=== PATIENT | female | born 1955 | race Caucasian/White ===

== ENCOUNTER 2021-08-06 16:45 | Inpatient (IN) ==
[2021-08-06] MEDS ORDERED: SODIUM CHLORIDE 0.9% 1000ML 1,000 ML IV SCH (17:15)
[2021-08-06] MEDS ORDERED: MULTI-VITAMIN INFUSION 10 ML, THIAMINE HCL 100 MG, FOLIC ACID 1 MG in SODIUM CHLORIDE 0... IV ONE (17:20)
[2021-08-06 17:52] LABS: Hematocrit (blood only) 32.5 % (37-47); Hemoglobin 11.2 g/dL (12.0-16.0); Mean Corpuscular Hemoglobin 33.4 pg (25-34); Mean Corpuscular Hgb Conc 34.5 g/dL (32-36); RDW Coefficient of Variation 12.6 % (11.5-14.5); RDW Standard Deviation 45.1 fL (36.4-46.3); Red Blood Count 3.35 M/uL (4.2-5.4); White Blood Count 5.73 K/uL (4.8-10.8)
[2021-08-06 17:53] LABS: Calcium 6.4 mg/dl (8.5-10.1); Creatinine Clr Calc Pharmacy 110.5 ml/min; Est GFR (African American) 141.8 ml/min; Est GFR (Non-African American) 122.4 ml/min; Potassium 3.2 mmol/L (3.5-5.1)
[2021-08-06 17:55] LABS: Albumin Globulin Ratio 0.7 (0.9-2); Albumin Level 2.9 gm/dl (3.4-5.0); Bilirubin,Total 1.2 mg/dl (0.2-1.0); Globulin 4.1 gm/dl (2.5-4.0); Magnesium 0.8 mg/dl (1.7-2.4)
[2021-08-06 17:56] LABS: INR 1.3 (0.9-1.1); Prothrombin Time 13.9 Seconds (9.0-12.0)
[2021-08-06 17:58] LABS: Troponin I High Sensitivity 6.5 pg/ml (0-14)
[2021-08-06 17:59] LABS: Mean Platelet Volume 9.8 fL (7.4-10.4); Platelet Count 83 K/uL (130-400)
[2021-08-06] MEDS: MAGNESIUM SULFATE / D5W 1 GM/100 ML BAG IV SCH ×2 (18:11→19:23)
[2021-08-06 18:13] LABS: Basophils # (auto) 0.01 K/uL (0-0.2); Basophils % (auto) 0.2 %; Eosinophils # (auto) 0.01 K/uL (0-0.5); Eosinophils % (auto) 0.2 %; Immature Granulocytes # (auto) 0.01 K/uL (0.00-0.02); Immature Granulocytes % (auto) 0.2 %; Lymphocytes # (auto) 3.47 K/uL (1.2-3.4); Lymphocytes % (auto) 60.6 %; Monocytes # (auto) 0.14 K/uL (0.11-0.59); Monocytes % (auto) 2.4 %; Neutrophils # (auto) 2.09 K/uL (1.4-6.5); Neutrophils % (auto) 36.4 %
--- NOTE | 2021-08-06 18:20 | CT Scan Report ---
CT head/brain wo con CLINICAL HISTORY: weakness Technique: Contiguous axial CT images of the head were acquired from the base of the skull to the rula remberto without intravenous contrast administration. Images were viewed in brain, subdural and bone [facility]. Automated dose lowering techniques and/or adjustment according to patient size were utilized for this exam. Comparison: None available at the time of this dictation. Findings: Areas of decreased attenuation are present in the periventricular and subcortical white matter bilate rally consistent with small vessel ischemic disease. Generalized cerebral atrophy with commensurate e nlargement of the ventricles, sulci, and cisterns is also present. There is no acute intracranial hem orrhage or evidence of acute territorial infarction. No shift of the midline structures, mass effect, or extra-axial abnormalities are shown. Atherosclerotic calcifications are present in the intracran ial segments of the internal carotid arteries. There is opacification of the right mastoid air cell. Right ethmoid sinuses are opacified. The orbits appear normal. There are no acute fractures of the calvaria or scalp swelling. Impression: No acute intracranial hemorrhage, no evidence of acute territorial infarction or other acute intracra nial disease process. Sinus disease is noted. ACT 112: Negative or not required by law. Electronically signed by: Tay Irwin M.D. 08/06/2021 6:19 PM
--- NOTE | 2021-08-06 18:44 | XRay Report ---
XR chest 1V portable CLINICAL HISTORY: weakness TECHNIQUE: Single frontal radiograph of the chest was obtained. Comparison: Comparison is made to chest and abdomen radiographs 10/04/2006 FINDINGS: No lines and tubes are seen. The cardiomediastinal silhouette is normal. The lungs are clear. No evid ence of pleural effusion or pneumothorax. IMPRESSION: No acute chest disease. ACT 112: Negative or not required by law. Electronically signed by: Tay Irwin M.D. 08/06/2021 6:43 PM
--- NOTE | 2021-08-06 18:46 | Emergency Department Note ---
History of Present Illness General Chief complaint: Weakness Stated complaint: WEAKNESS Time Seen by Provider: 08/06/21 17:04 Source: family and EMS Mode of arrival: EMS Limitations: altered mental status and intoxication History of Present Illness Provider complaint: Weakness, confusion, frequent falls, alcohol abuse This is a 66-year-old female brought in by EMS after family and boyfriend contacted 911 due to concern for her deteriorating condition. They state patient does use alcohol daily. The last several months she has become increasingly more weak, intermittently confused, and falls frequently. He st ates she does not eat or drink much else through the day. Boyfriend at bedside states she drinks half of 1/5 of whiskey as well as several beers each day. Patient does admit to daily alcohol use. She denies any prior history of alcohol withdrawal symptoms or hospitalization due to alcohol related issue. Patient has previously had pancreatitis due to her daughter. She states following that episode several years ago she did cut back on her alcohol use, however it has increased in recent months. They states she otherwise does not routinely follow with a doctor. She is not currently taking any medications. Patient denies any pain, vomiting, diarrhea, or trouble breathing. Patient does admit to weakness, fatigue, feeling off balance when she tries to walk, and frequent falls. Pt seen during a time of high acuity and national emergency pandemic while wearing PPE. Home Medications Medication Instructions Recorded Confirmed Type No Known Home Medications 08/06/21 08/06/21 History Allergies Allergy/AdvReac Type Severity Reaction Status Date / Time codeine Allergy Unknown Verified 07/16/12 07:20 ragweed pollen Allergy Unknown Verified 07/16/12 07:20 acetaminophen Allergy GI SYMPTOMS Verified 07/16/12 07:20 hydrocodone Allergy GI SYMPTOMS Verified 07/16/12 07:20 morphine Allergy GI SYMPTOMS Verified 07/16/12 07:20 Dust Allergy Unknown Uncoded 07/16/12 07:20 Past Med/Surg History Social History Smoking Status: Current every day smoker Tobacco Type: Cigarettes Cigarettes Per Day: 1/2 pk since feeling sick. Usually over 1 pack/day; Second Hand Exposure: Yes; Do You Dip or Chew Tobacco: No; Tobacco Cessation Education Requested by Patient: No Hx Alcohol Use: Yes Alcohol type: beer and hard liquor Hx Substance Use: No Preferred Language: Telugu Communication Ability: Effective Clubhouse Attendant Required: No Beliefs That Will Affect Care: None marital status: Single Current Living Situation: Significant Other Current Living Situation Comment: Lives in a house Other Information That Helps Us Care for You: No Feels Safe at Home: Yes Safety Concerns: Feels Safe At This Time Assistive Devices: None Review of Systems See HPI for pertinent positives & negatives. All systems reviewed & are unremarkable except as noted in HPI & below Physical Exam Vital Signs Vital Signs - 24 hr 08/06/21 16:50 08/06/21 17:11 Temperature 36.5 C Temperature Source Oral Pulse Rate 88 Pulse Rhythm Regular Respiratory Rate 20 Respiratory Effort / Characteristics Non-Labored Respiratory Depth Normal Respiratory Pattern Regular Blood Pressure 134/84 Blood Pressure Mean 100 Blood Pressure Position Semi-fowlers Pulse Oximetry 100 98 Oxygen Delivery Method Room Air Room Air Sepsis Recent Fever Within 48 Hours No Sepsis New/Unexplained Change in Mental Status Yes Sepsis Action Taken by Nursing No Action Required GENERAL: alert, cachectic, ill-appearing, no distress EYE EXAM: normal conjunctiva, PERRL and EOM's grossly intact OROPHARYNX: no exudate, no erythema, lips, buccal mucosa, and tongue normal and mucous membranes are dry NECK: supple, no nuchal rigidity, no adenopathy, non-tender LUNGS: Clear to auscultation. Normal chest wall mechanics, no w/r/r HEART: no murmurs, S1 normal and S2 normal CHEST WALL: No crepitus, no rib tenderness with palpation ABDOMEN: abdomen soft, non-tender, normo-active bowel sounds, no masses, no rebound or guarding. BACK: Back is symmetrical on inspection and there is no deformity, no midline tenderness, no CVA tenderness. SKIN: no rashes and no bruising UPPER EXTREMITIES: upper extremities are grossly normal. FROM, nml pulses b/l. Areas of ecchymosis in various stages of healing consistent with likely chronic recurring mild trauma. LOWER EXTREMITIES: No pitting edema. FROM, nml pulses b/l. There are areas of ecchymosis in various stages of healing consistent with likely chronic recurring mild trauma. NEURO EXAM: Normal sensorium, cranial nerves II-XII grossly intact, normal speech, no gross weakness of arms, no gross weakness of legs. Gross sensation intact. Course Administered Medications Docusate Sodium (Docusate Sodium 100 Mg Cap) 100 mg PO BID [facility] Stop: 09/06/21 15:09 Last Admin: 08/07/21 16:29 Dose: 100 mg Documented by: [id number] Ergocalciferol (Ergocalciferol 50,000 Units 1250 Mcg Cap) 50,000 units PO Q7D@0900 [facility] Stop: 09/06/21 09:44 Last Admin: 08/07/21 10:13 Dose: 50,000 units Documented by: [id number] Heparin Sodium (Porcine) (Heparin Sod 5,000 Unit/0.5 Ml Vial) 5,000 units SQ Q12 [facility] Stop: 09/06/21 00:06 Last Admin: 08/07/21 08:28 Dose: 5,000 units Documented by: [id number] Admin: 08/07/21 01:52 Dose: 5,000 units Documented by: [id number] Thiamine HCl 100 mg/ Syringe 10 mls @ 2 mls/min IV QAM [facility] Stop: 09/06/21 00:06 Last Admin: 08/07/21 08:29 Dose: 2 mls/min Documented by: [id number] Admin: 08/07/21 01:17 Dose: 2 mls/min Documented by: [id number] Folic Acid 1 mg/ Syringe 10 mls @ 5 mls/min IV QAM [facility] Stop: 09/06/21 00:06 Last Admin: 08/07/21 08:29 Dose: 5 mls/min Documented by: [id number] Admin: 08/07/21 01:14 Dose: 5 mls/min Documented by: [id number] Miscellaneous (Remove Nicoderm Patch) 1 ea N/A DAILY@0859 [facility] Stop: 09/06/21 08:58 Last Admin: 08/07/21 08:23 Dose: 1 ea Documented by: [id number] Multivitamins/Minerals (Calcium 600mg + Vit D 400 Iu Tab) 1 tab PO BID [facility] Stop: 09/06/21 08:59 Last Admin: 08/07/21 08:24 Dose: 1 tab Documented by: [id number] Nicotine (Nicotine 14 Mg/24 Hr Patch) 14 mg TD DAILY [facility] Stop: 09/06/21 00:06 Last Admin: 08/07/21 08:26 Dose: 14 mg Documented by: [id number] Admin: 08/07/21 01:53 Dose: 14 mg Documented by: [id number] Discontinued Medications Bisacodyl (Bisacodyl 10 Mg Supp) 10 mg ID NOW STA Stop: 08/07/21 06:54 Last Admin: 08/07/21 08:29 Dose: 10 mg Documented by: [id number] Gabapentin (Gabapentin 400 Mg Cap) 800 mg PO NOW ONE Stop: 08/07/21 00:08 Last Admin: 08/07/21 01:51 Dose: 800 mg Documented by: [id number] Gabapentin (Gabapentin 400 Mg Cap) 400 mg PO Q6H AGUS Stop: 08/07/21 12:01 Last Admin: 08/07/21 12:16 Dose: 400 mg Documented by: [id number] Admin: 08/07/21 05:51 Dose: 400 mg Documented by: [id number] Sodium Chloride (Nss 1000ml) 1,000 mls @ 125 mls/hr IV .Q8H AGUS Stop: 09/05/21 17:14 Last Infusion: 08/07/21 01:04 Dose: 0 mls/hr Documented by: [id number] Admin: 08/06/21 18:06 Dose: 125 mls/hr Documented by: [id number] Multivitamins 10 ml/ Thiamine HCl 100 mg/ Folic Acid 1 mg/Sodium Chloride 1,011.2 mls @ 200 mls/hr IV .Q5H4M ONE Stop: 08/06/21 22:23 Last Infusion: 08/07/21 01:03 Dose: 0 mls/hr Documented by: [id number] Admin: 08/06/21 18:02 Dose: 200 mls/hr Documented by: [id number] Magnesium Sulfate/Dextrose (Magnesium Sulfate / D5w) 1 gm in 100 mls @ 100 mls/hr IV Q1H AGUS Stop: 08/06/21 20:03 Last Infusion: 08/06/21 21:58 Dose: 0 mls/hr Documented by: [id number] Admin: 08/06/21 19:23 Dose: 100 mls/hr Documented by: [id number] Infusion: 08/06/21 19:22 Dose: 0 mls/hr Documented by: [id number] Admin: 08/06/21 18:11 Dose: 100 mls/hr Documented by: [id number] Potassium Chloride/Dextrose/Sod Cl (D5nss + 20meq Kcl) 20 meq in 1,000 mls @ 80 mls/hr IV .[id number] AGUS Stop: 08/07/21 12:36 Last Infusion: 08/07/21 12:37 Dose: 0 mls/hr Documented by: [id number] Admin: 08/07/21 00:56 Dose: 80 mls/hr Documented by: [id number] Magnesium Sulfate/Dextrose (Magnesium Sulfate / D5w) 1 gm in 100 mls @ 50 mls/hr IV ONE ONE Stop: 08/07/21 02:06 Last Infusion: 08/07/21 05:50 Dose: 0 mls/hr Documented by: [id number] Admin: 08/07/21 01:16 Dose: 50 mls/hr Documented by: [id number] Calcium Gluconate 1,000 mg/ (Dextrose) 60 mls @ 240 mls/hr IV NOW ONE Stop: 08/07/21 00:21 Last Infusion: 08/07/21 01:50 Dose: 0 mls/hr Documented by: [id number] Admin: 08/07/21 00:49 Dose: 240 mls/hr Documented by: [id number] Calcium Gluconate 1,000 mg/ (Dextrose) 60 mls @ 240 mls/hr IV ONE ONE Stop: 08/07/21 10:14 Last Infusion: 08/07/21 10:29 Dose: 0 mls/hr Documented by: [id number] Admin: 08/07/21 10:10 Dose: 240 mls/hr Documented by: [id number] Magnesium Sulfate/Dextrose (Magnesium Sulfate / D5w) 1 gm in 100 mls @ 50 mls/hr IV Q2H AGUS Stop: 08/07/21 13:44 Last Infusion: 08/07/21 14:19 Dose: 0 mls/hr Documented by: [id number] Admin: 08/07/21 12:16 Dose: 50 mls/hr Documented by: [id number] Infusion: 08/07/21 12:12 Dose: 50 mls/hr Documented by: [id number] Admin: 08/07/21 10:12 Dose: 50 mls/hr Documented by: [id number] Ioversol (Optiray 320 100ml) 94 ml IV ONCE ONE Stop: 08/06/21 21:19 Last Admin: 08/06/21 21:18 Dose: 94 ml Documented by: [id number] Loperamide HCl (Loperamide Hcl 2 Mg Cap) 2 mg PO NOW STA Stop: 08/07/21 00:08 Last Admin: 08/07/21 01:55 Dose: 2 mg Documented by: [id number] Potassium Chloride (Potassium Chloride 20 Meq/15 Ml Udc) 40 meq PO NOW STA Stop: 08/07/21 00:08 Last Admin: 08/07/21 01:52 Dose: 40 meq Documented by: [id number] Critical Care Time Critical Care Time: Yes Total Critical Care Time: 35 Critical care of 35 min performed to assess and manage high likelihood of life-threatening electrolyte abnormalities, involving labs and imaging performed with assessment to evaluate electrolyte abnormality and malnutrition from alcohol abuse diagnosis with frequent reassessment. This time includes bedside time, treatment discussions with patient/family/consultants, documentation time and excludes procedure time. Medical Decision Making Differential Diagnosis Differential Diagnosis includes but is not limited to dehydration, stroke, anemia, hypoglycemia, hyponatremia, hypernatremia, urinary tract infection, pneumonia, bronchitis, sepsis, gastroenteritis, additional abdominal pathology, metabolic abnormalities and infections. Medical Records Attestation: I reviewed the patient's medical records. Home Medications Current Medication List: was personally reviewed by me Laboratory Data Attestation: I reviewed the patient's lab results. Result diagrams: 08/07/21 08:06 08/07/21 08:06 Lab Results 08/06/21 08/06/21 08/06/21 Range/Units 17:20 17:20 17:20 WBC 5.73 (4.8-10.8) K/uL RBC 3.35 L (4.2-5.4) M/uL Hgb 11.2 L (12.0-16.0) g/dL Hct 32.5 L (37-47) % MCV 97.0 (80-100) fL MCH 33.4 (25-34) pg MCHC 34.5 (32-36) g/dL RDW Std Deviation 45.1 (36.4-46.3) fL RDW Coeff of Justine 12.6 (11.5-14.5) % Plt Count 83 L (130-400) K/uL MPV 9.8 (7.4-10.4) fL Immature Gran % (Auto) 0.2 % Neut % (Auto) 36.4 % Lymph % (Auto) 60.6 % [place] % (Auto) 2.4 % Eos % (Auto) 0.2 % Baso % (Auto) 0.2 % Neut # (Auto) 2.09 (1.4-6.5) K/uL Lymph # (Auto) 3.47 H (1.2-3.4) K/uL [place] # (Auto) 0.14 (0.11-0.59) K/uL Eos # (Auto) 0.01 (0-0.5) K/uL Baso # (Auto) 0.01 (0-0.2) K/uL Immature Gran # (Auto) 0.01 (0.00-0.02) K/uL PT (9.0-12.0) Seconds INR (0.9-1.1) Sodium 136 (136-145) mmol/L Potassium 3.2 L (3.5-5.1) mmol/L Chloride 91 L (98-107) mmol/L Carbon Dioxide 24 (21-32) mmol/L Anion Gap 21 H (3-11) BUN 9 (6-23) mg/dl Creatinine 0.29 L (0.6-1.2) mg/dl Est Cr Clr Drug Dosing 110.5 ml/min Est GFR ( Amer) 141.8 ml/min Est GFR (Non-Af Amer) 122.4 ml/min BUN/Creatinine Ratio 31.0 H (10-20) Glucose 96 (70-99(Fasting)) mg/dl Calcium 6.4 L (8.5-10.1) mg/dl Magnesium 0.8 L* (1.7-2.4) mg/dl Total Bilirubin 1.2 H (0.2-1.0) mg/dl AST 97 H (13-39) U/L ALT 26 (7-52) U/L Alkaline Phosphatase 247 H (34-104) U/L Ammonia (18-72) umol/L Troponin I High Sens 6.5 (0-14) pg/ml Total Protein 7.0 (6.0-8.3) gm/dl Albumin 2.9 L (3.4-5.0) gm/dl Globulin 4.1 H (2.5-4.0) gm/dl Albumin/Globulin Ratio 0.7 L (0.9-2) Lipase 11 (11-82) U/L TSH (0.300-4.500) uIu/ml Ethyl Alcohol mg/dL 319.8 H (<10.0) mg/dl 08/06/21 08/06/21 08/06/21 Range/Units 17:20 17:33 17:33 WBC (4.8-10.8) K/uL RBC (4.2-5.4) M/uL Hgb (12.0-16.0) g/dL Hct (37-47) % MCV (80-100) fL MCH (25-34) pg MCHC (32-36) g/dL RDW Std Deviation (36.4-46.3) fL RDW Coeff of Justine (11.5-14.5) % Plt Count (130-400) K/uL MPV (7.4-10.4) fL Immature Gran % (Auto) % Neut % (Auto) % Lymph % (Auto) % [place] % (Auto) % Eos % (Auto) % Baso % (Auto) % Neut # (Auto) (1.4-6.5) K/uL Lymph # (Auto) (1.2-3.4) K/uL [place] # (Auto) (0.11-0.59) K/uL Eos # (Auto) (0-0.5) K/uL Baso # (Auto) (0-0.2) K/uL Immature Gran # (Auto) (0.00-0.02) K/uL PT 13.9 H (9.0-12.0) Seconds INR 1.3 H (0.9-1.1) Sodium (136-145) mmol/L Potassium (3.5-5.1) mmol/L Chloride (98-107) mmol/L Carbon Dioxide (21-32) mmol/L Anion Gap (3-11) BUN (6-23) mg/dl Creatinine (0.6-1.2) mg/dl Est Cr Clr Drug Dosing ml/min Est GFR ( Amer) ml/min Est GFR (Non-Af Amer) ml/min BUN/Creatinine Ratio (10-20) Glucose (70-99(Fasting)) mg/dl Calcium (8.5-10.1) mg/dl Magnesium (1.7-2.4) mg/dl Total Bilirubin (0.2-1.0) mg/dl AST (13-39) U/L ALT (7-52) U/L Alkaline Phosphatase (34-104) U/L Ammonia 28.0 (18-72) umol/L Troponin I High Sens (0-14) pg/ml Total Protein (6.0-8.3) gm/dl Albumin (3.4-5.0) gm/dl Globulin (2.5-4.0) gm/dl Albumin/Globulin Ratio (0.9-2) Lipase (11-82) U/L TSH 3.535 (0.300-4.500) uIu/ml Ethyl Alcohol mg/dL (<10.0) mg/dl Imaging Data Radiologist's Impression: Head CT 08/06/21 17:13 CT head/brain wo con CLINICAL HISTORY: weakness Technique: Contiguous axial CT images of the head were acquired from the base of the skull to the vertex without intravenous contrast administration. Images were viewed in brain, subdural and bone windows. Automated dose lowering techniques and/or adjustment according to patient size were utilized for this exam. Comparison: None available at the time of this dictation. Findings: Areas of decreased attenuation are present in the periventricular and subcortical white matter bilaterally consistent with small vessel ischemic disease. Generalized cerebral atrophy with commensurate enlargement of the ventricles, sulci, and cisterns is also present. There is no acute intracranial hemorrhage or evidence of acute territorial infarction. No shift of the midline structures, mass effect, or extra-axial abnormalities are shown. Atherosclerotic calcifications are present in the intracranial segments of the internal carotid arteries. There is opacification of the right mastoid air cell. Right ethmoid sinuses are opacified. The orbits appear normal. There are no acute fractures of the ca lvaria or scalp swelling. Impression: No acute intracranial hemorrhage, no evidence of acute territorial infarction or other acute intracranial disease process. Sinus disease is noted. ACT 112: Negative or not required by law. Electronically signed by: Tay Irwin M.D. 08/06/2021 6:19 PM MDM Narrative An order was placed for continuous cardiac monitoring. The monitor shows a rate of _102_ with sinus tachycardia__ rhythm. This is an ill-appearing 66-year-old female who presents at family's insistence due to concern for worsening weakness, malnutrition, and recurrent falls. Patient does admit to a history of daily alcohol use. Labs drawn and sent, patient placed on telemetry, IV fluids started. IV banana bag also added at maintenance rate. Patient found to have significant electrolyte abnormalities. We did begin IV magnesium repletion while in the emergency room. Patient was found to be intoxicated. Imaging reassuring. I have a low suspicion for other occult traumatic injury. I did discuss all results with patient and family at bedside as well as plan for additional inpatient management and evaluation. Patient is at risk for severe alcohol withdrawal symptoms. No prior inpatient treatment. Impression & Plan Generalized weakness, Alcohol intoxication, Hypokalemia, Hypomagnesemia, Pro tein-calorie malnutrition, severe, Anemia, Dehydration, Alcohol abuse, Recurrent falls Discharge Plan Visit Data Chief Complaint: Weakness Stated Complaint: WEAKNESS ED Provider: Theresa Roman Discharge Problem: Generalized weakness, Alcohol intoxication, Hypokalemia, Hypomagnesemia, Protein-calorie malnutrition, severe, Anemia, Dehydration, Alcohol abuse, Recurrent falls Patient Disposition: Admitted As Inpatient Discharge Instructions Interventions: ED Discharge Assessment Last Done: 08/06/21 22:43 Discharge Problem: Alcohol intoxication Qualifiers: Complication of substance-induced condition: uncomplicated Qualified Code(s): F10.920 - Alcohol use, unspecified with intoxication, uncomplicated Anemia Qualifiers: Anemia type: other cause Other causes of anemia: other cause, not classified Qualified Code(s): D64.89 - Other specified anemias
[2021-08-06] MEDS ORDERED: OPTIRAY 320 100ml IV ONE (21:18)
--- NOTE | 2021-08-06 21:35 | CT Scan Report ---
CT chest diagnostic w con CLINICAL HISTORY: poor appetite, loss of weight, failure to thrive TECHNIQUE: Multidetector row helical CT of the chest was performed with intravenous contrast. Coronal and sagittal reformations were obtained. Automated dose lowering techniques and/or adjustment accord ing to patient size were utilized for this exam. Comparison: None available at the time of this dictation. FINDINGS: Lungs and pleura: There is a 6 mm nodule in the right lower lobe. Heart and pericardium: Heart size is normal. No pericardial effusion. Vessels: Moderate atherosclerotic changes in the aorta and coronary arteries. Mediastinum and zbigniew: Unremarkable. Chest wall and lower neck: The patient is cachectic. Abdomen: For findings below the diaphragm, please refer to CT of the abdomen dated the same. Bones: Degenerative changes in the thoracic spine. IMPRESSION: 1. Cachexia. No acute abnormality is seen. 2. Atherosclerosis. 3. 6 mm nodule in the right lower lobe, correlation with prior imaging, available, is recommended. ACT 112: Negative or not required by law. Electronically signed by: Tay Irwin M.D. 08/06/2021 9:33 PM
--- NOTE | 2021-08-06 22:00 | CT Scan Report ---
CT abd pelvis IV con only CLINICAL HISTORY: poor appetite, loss of weight, hep c TECHNIQUE: Helical axial images of the abdomen and pelvis were obtained and displayed. Automated dose lowering techniques and/or adjustment according to patient size were utilized for this exam. This e xam was performed with intravenous contrast. CT DOSE: 421.85 mGy.cm COMPARISON: Comparison is made to CT abdomen pelvis 10/10/2006 FINDINGS: Lower chest: Mitral annular calcifications are seen. Liver: Hepatic steatosis is noted. Gallbladder and biliary tree: No calcified gallstones. Normal caliber wall. No intra- or extrahepatic biliary ductal dilation. Pancreas: Calcified appears of the pancreas compatible with chronic pancreatitis. There is a 2 cm vincent creatic cyst. Spleen: Unremarkable. Adrenals: Unremarkable. Kidneys and ureters: Unremarkable. Bladder: The bladder is markedly distended. Reproductive organs: Unremarkable. Bowel: A large stool ball is seen in the rectum. Lymph nodes Retroperitoneal: Unremarkable. Mesenteric: Unremarkable. Pelvic: Unremarkable. Peritoneum: Normal. Vessels: Unremarkable. Abdominal wall: Cachexia is seen. Bones: Degenerative changes in the visualized spine. IMPRESSION: 1. The patient is cachectic. The bladder is massively distended and there is a large stool ball in t he rectum. No acute abnormality is seen. 2. Pancreatic calcifications are compatible with chronic pancreatitis. ACT 112: Negative or not required by law. Electronically signed by: Tay Irwin M.D. 08/06/2021 9:58 PM
--- NOTE | 2021-08-06 23:21 | History and Physical Report ---
DATE OF ADMISSION: 08/06/2021. CHIEF COMPLAINT: Weakness, poor appetite, alcoholism. HISTORY OF PRESENT ILLNESS: A 66-year-old female with past medical history significant for impaired glucose tolerance, chronic hepatitis C, history of acute alcoholic hepatitis, carpal tunnel syndrome, cervical spondylosis, lumbosacral spondylosis, cervical radiculopathy, family history of colon cancer, history of tobacco use disorder, who lives at home with her boyfriend, was brought in by boyfriend and daughter because of frequent falls, very weak, ongoing diarrhea for the last 2-3 months, taking Imodium daily, loss of weight, feeling weak. The patient is alert and oriented to name and place. She could tell the year, but she thinks it is still May. Denies any headache. She sometimes feels lightheaded. Hs some runny nose, no sore throat, no cough, no fevers. Appetite is poor. No difficulty swallowing. No chest pain, no shortness of breath. No nausea, no vomiting, no abdominal pain, chronic diarrhea. Denies any blood in stool or black stools. Has bruises in the legs from falling frequently at home.As per the family doctor notes , she was found to have hepatitis B surface antibody positive, but the surface antigen was negative - no chronic infection.. Since she was drinking alcohol, hepatitis C treatment was not given as per the PCP notes. ALLERGIES: TO CODEINE, RAGWEED, ACETAMINOPHEN, HYDROCODONE, AND MORPHINE. PAST MEDICAL HISTORY: As mentioned above. PAST SURGICAL HISTORY: Carpal tunnel surgery, colonoscopy, colposcopy of cervix with biopsy, ligation of oviducts, tonsillectomy, cataract surgery, left tendon sheath incision of the finger. MEDICATIONS: The patient is currently not taking any medications, except Imodium as needed. FAMILY HISTORY: Significant for sister, colon cancer at age of 49; brother has heart surgery, sister has bipolar. SOCIAL HISTORY: Currently lives with a boyfriend. Smokes half pack a day for the last 43 years. Alcohol, drinks 3 beers every day and also drinks half pint of vodka. No drug use. REVIEW OF SYSTEMS: As per HPI. Rest of the review of systems is negative. PHYSICAL EXAMINATION: GENERAL: The patient is thin and frail, not in acute distress. VITAL SIGNS: Temperature 36.5, pulse 90, respiratory rate 14, blood pressure 135/86, oxygen 98% on room air. HEENT: Pupils equal, round and reactive to light. Oral mucosa moist. NECK: No JVD, no neck masses. CARDIOVASCULAR: S1 and S2 heard. Regular rate and rhythm. No murmur, no gallop. RESPIRATORY: Normal AP diameter. No accessory muscle use. No wheezing, no crackles. ABDOMEN: Soft. Bowel sounds present, nontender, no distention. CENTRAL NERVOUS SYSTEM: Alert and oriented. No facial droop. Speech is clear. Obeys simple commands. Moves extremities. EXTREMITIES: Bruises seen lower extremities, nails have grown long. No edema seen. LABORATORY: WBC 5.7, hemoglobin 11.2, hematocrit 32.5, platelets 83. PT 13.9, INR 1.3. Sodium 136, potassium 3.2, chloride 91, CO2 24, BUN 9, creatinine 0.2, serum glucose 96, calcium 6.4, magnesium 0.8, total bilirubin 1.2, AST 97, ALT 26, alkaline phosphatase 247. Ammonia 28. Troponin I high-sensitivity 6.5, albumin 2.9. Lipase 11. Ethyl alcohol 319. SARS-CoV-2 rapid test pending. IMAGING: CT of the head, no acute findings. Chest x-ray, no active disease in the chest. EKG: Normal sinus rhythm, 90, nonspecific ST abnormalities. ASSESSMENT AND PLAN: This is a 66-year-old female who presents with chronic alcoholism and hepatitis C, who presents with weakness, poor appetite, weight loss and chronic diarrhea. 1. Alcoholism. drinking 3 beers a day and also a half pint of vodka every day. Received banana bag in the ER. Will place her on gabapentin as per alcohol withdrawal protocol with IV Ativan p.r.n., IV thiamine, IV folic acid, and multivitamins. Closely monitor in the tele floor for withdrawal. 2. Electrolyte abnormalities. Potassium of 3.2 and magnesium of 0.8, replace. We will follow the repeat labs. 3. Weight loss, poor appetite, failure to thrive, protein calorie malnutrition. To consult Dietitian when stable. We will also get CT abdomen and pelvis and CT of the chest to rule out any occult disease. 4. Chronic diarrhea. We will follow stool cultures and GI consult in a.m. 5. History of hepatitis C, not treated. Follow the CT abdomen and pelvis report. Not treated because of alcoholism. 6. Thrombocytopenia. Platelets of 83, most likely secondary to alcoholism. Follow the CT abdomen and pelvis for any liver cirrhosis. Monitor the labs. 7. Long nails. May need podiatry consult when stable. 8. Deep venous thrombosis prophylaxis. Heparin subcutaneously b.i.d. Monitor, if the platelet count drops or any bleeding, we will stop the heparin subcutaneously. DISPOSITION: Closely monitor in the med tele. PT/OT prior to discharge. Social Service to help with discharge planning. Level 1 full code. Job ID: [id number] MTDD
[2021-08-07] MEDS ORDERED: CALCIUM GLUCONATE 10% 1,000 MG in DEXTROSE 5% 50 ML IV ONE ×2 (00:07→10:00)
[2021-08-07] MEDS ORDERED: STAT IV STA ×2 (00:07→09:40)
[2021-08-07] MEDS ORDERED: ONDANSETRON INJ 2 MG/ML 2 ML VIAL IV PRN (00:07)
[2021-08-07] MEDS ORDERED: GABAPENTIN 800MG ALCOHOL WITHDRAWAL LOAD PO STA (00:07)
[2021-08-07] MEDS ORDERED: LOPERAMIDE HCL 2 MG CAP PO PRN (00:07)
[2021-08-07] MEDS ORDERED: MAGNESIUM SULFATE / D5W 1 GM/100 ML BAG IV ONE (00:07)
[2021-08-07] MEDS ORDERED: D5NSS + 20MEQ KCL 20 MEQ/1,000 ML BAG IV SCH (00:07)
[2021-08-07] MEDS ORDERED: LORazepam 2 MG/1 ML VIAL IV PRN ×3 (00:07)
[2021-08-07] MEDS ORDERED: LOPERAMIDE HCL 2 MG CAP PO STA (00:07)
[2021-08-07] MEDS ORDERED: POTASSIUM CHLORIDE 20 MEQ/15 ML UDC PO STA (00:07)
[2021-08-07] MEDS ORDERED: Ativan IV Alcohol Withdrawal--Active Protocol IV PRN (00:07)
[2021-08-07] MEDS ORDERED: GABAPENTIN 400 MG CAP PO ONE (00:07)
[2021-08-07] MEDS: FOLIC ACID 1 MG in SYRINGE 9.8 ML IV SCH ×2 (01:14→08:29)
[2021-08-07] MEDS: THIAMINE HCL 100 MG in SYRINGE 9 ML IV SCH ×2 (01:17→08:29)
[2021-08-07] MEDS: HEPARIN SOD 5,000 UNIT/0.5 ML VIAL SQ SCH ×3 (01:52→20:22)
[2021-08-07] MEDS: NICOTINE 14 MG/24 HR PATCH TD SCH ×2 (01:53→08:26)
[2021-08-07] MEDS: GABAPENTIN 400 MG CAP PO SCH ×3 (05:51→21:42)
[2021-08-07] MEDS ORDERED: bisacodyL 10 MG SUPP PR STA (06:53)
[2021-08-07] MEDS: CALCIUM 600MG + VIT D 400 IU TAB PO SCH ×2 (08:24→20:23)
--- NOTE | 2021-08-07 08:28 | Gastrointestinal Consultation ---
Date of Consultation August 07, 2021 Assessment & Plan (1) Alcohol intoxication: 66 yop female with severe protein calorie malnutrition, chronic ETOH abuse and weakness and frequent falls admitted with acute ETOH intox and overall decline. Noted to have complaints of several months of diarrhea. Would proceed with stool testing (C diff, culture,giardia, etc). If negative, chronic ETOH can certainly cause chronic diarrhea. If she has indeed not had a colonoscopy, can arrange an outpatient colonoscopy. Management of withdrawal per primary service. (2) Chronic diarrhea: (3) Hypokalemia: (4) Hypomagnesemia: (5) Hepatitis C: (6) Protein-calorie malnutrition, severe: History of Present Illness Reason for Consultation: diarrhea Attending Physician: Tk Ybarra MD History of Present Illness 66 yo female with chronic ETOH abuse (daily vodka and beer), HCV (not treated), and severe protein calorie malnutrition, chronic back/joint pain who was brought in by family for weakness, several falls and several months of reported diarrhea. Her ETOH level on admission was 320. AST 97, normal ALT, AP250 and TB 1.2. k 3.2 and mg of 0.8. Platelets 83,000, INR 1.3. CT shows evidence of chronic pancreatitis. She was given banana bag and is on ETOH withdrawal protocol. Reports several months of loose stools. no blood. Has not had work up. Has not had a colonoscopy. Stool studies were ordered on admission but have not been collected. Resting comfortably at present. Allergies Allergy/AdvReac Type Severity Reaction Status Date / Time codeine Allergy Unknown Verified 07/16/12 07:20 ragweed pollen Allergy Unknown Verified 07/16/12 07:20 acetaminophen Allergy GI SYMPTOMS Verified 07/16/12 07:20 hydrocodone Allergy GI SYMPTOMS Verified 07/16/12 07:20 morphine Allergy GI SYMPTOMS Verified 07/16/12 07:20 Dust Allergy Unknown Uncoded 07/16/12 07:20 Home Medications Medication Instructions Recorded Confirmed Type No Known Home Medications 08/06/21 08/06/21 History Patient History Social History Smoking Status: Current every day smoker Tobacco Type: Cigarettes Cigarettes Per Day: 1/2 pk since feeling sick. Usually over 1 pack/day; Second Hand Exposure: Yes; Do You Dip or Chew Tobacco: No; Tobacco Cessation Education Requested by Patient: No Hx Alcohol Use: Yes Alcohol type: beer and hard liquor Hx Substance Use: No Preferred Language: Croatian Communication Ability: Effective Supervisor Cold Rolling Required: No Beliefs That Will Affect Care: None Current Living Situation: Significant Other Current Living Situation Comment: Lives in a house Other Information That Helps Us Care for You: No Feels Safe at Home: Yes Safety Concerns: Feels Safe At This Time Assistive Devices: None Review of Systems Review of Systems: All systems reviewed & are unremarkable except as noted in HPI & below Physical Exam Constitutional: + ill appearing, + cachectic and + malnourished Respiratory: normal respiratory effort, lungs clear to auscultation Cardiovascular: Rate/Rhythm: + tachycardic Gastrointestinal (Abdomen): normal bowel sounds, soft, nontender, no hepatosplenomegaly Results & Data ([facility]) Vital Signs (Past 12 Hours) Vital Signs Temp Pulse Pulse Pulse Resp BP Pulse Ox 08/07/21 07:33 103 H 08/07/21 02:39 36.8 C 95 H 18 157/89 H 97 08/07/21 00:07 36.6 C 76 18 149/79 H 99 08/06/21 23:21 90 Pulse Ox 08/07/21 07:33 08/07/21 02:39 08/07/21 00:07 99 08/06/21 23:21
[2021-08-07 08:44] LABS: Hematocrit (blood only) 30.6 % (37-47); Hemoglobin 10.4 g/dL (12.0-16.0); Mean Corpuscular Hemoglobin 32.6 pg (25-34); Mean Corpuscular Volume 95.9 fL (80-100); RDW Coefficient of Variation 12.6 % (11.5-14.5); Red Blood Count 3.19 M/uL (4.2-5.4); White Blood Count 4.64 K/uL (4.8-10.8)
[2021-08-07 09:03] LABS: Alanine Aminotransferase 21 U/L (7-52); Albumin Level 2.7 gm/dl (3.4-5.0); Alkaline Phosphatase 226 U/L (34-104); Anion Gap 19 (3-11); Aspartate Aminotransferase 73 U/L (13-39); BUN Creatinine Ratio 20.8 (10-20); Bilirubin Direct 0.7 mg/dl (0-0.2); Bilirubin,Total 1.5 mg/dl (0.2-1.0); Blood Urea Nitrogen 5 mg/dl (6-23); Calcium 6.5 mg/dl (8.5-10.1); Carbon Dioxide 24 mmol/L (21-32); Chloride 94 mmol/L (98-107); Creatinine Clr Calc Pharmacy 133.5 ml/min; Est GFR (African American) > 150.0 ml/min; Est GFR (Non-African American) 130.2 ml/min; Glucose 155 mg/dl (70-99(Fasting)); Magnesium 1.1 mg/dl (1.7-2.4); Phosphorus 3.5 mg/dl (2.5-4.9); Potassium 3.6 mmol/L (3.5-5.1); Sodium 137 mmol/L (136-145); Total Protein 6.5 gm/dl (6.0-8.3)
[2021-08-07 09:13] LABS: Mean Platelet Volume 9.8 fL (7.4-10.4); Platelet Count 75 K/uL (130-400)
[2021-08-07 09:17] LABS: Iron 111 mcg/dl (35-150); Unsaturated Iron Binding Cap < 55 mcg/dl (155-355)
[2021-08-07 09:21] LABS: Folate (Folic Acid) > 22.30 ng/ml (>5.38)
[2021-08-07 09:22] LABS: Vitamin B12 747 pg/ml (180-914)
[2021-08-07 09:29] LABS: Vitamin D, 25 Hydrox < 7.0 ng/ml (30-100)
[2021-08-07] MEDS: MAGNESIUM SULFATE / D5W 1 GM/100 ML BAG IV SCH ×2 (10:12→12:16)
[2021-08-07 10:13] LABS: Eosinophils # (auto) 0.01 K/uL (0-0.5); Eosinophils % (auto) 0.2 %; Immature Granulocytes # (auto) 0.01 K/uL (0.00-0.02); Immature Granulocytes % (auto) 0.2 %; Lymphocytes # (auto) 2.32 K/uL (1.2-3.4); Monocytes # (auto) 0.13 K/uL (0.11-0.59); Monocytes % (auto) 2.8 %; Neutrophils # (auto) 2.17 K/uL (1.4-6.5); Neutrophils % (auto) 46.8 %
[2021-08-07] MEDS: ERGOCALCIFEROL 50,000 UNITS 1250 MCG CAP PO SCH (10:13)
--- NOTE | 2021-08-07 12:25 | Electrocardiogram Report ---
Test Reason : Blood Pressure : / mmHG Vent. Rate : 090 BPM Atrial Rate : 090 BPM P-R Int : 122 ms QRS Dur : 088 ms QT Int : 400 ms P-R-T Axes : 075 074 074 degrees QTc Int : 489 ms Normal sinus rhythm Possible Left atrial enlargement Nonspecific ST and T wave abnormality Prolonged QT Abnormal ECG When compared with ECG of 05-OCT-2006 08:15, Nonspecific T wave abnormality now evident in Lateral leads QT has lengthened Confirmed by Narciso Lopez ([id number]) on 08/07/2021 12:25:35 PM Referred By: REFERRED SELF Confirmed By:Robert Lopez
--- NOTE | 2021-08-07 14:32 | Ultrasound Report ---
US abdomen ltd ascites CLINICAL HISTORY: Pancreatitis. Evaluate for ascites. TECHNIQUE: Real-time grayscale sonographic images of the 4 quadrants were obtained. Comparison: None available at the time of this dictation. FINDINGS: There is no evidence for ascites in the 4 quadrants. There is evidence for bilateral hydron ephrosis. The kidneys and distended urinary bladder. IMPRESSION: 1. No evidence for ascites. 2. Bilateral hydronephrosis and dilatation of the urinary bladder. ACT 112: Negative or not required by law. Electronically signed by: Gama Hudson M.D. 08/07/2021 2:30 PM
--- NOTE | 2021-08-07 15:11 | Hospitalist Progress Note ---
Date of Service August 07, 2021 Assessment & Plan (1) Protein-calorie malnutrition, severe: Plan: Patient is a 66 yr female with H/O Chronic alcoholism and hepatitis C, who presents with weakness, poor appetite, weight loss and chronic diarrhea. Alcohol use Disorder Patient drinks 3 beers and half pint of vodka every day Started on gabapentin protocol Continue thiamine, folic acid, Ativan as needed Monitor for withdrawal Counseled to quit drinking Severe protein calorie malnutrition BMI 12 Weight loss, poor appetite and failure to thrive Dietitian consulted Electrolyte abnormalities Hypokalemia Hypomagnesemia Hypocalcemia Replace electrolytes as needed Monitor Chronic diarrhea: Likely overflow secondary to constipation and alcohol use --CT ABD:The patient is cachectic. The bladder is massively distended and there is a large stool ball in the rectum. No acute abnormality is seen. Pancreatic calcifications are compatible with chronic pancreatitis. Stool studies to rule out infection Hydration as needed Appreciate GI input May need colonoscopy as outpatient Start bowel regimen Anemia of chronic disease Normal vitamin B12, folate levels, Iron Panel Check FOBT No obvious source of bleeding Monitor CBC Obstructive uropathy ABD USD:Bilateral hydronephrosis and dilatation of the urinary bladder Likely secondary to large stool bolus Continue bowel regimen Bladder scan as needed May need to place Tavera catheter as needed Consider urology evaluation if needed H/O Hepatitis C Untreated Follow-up as outpatient Thrombocytopenia likely secondary to alcoholism Monitor platelets DVT Px: Heparin SQ Monitor Platelets Code Status Full Code DISPOSITION: PT/OT prior to discharge. Admission and Anticipated Discharge Date Admission Date: August 06, 2021 Subjective Patient is seen and examined at bedside Poor historian States dizziness improved Reports generalized pain with ambulation and has generalized weakness Also had chronic back pain Denies any chest pain, dyspnea, nausea, abdominal pain Review of Systems Review of Systems: All systems reviewed & are unremarkable except as noted in Subjective Physical Exam Physical Exam: Physical Exam: Vitals signs as noted above General Appearance: Thin, frail, chronically appearing, no apparent distress Head: normocephalic, Atraumatic Eyes: normal inspection, EOMI Neck: supple, Trachea midline Respiratory/Chest: Normal breath sounds, CTA, No accessory muscle use Cardiovascular: S1, S2, No murmur Abdomen/GI:Soft, Non tender, distended, bowel sounds present Extremities/Musculoskeletal:normal inspection, no edema Neurologic/Psych:AAOX3, grossly no focal neurological deficits Skin: normal color, warm, + B/L LE excoriations Results & Data Results & Data ([facility]) Vital Signs (Past 12 Hours) Vital Signs Temp Pulse Pulse Resp BP Pulse Ox 08/07/21 14:41 38.0 C H 102 H 20 111/72 98 08/07/21 11:11 37.3 C 100 H 20 136/79 99 08/07/21 07:33 103 H Laboratory Results Short CBC 08/06/21 08/07/21 Range/Units 17:20 08:06 WBC 5.73 4.64 L (4.8-10.8) K/uL Hgb 11.2 L 10.4 L (12.0-16.0) g/dL Hct 32.5 L 30.6 L (37-47) % Plt Count 83 L 75 L (130-400) K/uL BMP 08/06/21 08/07/21 17:20 08:06 Sodium 136 137 Potassium 3.2 L 3.6 Chloride 91 L 94 L Carbon Dioxide 24 24 BUN 9 5 L Creatinine 0.29 L 0.24 L Glucose 96 155 H Calcium 6.4 L 6.5 L Liver Function 08/06/21 08/07/21 Range/Units 17:20 08:06 Total Bilirubin 1.2 H 1.5 H (0.2-1.0) mg/dl Direct Bilirubin 0.7 H (0-0.2) mg/dl AST 97 H 73 H (13-39) U/L ALT 26 21 (7-52) U/L Alkaline Phosphatase 247 H 226 H (34-104) U/L Albumin 2.9 L 2.7 L (3.4-5.0) gm/dl Urine 08/06/21 Range/Units 22:40 Urine Color Cancelled Urine Appearance Cancelled Urine pH Cancelled Ur Specific [place] Cancelled Urine Protein Cancelled Urine Glucose (UA) Cancelled
[2021-08-07] MEDS: DOCUSATE SODIUM 100 MG CAP PO SCH ×2 (16:29→20:23)
[2021-08-08 01:46] LABS: Appearance Urine Clear (Clear); Bacteria Urine Automated Negative (Negative); Bilirubin Urine Negative (Negative); Blood Urine Trace (Negative); Cast Urine Automated 0 /lpf (0-5); Color Urine Dark Yellow; Epithelial Cell Urine Auto 0-5 /lpf (0-5); Glucose Urine UA 1+ (Negative); Ketones Urine 1+ (Negative); Leukocyte Esterase Urine Negative (Negative); Nitrite Urine Negative (Negative); Protein Urine 1+ (Negative); RBC Urine Automated 0-4 /hpf (0-4); Specific Gravity Urine 1.013 (1.000-1.030); Urobilinogen Urine Negative (Negative); WBC Urine Automated 0 /hpf (0-5); pH Urine 6.5 (4.5-7.5)
[2021-08-08] MEDS: GABAPENTIN 400 MG CAP PO SCH ×2 (06:03→13:23)
[2021-08-08 07:44] LABS: Hematocrit (blood only) 25.8 % (37-47); Hemoglobin 8.9 g/dL (12.0-16.0); Mean Corpuscular Hemoglobin 33.5 pg (25-34); Mean Corpuscular Hgb Conc 34.5 g/dL (32-36); RDW Coefficient of Variation 12.3 % (11.5-14.5); RDW Standard Deviation 44.1 fL (36.4-46.3); Red Blood Count 2.66 M/uL (4.2-5.4); White Blood Count 3.92 K/uL (4.8-10.8)
[2021-08-08 07:54] LABS: Platelet Count 43 K/uL (130-400)
[2021-08-08 08:15] LABS: BUN Creatinine Ratio 17.9 (10-20); Calcium 7.1 mg/dl (8.5-10.1); Creatinine Clr Calc Pharmacy 230.2 ml/min; Est GFR (African American) 143.5 ml/min; Est GFR (Non-African American) 123.8 ml/min; Potassium 2.7 mmol/L (3.5-5.1)
[2021-08-08 08:37] LABS: Magnesium 0.8 mg/dl (1.7-2.4)
[2021-08-08] MEDS ORDERED: STAT IV STA (08:43)
[2021-08-08] MEDS ORDERED: POTASSIUM CHLORIDE CRTAB 20 MEQ TABCR PO ONE ×2 (08:43→16:00)
[2021-08-08] MEDS: FOLIC ACID 1 MG in SYRINGE 9.8 ML IV SCH (09:08)
[2021-08-08] MEDS: THIAMINE HCL 100 MG in SYRINGE 9 ML IV SCH (09:08)
[2021-08-08] MEDS ORDERED: CALCIUM GLUCONATE 10% 1,000 MG in DEXTROSE 5% 50 ML IV ONE (09:15)
[2021-08-08] MEDS: DOCUSATE SODIUM 100 MG CAP PO SCH ×2 (09:20→20:46)
[2021-08-08] MEDS: NICOTINE 14 MG/24 HR PATCH TD SCH (09:21)
[2021-08-08] MEDS: CALCIUM 600MG + VIT D 400 IU TAB PO SCH ×2 (09:21→20:47)
[2021-08-08] MEDS: MAGNESIUM SULFATE / D5W 1 GM/100 ML BAG IV SCH ×3 (09:29→13:23)
[2021-08-08] MEDS: POTASSIUM CHLORIDE / WTR 10 MEQ/100 ML PLCT IV SCH ×2 (09:32→10:30)
--- NOTE | 2021-08-08 09:49 | Gastroenterology Progress Note ---
Date of Service August 08, 2021 Assessment & Plan (1) Chronic diarrhea: Plan: Chronic ETOH abuse admitted with weakness and falls and ETOH intoxication. Complaining of chronic diarrhea. Please send the stool studies. PLease obtain prior H/H results from outpatient as not in the [facility] system. Can arrange an outpatient colonoscopy once patient discharged. Please call with questions. (2) Hepatitis C: (3) Protein-calorie malnutrition, severe: (4) Alcohol intoxication: (5) Hypomagnesemia: (6) Hypokalemia: (7) Alcohol abuse: (8) Anemia: Admission and Anticipated Discharge Date Admission Date: August 06, 2021 Subjective report of blood in stool. Labs reviewed. Drop in hgb though baseline not known. She has never been seen in the [facility] system. Reports of diarrhea though stool testing still not sent. Review of Systems Review of Systems: All systems reviewed & are unremarkable except as noted in HPI & below Physical Exam Physical Exam: Physical Exam: Vitals signs as noted above General Appearance: Thin, frail, chronically appearing, no apparent distress Head: normocephalic, Atraumatic Eyes: normal inspection, EOMI Neck: supple, Trachea midline Respiratory/Chest: Normal breath sounds, CTA, No accessory muscle use Cardiovascular: S1, S2, No murmur Abdomen/GI:Soft, Non tender, distended, bowel sounds present Extremities/Musculoskeletal:normal inspection, no edema Neurologic/Psych:AAOX3, grossly no focal neurological deficits Skin: normal color, warm, + B/L LE excoriations Results & Data ([facility]) Vital Signs (Past 12 Hours) Vital Signs Temp Pulse Pulse Resp BP Pulse Ox 08/08/21 07:23 36.7 C 96 H 18 118/74 97 08/08/21 03:10 37.0 C 90 18 134/81 98 08/07/21 23:32 94 H 08/07/21 22:42 37.1 C 86 18 136/78 98 (1) Alcohol intoxication Complication of substance-induced condition: uncomplicated Qualified Code(s): F10.920 - Alcohol use, unspecified with intoxication, uncomplicated (2) Anemia Anemia type: other cause Other causes of anemia: other cause, not classified Qualified Code(s): D64.89 - Other specified anemias
[2021-08-08] MEDS ORDERED: SODIUM CHLORIDE 0.9% 250 ML IV PRN (12:37)
[2021-08-08 12:59] LABS: Adenovirus F 40/41 PCR Not Detected (NotDetected); Astrovirus PCR Not Detected (NotDetected); Campylobacter PCR Not Detected (NotDetected); Clostridium diff Toxin A/B PCR Not Detected (NotDetected); Cryptosporidium PCR Not Detected (NotDetected); Cyclospora cayetanensis PCR Not Detected (NotDetected); Entamoeba histolytica PCR Not Detected (NotDetected); Enteroaggregative E.coli(EAEC) Not Detected (NotDetected); Enterotoxigenic E.coli (ETEC) Not Detected (NotDetected); Giardia lamblia PCR Not Detected (NotDetected); Norovirus GI/GII PCR Not Detected (NotDetected); Plesiomonas shigelloides PCR Not Detected (NotDetected); Rotavirus A PCR Not Detected (NotDetected); Salmonella PCR Not Detected (NotDetected); Sapovirus PCR Not Detected (NotDetected); Shiga-like Toxin E.coli (STEC) Not Detected (NotDetected); Shigella/Enteroinvasive E.coli Not Detected (NotDetected); Vibrio cholerae PCR Not Detected (NotDetected); Vibrio species PCR Not Detected (NotDetected); Yersinia enterocolitica PCR Not Detected (NotDetected)
[2021-08-08 13:08] LABS: Enteropathogenic E.coli (EPEC) DETECTED (NotDetected)
--- NOTE | 2021-08-08 17:27 | Hospitalist Progress Note ---
Date of Service August 08, 2021 Assessment & Plan (1) Protein-calorie malnutrition, severe: Plan: Patient is a 66 yr female with H/O Chronic alcoholism and hepatitis C, who presents with weakness, poor appetite, weight loss and chronic diarrhea. Alcohol use Disorder Patient drinks 3 beers and half pint of vodka every day Started on gabapentin protocol Continue thiamine, folic acid, Ativan as needed Monitor for withdrawal Counseled to quit drinking Thrombocytopenia Likely secondary to alcohol use S/P 1 unit platelets Monitor Severe protein calorie malnutrition BMI 12 Weight loss, poor appetite and failure to thrive Dietitian consulted Rectal Bleeding ? Hemorrhoids Monitor CBC and transfuse as needed Epogen per Colonoscopy as outpatient as per GI Electrolyte abnormalities Hypokalemia Hypomagnesemia Hypocalcemia Replace electrolytes as needed Monitor Chronic diarrhea: Likely overflow secondary to constipation, alcohol use and Infectious origin --CT ABD:The patient is cachectic. The bladder is massively distended and there is a large stool ball in the rectum. No acute abnormality is seen. Pancreatic calcifications are compatible with chronic pancreatitis. Stool studies showed enteropathogenic E. coli IV fluids as needed Appreciate GI input May need colonoscopy as outpatient Continue bowel regimen Started on Cefdinir Anemia of chronic disease Normal vitamin B12, folate levels, Iron Panel + Rectal bleeding as above Monitor CBC Obstructive uropathy Urinary Retention ABD USD:Bilateral hydronephrosis and dilatation of the urinary bladder Likely secondary to large stool bolus Continue bowel regimen Bladder scan as needed Placed on Tavera catheter Consider urology evaluation if needed H/O Hepatitis C Untreated Follow-up as outpatient Thrombocytopenia likely secondary to alcoholism Monitor platelets DVT Px: Heparin SQ--DCed SCDs for now Code Status Full Code DISPOSITION: PT/OT prior to discharge. Admission and Anticipated Discharge Date Admission Date: August 06, 2021 Subjective Patient is seen and examined at bedside Poor historian States dizziness improved Reports generalized pain with ambulation and has generalized weakness Also had chronic back pain Denies any chest pain, dyspnea, nausea, abdominal pain Review of Systems Review of Systems: All systems reviewed & are unremarkable except as noted in Subjective Physical Exam Physical Exam: Physical Exam: Vitals signs as noted above General Appearance: Thin, frail, chronically appearing, no apparent distress Head: normocephalic, Atraumatic Eyes: normal inspection, EOMI Neck: supple, Trachea midline Respiratory/Chest: Normal breath sounds, CTA, No accessory muscle use Cardiovascular: S1, S2, No murmur Abdomen/GI:Soft, Non tender, bowel sounds present Extremities/Musculoskeletal:normal inspection, no edema Neurologic/Psych:AAOX3, grossly no focal neurological deficits Skin: normal color, warm, + B/L LE excoriations Results & Data Results & Data ([facility]) Vital Signs (Past 12 Hours) Vital Signs Temp Pulse Pulse Resp BP BP Pulse Ox 08/08/21 16:37 37.1 C 97 H 20 131/76 98 08/08/21 15:40 36.9 C 97 H 18 121/74 93 08/08/21 15:11 37.1 C 91 H 18 119/67 98 08/08/21 15:01 107 H 08/08/21 14:40 36.9 C 95 H 18 117/74 97 08/08/21 14:25 36.8 C 94 H 18 117/71 97 08/08/21 13:59 36.8 C 97 H 16 115/64 98 08/08/21 12:00 37.1 C 95 H 18 125/78 97 08/08/21 08:00 113 H 08/08/21 07:23 36.7 C 96 H 18 118/74 97 Laboratory Results Short CBC 08/08/21 Range/Units 06:41 WBC 3.92 L (4.8-10.8) K/uL Hgb 8.9 L (12.0-16.0) g/dL Hct 25.8 L (37-47) % Plt Count 43 L (130-400) K/uL BMP 08/08/21 06:41 Sodium 131 L Potassium 2.7 L D Chloride 88 L Carbon Dioxide 34 H BUN 5 L Creatinine 0.28 L Glucose 171 H Calcium 7.1 L Urine 08/08/21 Range/Units 00:30 Urine Color Dark Yellow Urine Appearance Clear (Clear) Urine pH 6.5 (4.5-7.5) Ur Specific [place] 1.013 (1.000-1.030) Urine Protein 1+ H (Negative) Urine Glucose (UA) 1+ H (Negative)
[2021-08-08] MEDS: CEFDINIR 300 MG CAP PO SCH (18:18)
[2021-08-09] MEDS: GABAPENTIN 400 MG CAP PO SCH ×2 (00:20→12:10)
[2021-08-09 06:13] LABS: Hematocrit (blood only) 24.9 % (37-47); Hemoglobin 8.9 g/dL (12.0-16.0); Mean Corpuscular Hemoglobin 34.2 pg (25-34); Mean Corpuscular Hgb Conc 35.7 g/dL (32-36); Mean Corpuscular Volume 95.8 fL (80-100); RDW Standard Deviation 41.9 fL (36.4-46.3); White Blood Count 3.51 K/uL (4.8-10.8)
[2021-08-09 06:14] LABS: Mean Platelet Volume 9.6 fL (7.4-10.4); Platelet Count 57 K/uL (130-400)
[2021-08-09 06:19] LABS: INR 1.2 (0.9-1.1); Prothrombin Time 12.8 Seconds (9.0-12.0)
[2021-08-09 06:43] LABS: BUN Creatinine Ratio 25.9 (10-20); Calcium 7.4 mg/dl (8.5-10.1); Est GFR (African American) 145.2 ml/min; Est GFR (Non-African American) 125.3 ml/min; Phosphorus 2.3 mg/dl (2.5-4.9)
[2021-08-09] MEDS ORDERED: SODIUM PHOSPHATE 3 MMOL/1 ML INFUSION IV ONE (07:41)
[2021-08-09] MEDS ORDERED: STAT IV STA (07:42)
[2021-08-09] MEDS ORDERED: SODIUM CHLORIDE 0.9% 1000ML 1,000 ML IV ONE (07:49)
[2021-08-09] MEDS ORDERED: SODIUM PHOSPHATE 15 MMOL in SODIUM CHLORIDE 0.9% 250 ML IV ONE (08:00)
[2021-08-09] MEDS ORDERED: POTASSIUM CHLORIDE CRTAB 20 MEQ TABCR PO ONE ×3 (08:00→16:50)
[2021-08-09] MEDS ORDERED: CALCIUM GLUCONATE 10% 1,000 MG in DEXTROSE 5% 50 ML IV ONE (08:00)
--- NOTE | 2021-08-09 08:41 | Nephrology Consultation ---
Date of Consultation August 09, 2021 Assessment & Plan (1) Electrolyte and fluid disorder: acute hyponatremia (eg less than 48 hrs); critical hypomagenesemia; also with hypokalemia, hypophosphatemia. not overloaded though lung exam barnard snot correlate w/ recentl lung imaging hyponatremia cause unclear - await pending urine/serum studies -continue NS for now but may need to change basedon recheck -recheck BMP early this afternoon and evaluate effectiveness of NS for this pt; also recheck phos -recommend bmp/mag q 4h for now -high risk for complications from hyponatremia and from refeeding >>goal sNa tomorrow am is no more than 131 History of Present Illness Reason for Consultation: hyponatremia Requesting Physician: Dr Ybarra Attending Physician: Tk Ybarra MD History of Present Illness 66 y/o F whom I'm asked to see for hyponatremia was admitted 08/06 w/ failure to thrive/ severe protein calorie malnutrition, recurrent falls and EtOH intoxication in the setting of EtOH abuse and chronic HCV. PMH also includes hx of acute alcoholic hepatitis, carpal tunnel syndrome, cervical and lumbosacral spondylosis with cervical radiculopathy, active tobacco abuse. HCV not treated d/t active EtOH abuse. she is 1.6L negative in the past 24 hrs with sodium 125 this AM, mag 1.0, phos 2.3, K 3.0; her sodium was WNL until yesterday am when it was 131. She is receiving NS at 80 mL hourly as well as 3 gm IV mag, and some phos repletion along w/ 40 mEq po K. Also on cefdinir. Imaging also notable for large stool ball in rectum contributing to BL hydronephrosis and urinary bladder distension. Overall on the admission she is 1L negative. on evaluation today she tells me she " hurts all over" and is just now getting her appetite back. mutliple loose bm today; no abd pain; no n/v. denies sob. denies new/worrisome voiding sx. no edema. Allergies Allergy/AdvReac Type Severity Reaction Status Date / Time codeine Allergy Unknown Verified 07/16/12 07:20 ragweed pollen Allergy Unknown Verified 07/16/12 07:20 acetaminophen Allergy GI SYMPTOMS Verified 07/16/12 07:20 hydrocodone Allergy GI SYMPTOMS Verified 07/16/12 07:20 morphine Allergy GI SYMPTOMS Verified 07/16/12 07:20 Dust Allergy Unknown Uncoded 07/16/12 07:20 Home Medications Medication Instructions Recorded Confirmed Type No Known Home Medications 08/06/21 08/06/21 History Patient History Medical History Alcohol abuse Chronic diarrhea EtOH dependence Hepatitis C Protein calorie malnutrition Social History Smoking Status: Current every day smoker Tobacco Type: Cigarettes Cigarettes Per Day: 1/2 pk since feeling sick. Usually over 1 pack/day; Second Hand Exposure: Yes; Do You Dip or Chew Tobacco: No; Tobacco Cessation Education Requested by Patient: No Hx Alcohol Use: Yes Alcohol type: beer and hard liquor Hx Substance Use: No Preferred Language: Luxembourgish Communication Ability: Effective Chauffeur Required: No Beliefs That Will Affect Care: None marital status: Single Current Living Situation: Significant Other Current Living Situation Comment: Lives in a house Other Information That Helps Us Care for You: No Feels Safe at Home: Yes Safety Concerns: Feels Safe At This Time Assistive Devices: None Review of Systems Review of Systems: All systems reviewed & are unremarkable except as noted in HPI & below Physical Exam Constitutional: well developed, + acute distress and + cachectic sitting in bed slowly eating lunch Eyes: EOM intact bilaterally ENMT: Ears: no external ear abnormality Nose: no external nose abnormality Mouth: + dry oral mucous membranes Neck: no nuchal rigidity Respiratory: normal respiratory effort Auscultation: + diminished lung sounds (R base only) and + crackles (diffusely all but R base) Gastrointestinal (Abdomen): Inspection/Auscultation: normal bowel sounds Percussion/Palpation: abdomen soft; abdomen nontender Musculoskeletal: Extremities: + abnormal strength (too weak to sit up for exam) Skin: no rashes, warm and dry ecchymoses; L agustin remote abrasion Neurologic: hazel, fluent speech, mild BLUE tremor Psychiatric: Orientation: oriented x 3 Speech: normal rate/rhythm/volume of speech Affect: + tearful affect and + labile affect Results & Data ([facility]) Vital Signs (Past 12 Hours) Vital Signs Temp Pulse Pulse Resp BP Pulse Ox 08/09/21 07:43 36.9 C 108 H 20 102/23 L 99 08/09/21 07:42 107 H 08/09/21 03:20 37.6 C H 101 H 20 107/68 97 08/08/21 23:37 106 H 08/08/21 22:40 37.2 C 99 H 20 123/75 97 Laboratory Results 08/09/21 05:25 08/09/21 05:25 Diagnostic Findings abd u/s 1. No evidence for ascites. 2. Bilateral hydronephrosis and dilatation of the urinary bladder. CT chest 1. Cachexia. No acute abnormality is seen. 2. Atherosclerosis. 3. 6 mm nodule in the right lower lobe, correlation with prior imaging, laura ilable, is recommended. CT abd/pelvis 1. The patient is cachectic. The bladder is massively distended and there is a large stool ball in the rectum. No acute abnormality is seen. 2. Pancreatic calcifications are compatible with chronic pancreatitis.
[2021-08-09] MEDS: FOLIC ACID 1 MG in SYRINGE 9.8 ML IV SCH (09:32)
[2021-08-09] MEDS: THIAMINE HCL 100 MG in SYRINGE 9 ML IV SCH (09:33)
[2021-08-09] MEDS: CEFDINIR 300 MG CAP PO SCH ×2 (09:49→21:34)
[2021-08-09] MEDS: DOCUSATE SODIUM 100 MG CAP PO SCH ×2 (09:49→21:33)
[2021-08-09] MEDS: MAGNESIUM OXIDE 400 MG TAB PO SCH ×2 (09:49→21:33)
[2021-08-09] MEDS: CALCIUM 600MG + VIT D 400 IU TAB PO SCH ×2 (09:49→21:33)
[2021-08-09] MEDS: NICOTINE 14 MG/24 HR PATCH TD SCH (09:50)
[2021-08-09] MEDS: MAGNESIUM SULFATE / D5W 1 GM/100 ML BAG IV SCH ×3 (09:57→14:02)
[2021-08-09 16:36] LABS: BUN Creatinine Ratio 25.7 (10-20); Calcium 7.2 mg/dl (8.5-10.1); Creatinine Clr Calc Pharmacy 83.3 ml/min; Est GFR (African American) 133.3 ml/min; Magnesium 1.8 mg/dl (1.7-2.4); Potassium 3.4 mmol/L (3.5-5.1)
[2021-08-09] MEDS ORDERED: GLUCOSE 40% GEL 15 GM TUBE PO PRN (16:46)
[2021-08-09] MEDS ORDERED: GLUCAGON FOR INJ 1 MG VIAL SQ PRN (16:46)
[2021-08-09] MEDS ORDERED: DEXTROSE 50% 50 ML SYRINGE IV PRN (16:46)
[2021-08-09] MEDS ORDERED: GLUCOSE 10 TAB/TUBE PO PRN (16:46)
[2021-08-09] MEDS ORDERED: PHARMACY GLYCEMIC MGMT CONSULT PRN (16:49)
--- NOTE | 2021-08-09 17:15 | Hospitalist Progress Note ---
Date of Service August 09, 2021 Assessment & Plan (1) Protein-calorie malnutrition, severe: Plan: Patient is a 66 yr female with H/O Chronic alcoholism and hepatitis C, who presents with weakness, poor appetite, weight loss and chronic diarrhea. Alcohol use Disorder Patient drinks 3 beers and half pint of vodka every day Started on gabapentin protocol Continue thiamine, folic acid, Ativan as needed Monitor for withdrawal Counseled to quit drinking No withdrawal symptoms currently Thrombocytopenia Likely secondary to alcohol use S/P 1 unit platelets Monitor Severe protein calorie malnutrition BMI 12 Weight loss, poor appetite and failure to thrive Dietitian consulted Rectal Bleeding ? Hemorrhoids Monitor CBC and transfuse as needed Epogen per Colonoscopy as outpatient as per GI Electrolyte abnormalities Hypokalemia Hypomagnesemia Hypocalcemia Replace electrolytes as needed Monitor Acute Hyponatremia ? Possible chronic hyponatremia at baseline in setting of Hyperglycemia, alcohol use disorder Sodium 136>>125 Check urine sodium, urine was negative, serum osmolality Monitor sodium levels closely Consider nephrology Gentle IV fluids Hyperglycemia No known H/O DM II Start on ISS Monitor BGs Check Hb A1C Chronic diarrhea: Likely overflow secondary to constipation, alcohol use and Infectious origin --CT ABD:The patient is cachectic. The bladder is massively distended and there is a large stool ball in the rectum. No acute abnormality is seen. Pancreatic calcifications are compatible with chronic pancreatitis. Stool studies showed enteropathogenic E. coli IV fluids as needed Appreciate GI input May need colonoscopy as outpatient Continue bowel regimen Continue on Cefdinir Diarrhea improving Anemia of chronic disease Normal vitamin B12, folate levels, Iron Panel + Rectal bleeding as above Monitor CBC Hb 8.9 today Obstructive uropathy Urinary Retention ABD USD:Bilateral hydronephrosis and dilatation of the urinary bladder Likely secondary to large stool bolus Continue bowel regimen Bladder scan as needed Placed on Tavera catheter Consider urology evaluation if needed H/O Hepatitis C Untreated Follow-up as outpatient Thrombocytopenia likely secondary to alcoholism Monitor platelets DVT Px: Heparin SQ--DCed SCDs for now Code Status Full Code DISPOSITION: PT/OT prior to discharge. Admission and Anticipated Discharge Date Admission Date: August 06, 2021 Subjective Patient is seen and examined at bedside Poor historian States having generalized pain No bowel symptoms currently No other complaints Poor appetite Denies any chest pain, dyspnea, nausea, abdominal pain Diarrhea improved Review of Systems Review of Systems: All systems reviewed & are unremarkable except as noted in Subjective Physical Exam Physical Exam: Physical Exam: Vitals signs as noted above General Appearance: Thin, frail, chronically appearing, no apparent distress Head: normocephalic, Atraumatic Eyes: normal inspection, EOMI Neck: supple, Trachea midline Respiratory/Chest: Normal breath sounds, CTA, No accessory muscle use Cardiovascular: S1, S2, No murmur Abdomen/GI:Soft, Non tender, bowel sounds present Extremities/Musculoskeletal:normal inspection, no edema Neurologic/Psych:AAOX3, grossly no focal neurological deficits Skin: normal color, warm, + B/L LE excoriations Results & Data Results & Data ([facility]) Vital Signs (Past 12 Hours) Vital Signs Temp Pulse Pulse Resp BP Pulse Ox 08/09/21 15:33 99 H 08/09/21 15:22 37.1 C 85 18 115/73 98 08/09/21 11:03 36.9 C 97 H 18 123/76 98 08/09/21 07:43 36.9 C 108 H 20 102/23 L 99 08/09/21 07:42 107 H Laboratory Results Short CBC 08/09/21 Range/Units 05:25 WBC 3.51 L (4.8-10.8) K/uL Hgb 8.9 L (12.0-16.0) g/dL Hct 24.9 L (37-47) % Plt Count 57 L (130-400) K/uL BMP 08/09/21 08/09/21 05:25 15:05 Sodium 125 L 124 L Potassium 3.0 L 3.4 L Chloride 85 L 84 L Carbon Dioxide 34 H 34 H BUN 7 9 Creatinine 0.27 L 0.35 L Glucose 251 H 461 H* Calcium 7.4 L 7.2 L
--- NOTE | 2021-08-09 17:29 | Pharmacy Report ---
Pharmacy Glycemic Short Note 2 - Date of Service August 09, 2021 - Glycemic Short BSG Results (Last 24 hours): 08/09/21 08/09/21 08/09/21 05:25 15:05 16:51 Glucose 251 H 461 H* POC Glucose 459 H* OUTPATIENT ANTIDIABETIC REGIMEN: * None * HbA1c ordered for 08/10/21 ASSESSMENT: * 66 yo F with hx glucose intolerance admitted with severe protein-calorie malnutrition * Random BSG's trending up, now elevated >400 mg/dL and confirmed on re-check - unclear etiology * Hesitant to start IV given K of 3.4 and risk for refeeding. Potassium being repleted orally at this time. * Hesitant to start basal due to being insulin naive with unknown etiology of hyperglycemia and significantly low body weight * Will start Novolog monotherapy at weight-based moderate stress estimate and add overnight checks. High goal range for now as response to insulin is not able to be easily predicted at this time PLAN FOR INPATIENT GLYCEMIC CONTROL: * Basal insulin * None for now * Bolus insulin * NovoLog per scale ACHS or Q6hrs while NPO * Goal Range: Low 140 mg/dL - High 180 mg/dL * Correction Factor: 75 mg/dL/unit * Nutritional / Prandial insulin per carb ratio of 1 unit per 24 grams CHO consumed
[2021-08-09] MEDS ORDERED: INSULIN HUMAN REGULAR PER UNIT 2 UNITS in SYRINGE 1.98 ML IV ONE (17:30)
[2021-08-09] MEDS ORDERED: LORazepam 2 MG in SYRINGE 1 ML IV PRN (17:39)
[2021-08-09] MEDS ORDERED: Ativan IV Alcohol Withdrawal--Active Protocol IV PRN (17:39)
[2021-08-09] MEDS ORDERED: LORazepam 3 MG in SYRINGE 1.5 ML IV PRN (17:39)
[2021-08-09] MEDS ORDERED: LORazepam 1 MG in SYRINGE 0.5 ML IV PRN (17:39)
[2021-08-09] MEDS: INSULIN ASPART PER UNIT SC SCH ×2 (17:49→21:33)
[2021-08-09 21:36] LABS: Calcium 7.6 mg/dl (8.5-10.1); Creatinine Clr Calc Pharmacy 100.6 ml/min; Est GFR (African American) 141.8 ml/min; Est GFR (Non-African American) 122.4 ml/min; Potassium 3.4 mmol/L (3.5-5.1)
[2021-08-09] MEDS ORDERED: POTASSIUM CHLORIDE CRTAB 20 MEQ TABCR PO STA (21:50)
[2021-08-09] MEDS ORDERED: POTASSIUM PHOS 3 MMOL/1 ML INFUSION IV STA (21:50)
[2021-08-09] MEDS ORDERED: POTASSIUM PHOSPHATE 15 MMOL in SODIUM CHLORIDE 0.9% 250 ML IV ONE (22:00)
[2021-08-10] MEDS: INSULIN ASPART PER UNIT SC SCH ×6 (00:44→20:45)
[2021-08-10 01:19] LABS: Anion Gap 6 (3-11); BUN Creatinine Ratio 40.9 (10-20); Blood Urea Nitrogen 9 mg/dl (6-23); Calcium 7.7 mg/dl (8.5-10.1); Carbon Dioxide 32 mmol/L (21-32); Chloride 91 mmol/L (98-107); Creatinine Clr Calc Pharmacy 132.5 ml/min; Est GFR (African American) > 150.0 ml/min; Glucose 264 mg/dl (70-99(Fasting)); Potassium 4.7 mmol/L (3.5-5.1); Sodium 129 mmol/L (136-145)
[2021-08-10 07:22] LABS: Hematocrit (blood only) 27.3 % (37-47); Hemoglobin 9.3 g/dL (12.0-16.0); Mean Corpuscular Hemoglobin 32.4 pg (25-34); Mean Corpuscular Hgb Conc 34.1 g/dL (32-36); Mean Corpuscular Volume 95.1 fL (80-100); RDW Coefficient of Variation 12.1 % (11.5-14.5); RDW Standard Deviation 41.3 fL (36.4-46.3); Red Blood Count 2.87 M/uL (4.2-5.4); White Blood Count 3.49 K/uL (4.8-10.8)
[2021-08-10 07:28] LABS: Estimated Average Glucose 217 mg/dl; Hemoglobin A1C 9.2 % (4.5-5.6)
[2021-08-10 07:30] LABS: Mean Platelet Volume 10.7 fL (7.4-10.4); Platelet Count 77 K/uL (130-400)
[2021-08-10 07:46] LABS: Anion Gap 6 (3-11); Blood Urea Nitrogen 10 mg/dl (6-23); Calcium 7.7 mg/dl (8.5-10.1); Carbon Dioxide 29 mmol/L (21-32); Chloride 93 mmol/L (98-107); Creatinine Clr Calc Pharmacy 150.3 ml/min; Est GFR (African American) > 150.0 ml/min; Est GFR (Non-African American) 138.3 ml/min; Glucose 137 mg/dl (70-99(Fasting)); Magnesium 1.4 mg/dl (1.7-2.4); Phosphorus 3.3 mg/dl (2.5-4.9); Potassium 4.2 mmol/L (3.5-5.1); Sodium 128 mmol/L (136-145)
[2021-08-10] MEDS: FOLIC ACID 1 MG in SYRINGE 9.8 ML IV SCH (09:14)
[2021-08-10] MEDS: THIAMINE HCL 100 MG in SYRINGE 9 ML IV SCH (09:14)
[2021-08-10] MEDS: DOCUSATE SODIUM 100 MG CAP PO SCH ×2 (09:15→20:48)
[2021-08-10] MEDS: CALCIUM 600MG + VIT D 400 IU TAB PO SCH ×2 (09:15→20:48)
[2021-08-10] MEDS: NICOTINE 14 MG/24 HR PATCH TD SCH (09:15)
[2021-08-10] MEDS: CEFDINIR 300 MG CAP PO SCH ×2 (09:15→20:48)
[2021-08-10] MEDS: MAGNESIUM OXIDE 400 MG TAB PO SCH ×2 (09:15→20:48)
[2021-08-10] MEDS: MAGNESIUM SULFATE / D5W 1 GM/100 ML BAG IV SCH ×3 (09:40→14:35)
[2021-08-10] MEDS ORDERED: GABAPENTIN 400 MG CAP PO SCH (12:00)
--- NOTE | 2021-08-10 14:24 | Pharmacy Report ---
Pharmacy Glycemic Short Note 2 - Date of Service August 10, 2021 - Glycemic Short BSG Results (Last 24 hours): 08/09/21 08/09/21 08/09/21 15:05 16:51 20:16 Glucose 461 H* 421 H* POC Glucose 459 H* 08/09/21 08/09/21 08/10/21 21:03 21:06 00:37 Glucose 264 H POC Glucose 411 H* 433 H* 08/10/21 08/10/21 08/10/21 00:37 04:09 06:31 Glucose 137 H POC Glucose 283 H 194 H 08/10/21 08/10/21 07:38 11:50 Glucose POC Glucose 177 H 298 H OUTPATIENT ANTIDIABETIC REGIMEN: * None * HbA1c ordered for 08/10/21 ASSESSMENT: 08/10/21 * BSGs yesterday were 251 mg/dL on PRP in AM then 459 mg/dL (at dinner) - 411 mg/dL (at night). Patient received 8 units of Novolog for these two blood sugars. * Overnight BSGs were 283-194 mg/dL and patient received 3 units of Novolog overnight. * Today's BSGs have been 177-298 mg/dL. Patient has received 6 units of insulin so far. * Tightened Novolog to weight-based stress of 3 for lunch. * Lantus 3 units tonight if BSGs still over 150 mg/dL tonight. Background * 66 yo F with hx glucose intolerance admitted with severe protein-calorie malnutrition * Random BSG's trending up, now elevated >400 mg/dL and confirmed on re-check - unclear etiology * Hesitant to start IV given K of 3.4 and risk for refeeding. Potassium being repleted orally at this time. * Hesitant to start basal due to being insulin naive with unknown etiology of hyperglycemia and significantly low body weight * Will start Novolog monotherapy at weight-based moderate stress estimate and add overnight checks. High goal range for now as response to insulin is not able to be easily predicted at this time PLAN FOR INPATIENT GLYCEMIC CONTROL: * Basal insulin * Lantus 3 units SQ HS if BSG > 150 mg/dL * Bolus insulin * NovoLog per scale ACHS or Q6hrs while NPO * Goal Range: Low 140 mg/dL - High 180 mg/dL * Correction Factor: 50 mg/dL/unit * Nutritional / Prandial insulin per carb ratio of 1 unit per 17 grams CHO consumed
--- NOTE | 2021-08-10 16:24 | Nephrology Progress Note ---
Date of Service August 10, 2021 Assessment & Plan (1) Electrolyte and fluid disorder: Plan: acute hyponatremia (eg less than 48 hrs); critical hypomagenesemia; also with hypokalemia, hypophosphatemia. not overloaded though lung exam nikolay yesterday did not correlate w/ recent lung imaging hyponatremia cause unclear - ? mild volume depletion versus low solute diet/maln utrition -recheck bmp, mag now and daily these + phos; today's labs ordered -consider further NS based on above -high risk for complications from hyponatremia and from refeeding >>goal sNa tomorrow am is no more than 133 Admission and Anticipated Discharge Date Admission Date: August 06, 2021 Subjective more lethargic today; decreased UOP noted and bl scan w/ > 1L retained >> benson placed but issues w/ function; RN working on it; pt does not participate in ros Review of Systems Review of Systems: Unobtainable due to reduced consciousness Physical Exam Constitutional: well developed and + cachectic; no acute distress Eyes: EOM intact bilaterally ENMT: Ears: no external ear abnormality Nose: no external nose abnormality Mouth: + dry oral mucous membranes Neck: no nuchal rigidity Respiratory: normal respiratory effort Auscultation: + diminished lung sounds Gastrointestinal (Abdomen): Inspection/Auscultation: normal bowel sounds and + scaphoid Percussion/Palpation: abdomen soft; abdomen nontender Musculoskeletal: Extremities: + abnormal strength (too weak to maneuver for exam) Skin: no rashes, warm and dry Neurologic: lethargic, hazel, limited speech/interaction Genitourinary: benson draining ample urine light/clear Results & Data ([facility]) Vital Signs (Past 12 Hours) Vital Signs Temp Pulse Pulse Resp BP Pulse Ox 08/10/21 15:14 36.7 C 115 H 18 95/68 L 93 08/10/21 14:37 120 H 08/10/21 10:39 36.9 C 104 H 18 112/71 97 08/10/21 07:18 36.8 C 102 H 20 146/89 H 99 08/10/21 06:07 119 H Laboratory Results 08/10/21 06:31 08/10/21 06:31 mag 1.4
[2021-08-10 17:21] LABS: BUN Creatinine Ratio 46.2 (10-20); Calcium 8.4 mg/dl (8.5-10.1); Creatinine Clr Calc Pharmacy 115.6 ml/min; Est GFR (Non-African American) 126.8 ml/min; Magnesium 2.3 mg/dl (1.7-2.4)
--- NOTE | 2021-08-10 17:49 | Communication Note ---
Date of Service: August 10, 2021 1700 labs notable for slight drop in sodium and BG ok; phos, mag, K ok >will observe since lasix not best approach w/ tachycardia/relative hypotension >repeat bmp in am
--- NOTE | 2021-08-10 18:42 | Hospitalist Progress Note ---
Date of Service August 10, 2021 Assessment & Plan (1) Protein-calorie malnutrition, severe: Plan: Patient is a 66 yr female with H/O Chronic alcoholism and hepatitis C, who presents with weakness, poor appetite, weight loss and chronic diarrhea. Alcohol use Disorder Patient drinks 3 beers and half pint of vodka every day Started on gabapentin protocol Continue thiamine, folic acid, Ativan as needed Monitor for withdrawal Counseled to quit drinking No withdrawal symptoms currently Thrombocytopenia Likely secondary to alcohol use S/P 1 unit platelets Platelet count slowly improving. Severe protein calorie malnutrition BMI 12 Weight loss, poor appetite and failure to thrive Dietitian consulted Rectal Bleeding ? Hemorrhoids Monitor CBC and transfuse as needed GI consulted Colonoscopy as outpatient as per GI Denies rectal bleed today Electrolyte abnormalities Hypokalemia Hypomagnesemia Hypocalcemia Replace electrolytes as needed Monitor Acute Hyponatremia ? Possible chronic hyponatremia at baseline in setting of Hyperglycemia, alcohol use disorder Sodium 136>>125>126 Check urine sodium, urine was negative, serum osmolality Monitor sodium levels closely Appreciate Nephrology help DM II New diagnosis HbA1c:9.2 Continue ISS Monitor BGs Junior Web Designer consulted Chronic diarrhea: Likely overflow secondary to constipation, alcohol use and Infectious origin --CT ABD:The patient is cachectic. The bladder is massively distended and there is a large stool ball in the rectum. No acute abnormality is seen. Pancreatic calcifications are compatible with chronic pancreatitis. Stool studies showed enteropathogenic E. coli IV fluids as needed Appreciate GI input May need colonoscopy as outpatient Continue bowel regimen Continue on Cefdinir Diarrhea resolved Anemia of chronic disease Normal vitamin B12, folate levels, Iron Panel + Rectal bleeding as above Monitor CBC Hb 9.3 today Obstructive uropathy Urinary Retention ABD USD:Bilateral hydronephrosis and dilatation of the urinary bladder Likely secondary to large stool bolus Continue bowel regimen Bladder scan as needed Placed on Tavera catheter Consider urology evaluation if needed H/O Hepatitis C Untreated Follow-up as outpatient DVT Px: Heparin SQ--DCed SCDs for now Code Status Full Code DISPOSITION: PT/OT prior to discharge. Admission and Anticipated Discharge Date Admission Date: August 06, 2021 Subjective Patient is seen and examined at bedside No significant change from yesterday Poor historian Poor appetite Denies any chest pain, dyspnea, nausea, abdominal pain Discussed with Nephrology today Review of Systems Review of Systems: All systems reviewed & are unremarkable except as noted in Subjective Physical Exam Physical Exam: Physical Exam: Vitals signs as noted above General Appearance: Thin, frail, chronically appearing, no apparent distress Head: normocephalic, Atraumatic Eyes: normal inspection, EOMI Neck: supple, Trachea midline Respiratory/Chest: Normal breath sounds, CTA, No accessory muscle use Cardiovascular: S1, S2, No murmur Abdomen/GI:Soft, Non tender, bowel sounds present Extremities/Musculoskeletal:normal inspection, no edema Neurologic/Psych:AAOX3, grossly no focal neurological deficits Skin: normal color, warm, + B/L LE excoriations Results & Data Results & Data ([facility]) Vital Signs (Past 12 Hours) Vital Signs Temp Pulse Pulse Resp BP Pulse Ox 08/10/21 15:14 36.7 C 115 H 18 95/68 L 93 08/10/21 14:37 120 H 08/10/21 10:39 36.9 C 104 H 18 112/71 97 08/10/21 07:18 36.8 C 102 H 20 146/89 H 99 Laboratory Results Short CBC 08/10/21 Range/Units 06:31 WBC 3.49 L (4.8-10.8) K/uL Hgb 9.3 L (12.0-16.0) g/dL Hct 27.3 L (37-47) % Plt Count 77 L (130-400) K/uL BMP 08/09/21 08/10/21 08/10/21 20:16 00:37 06:31 Sodium 127 L 129 L 128 L Potassium 3.4 L 4.7 D 4.2 Chloride 87 L 91 L 93 L Carbon Dioxide 32 32 29 BUN 9 9 10 Creatinine 0.29 L 0.22 L < 0.20 L Glucose 421 H* 264 H 137 H Calcium 7.6 L 7.7 L 7.7 L 08/10/21 16:36 Sodium 126 L Potassium 4.0 Chloride 91 L Carbon Dioxide 31 BUN 12 Creatinine 0.26 L Glucose 168 H Calcium 8.4 L
[2021-08-10] MEDS ORDERED: INSULIN GLARGINE SOLOSTAR 100 UNITS/ML 3 ML PEN SC SCH (21:00)
[2021-08-11 07:13] LABS: Hematocrit (blood only) 25.6 % (37-47); Hemoglobin 8.9 g/dL (12.0-16.0); Mean Corpuscular Hemoglobin 33.1 pg (25-34); Mean Corpuscular Hgb Conc 34.8 g/dL (32-36); Mean Corpuscular Volume 95.2 fL (80-100); RDW Coefficient of Variation 12.3 % (11.5-14.5); RDW Standard Deviation 42.2 fL (36.4-46.3); Red Blood Count 2.69 M/uL (4.2-5.4); White Blood Count 4.04 K/uL (4.8-10.8)
[2021-08-11 07:33] LABS: Anion Gap 8 (3-11); BUN Creatinine Ratio 54.2 (10-20); Blood Urea Nitrogen 13 mg/dl (6-23); Calcium 8.4 mg/dl (8.5-10.1); Carbon Dioxide 26 mmol/L (21-32); Chloride 91 mmol/L (98-107); Est GFR (African American) > 150.0 ml/min; Est GFR (Non-African American) 130.2 ml/min; Glucose 195 mg/dl (70-99(Fasting)); Magnesium 1.4 mg/dl (1.7-2.4); Phosphorus 2.8 mg/dl (2.5-4.9); Sodium 125 mmol/L (136-145)
[2021-08-11 07:39] LABS: Mean Platelet Volume 10.2 fL (7.4-10.4); Platelet Count 89 K/uL (130-400)
[2021-08-11] MEDS: MAGNESIUM SULFATE / D5W 1 GM/100 ML BAG IV SCH ×3 (07:59→12:48)
[2021-08-11] MEDS: CEFDINIR 300 MG CAP PO SCH ×2 (08:00→21:11)
[2021-08-11] MEDS: DOCUSATE SODIUM 100 MG CAP PO SCH ×2 (08:00→21:10)
[2021-08-11] MEDS: MAGNESIUM OXIDE 400 MG TAB PO SCH ×2 (08:00→21:11)
[2021-08-11] MEDS: NICOTINE 14 MG/24 HR PATCH TD SCH (08:00)
[2021-08-11] MEDS: CALCIUM 600MG + VIT D 400 IU TAB PO SCH ×2 (08:00→21:11)
[2021-08-11] MEDS: FOLIC ACID 1 MG in SYRINGE 9.8 ML IV SCH (08:00)
[2021-08-11] MEDS: THIAMINE HCL 100 MG in SYRINGE 9 ML IV SCH (08:01)
[2021-08-11] MEDS: INSULIN ASPART PER UNIT SC SCH ×4 (09:10→21:07)
[2021-08-11] MEDS ORDERED: INSULIN GLARGINE SOLOSTAR 100 UNITS/ML 3 ML PEN SC SCH (12:00)
--- NOTE | 2021-08-11 13:03 | Nephrology Progress Note ---
Date of Service August 11, 2021 Assessment & Plan (1) Electrolyte and fluid disorder: Plan: hyponatremia which came on after hospital admission; critical hypomagenesemia improving now but still an issue; also with hypokalemia, hypophosphatemia. not overloaded though lung exam nikolay yesterday did not correlate w/ recent lung imaging hyponatremia cause unclear - ? mild volume depletion versus low solute diet/malnutrition >> suspect the former since she is 3.5 L negative since 08/08 -trial 1/2 L NS and recheck labs in AM -high risk for complications from hyponatremia and from refeeding >>goal sNa tomorrow am is no more than 131 Admission and Anticipated Discharge Date Admission Date: August 06, 2021 Subjective still w/ benson; brown urine; cont to state she "hurts everywhere" no sob, no n/v; denie sabd pain Review of Systems Review of Systems: All systems reviewed & are unremarkable except as noted in Subjective Physical Exam Constitutional: well developed and + cachectic; no acute distress Eyes: EOM intact bilaterally ENMT: Ears: no external ear abnormality Nose: no external nose abnormality Mouth: + dry oral mucous membranes Neck: no nuchal rigidity Respiratory: normal respiratory effort Auscultation: + diminished lung sounds Gastrointestinal (Abdomen): Inspection/Auscultation: normal bowel sounds and + scaphoid Percussion/Palpation: + abdomen tender (moderate palpation w/ slight rebound) and abdomen soft Musculoskeletal: Extremities: + abnormal strength (too weak to maneuver for exam) Skin: no rashes, warm and dry Psychiatric: Orientation: oriented x 3 Speech: normal rate/rhythm/volume of speech Affect: + tearful affect and + labile affect Genitourinary: benson w/ ample brown urine Results & Data ([facility]) Vital Signs (Past 12 Hours) Vital Signs Temp Pulse Pulse Resp BP Pulse Ox 08/11/21 10:54 36.3 C L 114 H 18 93/62 L 97 08/11/21 06:39 109 H 08/11/21 06:12 83 08/11/21 02:45 37.0 C 113 H 20 135/84 97 Laboratory Results 08/11/21 06:43 08/11/21 06:43
[2021-08-11] MEDS: SODIUM CHLORIDE 0.9% 500 ML IV SCH ×3 (14:01→21:16)
--- NOTE | 2021-08-11 17:12 | Hospitalist Progress Note ---
Date of Service August 11, 2021 Assessment & Plan (1) Protein-calorie malnutrition, severe: Plan: Patient is a 66 yr female with H/O Chronic alcoholism and hepatitis C, who presents with weakness, poor appetite, weight loss and chronic diarrhea. Alcohol use Disorder Patient drinks 3 beers and half pint of vodka every day Continue thiamine, folic acid, Ativan as needed Monitor for withdrawal Counseled to quit drinking No withdrawal symptoms currently Thrombocytopenia Likely secondary to alcohol use S/P 1 unit platelets Platelet count improving. No bleeding issues Severe protein calorie malnutrition BMI 12 Weight loss, poor appetite and failure to thrive Dietitian consulted Rectal Bleeding ? Hemorrhoids Monitor CBC and transfuse as needed GI consulted Colonoscopy as outpatient as per GI No recurrence of bleeding currently Hb 8.9 Electrolyte abnormalities Hypokalemia Hypomagnesemia Hypocalcemia Replace electrolytes as needed Monitor Acute Hyponatremia ? Possible chronic hyponatremia at baseline in setting of Hyperglycemia, alcohol use disorder Sodium 136>>125 Monitor sodium levels closely Appreciate Nephrology help Gentle IV fluids DM II New diagnosis HbA1c:9.2 Continue ISS Monitor BGs Diet Assistant consulted Chronic diarrhea: Likely overflow secondary to constipation, alcohol use and Infectious origin --CT ABD:The patient is cachectic. The bladder is massively distended and there is a large stool ball in the rectum. No acute abnormality is seen. Pancreatic calcifications are compatible with chronic pancreatitis. Stool studies showed enteropathogenic E. coli IV fluids as needed Appreciate GI input May need colonoscopy as outpatient Continue bowel regimen Continue on Cefdinir Diarrhea resolved Anemia of chronic disease Normal vitamin B12, folate levels, Iron Panel + Rectal bleeding as above Monitor CBC Hb 8.9 today Obstructive uropathy Urinary Retention ABD USD:Bilateral hydronephrosis and dilatation of the urinary bladder Likely secondary to large stool bolus Continue bowel regimen Bladder scan as needed Placed on Tavera catheter Consider urology evaluation if needed H/O Hepatitis C Untreated Follow-up as outpatient DVT Px: Heparin SQ--DCed SCDs for now Code Status Full Code DISPOSITION: PT/OT prior to discharge. Admission and Anticipated Discharge Date Admission Date: August 06, 2021 Subjective Patient is seen and examined at bedside Poor historian Reports generalized pain Appetite remains poor Denies any chest pain, dyspnea, nausea, abdominal pain Review of Systems Review of Systems: All systems reviewed & are unremarkable except as noted in Subjective Physical Exam Physical Exam: Physical Exam: Vitals signs as noted above General Appearance: Thin, frail, chronically appearing, no apparent distress Head: normocephalic, Atraumatic Eyes: normal inspection, EOMI Neck: supple, Trachea midline Respiratory/Chest: Normal breath sounds, CTA, No accessory muscle use Cardiovascular: S1, S2, No murmur Abdomen/GI:Soft, Non tender, bowel sounds present Extremities/Musculoskeletal:normal inspection, no edema Neurologic/Psych:AAOX3, grossly no focal neurological deficits Skin: normal color, warm, + B/L LE excoriations Results & Data Results & Data ([facility]) Vital Signs (Past 12 Hours) Vital Signs Temp Pulse Pulse Resp BP Pulse Ox 08/11/21 14:49 105 H 18 103/65 97 08/11/21 14:19 116 H 08/11/21 10:54 36.3 C L 114 H 18 93/62 L 97 08/11/21 06:39 109 H 08/11/21 06:12 83 Laboratory Results Short CBC 08/11/21 Range/Units 06:43 WBC 4.04 L (4.8-10.8) K/uL Hgb 8.9 L (12.0-16.0) g/dL Hct 25.6 L (37-47) % Plt Count 89 L (130-400) K/uL BMP 08/10/21 08/11/21 16:36 06:43 Sodium 126 L 125 L Potassium 4.0 4.0 Chloride 91 L 91 L Carbon Dioxide 31 26 BUN 12 13 Creatinine 0.26 L 0.24 L Glucose 168 H 195 H Calcium 8.4 L 8.4 L
[2021-08-11] MEDS: CARBOHYDRATES FOR HYPOGLYCEMIA PO PRN (17:22)
[2021-08-11] MEDS: ACETAMINOPHEN 500 MG TAB PO PRN (19:01)
[2021-08-12] MEDS: SODIUM CHLORIDE 0.9% 500 ML IV SCH (05:05)
[2021-08-12] MEDS ORDERED: SODIUM CHLORIDE 0.9% 1,000 ML IV SCH (05:10)
[2021-08-12 06:34] LABS: Hematocrit (blood only) 23.8 % (37-47); Hemoglobin 8.4 g/dL (12.0-16.0); Mean Corpuscular Hemoglobin 33.9 pg (25-34); Mean Corpuscular Hgb Conc 35.3 g/dL (32-36); RDW Coefficient of Variation 12.1 % (11.5-14.5); RDW Standard Deviation 42.3 fL (36.4-46.3); Red Blood Count 2.48 M/uL (4.2-5.4); White Blood Count 3.26 K/uL (4.8-10.8)
[2021-08-12 07:01] LABS: Mean Platelet Volume 9.9 fL (7.4-10.4); Platelet Count 94 K/uL (130-400)
[2021-08-12 07:09] LABS: Anion Gap 6 (3-11); BUN Creatinine Ratio 47.8 (10-20); Blood Urea Nitrogen 11 mg/dl (6-23); Calcium 7.5 mg/dl (8.5-10.1); Carbon Dioxide 24 mmol/L (21-32); Chloride 94 mmol/L (98-107); Creatinine Clr Calc Pharmacy 111.6 ml/min; Est GFR (African American) > 150.0 ml/min; Est GFR (Non-African American) 132.1 ml/min; Glucose 130 mg/dl (70-99(Fasting)); Magnesium 1.3 mg/dl (1.7-2.4); Potassium 3.4 mmol/L (3.5-5.1); Sodium 124 mmol/L (136-145)
[2021-08-12] MEDS ORDERED: POTASSIUM CHLORIDE CRTAB 20 MEQ TABCR PO STA (07:28)
--- NOTE | 2021-08-12 07:39 | Pharmacy Report ---
Pharmacy Glycemic Short Note 2 - Date of Service August 12, 2021 - Glycemic Short BSG Results (Last 24 hours): 08/11/21 08/11/21 08/11/21 11:32 16:55 16:57 Glucose POC Glucose 210 H 65 L* 57 L* 08/11/21 08/11/21 08/11/21 17:19 17:21 21:04 Glucose POC Glucose 70 78 158 H 08/12/21 06:14 Glucose 130 H POC Glucose OUTPATIENT ANTIDIABETIC REGIMEN: * None * HbA1c ordered for 08/10/21 ASSESSMENT: 08/12/21 * Patient received total of 17 units of insulin yesterday, of which 6 units were basal * Fasting BSG much improved at 130 mg/dL (from 203 mg/dL) - will scale back to 5 units daily of basal since BSGs seem to be very labile * BSGs trending down with dinner, likely lunch coverage too much, plan to loosen CR this morning since basal is continued 08/10/21 * BSGs yesterday were 251 mg/dL on PRP in AM then 459 mg/dL (at dinner) - 411 mg/dL (at night). Patient received 8 units of Novolog for these two blood sugars. * Overnight BSGs were 283-194 mg/dL and patient received 3 units of Novolog overnight. * Today's BSGs have been 177-298 mg/dL. Patient has received 6 units of insulin so far. * Tightened Novolog to weight-based stress of 3 for lunch. * Lantus 3 units tonight if BSGs still over 150 mg/dL tonight. Background * 66 yo F with hx glucose intolerance admitted with severe protein-calorie malnutrition * Random BSG's trending up, now elevated >400 mg/dL and confirmed on re-check - unclear etiology * Hesitant to start IV given K of 3.4 and risk for refeeding. Potassium being repleted orally at this time. * Hesitant to start basal due to being insulin naive with unknown etiology of hyperglycemia and significantly low body weight * Will start Novolog monotherapy at weight-based moderate stress estimate and add overnight checks. High goal range for now as response to insulin is not able to be easily predicted at this time PLAN FOR INPATIENT GLYCEMIC CONTROL: * Basal insulin * Lantus 5 units daily * Bolus insulin * NovoLog per scale ACHS or Q6hrs while NPO * Goal Range: Low 140 mg/dL - High 180 mg/dL * Correction Factor: 50 mg/dL/unit * Nutritional / Prandial insulin per carb ratio of 1 unit per 30 grams CHO consumed
[2021-08-12] MEDS: MAGNESIUM SULFATE / D5W 1 GM/100 ML BAG IV SCH ×3 (08:05→12:22)
[2021-08-12] MEDS: INSULIN ASPART PER UNIT SC SCH ×4 (09:13→20:43)
[2021-08-12] MEDS: FUROSEMIDE INJ 20 MG/2 ML VIAL IV SCH ×4 (09:28→20:44)
[2021-08-12] MEDS: INSULIN GLARGINE SOLOSTAR 100 UNITS/ML 3 ML PEN SC SCH (09:30)
[2021-08-12] MEDS: THIAMINE HCL 100 MG in SYRINGE 9 ML IV SCH (09:31)
[2021-08-12] MEDS: CEFDINIR 300 MG CAP PO SCH ×2 (09:31→20:45)
[2021-08-12] MEDS: DOCUSATE SODIUM 100 MG CAP PO SCH ×2 (09:31→23:00)
[2021-08-12] MEDS: FOLIC ACID 1 MG in SYRINGE 9.8 ML IV SCH (09:31)
[2021-08-12] MEDS: MAGNESIUM OXIDE 400 MG TAB PO SCH ×2 (09:32→20:45)
[2021-08-12] MEDS: CALCIUM 600MG + VIT D 400 IU TAB PO SCH ×2 (09:32→20:45)
[2021-08-12] MEDS: NICOTINE 14 MG/24 HR PATCH TD SCH (09:32)
[2021-08-12] MEDS: POTASSIUM CHLORIDE CRTAB 20 MEQ TABCR PO SCH ×2 (09:33→20:45)
--- NOTE | 2021-08-12 12:57 | Nephrology Progress Note ---
Date of Service August 12, 2021 Assessment & Plan (1) Electrolyte and fluid disorder: Plan: hyponatremia which came on after hospital admission; critical hypomagenesemia improving now but still an issue; also with hypokalemia, hypophosphatemia. not overloaded obviously hyponatremia cause unclear - ? mild volume depletion versus low solute diet/malnutrition >> suspect the former since she is 3.5 L negative since 08/08. had NS 1/2 L and started on mroe this am -stopped NS -strarted lasix 20 iv bid and K 40 po bid -gave 3 gm IV mag; cont po mag -narayan bmp at 1500 ordered -high risk for complications from hyponatremia and from refeeding >>goal sNa tomorrow am is no more than 131 Admission and Anticipated Discharge Date Admission Date: August 06, 2021 Subjective no interval events. cont to c/o "hurt all over;" poor appetite; no sob, no n/v Review of Systems Review of Systems: All systems reviewed & are unremarkable except as noted in Subjective Physical Exam Constitutional: well developed and + cachectic; no acute distress Eyes: EOM intact bilaterally ENMT: Ears: no external ear abnormality Nose: no external nose abnormality Mouth: + dry oral mucous membranes Neck: no nuchal rigidity Respiratory: normal respiratory effort Auscultation: + diminished lung sounds Gastrointestinal (Abdomen): Inspection/Auscultation: normal bowel sounds and + scaphoid Percussion/Palpation: + abdomen tender (moderate palpation w/ slight rebound) and abdomen soft Musculoskeletal: Extremities: + abnormal strength (too weak to maneuver for exam) Skin: no rashes, warm and dry Neurologic: psychomotor slowing Psychiatric: Orientation: oriented to person, oriented to place and cooperative Results & Data ([facility]) Vital Signs (Past 12 Hours) Vital Signs Temp Pulse Pulse Resp BP Pulse Ox 08/12/21 07:42 36.9 C 83 16 151/88 H 97 08/12/21 07:21 103 H 08/12/21 03:10 37 C 91 H 16 158/88 H 99 Laboratory Results 08/12/21 06:14 08/12/21 06:14
[2021-08-12] MEDS: ACETAMINOPHEN 500 MG TAB PO PRN (13:55)
--- NOTE | 2021-08-12 16:03 | Palliative Care Consultation ---
Date of Consultation August 12, 2021 Assessment & Plan (1) Generalized weakness: "Anali" tells me that she is essentially couch bound at home. She lives with her SO, Ned, who helps her to the bathroom. Despite this, she feels that things are going well at home. (2) Palliative care encounter: When I asked Anali about her understanding of her illness, she said to me "I don't think I have very much time". I asked her what made her think so and she said "I just know". I told her that I was concerned about that also and asked her what was most important to her. She told me that being at home and saying goodbye to her family were most important. I asked her what she would want for her care and she understands that much of her illness cannot be fixed. We talked about her thoughts about shifting focus of care from disease management to symptom management. She told me that she thought that was what she would want but that her family wanted her to eat more and get better. She told me that she has not really discussed her thoughts with her family. I encouraged her to do that and with her permission, offered to speak with her SO Ned Antunez about our conversation. I spoke with Ned who seemed somewhat surprised that Anali was so ill. He told me several times that he had been encouraging her to go to a SNF for rehab but that he would bring her home if she wasn't going to get better. Anali had said that she didn't want to go to SNF. We talked about limited potential for rehab given her frailty and severe cachexia and that if time is short, how would it be best to spend that time. Ned asked me what help he could get if he brought her home and I mentioned hospice care which he did not feel that they were ready for. We also discussed home care but he felt more comfortable with her going to SNF. I encouraged them to talk with each other about this which they are planning to do. (3) Protein-calorie malnutrition, severe: History of Present Illness Reason for Consultation: goals of care Requesting Physician: Dr. Ybarra Attending Physician: Tk Ybarra MD History of Present Illness 66 yo lady with history of hepatitis C and alcoholic hepatitis. She has had poor appetite and progressive weakness at home. She has severe protein calorie malnutrition and hyponatremia. She was also found to have a large fecal impaction and obstructive uropathy. She has had several bowel movements since admission. She has been very weak and confused at times but is awake and able to converse during our visit. We have been consulted to assist with goals of care. Allergies Allergy/AdvReac Type Severity Reaction Status Date / Time codeine Allergy Unknown Verified 07/16/12 07:20 ragweed pollen Allergy Unknown Verified 07/16/12 07:20 acetaminophen Allergy GI SYMPTOMS Verified 07/16/12 07:20 hydrocodone Allergy GI SYMPTOMS Verified 07/16/12 07:20 morphine Allergy GI SYMPTOMS Verified 07/16/12 07:20 Dust Allergy Unknown Uncoded 07/16/12 07:20 Home Medications Medication Instructions Recorded Confirmed Type No Known Home Medications 08/06/21 08/06/21 History Patient History Medical History Alcohol abuse Chronic diarrhea EtOH dependence Hepatitis C Protein calorie malnutrition Social History Smoking Status: Current every day smoker Tobacco Type: Cigarettes Cigarettes Per Day: 1/2 pk since feeling sick. Usually over 1 pack/day; Second Hand Exposure: Yes; Do You Dip or Chew Tobacco: No; Tobacco Cessation Education Requested by Patient: No Hx Alcohol Use: Yes Alcohol type: beer and hard liquor Hx Substance Use: No Preferred Language: Ghanaian Communication Ability: Effective Advice Clerk Required: No Beliefs That Will Affect Care: None marital status: Single Current Living Situation: Significant Other Current Living Situation Comment: Lives in a house Other Information That Helps Us Care for You: No Feels Safe at Home: Yes Safety Concerns: Feels Safe At This Time Assistive Devices: None Review of Systems Review of Systems: ESAS Anorexia 3/3 Dyspnea 0/3 Fatigue 2/3 Nausea 0/3 Anxiety 0/3 PPS 30% Physical Exam Constitutional: + cachectic; no acute distress ENMT: Mouth: + dry oral mucous membranes Respiratory: normal respiratory effort; no labored breathing Musculoskeletal: Extremities: + muscle atrophy Neurologic: awake; not confused Results & Data ([facility]) Vital Signs (Past 12 Hours) Vital Signs Temp Pulse Pulse Resp BP Pulse Ox 08/12/21 15:34 114 H 08/12/21 13:05 97.5 F L 90 16 121/74 96 08/12/21 07:42 98.4 F 83 16 151/88 H 97 08/12/21 07:21 103 H PG Care Time/CCT Total # of Minutes Spent Total Time Spent: 60 Total Time Spent with Patient: Total time spent is greater than 50% in coordination of care (as documented) at patient's floor/unit and/or counseling patient: goals of care, patient and family education and support Coding Level of Care Code 51767 Initial Inpt Care Lvl 2 Diagnoses Generalized weakness R53.1 Palliative care encounter Z51.5 Protein-calorie malnutrition, severe E43
[2021-08-12 16:08] LABS: BUN Creatinine Ratio 37.8 (10-20); Creatinine Clr Calc Pharmacy 69.4 ml/min; Est GFR (African American) 130.9 ml/min; Est GFR (Non-African American) 112.9 ml/min; Potassium 3.9 mmol/L (3.5-5.1)
--- NOTE | 2021-08-12 17:47 | Hospitalist Progress Note ---
Date of Service August 12, 2021 Assessment & Plan (1) Protein-calorie malnutrition, severe: Plan: Patient is a 66 yr female with H/O Chronic alcoholism and hepatitis C, who presents with weakness, poor appetite, weight loss and chronic diarrhea. Alcohol use Disorder Patient drinks 3 beers and half pint of vodka every day Continue thiamine, folic acid, Ativan as needed Monitor for withdrawal Counseled to quit drinking No withdrawal symptoms currently Thrombocytopenia Likely secondary to alcohol use S/P 1 unit platelets No bleeding issues Platelets 94 K today Severe protein calorie malnutrition BMI 12 Weight loss, poor appetite and failure to thrive Dietitian consulted Appreciate Palliative Care Input Rectal Bleeding ? Hemorrhoids Monitor CBC and transfuse as needed GI consulted Colonoscopy as outpatient as per GI No recurrence of bleeding currently Hb 8.4 today Electrolyte abnormalities Hypokalemia Hypomagnesemia Hypocalcemia Replace electrolytes as needed Monitor Acute Hyponatremia ? Possible chronic hyponatremia at baseline in setting of Hyperglycemia, alcohol use disorder Sodium 136>>123 Monitor sodium levels closely Appreciate Nephrology help on IV lasix as per Nephrology DM II New diagnosis HbA1c:9.2 Continue ISS Monitor BGs Auto Body Straightener consulted Chronic diarrhea: Likely overflow secondary to constipation, alcohol use and Infectious origin --CT ABD:The patient is cachectic. The bladder is massively distended and there is a large stool ball in the rectum. No acute abnormality is seen. Pancreatic calcifications are compatible with chronic pancreatitis. Stool studies showed enteropathogenic E. coli IV fluids as needed Appreciate GI input May need colonoscopy as outpatient Continue bowel regimen Continue on Cefdinir Diarrhea resolved Anemia of chronic disease Normal vitamin B12, folate levels, Iron Panel + Rectal bleeding as above Monitor CBC Obstructive uropathy Urinary Retention ABD USD:Bilateral hydronephrosis and dilatation of the urinary bladder Likely secondary to large stool bolus Continue bowel regimen Bladder scan as needed Placed on Tavera catheter Consider urology evaluation if needed H/O Hepatitis C Untreated Follow-up as outpatient DVT Px: Heparin SQ--DCed SCDs for now Code Status Full Code DISPOSITION: PT/OT prior to discharge. Admission and Anticipated Discharge Date Admission Date: August 06, 2021 Subjective Patient is seen and examined at bedside Poor historian No new complaints Sodium remains low Appreciate Palliative care input poor appetite Denies any chest pain, dyspnea, nausea, abdominal pain Review of Systems Review of Systems: All systems reviewed & are unremarkable except as noted in Subjective Physical Exam Physical Exam: Physical Exam: Vitals signs as noted above General Appearance: Thin, frail, chronically appearing, no apparent distress Head: normocephalic, Atraumatic Eyes: normal inspection, EOMI Neck: supple, Trachea midline Respiratory/Chest: Normal breath sounds, CTA, No accessory muscle use Cardiovascular: S1, S2, No murmur Abdomen/GI:Soft, Non tender, bowel sounds present Extremities/Musculoskeletal:normal inspection, no edema Neurologic/Psych:AAOX3, grossly no focal neurological deficits Skin: normal color, warm, + B/L LE excoriations Results & Data Results & Data ([facility]) Vital Signs (Past 12 Hours) Vital Signs Temp Pulse Pulse Resp BP Pulse Ox 08/12/21 15:34 114 H 08/12/21 13:05 36.4 C L 90 16 121/74 96 08/12/21 07:42 36.9 C 83 16 151/88 H 97 08/12/21 07:21 103 H Laboratory Results Short CBC 08/12/21 Range/Units 06:14 WBC 3.26 L (4.8-10.8) K/uL Hgb 8.4 L (12.0-16.0) g/dL Hct 23.8 L (37-47) % Plt Count 94 L (130-400) K/uL BMP 08/12/21 08/12/21 06:14 14:41 Sodium 124 L 123 L Potassium 3.4 L 3.9 Chloride 94 L 89 L Carbon Dioxide 24 29 BUN 11 14 Creatinine 0.23 L 0.37 L Glucose 130 H 330 H* Calcium 7.5 L 8.0 L
[2021-08-12] MEDS ORDERED: INSULIN ASPART PER UNIT SC STA (20:10)
[2021-08-13] MEDS: FUROSEMIDE INJ 20 MG/2 ML VIAL IV SCH ×7 (00:08→23:37)
[2021-08-13 06:24] LABS: Hematocrit (blood only) 25.5 % (37-47); Hemoglobin 8.9 g/dL (12.0-16.0); Mean Corpuscular Hemoglobin 33.5 pg (25-34); Mean Corpuscular Hgb Conc 34.9 g/dL (32-36); Mean Corpuscular Volume 95.9 fL (80-100); Mean Platelet Volume 10.6 fL (7.4-10.4); Platelet Count 160 K/uL (130-400); RDW Coefficient of Variation 12.6 % (11.5-14.5); RDW Standard Deviation 42.1 fL (36.4-46.3); Red Blood Count 2.66 M/uL (4.2-5.4)
[2021-08-13 06:42] LABS: BUN Creatinine Ratio 52.8 (10-20); Calcium 8.8 mg/dl (8.5-10.1); Creatinine Clr Calc Pharmacy 79.5 ml/min; Est GFR (African American) 132.1 ml/min; Magnesium 1.4 mg/dl (1.7-2.4)
[2021-08-13] MEDS: MAGNESIUM SULFATE / D5W 1 GM/100 ML BAG IV SCH ×2 (10:07→12:20)
[2021-08-13] MEDS: POTASSIUM CHLORIDE CRTAB 20 MEQ TABCR PO SCH ×2 (10:11→20:46)
[2021-08-13] MEDS: ACETAMINOPHEN 500 MG TAB PO PRN ×2 (10:12→20:45)
[2021-08-13] MEDS: MAGNESIUM OXIDE 400 MG TAB PO SCH ×2 (10:13→20:46)
[2021-08-13] MEDS: CALCIUM 600MG + VIT D 400 IU TAB PO SCH ×2 (10:13→20:47)
[2021-08-13] MEDS: FOLIC ACID 1 MG in SYRINGE 9.8 ML IV SCH (10:13)
[2021-08-13] MEDS: THIAMINE HCL 100 MG in SYRINGE 9 ML IV SCH (10:13)
[2021-08-13] MEDS: CEFDINIR 300 MG CAP PO SCH ×2 (10:14→20:47)
[2021-08-13] MEDS: DOCUSATE SODIUM 100 MG CAP PO SCH ×2 (10:15→20:46)
[2021-08-13] MEDS: NICOTINE 14 MG/24 HR PATCH TD SCH (10:15)
[2021-08-13] MEDS: INSULIN GLARGINE SOLOSTAR 100 UNITS/ML 3 ML PEN SC SCH (10:22)
[2021-08-13] MEDS: INSULIN ASPART PER UNIT SC SCH ×4 (10:25→20:39)
--- NOTE | 2021-08-13 13:46 | Nephrology Progress Note ---
Date of Service August 13, 2021 Assessment & Plan (1) Electrolyte and fluid disorder: Plan: hyponatremia which came on after hospital admission; critical hypomagenesemia improving now but still an issue; also with hypokalemia, hypophosphatemia. not overloaded obviously hyponatremia cause unclear - ? mild volume depletion versus low solute diet/malnutrition >> suspect the former based on I/O trends but she did not respond to gentle saline. -stopped NS -cont lasix 20 iv bid and K 40 po bid -gave today 2 gm IV mag; cont po mag -narayan bmp at 1500 ordered -high risk for complications from hyponatremia and from refeeding >>goal sNa tomorrow am is no more than 130 Care for fluid /electrolytes reviewed w/ pt and SO Admission and Anticipated Discharge Date Admission Date: August 06, 2021 Subjective 3.1L negative yesterday; SO at bedside today; pt w/o c/o but also reluctant to participate in ROS; does endorse ongoing diffuse mscskel pain and malaise, nikolay low back where she sits on bedpan Review of Systems Review of Systems: All systems reviewed & are unremarkable except as noted in Subjective Physical Exam Constitutional: well developed and + cachectic; no acute distress Eyes: EOM intact bilaterally ENMT: Ears: no external ear abnormality Nose: no external nose abnormality Mouth: + dry oral mucous membranes Neck: no nuchal rigidity Respiratory: normal respiratory effort Auscultation: + diminished lung sounds Cardiovascular: Rate/Rhythm: regular rhythm and + tachycardic Extremities: no edema Gastrointestinal (Abdomen): Inspection/Auscultation: normal bowel sounds and + scaphoid Percussion/Palpation: + abdomen tender (moderate palpation w/ slight rebound) and abdomen soft Musculoskeletal: Extremities: + abnormal strength (too weak to maneuver for exam) Skin: no rashes, warm and dry Psychiatric: Orientation: oriented to person, oriented to place and cooperative Speech: normal rate/rhythm/volume of speech Affect: + tearful affect and + labile affect Genitourinary: benson w/ scant UOP Results & Data ([facility]) Vital Signs (Past 12 Hours) Vital Signs Temp Pulse Resp BP Pulse Ox 08/13/21 11:26 37.1 C 103 H 16 137/88 100 08/13/21 07:19 37.1 C 109 H 16 135/83 98 08/13/21 02:26 37.0 C 108 H 18 135/88 98 Laboratory Results 08/13/21 05:55 08/13/21 05:55
[2021-08-13 16:06] LABS: BUN Creatinine Ratio 59.5 (10-20); Calcium 9.1 mg/dl (8.5-10.1); Creatinine Clr Calc Pharmacy 77.4 ml/min; Est GFR (African American) 130.9 ml/min; Est GFR (Non-African American) 112.9 ml/min; Magnesium 2.1 mg/dl (1.7-2.4); Phosphorus 4.3 mg/dl (2.5-4.9); Potassium 3.8 mmol/L (3.5-5.1)
--- NOTE | 2021-08-13 17:12 | Hospitalist Progress Note ---
Date of Service August 13, 2021 Assessment & Plan (1) Protein-calorie malnutrition, severe: Plan: Patient is a 66 yr female with H/O Chronic alcoholism and hepatitis C, who presents with weakness, poor appetite, weight loss and chronic diarrhea. Alcohol use Disorder Patient drinks 3 beers and half pint of vodka every day Continue thiamine, folic acid, Ativan as needed Monitor for withdrawal Counseled to quit drinking No withdrawal symptoms currently Thrombocytopenia Likely secondary to alcohol use S/P 1 unit platelets No bleeding issues Resolved Platelets improved to 160K Severe protein calorie malnutrition BMI 12 Weight loss, poor appetite and failure to thrive Dietitian consulted Appreciate Palliative Care Input Rectal Bleeding ? Hemorrhoids Monitor CBC and transfuse as needed GI consulted Colonoscopy as outpatient as per GI No recurrence of bleeding currently Hb 8.9 today Electrolyte abnormalities Hypokalemia Hypomagnesemia Hypocalcemia Replace electrolytes as needed Monitor Acute Hyponatremia ? Possible chronic hyponatremia at baseline in setting of Hyperglycemia, alcohol use disorder Sodium 136>>123 Monitor sodium levels closely Appreciate Nephrology help on IV lasix as per Nephrology DM II New diagnosis HbA1c:9.2 Continue ISS Monitor BGs Clinical Transplant Coordinator consulted Chronic diarrhea: Likely overflow secondary to constipation, alcohol use and Infectious origin --CT ABD:The patient is cachectic. The bladder is massively distended and there is a large stool ball in the rectum. No acute abnormality is seen. Pancreatic calcifications are compatible with chronic pancreatitis. Stool studies showed enteropathogenic E. coli IV fluids as needed Appreciate GI input May need colonoscopy as outpatient Continue bowel regimen Continue on Cefdinir Diarrhea resolved Anemia of chronic disease Normal vitamin B12, folate levels, Iron Panel + Rectal bleeding as above Monitor CBC Obstructive uropathy Urinary Retention ABD USD:Bilateral hydronephrosis and dilatation of the urinary bladder Likely secondary to large stool bolus Continue bowel regimen Bladder scan as needed Placed on Tavera catheter Consider urology evaluation if needed H/O Hepatitis C Untreated Follow-up as outpatient DVT Px: Heparin SQ--DCed SCDs for now Code Status Full Code DISPOSITION: PT/OT prior to discharge. Admission and Anticipated Discharge Date Admission Date: August 06, 2021 Subjective Patient is seen and examined at bedside Discussed with patient family at bedside Patient states feeling tired and has mild generalized discomfort Denies any recurrence of bleeding issues Poor oral intake Sodium levels remain low as well Denies any chest pain, dyspnea, nausea, abdominal pain Review of Systems Review of Systems: All systems reviewed & are unremarkable except as noted in Subjective Physical Exam Physical Exam: Physical Exam: Vitals signs as noted above General Appearance: Thin, frail, chronically appearing, no apparent distress Head: normocephalic, Atraumatic Eyes: normal inspection, EOMI Neck: supple, Trachea midline Respiratory/Chest: Normal breath sounds, CTA, No accessory muscle use Cardiovascular: S1, S2, No murmur Abdomen/GI:Soft, Non tender, bowel sounds present Extremities/Musculoskeletal:normal inspection, no edema Neurologic/Psych:AAOX3, grossly no focal neurological deficits Skin: normal color, warm, + B/L LE excoriations Results & Data Results & Data ([facility]) Vital Signs (Past 12 Hours) Vital Signs Temp Pulse Pulse Resp BP Pulse Ox 08/13/21 16:07 36.5 C 113 H 13 99/67 L 96 08/13/21 11:26 37.1 C 103 H 16 137/88 100 08/13/21 08:00 108 H 08/13/21 07:19 37.1 C 109 H 16 135/83 98 Laboratory Results Short CBC 08/13/21 Range/Units 05:55 WBC 4.00 L (4.8-10.8) K/uL Hgb 8.9 L (12.0-16.0) g/dL Hct 25.5 L (37-47) % Plt Count 160 D (130-400) K/uL BMP 08/13/21 08/13/21 05:55 15:22 Sodium 124 L 123 L Potassium 4.0 3.8 Chloride 89 L 87 L Carbon Dioxide 26 30 BUN 19 22 Creatinine 0.36 L 0.37 L Glucose 219 H 274 H Calcium 8.8 9.1
[2021-08-14] MEDS: FUROSEMIDE INJ 20 MG/2 ML VIAL IV SCH ×5 (04:08→21:19)
[2021-08-14 07:44] LABS: BUN Creatinine Ratio 78.1 (10-20); Calcium 9.7 mg/dl (8.5-10.1); Est GFR (African American) 137.3 ml/min; Est GFR (Non-African American) 118.5 ml/min; Magnesium 1.5 mg/dl (1.7-2.4); Potassium 4.2 mmol/L (3.5-5.1)
[2021-08-14] MEDS ORDERED: INSULIN HUMAN REGULAR PER UNIT 2 UNITS in SYRINGE 1.98 ML IV ONE (08:00)
[2021-08-14] MEDS: CEFDINIR 300 MG CAP PO SCH ×2 (08:47→21:18)
[2021-08-14] MEDS: POTASSIUM CHLORIDE CRTAB 20 MEQ TABCR PO SCH ×2 (08:47→21:23)
[2021-08-14] MEDS: MAGNESIUM OXIDE 400 MG TAB PO SCH ×2 (08:47→21:22)
[2021-08-14] MEDS: NICOTINE 14 MG/24 HR PATCH TD SCH (08:47)
[2021-08-14] MEDS: CALCIUM 600MG + VIT D 400 IU TAB PO SCH (08:47)
[2021-08-14] MEDS: ERGOCALCIFEROL 50,000 UNITS 1250 MCG CAP PO SCH (08:47)
[2021-08-14] MEDS: THIAMINE HCL 100 MG in SYRINGE 9 ML IV SCH (08:47)
[2021-08-14] MEDS: FOLIC ACID 1 MG in SYRINGE 9.8 ML IV SCH (08:47)
[2021-08-14] MEDS: DOCUSATE SODIUM 100 MG CAP PO SCH ×2 (08:50→21:27)
[2021-08-14] MEDS: INSULIN ASPART PER UNIT SC SCH ×5 (08:52→23:47)
[2021-08-14] MEDS: ACETAMINOPHEN 500 MG TAB PO PRN ×2 (08:54→18:19)
[2021-08-14] MEDS ORDERED: INSULIN GLARGINE SOLOSTAR 100 UNITS/ML 3 ML PEN SC SCH ×3 (09:00→21:00)
[2021-08-14] MEDS: MAGNESIUM SULFATE / D5W 1 GM/100 ML BAG IV SCH ×2 (09:12→11:31)
[2021-08-14] MEDS ORDERED: STAT IV Infusion **Titration per Protocol STA ×2 (11:52→11:57)
[2021-08-14] MEDS ORDERED: INSULIN PROTOCOL GOAL RANGE ONE (11:52)
[2021-08-14] MEDS ORDERED: SEVERE STRESS LEVEL ONE (11:52)
[2021-08-14] MEDS ORDERED: INSULIN HUMAN REGULAR IV BOLUS 1 UNITS in SYRINGE 0 ML IV ONE (12:00)
[2021-08-14] MEDS ORDERED: INSULIN REGULAR 250 UNITS in SODIUM CHLORIDE 0.9% 247.5 ML IV SCH (12:00)
--- NOTE | 2021-08-14 15:22 | Pharmacy Report ---
Pharmacy Glycemic Short Note 2 - Date of Service August 14, 2021 - Glycemic Short BSG Results (Last 24 hours): 08/13/21 08/13/21 08/13/21 15:22 16:46 20:05 Glucose 274 H POC Glucose 244 H 282 H 08/14/21 08/14/21 08/14/21 06:27 07:37 07:37 Glucose 233 H POC Glucose 321 H* 311 H* 08/14/21 08/14/21 08/14/21 11:42 11:43 12:33 Glucose POC Glucose 310 H* 315 H* 325 H* 08/14/21 08/14/21 13:37 15:05 Glucose POC Glucose 202 H 93 OUTPATIENT ANTIDIABETIC REGIMEN: * None HbA1c: 9.2% (08/10/21) ASSESSMENT: 08/14/21 * BSGs have been persistently elevated over past 48 hours * Received 22 units of insulin yesterday (5 units of basal and 17 units of prandial/correctional bolus) * Insulin gtt initiated this afternoon for persistent hyperglycemia despite IV insulin bolus in AM * Insulin gtt transitioned off very quickly (BSG of 93 mg/dL) * Will increase Lantus today and add overnight checks to provide additional coverage if needed 08/12/21 * Patient received total of 17 units of insulin yesterday, of which 6 units were basal * Fasting BSG much improved at 130 mg/dL (from 203 mg/dL) - will scale back to 5 units daily of basal since BSGs seem to be very labile * BSGs trending down with dinner, likely lunch coverage too much, plan to loosen CR this morning since basal is continued 08/10/21 * BSGs yesterday were 251 mg/dL on PRP in AM then 459 mg/dL (at dinner) - 411 mg/dL (at night). Patient received 8 units of Novolog for these two blood sugars. * Overnight BSGs were 283-194 mg/dL and patient received 3 units of Novolog overnight. * Today's BSGs have been 177-298 mg/dL. Patient has received 6 units of insulin so far. * Tightened Novolog to weight-based stress of 3 for lunch. * Lantus 3 units tonight if BSGs still over 150 mg/dL tonight. Background * 66 yo F with hx glucose intolerance admitted with severe protein-calorie malnutrition * Random BSG's trending up, now elevated >400 mg/dL and confirmed on re-check - unclear etiology * Hesitant to start IV given K of 3.4 and risk for refeeding. Potassium being repleted orally at this time. * Hesitant to start basal due to being insulin naive with unknown etiology of hyperglycemia and significantly low body weight * Will start Novolog monotherapy at weight-based moderate stress estimate and add overnight checks. High goal range for now as response to insulin is not able to be easily predicted at this time PLAN FOR INPATIENT GLYCEMIC CONTROL: * Basal insulin * Lantus 6 units SC daily * Lantus 0-3 units SC HS (see EHR for details) * Bolus insulin * NovoLog per scale ACHS or Q6hrs while NPO * Goal Range: Low 120 mg/dL - High 150 mg/dL * Correction Factor: 45 mg/dL/unit * Nutritional / Prandial insulin per carb ratio of 1 unit per 12 grams CHO consumed
--- NOTE | 2021-08-14 15:30 | Nephrology Progress Note ---
Date of Service August 14, 2021 Assessment & Plan (1) Electrolyte and fluid disorder: Plan: hyponatremia which came on after hospital admission; critical hypomagenesemia improving now but still an issue; also with hypokalemia, hypophosphatemia. not overloaded obviously hyponatremia cause unclear - ? mild volume depletion versus low solute diet/malnutrition >> suspect the former based on I/O trends but she did not respond to gentle saline. -stopped NS -has been getting lasix 20 mg IV q4h > nursing noting 250 mL intake and 75 mL UOP only this shift > will recheck chemistries now; lasix and K on hold -cont po mag -high risk for complications from hyponatremia and from refeeding Admission and Anticipated Discharge Date Admission Date: August 06, 2021 Subjective no interval events; more lethargic today though SO at bedside tells me she ate well midday; c/oongoing bone pain; no sob; no diarrhea Review of Systems Review of Systems: All systems reviewed & are unremarkable except as noted in Subjective Physical Exam Constitutional: well developed and + cachectic; no acute distress Eyes: EOM intact bilaterally ENMT: Ears: no external ear abnormality Nose: no external nose abnormality Mouth: + dry oral mucous membranes Neck: no nuchal rigidity Respiratory: normal respiratory effort Auscultation: + diminished lung sounds Cardiovascular: Rate/Rhythm: regular rhythm and + tachycardic Extremities: no edema Gastrointestinal (Abdomen): Inspection/Auscultation: normal bowel sounds and + scaphoid Percussion/Palpation: abdomen soft; abdomen nontender Musculoskeletal: Extremities: + abnormal strength (too weak to maneuver for exam) Skin: no rashes, warm and dry Neurologic: lethargic and generalized weakness; answers appropraitely Psychiatric: Orientation: oriented to person, oriented to place and socorro ative Speech: normal rate/rhythm/volume of speech Affect: + tearful affect and + labile affect Genitourinary: benson w/ yellow urine Results & Data ([facility]) Vital Signs (Past 12 Hours) Vital Signs Temp Pulse Pulse Resp BP Pulse Ox 08/14/21 11:22 36.7 C 131 H 16 93/63 L 95 08/14/21 10:26 114 H 08/14/21 06:33 36.8 C 108 H 18 101/70 99 08/14/21 04:06 36.9 C 105 H 18 122/76 98 Laboratory Results 08/13/21 05:55 08/14/21 06:27
--- NOTE | 2021-08-14 15:46 | Hospitalist Progress Note ---
Date of Service August 14, 2021 Assessment & Plan (1) Protein-calorie malnutrition, severe: Plan: Patient is a 66 yr female with H/O Chronic alcoholism and hepatitis C, who presents with weakness, poor appetite, weight loss and chronic diarrhea. Alcohol use Disorder Patient drinks 3 beers and half pint of vodka every day Continue thiamine, folic acid, Ativan as needed Monitor for withdrawal Counseled to quit drinking No withdrawal symptoms currently Thrombocytopenia Likely secondary to alcohol use S/P 1 unit platelets No bleeding issues Resolved Platelets improved to 160K Severe protein calorie malnutrition BMI 12 Weight loss, poor appetite and failure to thrive Dietitian consulted Appreciate Palliative Care Input Rectal Bleeding ? Hemorrhoids Monitor CBC and transfuse as needed GI consulted Colonoscopy as outpatient as per GI No recurrence of bleeding currently Hb 8.9 Electrolyte abnormalities Hypokalemia Hypomagnesemia Hypocalcemia Replace electrolytes as needed Monitor Acute Hyponatremia ? Possible chronic hyponatremia at baseline in setting of Hyperglycemia, alcohol use disorder Sodium 136>>123>125 Appreciate Nephrology help on IV lasix as per Nephrology Sodium level slowly improving Continue to monitor DM II New diagnosis HbA1c:9.2 Continue ISS Monitor BGs Galley Boy consulted BGs uncontrolled today Chronic diarrhea: Likely overflow secondary to constipation, alcohol use and Infectious origin --CT ABD:The patient is cachectic. The bladder is massively distended and there is a large stool ball in the rectum. No acute abnormality is seen. Pancreatic calcifications are compatible with chronic pancreatitis. Stool studies showed enteropathogenic E. coli IV fluids as needed Appreciate GI input May need colonoscopy as outpatient Continue bowel regimen Continue on Cefdinir Diarrhea resolved Anemia of chronic disease Normal vitamin B12, folate levels, Iron Panel + Rectal bleeding as above Monitor CBC Obstructive uropathy Urinary Retention ABD USD:Bilateral hydronephrosis and dilatation of the urinary bladder Likely secondary to large stool bolus Continue bowel regimen Bladder scan as needed Placed on Tavera catheter Consider urology evaluation if needed H/O Hepatitis C Untreated Follow-up as outpatient DVT Px: Heparin SQ--DCed SCDs for now Code Status Full Code DISPOSITION: PT/OT prior to discharge. Admission and Anticipated Discharge Date Admission Date: August 06, 2021 Subjective Patient is seen and examined at bedside Poor historian Offers no specific complaints today Denies any chest pain, dyspnea, nausea, abdominal pain Review of Systems Review of Systems: All systems reviewed & are unremarkable except as noted in Subjective Physical Exam Physical Exam: Physical Exam: Vitals signs as noted above General Appearance: Thin, frail, chronically appearing, no apparent distress Head: normocephalic, Atraumatic Eyes: normal inspection, EOMI Neck: supple, Trachea midline Respiratory/Chest: Normal breath sounds, CTA, No accessory muscle use Cardiovascular: S1, S2, No murmur Abdomen/GI:Soft, Non tender, bowel sounds present Extremities/Musculoskeletal:normal inspection, no edema Neurologic/Psych:AAOX3, grossly no focal neurological deficits Skin: normal color, warm, + B/L LE excoriations Results & Data Results & Data ([facility]) Vital Signs (Past 12 Hours) Vital Signs Temp Pulse Pulse Resp BP Pulse Ox 08/14/21 11:22 36.7 C 131 H 16 93/63 L 95 08/14/21 10:26 114 H 08/14/21 06:33 36.8 C 108 H 18 101/70 99 08/14/21 04:06 36.9 C 105 H 18 122/76 98 Laboratory Results BMP 08/13/21 08/14/21 15:22 06:27 Sodium 123 L 125 L Potassium 3.8 4.2 Chloride 87 L 90 L Carbon Dioxide 30 29 BUN 22 25 H Creatinine 0.37 L 0.32 L Glucose 274 H 233 H Calcium 9.1 9.7
[2021-08-14 16:22] LABS: BUN Creatinine Ratio 59.3 (10-20); Calcium 10.3 mg/dl (8.5-10.1); Est GFR (African American) 115.6 ml/min; Est GFR (Non-African American) 99.7 ml/min; Potassium 3.6 mmol/L (3.5-5.1)
[2021-08-14] MEDS ORDERED: INSULIN ASPART PER UNIT SC SCH (16:30)
[2021-08-14] MEDS: POTASSIUM CHLORIDE 40 MEQ in SODIUM CHLORIDE 0.9% 1000ML 1,000 ML IV SCH (17:48)
[2021-08-15] MEDS: FUROSEMIDE INJ 20 MG/2 ML VIAL IV SCH ×6 (01:35→20:19)
[2021-08-15] MEDS: POTASSIUM CHLORIDE 40 MEQ in SODIUM CHLORIDE 0.9% 1000ML 1,000 ML IV SCH ×3 (02:12→20:36)
[2021-08-15] MEDS: INSULIN ASPART PER UNIT SC SCH ×5 (04:56→20:36)
[2021-08-15 07:31] LABS: BUN Creatinine Ratio 75.8 (10-20); Calcium 8.9 mg/dl (8.5-10.1); Creatinine Clr Calc Pharmacy 87.8 ml/min; Est GFR (African American) 135.9 ml/min; Est GFR (Non-African American) 117.3 ml/min; Magnesium 1.5 mg/dl (1.7-2.4); Phosphorus 4.5 mg/dl (2.5-4.9)
[2021-08-15] MEDS: NICOTINE 14 MG/24 HR PATCH TD SCH (08:04)
[2021-08-15] MEDS: CEFDINIR 300 MG CAP PO SCH (08:06)
[2021-08-15] MEDS: MAGNESIUM OXIDE 400 MG TAB PO SCH ×2 (08:06→20:24)
[2021-08-15] MEDS: INSULIN GLARGINE SOLOSTAR 100 UNITS/ML 3 ML PEN SC SCH (08:06)
[2021-08-15] MEDS: FOLIC ACID 1 MG in SYRINGE 9.8 ML IV SCH (08:07)
[2021-08-15] MEDS: POTASSIUM CHLORIDE CRTAB 20 MEQ TABCR PO SCH (08:07)
[2021-08-15] MEDS: THIAMINE HCL 100 MG in SYRINGE 9 ML IV SCH (08:07)
[2021-08-15] MEDS: DOCUSATE SODIUM 100 MG CAP PO SCH ×2 (09:49→20:25)
[2021-08-15] MEDS: MAGNESIUM SULFATE / D5W 1 GM/100 ML BAG IV SCH ×2 (09:50→12:13)
--- NOTE | 2021-08-15 18:12 | Nephrology Progress Note ---
Date of Service August 15, 2021 Assessment & Plan (1) Electrolyte and fluid disorder: Plan: hyponatremia which came on after hospital admission; critical hypomagenesemia improving now but still an issue; also with hypokalemia, hypophosphatemia. not overloaded obviously hyponatremia cause unclear - ? mild volume depletion versus low solute diet/malnutrition >> suspect the former based on I/O trends but she did not respond to gentle saline. -continue NS w/ 40 mEq/L K at 125 AND lasix 30 mg IV q 4 HR - orders in not to stop one w/o stopping other she is 1.6 L negative today >> will see what repeat labs show -encourage po intake nikolay protein shakes -cont po FR -cont po mag -high risk for complications from hyponatremia and from refeeding Admission and Anticipated Discharge Date Admission Date: August 06, 2021 Subjective no interval events; daugther bedside; pt hardly eating this evening. no sob; still hurts everywhere Review of Systems Review of Systems: All systems reviewed & are unremarkable except as noted in Subjective Physical Exam Constitutional: well developed and + cachectic; no acute distress Eyes: EOM intact bilaterally ENMT: Ears: no external ear abnormality Nose: no external nose abnormality Mouth: + dry oral mucous membranes Neck: no nuchal rigidity Respiratory: normal respiratory effort Auscultation: + diminished lung sounds Cardiovascular: Rate/Rhythm: regular rhythm and + tachycardic Extremities: no edema Gastrointestinal (Abdomen): Inspection/Auscultation: normal bowel sounds and + scaphoid Percussion/Palpation: abdomen soft; abdomen nontender Musculoskeletal: Extremities: + abnormal strength (too weak to maneuver for exam) Skin: no rashes, warm and dry Neurologic: lsight psychomotor slowing Psychiatric: Orientation: oriented to person, oriented to place and cooperative Affect: + flat affect and + labile affect Results & Data ([facility]) Vital Signs (Past 12 Hours) Vital Signs Temp Pulse Pulse Resp BP Pulse Ox 08/15/21 16:20 36.9 C 95 H 18 118/75 99 08/15/21 14:20 95 H 08/15/21 10:51 37.3 C 105 H 18 112/73 98 08/15/21 07:13 37.2 C 82 18 99/64 L 94 08/15/21 06:19 111 H Laboratory Results 08/13/21 05:55 08/15/21 06:52
--- NOTE | 2021-08-15 18:28 | Hospitalist Progress Note ---
Date of Service August 15, 2021 Assessment & Plan (1) Protein-calorie malnutrition, severe: Plan: Patient is a 66 yr female with H/O Chronic alcoholism and hepatitis C, who presents with weakness, poor appetite, weight loss and chronic diarrhea. Alcohol use Disorder Patient drinks 3 beers and half pint of vodka every day Continue thiamine, folic acid, Ativan as needed Monitor for withdrawal Counseled to quit drinking No withdrawal symptoms currently Thrombocytopenia Likely secondary to alcohol use S/P 1 unit platelets No bleeding issues Resolved Platelets improved to 160K Severe protein calorie malnutrition BMI 12 Weight loss, poor appetite and failure to thrive Dietitian consulted Appreciate Palliative Care Input Appetite remains poor Rectal Bleeding ? Hemorrhoids Monitor CBC and transfuse as needed GI consulted Colonoscopy as outpatient as per GI Hb 8.9 No recurrence of bleeding Electrolyte abnormalities Hypokalemia Hypomagnesemia Hypocalcemia Replace electrolytes as needed Monitor Acute Hyponatremia ? Possible chronic hyponatremia at baseline in setting of Hyperglycemia, alcohol use disorder Sodium 136>>123>125>126 on IV lasix as per Nephrology Sodium level slowly improving Continue to monitor sdoium levels Appreciate Nephrology help DM II New diagnosis HbA1c:9.2 Continue ISS Monitor BGs Desulfurizer Operator consulted Chronic diarrhea: Likely overflow secondary to constipation, alcohol use and Infectious origin --CT ABD:The patient is cachectic. The bladder is massively distended and there is a large stool ball in the rectum. No acute abnormality is seen. Pancreatic calcifications are compatible with chronic pancreatitis. Stool studies showed enteropathogenic E. coli IV fluids as needed Appreciate GI input May need colonoscopy as outpatient Continue bowel regimen Continue on Cefdinir Diarrhea resolved Anemia of chronic disease Normal vitamin B12, folate levels, Iron Panel + Rectal bleeding as above Monitor CBC Obstructive uropathy Urinary Retention ABD USD:Bilateral hydronephrosis and dilatation of the urinary bladder Likely secondary to large stool bolus Continue bowel regimen Bladder scan as needed Placed on Tavera catheter Consider urology evaluation if needed H/O Hepatitis C Untreated Follow-up as outpatient DVT Px: Heparin SQ--DCed SCDs for now Code Status Full Code DISPOSITION: PT/OT prior to discharge. Admission and Anticipated Discharge Date Admission Date: August 06, 2021 Subjective Patient is seen and examined at bedside Was lethargic, drowsy during my encounter Appetite remains poor Unable to obtain much history Awakes when called for Denies any chest pain, dyspnea, nausea, abdominal pain Review of Systems Review of Systems: All systems reviewed & are unremarkable except as noted in Subjective Physical Exam Physical Exam: Physical Exam: Vitals signs as noted above General Appearance: Thin, frail, chronically appearing, no apparent distress Head: normocephalic, Atraumatic Eyes: normal inspection, EOMI Neck: supple, Trachea midline Respiratory/Chest: Normal breath sounds, CTA, No accessory muscle use Cardiovascular: S1, S2, No murmur Abdomen/GI:Soft, Non tender, bowel sounds present Extremities/Musculoskeletal:normal inspection, no edema Neurologic/Psych:AAOX3, grossly no focal neurological deficits Skin: normal color, warm, + B/L LE excoriations Results & Data Results & Data ([facility]) Vital Signs (Past 12 Hours) Vital Signs Temp Pulse Pulse Resp BP Pulse Ox 08/15/21 18:11 36.5 C 89 16 120/73 96 08/15/21 16:20 36.9 C 95 H 18 118/75 99 08/15/21 14:20 95 H 08/15/21 10:51 37.3 C 105 H 18 112/73 98 08/15/21 07:13 37.2 C 82 18 99/64 L 94 Laboratory Results [facility] 08/15/21 06:52 Sodium 126 L Potassium 4.0 Chloride 95 L Carbon Dioxide 23 BUN 25 H Creatinine 0.33 L Glucose 142 H Calcium 8.9
[2021-08-15] MEDS: ACETAMINOPHEN 500 MG TAB PO PRN (18:37)
[2021-08-15 18:57] LABS: BUN Creatinine Ratio 60.5 (10-20); Calcium 8.5 mg/dl (8.5-10.1); Creatinine Clr Calc Pharmacy 76.3 ml/min; Est GFR (African American) 129.7 ml/min; Est GFR (Non-African American) 111.9 ml/min; Magnesium 1.8 mg/dl (1.7-2.4); Potassium 4.6 mmol/L (3.5-5.1)
[2021-08-16] MEDS: FUROSEMIDE INJ 20 MG/2 ML VIAL IV SCH ×7 (00:49→21:29)
[2021-08-16] MEDS: POTASSIUM CHLORIDE 40 MEQ in SODIUM CHLORIDE 0.9% 1000ML 1,000 ML IV SCH ×3 (05:40→21:20)
[2021-08-16 06:45] LABS: Hematocrit (blood only) 26.7 % (37-47); Hemoglobin 9.1 g/dL (12.0-16.0)
[2021-08-16 07:09] LABS: Calcium 8.2 mg/dl (8.5-10.1); Creatinine Clr Calc Pharmacy 95.5 ml/min; Est GFR (African American) 138.7 ml/min; Est GFR (Non-African American) 119.7 ml/min; Magnesium 1.5 mg/dl (1.7-2.4); Potassium 4.2 mmol/L (3.5-5.1)
[2021-08-16] MEDS: POTASSIUM CHLORIDE CRTAB 20 MEQ TABCR PO SCH (08:24)
[2021-08-16] MEDS: MAGNESIUM OXIDE 400 MG TAB PO SCH ×2 (08:25→21:28)
[2021-08-16] MEDS: NICOTINE 14 MG/24 HR PATCH TD SCH (08:25)
[2021-08-16] MEDS: INSULIN ASPART PER UNIT SC SCH ×4 (08:29→21:25)
[2021-08-16] MEDS: INSULIN GLARGINE SOLOSTAR 100 UNITS/ML 3 ML PEN SC SCH (08:30)
[2021-08-16] MEDS: FOLIC ACID 1 MG in SYRINGE 9.8 ML IV SCH (08:31)
[2021-08-16] MEDS: THIAMINE HCL 100 MG in SYRINGE 9 ML IV SCH (08:31)
[2021-08-16] MEDS: DOCUSATE SODIUM 100 MG CAP PO SCH ×2 (08:45→21:27)
[2021-08-16] MEDS: MAGNESIUM SULFATE / D5W 1 GM/100 ML BAG IV SCH ×2 (09:42→11:42)
--- NOTE | 2021-08-16 12:33 | Pharmacy Report ---
Pharmacy Glycemic Short Note 2 - Date of Service August 16, 2021 - Glycemic Short BSG Results (Last 24 hours): 08/15/21 08/15/21 08/15/21 16:47 18:09 20:04 Glucose 137 H POC Glucose 171 H 140 H 08/16/21 08/16/21 08/16/21:22 07:48 11:26 Glucose 162 H POC Glucose 181 H 284 H OUTPATIENT ANTIDIABETIC REGIMEN: * None HbA1c: 9.2% (08/10/21) ASSESSMENT: 08/16/21 * Patient's BSGs yesterday were [phone]/dL. Today's BSGs are 181-284 mg/dL. * Will continue with current Lantus dosing. This was aggressively increased on 08/14/21 so is achieving steady state. * Tighten CR as patient appears to be very carbohydrate sensitive. Loose CF to prevent overcorrection. 08/14/21 * BSGs have been persistently elevated over past 48 hours * Received 22 units of insulin yesterday (5 units of basal and 17 units of prandial/correctional bolus) * Insulin gtt initiated this afternoon for persistent hyperglycemia despite IV insulin bolus in AM * Insulin gtt transitioned off very quickly (BSG of 93 mg/dL) * Will increase Lantus today and add overnight checks to provide additional coverage if needed 08/12/21 * Patient received total of 17 units of insulin yesterday, of which 6 units were basal * Fasting BSG much improved at 130 mg/dL (from 203 mg/dL) - will scale back to 5 units daily of basal since BSGs seem to be very labile * BSGs trending down with dinner, likely lunch coverage too much, plan to loosen CR this morning since basal is continued 08/10/21 * BSGs yesterday were 251 mg/dL on PRP in AM then 459 mg/dL (at dinner) - 411 mg/dL (at night). Patient received 8 units of Novolog for these two blood sugars. * Overnight BSGs were 283-194 mg/dL and patient received 3 units of Novolog overnight. * Today's BSGs have been 177-298 mg/dL. Patient has received 6 units of insulin so far. * Tightened Novolog to weight-based stress of 3 for lunch. * Lantus 3 units tonight if BSGs still over 150 mg/dL tonight. Background * 66 yo F with hx glucose intolerance admitted with severe protein-calorie malnutrition * Random BSG's trending up, now elevated >400 mg/dL and confirmed on re-check - unclear etiology * Hesitant to start IV given K of 3.4 and risk for refeeding. Potassium being repleted orally at this time. * Hesitant to start basal due to being insulin naive with unknown etiology of hyperglycemia and significantly low body weight * Will start Novolog monotherapy at weight-based moderate stress estimate and add overnight checks. High goal range for now as response to insulin is not able to be easily predicted at this time PLAN FOR INPATIENT GLYCEMIC CONTROL: * Basal insulin * Lantus 8 units SQ daily * Bolus insulin * NovoLog per scale ACHS or Q6hrs while NPO * Goal Range: Low 120 mg/dL - High 150 mg/dL * Correction Factor: 45 mg/dL/unit * Nutritional / Prandial insulin per carb ratio of 1 unit per 10 grams CHO consumed
--- NOTE | 2021-08-16 17:10 | Hospitalist Progress Note ---
Date of Service August 16, 2021 Assessment & Plan (1) Protein-calorie malnutrition, severe: Plan: Patient is a 66 yr female with H/O Chronic alcoholism and hepatitis C, who presents with weakness, poor appetite, weight loss and chronic diarrhea. Alcohol use Disorder Patient drinks 3 beers and half pint of vodka every day Continue thiamine, folic acid, Ativan as needed Monitor for withdrawal Counseled to quit drinking No withdrawal symptoms currently Thrombocytopenia Likely secondary to alcohol use S/P 1 unit platelets No bleeding issues Resolved Platelets improved to 160K Severe protein calorie malnutrition BMI 12 Weight loss, poor appetite and failure to thrive Dietitian consulted Appreciate Palliative Care Input Very poor oral intake Rectal Bleeding ? Hemorrhoids Monitor CBC and transfuse as needed GI consulted Colonoscopy as outpatient as per GI Hb 9.1 today No recurrence of bleeding Electrolyte abnormalities Hypokalemia Hypomagnesemia Hypocalcemia Replace electrolytes as needed Monitor Acute Hyponatremia ? Possible chronic hyponatremia at baseline in setting of Hyperglycemia, alcohol use disorder Sodium 136>>123>125>126> 129 on IV lasix as per Nephrology Also on IV fluids Sodium level slowly improving Continue to monitor sdoium levels Appreciate Nephrology help DM II New diagnosis HbA1c:9.2 Continue ISS Monitor BGs Spacer Type Bar And Segment consulted Chronic diarrhea: Likely overflow secondary to constipation, alcohol use and Infectious origin --CT ABD:The patient is cachectic. The bladder is massively distended and there is a large stool ball in the rectum. No acute abnormality is seen. Pancreatic calcifications are compatible with chronic pancreatitis. Stool studies showed enteropathogenic E. coli IV fluids as needed Appreciate GI input May need colonoscopy as outpatient Continue bowel regimen Continue on Cefdinir Diarrhea resolved Anemia of chronic disease Normal vitamin B12, folate levels, Iron Panel + Rectal bleeding as above Monitor CBC Obstructive uropathy Urinary Retention ABD USD:Bilateral hydronephrosis and dilatation of the urinary bladder Likely secondary to large stool bolus Continue bowel regimen Bladder scan as needed Placed on Tavera catheter Consider urology evaluation if needed H/O Hepatitis C Untreated Follow-up as outpatient DVT Px: Heparin SQ--DCed SCDs for now Code Status Full Code DISPOSITION: PT/OT prior to discharge. Admission and Anticipated Discharge Date Admission Date: August 06, 2021 Subjective Patient is seen and examined at bedside More alert, awake today Reports generalized pain Poor historian Denies any chest pain, dyspnea, nausea, abdominal pain Appetite remains poor Review of Systems Review of Systems: All systems reviewed & are unremarkable except as noted in Subjective Physical Exam Physical Exam: Physical Exam: Vitals signs as noted above General Appearance: Thin, frail, chronically appearing, no apparent distress Head: normocephalic, Atraumatic Eyes: normal inspection, EOMI Neck: supple, Trachea midline Respiratory/Chest: Normal breath sounds, CTA, No accessory muscle use Cardiovascular: S1, S2, No murmur Abdomen/GI:Soft, Non tender, bowel sounds present Extremities/Musculoskeletal:normal inspection, no edema Neurologic/Psych:AAOX3, grossly no focal neurological deficits Skin: normal color, warm, + B/L LE excoriations Results & Data Results & Data ([facility]) Vital Signs (Past 12 Hours) Vital Signs Temp Pulse Pulse Resp BP Pulse Ox 08/16/21 16:05 108 H 08/16/21 15:11 37.3 C 105 H 18 147/78 H 98 08/16/21 11:59 37.3 C 117 H 18 155/88 H 98 08/16/21 08:00 37.4 C 106 H 20 115/68 96 08/16/21 07:50 99 H Laboratory Results Short CBC 08/16/21 Range/Units 06:22 Hgb 9.1 L (12.0-16.0) g/dL Hct 26.7 L (37-47) % BMP 08/15/21 08/16/21 18:09 06:22 Sodium 128 L 129 L Potassium 4.6 4.2 Chloride 97 L 98 Carbon Dioxide 25 24 BUN 23 22 Creatinine 0.38 L 0.31 L Glucose 137 H 162 H Calcium 8.5 8.2 L
--- NOTE | 2021-08-16 17:54 | Nephrology Progress Note ---
Date of Service August 16, 2021 Assessment & Plan (1) Electrolyte and fluid disorder: Plan: hyponatremia which came on after hospital admission; critical hypomagenesemia improving now but still an issue; also with hypokalemia, hypophosphatemia. not overloaded obviously hyponatremia cause unclear - ? mild volume depletion versus low solute diet/malnutrition >> suspect the former based on I/O trends but she did not respond to gentle saline. this afternoon some hypertension -continue NS w/ 40 mEq/L K but lowered rate from 125 ml/hr >> 80 ml/hr; AND increased lasix from 30 mg > 40 mg IV q 4 HR - orders in not to stop one w/o stopping other - change in NS and lasix dosing today d/t I = O nearly and needs to be about 1L negative on the day -encourage po intake nikolay protein shakes -cont po FR -cont po mag -high risk for complications from hyponatremia and from refeeding Admission and Anticipated Discharge Date Admission Date: August 06, 2021 Subjective no interval events; no sob, no n/v; c/o ongoing diffuse bone pain Review of Systems Review of Systems: All systems reviewed & are unremarkable except as noted in Subjective Physical Exam Constitutional: well developed and + cachectic; no acute distress Eyes: EOM intact bilaterally ENMT: Ears: no external ear abnormality Nose: no external nose abnormality Mouth: + dry oral mucous membranes Neck: no nuchal rigidity Respiratory: normal respiratory effort Auscultation: + diminished lung sounds Cardiovascular: Rate/Rhythm: regular rhythm and + tachycardic Extremities: no edema Gastrointestinal (Abdomen): Inspection/Auscultation: normal bowel sounds and + scaphoid Percussion/Palpation: abdomen soft; abdomen nontender Musculoskeletal: Extremities: + abnormal strength (too weak to maneuver for exam) Skin: no rashes, warm and dry Neurologic: notable psychomotor slowing, generalized weakness but hazel Psychiatric: Orientation: oriented to person, oriented to place and cooperative Speech: normal rate/rhythm/volume of speech Affect: + flat affect and + labile affect Results & Data ([facility]) Vital Signs (Past 12 Hours) Vital Signs Temp Pulse Pulse Resp BP Pulse Ox 08/16/21 16:05 108 H 08/16/21 15:11 37.3 C 105 H 18 147/78 H 98 08/16/21 11:59 37.3 C 117 H 18 155/88 H 98 08/16/21 08:00 37.4 C 106 H 20 115/68 96 08/16/21 07:50 99 H Laboratory Results 08/16/21 06:22 08/16/21 06:22
[2021-08-16] MEDS: traMADol HCL 50 MG TABLET PO PRN (18:20)
[2021-08-16] MEDS: ACETAMINOPHEN 500 MG TAB PO PRN (21:27)
[2021-08-17] MEDS: FUROSEMIDE INJ 20 MG/2 ML VIAL IV SCH ×2 (02:04→05:48)
[2021-08-17] MEDS: traMADol HCL 50 MG TABLET PO PRN ×2 (04:14→17:28)
[2021-08-17 06:53] LABS: Hematocrit (blood only) 25.6 % (37-47); Mean Corpuscular Hemoglobin 34.7 pg (25-34); Mean Corpuscular Hgb Conc 35.2 g/dL (32-36); Mean Corpuscular Volume 98.8 fL (80-100); Mean Platelet Volume 10.3 fL (7.4-10.4); Platelet Count 305 K/uL (130-400); RDW Coefficient of Variation 13.9 % (11.5-14.5); RDW Standard Deviation 49.2 fL (36.4-46.3); Red Blood Count 2.59 M/uL (4.2-5.4); White Blood Count 6.17 K/uL (4.8-10.8)
[2021-08-17 07:15] LABS: Est GFR (African American) 140.2 ml/min; Potassium 3.9 mmol/L (3.5-5.1)
[2021-08-17 07:16] LABS: BUN Creatinine Ratio 86.7 (10-20); Calcium 8.8 mg/dl (8.5-10.1); Creatinine Clr Calc Pharmacy 99.3 ml/min; Magnesium 1.4 mg/dl (1.7-2.4)
[2021-08-17] MEDS: THIAMINE HCL 100 MG in SYRINGE 9 ML IV SCH (08:19)
[2021-08-17] MEDS: FOLIC ACID 1 MG in SYRINGE 9.8 ML IV SCH (08:19)
[2021-08-17] MEDS: NICOTINE 14 MG/24 HR PATCH TD SCH (08:21)
[2021-08-17] MEDS: MAGNESIUM OXIDE 400 MG TAB PO SCH (08:23)
[2021-08-17] MEDS: POTASSIUM CHLORIDE CRTAB 20 MEQ TABCR PO SCH (08:24)
[2021-08-17] MEDS: DOCUSATE SODIUM 100 MG CAP PO SCH ×2 (08:30→20:37)
[2021-08-17] MEDS: INSULIN ASPART PER UNIT SC SCH ×4 (08:30→20:38)
[2021-08-17] MEDS: INSULIN GLARGINE SOLOSTAR 100 UNITS/ML 3 ML PEN SC SCH (08:31)
[2021-08-17] MEDS: POTASSIUM CHLORIDE 40 MEQ in SODIUM CHLORIDE 0.9% 1000ML 1,000 ML IV SCH (08:36)
[2021-08-17] MEDS: UREA (UREA-NA) 15 GM PACK PO SCH ×2 (09:20→20:37)
[2021-08-17] MEDS: POLYETHYLENE (MIRALAX) 17 GM PACK PO SCH (09:20)
[2021-08-17] MEDS: SODIUM CHLORIDE 1 GM TABLET PO SCH ×3 (09:21→20:37)
[2021-08-17] MEDS: MAGNESIUM SULFATE / D5W 1 GM/100 ML BAG IV SCH ×2 (09:25→11:25)
[2021-08-17] MEDS: MAGNESIUM CHLORIDE W/CALCIUM 64MG DELAYED REL TAB PO SCH ×2 (10:48→20:37)
--- NOTE | 2021-08-17 12:07 | Nephrology Progress Note ---
Date of Service August 17, 2021 Assessment & Plan (1) Electrolyte and fluid disorder: Plan: hyponatremia which came on after hospital admission; critical hypomagnesemia improving now but still an issue; also with hypokalemia, hypophosphatemia. not overloaded obviously hyponatremia cause unclear - ? mild volume depletion versus low solute diet/malnutrition >> suspect the former based on I/O trends but she did not respond to gentle saline. Patient with multiple electrolyte problems due to poor p.o. intake. Patient was seen by palliative care but was not ready for hospice. It will be difficult to correct her electrolyte problems without p.o. nutrition. If patient is still not ready for hospice, we may need alternative feeding mechanisms such as feeding tubes if patient would like to pursue that route. -encourage po intake nikolay protein shakes -high risk for complications from hyponatremia and from refeeding Admission and Anticipated Discharge Date Admission Date: August 06, 2021 Subjective Seen for hyponatremia and malnutrition. Patient does not provide much history but reports feeling fine. She has minimal p.o. intake. Review of Systems Review of Systems: All other systems were reviewed and negative except as noted in HPI Physical Exam Physical Exam: General exam: Cachectic,Appears comfortable, no acute distress HEENT: Pupils are equal and reactive to light Neck: No JVD, neck is supple trachea is midline Respiratory system: Clear breath sounds bilaterally. Gastrointestinal: Abdomen is soft, non distended, non tender, bowel sounds are present CVS: Regular rate and rhythm. No murmurs, rubs or gallops Musculoskeletal: No joint or muscle tenderness Extremities: Non tender, no edema, peripheral pulses are present Neuro: Oriented, no tremors, no focal neurological deficits Skin: No rashes Results & Data ([facility]) Vital Signs (Past 12 Hours) Vital Signs Temp Pulse Pulse Resp BP Pulse Ox 08/17/21 11:21 37.1 C 108 H 16 107/70 94 08/17/21 07:33 112 H 08/17/21 07:21 37.1 C 108 H 16 129/80 97 08/17/21 05:40 134/72 08/17/21 04:41 105/60 08/17/21 04:18 36.7 C 115 H 20 92/61 L 97 Laboratory Results 08/17/21 06:23 08/17/21 06:23 WBC 6.17 RBC 2.59 L MCV 98.8 MCH 34.7 H MCHC 35.2 RDW Std Deviation 49.2 H RDW Coeff of Justine 13.9 Plt Count 305 MPV 10.3
--- NOTE | 2021-08-17 12:42 | Hospitalist Progress Note ---
Date of Service August 17, 2021 Assessment & Plan (1) Protein-calorie malnutrition, severe: Plan: per Dr. Ybarra's notes with addendum: Patient is a 66 yr female with H/O Chronic alcoholism and hepatitis C, who presents with weakness, poor appetite, weight loss and chronic diarrhea. Alcohol use Disorder Patient drinks 3 beers and half pint of vodka every day Continue thiamine, folic acid, Ativan as needed -- no signs of withdrawal Thrombocytopenia Likely secondary to alcohol use S/P 1 unit platelets No bleeding issues -- resolved Severe protein calorie malnutrition BMI 12 Weight loss, poor appetite and failure to thrive Dietitian consulted Appreciate Palliative Care Input -- poor appetite still persisting -- will discuss patient's wishes and goals of care with family Rectal Bleeding ? Hemorrhoids Monitor CBC and transfuse as needed GI consulted Colonoscopy as outpatient as per GI -- no recurrence todau Electrolyte abnormalities Hypokalemia Hypomagnesemia Hypocalcemia -- repalce PRN Acute Hyponatremia ? Possible chronic hyponatremia at baseline in setting of Hyperglycemia, alcohol use disorder Sodium 136>>123>125>126> 129 on IV lasix as per Nephrology Also on IV fluids -- Na 129 -- on salt tab Nephro on board DM II New diagnosis HbA1c:9.2 Continue ISS Monitor BGs Society Reporter consulted -- Glucose 227 Enteropathogenic E coli Colitis Chronic diarrhea: Likely overflow secondary to constipation, alcohol use and Infectious origin --CT ABD:The patient is cachectic. The bladder is massively distended and there is a large stool ball in the rectum. No acute abnormality is seen. Pancreatic calcifications are compatible with chronic pancreatitis. Stool studies showed enteropathogenic E. coli IV fluids as needed Appreciate GI input May need colonoscopy as outpatient - given Cefdinir Diarrhea resolved Anemia of chronic disease Normal vitamin B12, folate levels, Iron Panel + Rectal bleeding as above -- Hg stable around 9 Obstructive uropathy Urinary Retention ABD USD:Bilateral hydronephrosis and dilatation of the urinary bladder Likely secondary to large stool bolus Continue bowel regimen Bladder scan as needed Placed on Tavera catheter Consider urology evaluation if needed H/O Hepatitis C Untreated Follow-up as outpatient DVT Px: Heparin SQ--DCed SCDs for now Code Status Full Code DISPOSITION: PT/OT prior to discharge. pending Admission and Anticipated Discharge Date Admission Date: August 06, 2021 Subjective ff up for severe malnutrition, poor appetite, etc seen resting in bed, not in distress appears very weak, frail sleeping but easily awakened, oriented states she is very tired states she is just not hungry denies dysphagia, odynophagia, abdominal pain denies depression discussed her severe malnutrition, poor appetite and risks involved discussed options including appetite stimulants, NG tube feeds, patient adamantly declines understanding of risks involved states she just wants to go home and be comfortable will discuss with family Review of Systems Review of Systems: all noted and negative except for above Physical Exam Physical Exam: General- oriented x 2, not in distress, speaks in sentences with no effort or accessory muscle use cachectic,weak Eyes- anicteric Neck- no JVD Lungs- clear breath sounds bilaterally, no rales/wheezes Heart- normal rate, regular rhythm; no murmurs Abdomen- normal bowel sounds, nondistended, soft, nontender Tavera cath in place: draining yellow urine Extremities- no pretibial edema, no calf tenderness Neuro- alert, oriented x 2; no gross focal neurologic deficits Skin- warm & dry Results & Data Results & Data ([facility]) Vital Signs (Past 12 Hours) Vital Signs Temp Pulse Pulse Resp BP Pulse Ox 08/17/21 11:21 37.1 C 108 H 16 107/70 94 08/17/21 07:33 112 H 08/17/21 07:21 37.1 C 108 H 16 129/80 97 08/17/21 05:40 134/72 08/17/21 04:41 105/60 08/17/21 04:18 36.7 C 115 H 20 92/61 L 97 all noted and reviewed including below
[2021-08-18] MEDS: traMADol HCL 50 MG TABLET PO PRN ×3 (04:34→20:42)
[2021-08-18] MEDS: POLYETHYLENE (MIRALAX) 17 GM PACK PO SCH (08:14)
[2021-08-18] MEDS: UREA (UREA-NA) 15 GM PACK PO SCH ×2 (08:14→20:42)
[2021-08-18] MEDS: SODIUM CHLORIDE 1 GM TABLET PO SCH ×3 (08:15→20:39)
[2021-08-18] MEDS: MAGNESIUM CHLORIDE W/CALCIUM 64MG DELAYED REL TAB PO SCH ×2 (08:15→20:40)
[2021-08-18] MEDS: POTASSIUM CHLORIDE CRTAB 20 MEQ TABCR PO SCH (08:16)
[2021-08-18] MEDS: NICOTINE 14 MG/24 HR PATCH TD SCH (08:18)
[2021-08-18] MEDS: INSULIN GLARGINE SOLOSTAR 100 UNITS/ML 3 ML PEN SC SCH (08:21)
[2021-08-18] MEDS: INSULIN ASPART PER UNIT SC SCH ×4 (08:21→20:46)
[2021-08-18] MEDS: DOCUSATE SODIUM 100 MG CAP PO SCH ×2 (08:21→20:42)
[2021-08-18] MEDS: FOLIC ACID 1 MG in SYRINGE 9.8 ML IV SCH (08:22)
[2021-08-18] MEDS: THIAMINE HCL 100 MG in SYRINGE 9 ML IV SCH (08:22)
[2021-08-18 10:52] LABS: Calcium 9.1 mg/dl (8.5-10.1); Creatinine Clr Calc Pharmacy 112.5 ml/min; Est GFR (African American) 143.5 ml/min; Est GFR (Non-African American) 123.8 ml/min
--- NOTE | 2021-08-18 20:00 | Hospitalist Progress Note ---
Date of Service August 18, 2021 delayed entry date of service noted above Assessment & Plan (1) Protein-calorie malnutrition, severe: Plan: per Dr. Ybarra's notes with addendum: Patient is a 66 yr female with H/O Chronic alcoholism and hepatitis C, who presents with weakness, poor appetite, weight loss and chronic diarrhea. Alcohol use Disorder Patient drinks 3 beers and half pint of vodka every day Continue thiamine, folic acid, Ativan as needed -- no signs of withdrawal Thrombocytopenia Likely secondary to alcohol use S/P 1 unit platelets No bleeding issues -- resolved Severe protein calorie malnutrition BMI 12 Weight loss, poor appetite and failure to thrive Dietitian consulted Appreciate Palliative Care Input -- poor appetite still persisting encouraged to eat more -- will discuss patient's wishes and goals of care with family Rectal Bleeding ? Hemorrhoids Monitor CBC and transfuse as needed GI consulted Colonoscopy as outpatient as per GI -- no recurrence so far Electrolyte abnormalities Hypokalemia Hypomagnesemia Hypocalcemia -- replace PRN Acute Hyponatremia ? Possible chronic hyponatremia at baseline in setting of Hyperglycemia, alcohol use disorder Sodium 136>>123>125>126> 129 on IV lasix as per Nephrology Also on IV fluids -- Na 133 -- on salt tab Nephro on board DM II New diagnosis HbA1c:9.2 Continue ISS Monitor BGs Upholstery Restorer consulted Enteropathogenic E coli Colitis Chronic diarrhea: Likely overflow secondary to constipation, alcohol use and Infectious origin --CT ABD:The patient is cachectic. The bladder is massively distended and there is a large stool ball in the rectum. No acute abnormality is seen. Pancreatic calcifications are compatible with chronic pancreatitis. Stool studies showed enteropathogenic E. coli IV fluids as needed Appreciate GI input May need colonoscopy as outpatient - given Cefdinir Diarrhea resolved Anemia of chronic disease Normal vitamin B12, folate levels, Iron Panel + Rectal bleeding as above -- Hg stable around 9 Obstructive uropathy Urinary Retention ABD USD:Bilateral hydronephrosis and dilatation of the urinary bladder Likely secondary to large stool bolus Continue bowel regimen Bladder scan as needed Placed on Tavera catheter Consider urology evaluation if needed H/O Hepatitis C Untreated Follow-up as outpatient DVT Px: Heparin SQ--DCed SCDs for now Code Status Full Code DISPOSITION: PT/OT prior to discharge. pending Admission and Anticipated Discharge Date Admission Date: August 06, 2021 Subjective ff up for severe malnutrition, etc seen resting in bed, comfortable not in distress states she feel the same appetite still poor has pain all over no chest pain, dyspnea, palpitations, dizziness no other symptoms Review of Systems Review of Systems: all noted and negative except for above Physical Exam Physical Exam: General- oriented x 3, not in distress, speaks in sentences with no effort or accessory muscle use cachectic, somewhat weak Eyes- anicteric Neck- no JVD Lungs- clear breath sounds bilaterally, no rales/wheezes Heart- normal rate, regular rhythm; no murmurs Abdomen- normal bowel sounds, nondistended, soft, nontender Extremities- no pretibial edema, no calf tenderness Neuro- alert, oriented x 3; no gross focal neurologic deficits Skin- warm & dry Results & Data Results & Data ([facility]) Vital Signs (Past 12 Hours) Vital Signs Temp Pulse Pulse Resp BP Pulse Ox 08/18/21 18:33 37.3 C 93 H 16 148/85 H 97 08/18/21 15:38 95 H 08/18/21 14:32 36.8 C 102 H 16 147/81 H 98 08/18/21 11:43 37.3 C 107 H 16 136/83 96 08/18/21 08:54 103 H all noted and reviewed including below
[2021-08-18] MEDS ORDERED: INSULIN GLARGINE SOLOSTAR 100 UNITS/ML 3 ML PEN SC SCH (21:00)
[2021-08-19 06:24] LABS: Hematocrit (blood only) 26.1 % (37-47); Hemoglobin 9.1 g/dL (12.0-16.0); Mean Corpuscular Hemoglobin 33.7 pg (25-34); Mean Corpuscular Hgb Conc 34.9 g/dL (32-36); Mean Corpuscular Volume 96.7 fL (80-100); Mean Platelet Volume 9.8 fL (7.4-10.4); Platelet Count 350 K/uL (130-400); RDW Coefficient of Variation 13.6 % (11.5-14.5); RDW Standard Deviation 47.6 fL (36.4-46.3); White Blood Count 7.24 K/uL (4.8-10.8)
[2021-08-19 06:54] LABS: Anion Gap 8 (3-11); BUN Creatinine Ratio 140.9 (10-20); Blood Urea Nitrogen 31 mg/dl (6-23); Calcium 8.5 mg/dl (8.5-10.1); Carbon Dioxide 22 mmol/L (21-32); Chloride 97 mmol/L (98-107); Creatinine Clr Calc Pharmacy 132.1 ml/min; Est GFR (African American) > 150.0 ml/min; Glucose 123 mg/dl (70-99(Fasting)); Sodium 127 mmol/L (136-145)
--- NOTE | 2021-08-19 08:29 | Pharmacy Report ---
Pharmacy Glycemic Short Note 2 - Date of Service August 19, 2021 - Glycemic Short BSG Results (Last 24 hours): 08/18/21 08/18/21 08/18/21 09:58 11:26 16:44 Glucose 230 H POC Glucose 181 H 114 H 08/18/21 08/19/21 08/19/21 20:44 06:09 07:59 Glucose 123 H POC Glucose 111 H 126 H OUTPATIENT ANTIDIABETIC REGIMEN: * None HbA1c: 9.2% (08/10/21) ASSESSMENT: 08/19/21 * BSGs much improved yesterday, 227, 181, 114, and 111 mg/dL w/ fasting BSG of 126 mg/dL this morning * Received 10 units of basal and 11 units of prandial/correctional bolus * Given significant fasting BSG improvement, will switch to BID dosing with allowance for dose reduction this evening if needed * Discharge plans remain uncertain 08/16/21 * Patient's BSGs yesterday were [phone]/dL. Today's BSGs are 181-284 mg/dL. * Will continue with current Lantus dosing. This was aggressively increased on 08/14/21 so is achieving steady state. * Tighten CR as patient appears to be very carbohydrate sensitive. Loose CF to p revent overcorrection. 08/14/21 * BSGs have been persistently elevated over past 48 hours * Received 22 units of insulin yesterday (5 units of basal and 17 units of prandial/correctional bolus) * Insulin gtt initiated this afternoon for persistent hyperglycemia despite IV insulin bolus in AM * Insulin gtt transitioned off very quickly (BSG of 93 mg/dL) * Will increase Lantus today and add overnight checks to provide additional coverage if needed Background * 66 yo F with hx glucose intolerance admitted with severe protein-calorie malnutrition * Random BSG's trending up, now elevated >400 mg/dL and confirmed on re-check - unclear etiology * Hesitant to start IV given K of 3.4 and risk for refeeding. Potassium being repleted orally at this time. * Hesitant to start basal due to being insulin naive with unknown etiology of hyperglycemia and significantly low body weight * Will start Novolog monotherapy at weight-based moderate stress estimate and add overnight checks. High goal range for now as response to insulin is not able to be easily predicted at this time PLAN FOR INPATIENT GLYCEMIC CONTROL: * Basal insulin * Lantus 5 units SQ daily * Lantus 3-5 units SC HS (allow for 20% dose reduction - see EHR for details) * Bolus insulin * NovoLog per scale ACHS or Q6hrs while NPO * Goal Range: Low 120 mg/dL - High 150 mg/dL * Correction Factor: 35 mg/dL/unit with breakfast; 45 mg/dL/unit with lunch, dinner, HS * Nutritional / Prandial insulin per carb ratio of 1 unit per 8 grams CHO consumed with breakfast * Nutritional / Prandial insulin per carb ratio of 1 unit per 10 grams CHO consumed with lunch, dinner, HS
[2021-08-19] MEDS: traMADol HCL 50 MG TABLET PO PRN ×2 (08:38→18:43)
[2021-08-19] MEDS: UREA (UREA-NA) 15 GM PACK PO SCH ×2 (08:39→21:32)
[2021-08-19] MEDS: POLYETHYLENE (MIRALAX) 17 GM PACK PO SCH (08:39)
[2021-08-19] MEDS: SODIUM CHLORIDE 1 GM TABLET PO SCH ×3 (08:40→21:33)
[2021-08-19] MEDS: FOLIC ACID 1 MG in SYRINGE 9.8 ML IV SCH (08:40)
[2021-08-19] MEDS: THIAMINE HCL 100 MG in SYRINGE 9 ML IV SCH (08:40)
[2021-08-19] MEDS: MAGNESIUM CHLORIDE W/CALCIUM 64MG DELAYED REL TAB PO SCH ×2 (08:40→21:32)
[2021-08-19] MEDS: POTASSIUM CHLORIDE CRTAB 20 MEQ TABCR PO SCH (08:41)
[2021-08-19] MEDS: NICOTINE 14 MG/24 HR PATCH TD SCH (08:42)
[2021-08-19] MEDS: INSULIN ASPART PER UNIT SC SCH ×4 (08:54→21:30)
[2021-08-19] MEDS: DOCUSATE SODIUM 100 MG CAP PO SCH ×2 (08:54→21:34)
[2021-08-19] MEDS ORDERED: INSULIN GLARGINE SOLOSTAR 100 UNITS/ML 3 ML PEN SC SCH (09:00)
--- NOTE | 2021-08-19 12:59 | Nephrology Progress Note ---
Date of Service August 19, 2021 Assessment & Plan (1) Electrolyte and fluid disorder: Plan: hyponatremia which came on after hospital admission; critical hypomagnesemia improving now but still an issue; also with hypokalemia, hypophosphatemia. not overloaded obviously hyponatremia cause unclear - ? mild volume depletion versus low solute diet/malnutrition >> suspect the former based on I/O trends but she did not respond to gentle saline. Patient with multiple electrolyte problems due to poor p.o. intake. Patient was seen by palliative care but was not ready for hospice. It will be difficult to correct her electrolyte problems without p.o. nutrition. If patient is still not ready for hospice, we may need alternative feeding mechanisms such as feeding tubes if patient would like to pursue that route. -Continue urea 15 g twice daily and salt tablets 1 g 3 times daily. From renal standpoint patient can be discharged to detention on the same regimen. If discharge she will need a repeat BMP within a week and renal follow-up in 2 weeks. -The most important treatment though is encouraging feeding. -encourage po intake nikolay protein shakes -Renal will sign off case. Please call if additional questions or concerns Admission and Anticipated Discharge Date Admission Date: August 06, 2021 Subjective Seen for hyponatremia. Patient continues to have poor p.o. intake refusing certain meals. Review of Systems Review of Systems: All other systems were reviewed and negative except as noted in HPI Physical Exam Physical Exam: General exam: Cachectic,Appears comfortable, no acute distress HEENT: Pupils are equal and reactive to light Neck: No JVD, neck is supple trachea is midline Respiratory system: Clear breath sounds bilaterally. Gastrointestinal: Abdomen is soft, non distended, non tender, bowel sounds are present CVS: Regular rate and rhythm. No murmurs, rubs or gallops Musculoskeletal: No joint or muscle tenderness Extremities: Non tender, no edema, peripheral pulses are present Neuro: Oriented, no tremors, no focal neurological deficits Skin: No rashes Results & Data ([facility]) Vital Signs (Past 12 Hours) Vital Signs Temp Pulse Pulse Resp BP Pulse Ox 08/19/21 07:39 36.8 C 99 H 16 142/85 H 99 08/19/21 04:25 97 H 08/19/21 04:01 37.0 C 98 H 18 133/88 98 Laboratory Results 08/19/21 06:09 08/19/21 06:09 WBC 7.24 RBC 2.70 L MCV 96.7 MCH 33.7 MCHC 34.9 RDW Std Deviation 47.6 H RDW Coeff of Justine 13.6 Plt Count 350 MPV 9.8
--- NOTE | 2021-08-19 19:44 | Hospitalist Progress Note ---
Date of Service August 19, 2021 delayed entry date of service noted above Assessment & Plan (1) Protein-calorie malnutrition, severe: Plan: per Dr. Ybarra's notes with addendum: Patient is a 66 yr female with H/O Chronic alcoholism and hepatitis C, who presents with weakness, poor appetite, weight loss and chronic diarrhea. Alcohol use Disorder Patient drinks 3 beers and half pint of vodka every day Continue thiamine, folic acid, Ativan as needed -- no signs of withdrawal Thrombocytopenia Likely secondary to alcohol use S/P 1 unit platelets No bleeding issues -- resolved Severe protein calorie malnutrition BMI 12 Weight loss, poor appetite and failure to thrive Dietitian consulted Appreciate Palliative Care Input -- poor appetite still persisting but trying to drink more boost -- Discussed with patient, her daughter, her significant other Patient adamantly denies intervention for poor appetite including appetite stimulants, tube feeding Goals of care discussed Patient prefers to continue present medication regimen, will continue drinking boost, try her best to eat a bit more Rectal Bleeding ? Hemorrhoids Monitor CBC and transfuse as needed GI consulted Colonoscopy as outpatient as per GI -- no recurrence today Electrolyte abnormalities Hypokalemia Hypomagnesemia Hypocalcemia -- Replace PRN Acute Hyponatremia ? Possible chronic hyponatremia at baseline in setting of Hyperglycemia, alcohol use disorder Sodium 136>>123>125>126> 129 on IV lasix as per Nephrology Also on IV fluids -- Na 127 -- on urea and salt tab Nephro on board DM II New diagnosis HbA1c:9.2 Continue ISS Monitor BGs Boxing Promoter consulted -- Glucose 140s Enteropathogenic E coli Colitis Chronic diarrhea: Likely overflow secondary to constipation, alcohol use and Infectious origin --CT ABD:The patient is cachectic. The bladder is massively distended and there is a large stool ball in the rectum. No acute abnormality is seen. Pancreatic calcifications are compatible with chronic pancreatitis. Stool studies showed enteropathogenic E. coli IV fluids as needed Appreciate GI input May need colonoscopy as outpatient - given Cefdinir Diarrhea resolved Anemia of chronic disease Normal vitamin B12, folate levels, Iron Panel + Rectal bleeding as above -- Hg stable around 9 Obstructive uropathy Urinary Retention ABD USD:Bilateral hydronephrosis and dilatation of the urinary bladder Likely secondary to large stool bolus Continue bowel regimen Bladder scan as needed Placed on Tavera catheter Consider urology evaluation if needed H/O Hepatitis C Untreated Follow-up as outpatient DVT Px: Heparin SQ--DCed SCDs for now Code Status Full Code DISPOSITION: Transition to group home facility when accepted Admission and Anticipated Discharge Date Admission Date: August 06, 2021 Subjective Follow-up for poor appetite, chronic alcoholism, etc. Seen resting in bed, comfortable, not in distress States she is trying to drink more boost Still has poor appetite No other new symptoms Review of Systems Review of Systems: all noted and negative except for above Physical Exam Physical Exam: General- oriented x 3, not in distress, speaks in sentences with no effort or accessory muscle use Eyes- anicteric Neck- no JVD Lungs- clear breath sounds bilaterally, no rales/wheezes Heart- normal rate, regular rhythm; no murmurs Abdomen- normal bowel sounds, nondistended, soft, nontender Extremities- no pretibial edema, no calf tenderness Neuro- alert, oriented x 3; no gross focal neurologic deficits Skin- warm & dry Results & Data Results & Data ([facility]) Vital Signs (Past 12 Hours) Vital Signs Temp Pulse Pulse Resp BP Pulse Ox 08/19/21 19:09 36.9 C 92 H 18 142/87 H 99 08/19/21 16:30 97 H 08/19/21 15:02 37.1 C 94 H 16 129/74 99 all noted and reviewed including below
[2021-08-19] MEDS: INSULIN GLARGINE SOLOSTAR 100 UNITS/ML 3 ML PEN SC SCH (21:31)
[2021-08-20] MEDS: traMADol HCL 50 MG TABLET PO PRN ×2 (01:17→19:14)
[2021-08-20 06:51] LABS: Anion Gap 6 (3-11); Blood Urea Nitrogen 30 mg/dl (6-23); Calcium 8.6 mg/dl (8.5-10.1); Carbon Dioxide 24 mmol/L (21-32); Chloride 99 mmol/L (98-107); Creatinine Clr Calc Pharmacy 152.1 ml/min; Est GFR (African American) > 150.0 ml/min; Est GFR (Non-African American) 138.3 ml/min; Glucose 165 mg/dl (70-99(Fasting)); Potassium 4.2 mmol/L (3.5-5.1); Sodium 129 mmol/L (136-145)
[2021-08-20] MEDS: NICOTINE 14 MG/24 HR PATCH TD SCH (08:41)
[2021-08-20] MEDS: POLYETHYLENE (MIRALAX) 17 GM PACK PO SCH (08:42)
[2021-08-20] MEDS: THIAMINE HCL 100 MG in SYRINGE 9 ML IV SCH (08:42)
[2021-08-20] MEDS: SODIUM CHLORIDE 1 GM TABLET PO SCH ×3 (08:42→21:31)
[2021-08-20] MEDS: UREA (UREA-NA) 15 GM PACK PO SCH ×2 (08:42→21:30)
[2021-08-20] MEDS: POTASSIUM CHLORIDE CRTAB 20 MEQ TABCR PO SCH (08:42)
[2021-08-20] MEDS: FOLIC ACID 1 MG in SYRINGE 9.8 ML IV SCH (08:42)
[2021-08-20] MEDS: INSULIN ASPART PER UNIT SC SCH ×4 (08:43→21:29)
[2021-08-20] MEDS: DOCUSATE SODIUM 100 MG CAP PO SCH ×2 (08:48→21:32)
[2021-08-20] MEDS ORDERED: INSULIN GLARGINE SOLOSTAR 100 UNITS/ML 3 ML PEN SC SCH (09:00)
[2021-08-20] MEDS: MAGNESIUM CHLORIDE W/CALCIUM 64MG DELAYED REL TAB PO SCH ×2 (09:32→21:30)
[2021-08-20] MEDS: ACETAMINOPHEN 500 MG TAB PO PRN (12:55)
--- NOTE | 2021-08-20 19:45 | Hospitalist Progress Note ---
Date of Service August 20, 2021 Assessment & Plan (1) Protein-calorie malnutrition, severe: Plan: per Dr. Ybarra's notes with addendum: Patient is a 66 yr female with H/O Chronic alcoholism and hepatitis C, who presents with weakness, poor appetite, weight loss and chronic diarrhea. Alcohol use Disorder Patient drinks 3 beers and half pint of vodka every day Continue thiamine, folic acid, Ativan as needed -- no signs of withdrawal Thrombocytopenia Likely secondary to alcohol use S/P 1 unit platelets No bleeding issues -- resolved Severe protein calorie malnutrition BMI 12 Weight loss, poor appetite and failure to thrive Dietitian consulted Appreciate Palliative Care Input -- poor appetite still persisting but trying to drink more boost -- Discussed with patient, her daughter, her significant other Patient adamantly denies intervention for poor appetite including appetite stimulants, tube feeding Goals of care discussed Patient prefers to continue present medication regimen, will continue drinking boost, try her best to eat a bit more -- Patient trying to drink her boost No other new complaints or symptoms Rectal Bleeding ? Hemorrhoids Monitor CBC and transfuse as needed GI consulted Colonoscopy as outpatient as per GI -- no recurrence today Electrolyte abnormalities Hypokalemia Hypomagnesemia Hypocalcemia -- Replace PRN Acute Hyponatremia ? Possible chronic hyponatremia at baseline in setting of Hyperglycemia, alcohol use disorder Sodium 136>>123>125>126> 129 on IV lasix as per Nephrology Also on IV fluids -- Na 127 -- on urea and salt tab Nephro on board DM II New diagnosis HbA1c:9.2 Continue ISS Monitor BGs Experimental Worker consulted -- Glucose 140s Enteropathogenic E coli Colitis Chronic diarrhea: Likely overflow secondary to constipation, alcohol use and Infectious origin --CT ABD:The patient is cachectic. The bladder is massively distended and there is a large stool ball in the rectum. No acute abnormality is seen. Pancreatic calcifications are compatible with chronic pancreatitis. Stool studies showed enteropathogenic E. coli IV fluids as needed Appreciate GI input May need colonoscopy as outpatient - given Cefdinir Diarrhea resolved Anemia of chronic disease Normal vitamin B12, folate levels, Iron Panel + Rectal bleeding as above -- Hg stable around 9 Obstructive uropathy Urinary Retention ABD USD:Bilateral hydronephrosis and dilatation of the urinary bladder Likely secondary to large stool bolus Continue bowel regimen Bladder scan as needed Placed on Tavera catheter Consider urology evaluation if needed H/O Hepatitis C Untreated Follow-up as outpatient DVT Px: Heparin SQ--DCed SCDs for now Code Status Full Code DISPOSITION: Transition to shelter facility when accepted Admission and Anticipated Discharge Date Admission Date: August 06, 2021 Subjective Follow-up for poor appetite, severe protein calorie malnutrition, chronic alcoholism, etc. Seen resting in bed, comfortable, not in distress States she is able to finish her bottle of boost x3 today Still declines to eat solid food today No abdominal pain, nausea vomiting No other symptoms Review of Systems Review of Systems: all noted and negative except for above Physical Exam Physical Exam: General- oriented x 3, not in distress, speaks in sentences with no effort or accessory muscle use Eyes- anicteric Neck- no JVD Lungs- clear breath sounds bilaterally, no rales/wheezes Heart- normal rate, regular rhythm; no murmurs Abdomen- normal bowel sounds, nondistended, soft, nontender Extremities- no pretibial edema, no calf tenderness Neuro- alert, oriented x 3; no gross focal neurologic deficits Skin- warm & dry Results & Data Results & Data ([facility]) Vital Signs (Past 12 Hours) Vital Signs Temp Pulse Pulse Resp BP Pulse Ox 08/20/21 15:30 88 08/20/21 15:25 36.8 C 89 16 136/88 08/20/21 11:53 37.0 C 54 L 16 107/69 99 08/20/21 08:23 36.8 C 89 18 138/86 99 08/20/21 08:06 90 all noted and reviewed including below
[2021-08-20] MEDS: INSULIN GLARGINE SOLOSTAR 100 UNITS/ML 3 ML PEN SC SCH (21:33)
[2021-08-21 06:51] LABS: Anion Gap 7 (3-11); Blood Urea Nitrogen 27 mg/dl (6-23); Calcium 8.5 mg/dl (8.5-10.1); Carbon Dioxide 24 mmol/L (21-32); Chloride 98 mmol/L (98-107); Est GFR (African American) > 150.0 ml/min; Est GFR (Non-African American) 138.3 ml/min; Glucose 178 mg/dl (70-99(Fasting)); Potassium 4.4 mmol/L (3.5-5.1); Sodium 129 mmol/L (136-145)
[2021-08-21] MEDS: FOLIC ACID 1 MG in SYRINGE 9.8 ML IV SCH (09:08)
[2021-08-21] MEDS: INSULIN GLARGINE SOLOSTAR 100 UNITS/ML 3 ML PEN SC SCH ×2 (09:08→21:28)
[2021-08-21] MEDS: THIAMINE HCL 100 MG in SYRINGE 9 ML IV SCH (09:08)
[2021-08-21] MEDS: MAGNESIUM CHLORIDE W/CALCIUM 64MG DELAYED REL TAB PO SCH ×2 (09:08→21:30)
[2021-08-21] MEDS: SODIUM CHLORIDE 1 GM TABLET PO SCH ×3 (09:09→21:29)
[2021-08-21] MEDS: NICOTINE 14 MG/24 HR PATCH TD SCH (09:09)
[2021-08-21] MEDS: POLYETHYLENE (MIRALAX) 17 GM PACK PO SCH ×2 (09:09→09:27)
[2021-08-21] MEDS: UREA (UREA-NA) 15 GM PACK PO SCH ×2 (09:09→21:30)
[2021-08-21] MEDS: POTASSIUM CHLORIDE CRTAB 20 MEQ TABCR PO SCH (09:09)
[2021-08-21] MEDS: INSULIN ASPART PER UNIT SC SCH ×4 (09:10→21:28)
[2021-08-21] MEDS: DOCUSATE SODIUM 100 MG CAP PO SCH ×3 (09:15→21:29)
[2021-08-21] MEDS: traMADol HCL 50 MG TABLET PO PRN (13:04)
[2021-08-21] MEDS: ACETAMINOPHEN 500 MG TAB PO PRN (16:40)
--- NOTE | 2021-08-21 19:01 | Hospitalist Progress Note ---
Date of Service August 21, 2021 Assessment & Plan (1) Protein-calorie malnutrition, severe: Plan: per Dr. Ybarra's notes with addendum: Patient is a 66 yr female with H/O Chronic alcoholism and hepatitis C, who presents with weakness, poor appetite, weight loss and chronic diarrhea. Alcohol use Disorder Patient drinks 3 beers and half pint of vodka every day Continue thiamine, folic acid, Ativan as needed -- no signs of withdrawal Thrombocytopenia Likely secondary to alcohol use S/P 1 unit platelets No bleeding issues -- resolved Severe protein calorie malnutrition BMI 12 Weight loss, poor appetite and failure to thrive Dietitian consulted Appreciate Palliative Care Input -- poor appetite still persisting but trying to drink more boost -- Discussed with patient, her daughter, her significant other Patient adamantly denies intervention for poor appetite including appetite stimulants, tube feeding Goals of care discussed Patient prefers to continue present medication regimen, will continue drinking boost, try her best to eat a bit more -- Patient trying to drink her boost No other new complaints or symptoms Rectal Bleeding ? Hemorrhoids Monitor CBC and transfuse as needed GI consulted Colonoscopy as outpatient as per GI -- no recurrence today Electrolyte abnormalities Hypokalemia Hypomagnesemia Hypocalcemia -- Replace PRN Acute Hyponatremia ? Possible chronic hyponatremia at baseline in setting of Hyperglycemia, alcohol use disorder Sodium 136>>123>125>126> 129 on IV lasix as per Nephrology Also on IV fluids -- Na 129 -- on urea and salt tab Nephro on board DM II New diagnosis HbA1c:9.2 Continue ISS Monitor BGs Car Bracer consulted -- Glucose 190s-244 Enteropathogenic E coli Colitis Chronic diarrhea: Likely overflow secondary to constipation, alcohol use and Infectious origin --CT ABD:The patient is cachectic. The bladder is massively distended and there is a large stool ball in the rectum. No acute abnormality is seen. Pancreatic calcifications are compatible with chronic pancreatitis. Stool studies showed enteropathogenic E. coli IV fluids as needed Appreciate GI input May need colonoscopy as outpatient - given Cefdinir Diarrhea resolved Anemia of chronic disease Normal vitamin B12, folate levels, Iron Panel + Rectal bleeding as above -- Hg stable around 9 Obstructive uropathy Urinary Retention ABD USD:Bilateral hydronephrosis and dilatation of the urinary bladder Likely secondary to large stool bolus Continue bowel regimen Bladder scan as needed Placed on Tavera catheter Consider urology evaluation if needed H/O Hepatitis C Untreated Follow-up as outpatient DVT Px: Heparin SQ--DCed SCDs for now Code Status Full Code DISPOSITION: Transition to [facility] facility when accepted Admission and Anticipated Discharge Date Admission Date: August 06, 2021 Subjective Follow-up for poor appetite, severe malnutrition, etc. Resting in bed, not in distress, smiling States she feels about the same Trying to drink boost No other new symptoms Review of Systems Review of Systems: all noted and negative except for above Physical Exam Physical Exam: General- oriented x 3, not in distress, speaks in sentences with no effort or accessory muscle use Cachectic Eyes- anicteric Neck- no JVD Lungs- clear BS BL Heart- normal rate, regular rhythm; no murmurs Abdomen- normal bowel sounds, nondistended, soft, nontender Extremities- no pretibial edema, no calf tenderness Neuro- alert, oriented x 3; no gross focal neurologic deficits Skin- warm & dry Results & Data Results & Data ([facility]) Vital Signs (Past 12 Hours) Vital Signs Temp Pulse Pulse Resp BP Pulse Ox 08/21/21 16:42 37.1 C 78 17 151/87 H 98 08/21/21 12:12 37.5 C 109 H 18 119/71 98 08/21/21 10:51 94 H 08/21/21 08:25 36.9 C 98 H 17 126/82 98 all noted and reviewed including below
[2021-08-22 06:59] LABS: Hemoglobin 8.9 g/dL (12.0-16.0); Mean Corpuscular Hemoglobin 33.3 pg (25-34); Mean Corpuscular Hgb Conc 34.2 g/dL (32-36); Mean Corpuscular Volume 97.4 fL (80-100); Mean Platelet Volume 10.2 fL (7.4-10.4); Platelet Count 339 K/uL (130-400); RDW Coefficient of Variation 13.7 % (11.5-14.5); RDW Standard Deviation 47.2 fL (36.4-46.3); Red Blood Count 2.67 M/uL (4.2-5.4); White Blood Count 5.04 K/uL (4.8-10.8)
[2021-08-22 07:13] LABS: Anion Gap 7 (3-11); BUN Creatinine Ratio 139.1 (10-20); Blood Urea Nitrogen 32 mg/dl (6-23); Calcium 8.4 mg/dl (8.5-10.1); Carbon Dioxide 24 mmol/L (21-32); Chloride 96 mmol/L (98-107); Creatinine Clr Calc Pharmacy 125.6 ml/min; Est GFR (African American) > 150.0 ml/min; Est GFR (Non-African American) 132.1 ml/min; Glucose 268 mg/dl (70-99(Fasting)); Potassium 4.1 mmol/L (3.5-5.1); Sodium 127 mmol/L (136-145)
[2021-08-22] MEDS: THIAMINE HCL 100 MG in SYRINGE 9 ML IV SCH (08:53)
[2021-08-22] MEDS: POTASSIUM CHLORIDE CRTAB 20 MEQ TABCR PO SCH (08:53)
[2021-08-22] MEDS: INSULIN GLARGINE SOLOSTAR 100 UNITS/ML 3 ML PEN SC SCH ×2 (08:53→21:23)
[2021-08-22] MEDS: FOLIC ACID 1 MG in SYRINGE 9.8 ML IV SCH (08:53)
[2021-08-22] MEDS: UREA (UREA-NA) 15 GM PACK PO SCH ×2 (08:53→21:28)
[2021-08-22] MEDS: MAGNESIUM CHLORIDE W/CALCIUM 64MG DELAYED REL TAB PO SCH ×2 (08:53→21:22)
[2021-08-22] MEDS: POLYETHYLENE (MIRALAX) 17 GM PACK PO SCH (08:54)
[2021-08-22] MEDS: NICOTINE 14 MG/24 HR PATCH TD SCH (08:54)
[2021-08-22] MEDS: INSULIN ASPART PER UNIT SC SCH ×4 (08:55→21:23)
[2021-08-22] MEDS: SODIUM CHLORIDE 1 GM TABLET PO SCH ×3 (08:57→21:22)
[2021-08-22] MEDS: DOCUSATE SODIUM 100 MG CAP PO SCH ×2 (08:58→21:21)
[2021-08-22] MEDS ORDERED: ERGOCALCIFEROL 50,000 UNITS 1250 MCG CAP PO ONE (09:00)
[2021-08-22] MEDS: traMADol HCL 50 MG TABLET PO PRN ×2 (09:35→18:48)
[2021-08-22] MEDS: ACETAMINOPHEN 500 MG TAB PO PRN (13:23)
--- NOTE | 2021-08-22 13:29 | Pharmacy Report ---
Pharmacy Glycemic Short Note 2 - Date of Service August 22, 2021 - Glycemic Short BSG Results (Last 24 hours): 08/21/21 08/21/21 08/22/21 17:15 20:18 05:40 Glucose 268 H POC Glucose 244 H 232 H 08/22/21 08/22/21 07:27 11:43 Glucose POC Glucose 272 H 233 H OUTPATIENT ANTIDIABETIC REGIMEN: * None HbA1c: 9.2% (08/10/21) ASSESSMENT: 08/22/21 * Blood sugars remaining in the 200s over 24 hours, increase Lantus and tighten CF/CR at this time * Continues minimal PO intake, awaiting SNF placement 08/19/21 * BSGs much improved yesterday, 227, 181, 114, and 111 mg/dL w/ fasting BSG of 126 mg/dL this morning * Received 10 units of basal and 11 units of prandial/correctional bolus * Given significant fasting BSG improvement, will switch to BID dosing with allowance for dose reduction this evening if needed * Discharge plans remain uncertain 08/16/21 * Patient's BSGs yesterday were [phone]/dL. Today's BSGs are 181-284 mg/dL. * Will continue with current Lantus dosing. This was aggressively increased on 08/14/21 so is achieving steady state. * Tighten CR as patient appears to be very carbohydrate sensitive. Loose CF to prevent overcorrection. 08/14/21 * BSGs have been persistently elevated over past 48 hours * Received 22 units of insulin yesterday (5 units of basal and 17 units of prandial/correctional bolus) * Insulin gtt initiated this afternoon for persistent hyperglycemia despite IV insulin bolus in AM * Insulin gtt transitioned off very quickly (BSG of 93 mg/dL) * Will increase Lantus today and add overnight checks to provide additional coverage if needed Background * 66 yo F with hx glucose intolerance admitted with severe protein-calorie malnutrition * Random BSG's trending up, now elevated >400 mg/dL and confirmed on re-check - unclear etiology * Hesitant to start IV given K of 3.4 and risk for refeeding. Potassium being repleted orally at this time. * Hesitant to start basal due to being insulin naive with unknown etiology of hyperglycemia and significantly low body weight * Will start Novolog monotherapy at weight-based moderate stress estimate and add overnight checks. High goal range for now as response to insulin is not able to be easily predicted at this time PLAN FOR INPATIENT GLYCEMIC CONTROL: * Basal insulin * Lantus 10 units BID (5 units for BSG < 120mg/dl) * Bolus insulin * NovoLog per scale ACHS or Q6hrs while NPO * Goal Range: Low 120 mg/dL - High 150 mg/dL * Correction Factor: 25 mg/dL/unit with breakfast; 30 mg/dL/unit with lunch, dinner, HS * Nutritional / Prandial insulin per carb ratio of 1 unit per 8 grams CHO consumed with breakfast * Nutritional / Prandial insulin per carb ratio of 1 unit per 7 grams CHO consumed with lunch, dinner, HS
--- NOTE | 2021-08-22 14:12 | Hospitalist Progress Note ---
Date of Service August 22, 2021 Assessment & Plan (1) Protein-calorie malnutrition, severe: Plan: per Dr. Ybarra's notes with addendum: Patient is a 66 yr female with H/O Chronic alcoholism and hepatitis C, who presents with weakness, poor appetite, weight loss and chronic diarrhea. Alcohol use Disorder Patient drinks 3 beers and half pint of vodka every day Continue thiamine, folic acid, Ativan as needed -- no signs of withdrawal Thrombocytopenia Likely secondary to alcohol use S/P 1 unit platelets No bleeding issues -- resolved Severe protein calorie malnutrition BMI 12 Weight loss, poor appetite and failure to thrive Dietitian consulted Appreciate Palliative Care Input -- poor appetite still persisting but trying to drink more boost -- Discussed with patient, her daughter, her significant other Patient adamantly denies intervention for poor appetite including appetite stimulants, tube feeding Goals of care discussed Patient prefers to continue present medication regimen, will continue drinking boost, try her best to eat a bit more -- Patient trying to drink her boost was able to eat 20% of lunch tray today No other new complaints or symptoms Rectal Bleeding ? Hemorrhoids Monitor CBC and transfuse as needed GI consulted Colonoscopy as outpatient as per GI -- no recurrence today Electrolyte abnormalities Hypokalemia Hypomagnesemia Hypocalcemia -- Replace PRN Acute Hyponatremia ? Possible chronic hyponatremia at baseline in setting of Hyperglycemia, alcohol use disorder Sodium 136>>123>125>126> 129 on IV lasix as per Nephrology Also on IV fluids -- Na 127 -- on urea and salt tab Nephro on board DM II New diagnosis HbA1c:9.2 Continue ISS Monitor BGs Section Gang consulted -- Pharmacy Glycemic control consulted Enteropathogenic E coli Colitis Chronic diarrhea: Likely overflow secondary to constipation, alcohol use and Infectious origin --CT ABD:The patient is cachectic. The bladder is massively distended and there is a large stool ball in the rectum. No acute abnormality is seen. Pancreatic calcifications are compatible with chronic pancreatitis. Stool studies showed enteropathogenic E. coli IV fluids as needed Appreciate GI input May need colonoscopy as outpatient - given Cefdinir Diarrhea resolved Anemia of chronic disease Normal vitamin B12, folate levels, Iron Panel + Rectal bleeding as above -- Hg stable around 9 Obstructive uropathy Urinary Retention ABD USD:Bilateral hydronephrosis and dilatation of the urinary bladder Likely secondary to large stool bolus Continue bowel regimen Bladder scan as needed Placed on Tavera catheter Consider urology evaluation if needed H/O Hepatitis C Untreated Follow-up as outpatient DVT Px: Heparin SQ--DCed SCDs for now Code Status Full Code DISPOSITION: Transition to senior care facility when accepted Admission and Anticipated Discharge Date Admission Date: August 06, 2021 Subjective ff up for poor appetite, etc seen resting in bed, significant other at bedside visiting resting in bed, comfortable smiling states she had 2 boost bottles today and some beef tips and noodles (20% of tray) no abdominal pain, nausea/vomiting no other symptoms Review of Systems Review of Systems: all noted and negative except for above Physical Exam Physical Exam: General- oriented x 3, not in distress, speaks in sentences with no effort or accessory muscle use Eyes- anicteric Neck- no JVD Lungs- clear breath sounds bilaterally, no rales/wheezes Heart- normal rate, regular rhythm; no murmurs Abdomen- normal bowel sounds, nondistended, soft, nontender Extremities- no pretibial edema, no calf tenderness Neuro- alert, oriented x 3; no gross focal neurologic deficits Skin- warm & dry Results & Data Results & Data ([facility]) Vital Signs (Past 12 Hours) Vital Signs Temp Pulse Resp BP Pulse Ox 08/22/21 12:05 36.9 C 111 H 17 133/87 99 08/22/21 08:23 36.9 C 91 H 17 137/81 99 08/22/21 04:48 36.9 C 89 16 123/81 99 all noted and reviewed including below
[2021-08-23 06:45] LABS: Anion Gap 7 (3-11); BUN Creatinine Ratio 154.5 (10-20); Blood Urea Nitrogen 34 mg/dl (6-23); Calcium 8.7 mg/dl (8.5-10.1); Carbon Dioxide 23 mmol/L (21-32); Chloride 96 mmol/L (98-107); Est GFR (African American) > 150.0 ml/min; Glucose 197 mg/dl (70-99(Fasting)); Potassium 4.3 mmol/L (3.5-5.1); Sodium 126 mmol/L (136-145)
[2021-08-23] MEDS ORDERED: INSULIN GLARGINE SOLOSTAR 100 UNITS/ML 3 ML PEN SC ONE (08:15)
[2021-08-23] MEDS: INSULIN ASPART PER UNIT SC SCH ×4 (08:48→20:54)
[2021-08-23] MEDS: UREA (UREA-NA) 15 GM PACK PO SCH ×2 (08:54→20:56)
[2021-08-23] MEDS: POLYETHYLENE (MIRALAX) 17 GM PACK PO SCH (08:55)
[2021-08-23] MEDS: MAGNESIUM CHLORIDE W/CALCIUM 64MG DELAYED REL TAB PO SCH ×2 (08:57→20:55)
[2021-08-23] MEDS: THIAMINE HCL 100 MG in SYRINGE 9 ML IV SCH (08:57)
[2021-08-23] MEDS: NICOTINE 14 MG/24 HR PATCH TD SCH (08:57)
[2021-08-23] MEDS: FOLIC ACID 1 MG in SYRINGE 9.8 ML IV SCH (08:57)
[2021-08-23] MEDS: SODIUM CHLORIDE 1 GM TABLET PO SCH ×4 (08:58→20:56)
[2021-08-23] MEDS: DOCUSATE SODIUM 100 MG CAP PO SCH ×2 (08:58→20:54)
[2021-08-23] MEDS: POTASSIUM CHLORIDE CRTAB 20 MEQ TABCR PO SCH (08:58)
--- NOTE | 2021-08-23 10:34 | Nephrology Progress Note ---
Date of Service August 23, 2021 Assessment & Plan (1) Electrolyte and fluid disorder: Plan: hyponatremia which came on after hospital admission; critical hypomagnesemia improving now but still an issue; also with hypokalemia, hypophosphatemia. not overloaded obviously hyponatremia cause unclear - ? mild volume depletion versus low solute diet/malnutrition >> suspect the former based on I/O trends but she did not respond to gentle saline. Patient with multiple electrolyte problems due to poor p.o. intake. Patient was seen by palliative care but was not ready for hospice. It will be difficult to correct her electrolyte problems without p.o. nutrition. -Continue urea 15 g twice daily and increase salt tablets 2 g 3 times daily. From renal standpoint patient can be discharged to senior living on the same regimen. If discharge she will need a repeat BMP within a week and renal follow-up in 2 weeks. -The most important treatment though is encouraging feeding. -encourage po intake nikolay protein shakes -Renal will sign off case. Please call if additional questions or concerns Admission and Anticipated Discharge Date Admission Date: August 06, 2021 Subjective Seen for hyponatremia. Main problem is poor p.o. intake. Patient remains weak. Review of Systems Review of Systems: All other systems were reviewed and negative except as no christa in HPI Physical Exam Physical Exam: General exam: Cachectic,Appears comfortable, no acute distress HEENT: Pupils are equal and reactive to light Neck: No JVD, neck is supple trachea is midline Respiratory system: Clear breath sounds bilaterally. Gastrointestinal: Abdomen is soft, non distended, non tender, bowel sounds are present CVS: Regular rate and rhythm. No murmurs, rubs or gallops Musculoskeletal: No joint or muscle tenderness Extremities: Non tender, no edema, peripheral pulses are present Neuro: Oriented, no tremors, no focal neurological deficits Skin: No rashes Results & Data ([facility]) Vital Signs (Past 12 Hours) Vital Signs Temp Pulse Pulse Resp BP BP Pulse Ox 08/23/21 08:32 37.0 C 96 H 17 125/76 98 08/23/21 07:31 87 08/23/21 04:00 37.3 C 93 H 18 154/87 H 99 08/23/21 03:09 90 08/22/21 23:00 37.0 C 94 H 18 146/85 H 98 Laboratory Results 08/23/21 05:50
--- NOTE | 2021-08-23 12:07 | Pharmacy Report ---
Pharmacy Glycemic Short Note 2 - Date of Service August 23, 2021 - Glycemic Short BSG Results (Last 24 hours): 08/22/21 08/22/21 08/23/21 16:45 20:15 05:50 Glucose 197 H POC Glucose 165 H 203 H 08/23/21 08/23/21 07:37 11:41 Glucose POC Glucose 234 H 236 H OUTPATIENT ANTIDIABETIC REGIMEN: * None HbA1c: 9.2% (08/10/21) ASSESSMENT: 08/23/21 * Stressors stable * Patient requiring high doses for weight, at > 1 unit/kg/day, despite minimal stressors and minimal po intake * AM fasting elevated >180 mg/dL - will increase Lantus * CHO ratio tightened yesterday, but with minimal po intake, it has not been adequately tested yet to determine if further tightening is required. Will therefore tighten correction factor to address hyperglycemia. Further tightening of CHO ratio may be warranted tomorrow 08/22/21 * Blood sugars remaining in the 200s over 24 hours, increase Lantus and tighten CF/CR at this time * Continues minimal PO intake, awaiting SNF placement 08/19/21 * BSGs much improved yesterday, 227, 181, 114, and 111 mg/dL w/ fasting BSG of 126 mg/dL this morning * Received 10 units of basal and 11 units of prandial/correctional bolus * Given significant fasting BSG improvement, will switch to BID dosing with allowance for dose reduction this evening if needed * Discharge plans remain uncertain 08/16/21 * Patient's BSGs yesterday were [phone]/dL. Today's BSGs are 181-284 mg/dL. * Will continue with current Lantus dosing. This was aggressively increased on 08/14/21 so is achieving steady state. * Tighten CR as patient appears to be very carbohydrate sensitive. Loose CF to prevent overcorrection. 08/14/21 * BSGs have been persistently elevated over past 48 hours * Received 22 units of insulin yesterday (5 units of basal and 17 units of prandial/correctional bolus) * Insulin gtt initiated this afternoon for persistent hyperglycemia despite IV insulin bolus in AM * Insulin gtt transitioned off very quickly (BSG of 93 mg/dL) * Will increase Lantus today and add overnight checks to provide additional coverage if needed Background * 66 yo F with hx glucose intolerance admitted with severe protein-calorie malnutrition * Random BSG's trending up, now elevated >400 mg/dL and confirmed on re-check - unclear etiology * Hesitant to start IV given K of 3.4 and risk for refeeding. Potassium being repleted orally at this time. * Hesitant to start basal due to being insulin naive with unknown etiology of hyperglycemia and significantly low body weight * Will start Novolog monotherapy at weight-based moderate stress estimate and add overnight checks. High goal range for now as response to insulin is not able to be easily predicted at this time PLAN FOR INPATIENT GLYCEMIC CONTROL: * Basal insulin * Lantus 15 units x1 then 5-10 units BID * Bolus insulin * NovoLog per scale ACHS or Q6hrs while NPO * Goal Range: Low 120 mg/dL - High 150 mg/dL * Correction Factor: 25 mg/dL/unit * Nutritional / Prandial insulin per carb ratio of 1 unit per 7 grams CHO consumed
--- NOTE | 2021-08-23 16:00 | Hospitalist Progress Note ---
Date of Service August 23, 2021 Assessment & Plan (1) Protein-calorie malnutrition, severe: Plan: per Dr. Ybarra's notes with addendum: Patient is a 66 yr female with H/O Chronic alcoholism and hepatitis C, who presents with weakness, poor appetite, weight loss and chronic diarrhea. Alcohol use Disorder Patient drinks 3 beers and half pint of vodka every day Continue thiamine, folic acid, Ativan as needed -- no signs of withdrawal Thrombocytopenia Likely secondary to alcohol use S/P 1 unit platelets No bleeding issues -- resolved Severe protein calorie malnutrition BMI 12 Weight loss, poor appetite and failure to thrive Dietitian consulted Appreciate Palliative Care Input -- poor appetite still persisting but trying to drink more boost -- Discussed with patient, her daughter, her significant other Patient adamantly denies intervention for poor appetite including appetite stimulants, tube feeding Goals of care discussed Patient prefers to continue present medication regimen, will continue drinking boost, try her best to eat a bit more -- Patient trying to drink her boost was able to eat more today with chicken No other new complaints or symptoms Rectal Bleeding ? Hemorrhoids Monitor CBC and transfuse as needed GI consulted Colonoscopy as outpatient as per GI -- no recurrence today Electrolyte abnormalities Hypokalemia Hypomagnesemia Hypocalcemia -- Replace PRN Acute Hyponatremia ? Possible chronic hyponatremia at baseline in setting of Hyperglycemia, alcohol use disorder Sodium 136>>123>125>126> 129 on IV lasix as per Nephrology Also on IV fluids -- Na 126 -- on urea and salt tab Nephro on board DM II New diagnosis HbA1c:9.2 Continue ISS Monitor BGs Erecting Engineer consulted -- Pharmacy Glycemic control consulted Enteropathogenic E coli Colitis Chronic diarrhea: Likely overflow secondary to constipation, alcohol use and Infectious origin --CT ABD:The patient is cachectic. The bladder is massively distended and there is a large stool ball in the rectum. No acute abnormality is seen. Pancreatic calcifications are compatible with chronic pancreatitis. Stool studies showed enteropathogenic E. coli IV fluids as needed Appreciate GI input May need colonoscopy as outpatient - given Cefdinir Diarrhea resolved Anemia of chronic disease Normal vitamin B12, folate levels, Iron Panel + Rectal bleeding as above -- Hg stable around 9 Obstructive uropathy Urinary Retention ABD USD:Bilateral hydronephrosis and dilatation of the urinary bladder Likely secondary to large stool bolus Continue bowel regimen Bladder scan as needed Placed on Tavera catheter H/O Hepatitis C Untreated Follow-up as outpatient DVT Px: Heparin SQ--DCed SCDs for now Code Status Full Code DISPOSITION: Transition to senior care facility when accepted Admission and Anticipated Discharge Date Admission Date: August 06, 2021 Subjective Follow-up for severe protein calorie malnutrition, poor appetite, etc. Resting in bed, sitting up, watching TV, comfortable States she feels fine overall Still continuing to drink her boost Try to eat chicken as well today No abdominal pain, nausea vomiting No other symptom Review of Systems Review of Systems: all noted and negative except for above Physical Exam Physical Exam: General- oriented x 3, not in distress, speaks in sentences with no effort or accessory muscle use Eyes- anicteric Neck- no JVD Lungs- clear breath sounds, no crackles or wheezing bilaterally Heart- normal rate, regular rhythm; no murmurs Abdomen- normal bowel sounds, nondistended, soft, nontender Extremities- no pretibial edema, no calf tenderness Neuro- alert, oriented x 3; no gross focal neurologic deficits Skin- warm & dry Results & Data Results & Data ([facility]) Vital Signs (Past 12 Hours) Vital Signs Temp Pulse Pulse Resp BP BP Pulse Ox 08/23/21 15:35 99 H 08/23/21 12:59 36.7 C 95 H 16 118/74 99 08/23/21 08:32 37.0 C 96 H 17 125/76 98 08/23/21 07:31 87 08/23/21 04:00 37.3 C 93 H 18 154/87 H 99 all noted and reviewed including below
[2021-08-23] MEDS: traMADol HCL 50 MG TABLET PO PRN (17:50)
[2021-08-23] MEDS: INSULIN GLARGINE SOLOSTAR 100 UNITS/ML 3 ML PEN SC SCH (20:54)
[2021-08-24 06:29] LABS: Anion Gap 5 (3-11); BUN Creatinine Ratio 117.4 (10-20); Blood Urea Nitrogen 27 mg/dl (6-23); Calcium 8.7 mg/dl (8.5-10.1); Carbon Dioxide 24 mmol/L (21-32); Chloride 99 mmol/L (98-107); Creatinine Clr Calc Pharmacy 127.2 ml/min; Est GFR (African American) > 150.0 ml/min; Est GFR (Non-African American) 132.1 ml/min; Glucose 191 mg/dl (70-99(Fasting)); Potassium 4.5 mmol/L (3.5-5.1); Sodium 128 mmol/L (136-145)
[2021-08-24] MEDS: DOCUSATE SODIUM 100 MG CAP PO SCH ×2 (07:39→21:46)
[2021-08-24] MEDS: POLYETHYLENE (MIRALAX) 17 GM PACK PO SCH (07:40)
[2021-08-24] MEDS ORDERED: INSULIN GLARGINE SOLOSTAR 100 UNITS/ML 3 ML PEN SC ONE (08:00)
[2021-08-24] MEDS: INSULIN ASPART PER UNIT SC SCH ×4 (08:37→21:50)
[2021-08-24] MEDS: traMADol HCL 50 MG TABLET PO PRN ×2 (08:41→17:26)
[2021-08-24] MEDS: THIAMINE HCL 100 MG in SYRINGE 9 ML IV SCH (08:43)
[2021-08-24] MEDS: UREA (UREA-NA) 15 GM PACK PO SCH ×2 (08:43→22:30)
[2021-08-24] MEDS: FOLIC ACID 1 MG in SYRINGE 9.8 ML IV SCH (08:43)
[2021-08-24] MEDS: NICOTINE 14 MG/24 HR PATCH TD SCH (08:44)
[2021-08-24] MEDS: SODIUM CHLORIDE 1 GM TABLET PO SCH ×3 (08:44→22:30)
[2021-08-24] MEDS: POTASSIUM CHLORIDE CRTAB 20 MEQ TABCR PO SCH (08:44)
[2021-08-24] MEDS: MAGNESIUM CHLORIDE W/CALCIUM 64MG DELAYED REL TAB PO SCH ×2 (08:45→21:47)
--- NOTE | 2021-08-24 09:23 | Pharmacy Report ---
Pharmacy Glycemic Short Note 2 - Date of Service August 24, 2021 - Glycemic Short BSG Results (Last 24 hours): 08/23/21 08/23/21 08/23/21 11:41 16:57 20:15 Glucose POC Glucose 236 H 239 H 204 H 08/24/21 08/24/21 05:37 07:49 Glucose 191 H POC Glucose 211 H OUTPATIENT ANTIDIABETIC REGIMEN: * None HbA1c: 9.2% (08/10/21) ASSESSMENT: 08/24/21 * Stressors stable * AM fasting BSG still elevated - will increase Lantus * Post-prandial BSG's yesterday all >180 mg/dL - will tighten Novolog CF and CR * Of note - insulin administered yesterday was double that of two days ago, and is a high dose in terms of weight-based estimates. May need to back off basal and/or bolus at some point 08/23/21 * Stressors stable * Patient requiring high doses for weight, at > 1 unit/kg/day, despite minimal stressors and minimal po intake * AM fasting elevated >180 mg/dL - will increase Lantus * CHO ratio tightened yesterday, but with minimal po intake, it has not been adequately tested yet to determine if further tightening is required. Will therefore tighten correction factor to address hyperglycemia. Further tightening of CHO ratio may be warranted tomorrow 08/22/21 * Blood sugars remaining in the 200s over 24 hours, increase Lantus and tighten CF/CR at this time * Continues minimal PO intake, awaiting SNF placement Background * 66 yo F with hx glucose intolerance admitted with severe protein-calorie malnutrition * Random BSG's trending up, now elevated >400 mg/dL and confirmed on re-check - unclear etiology * Hesitant to start IV given K of 3.4 and risk for refeeding. Potassium being repleted orally at this time. * Hesitant to start basal due to being insulin naive with unknown etiology of hyperglycemia and significantly low body weight * Will start Novolog monotherapy at weight-based moderate stress estimate and add overnight checks. High goal range for now as response to insulin is not able to be easily predicted at this time PLAN FOR INPATIENT GLYCEMIC CONTROL: * Basal insulin * Lantus 20 units x1 then 10-15 units BID * Bolus insulin * NovoLog per scale ACHS or Q6hrs while NPO * Goal Range: Low 120 mg/dL - High 150 mg/dL * Correction Factor: 20 mg/dL/unit * Nutritional / Prandial insulin per carb ratio of 1 unit per 6 grams CHO consumed
[2021-08-24] MEDS: ACETAMINOPHEN 500 MG TAB PO PRN ×2 (12:55→21:50)
[2021-08-24] MEDS: LIDOCAINE 5% 1 PATCH TD SCH (15:22)
[2021-08-24] MEDS: INSULIN GLARGINE SOLOSTAR 100 UNITS/ML 3 ML PEN SC SCH (21:47)
--- NOTE | 2021-08-24 22:47 | Hospitalist Progress Note ---
Date of Service August 24, 2021 Assessment & Plan (1) Protein-calorie malnutrition, severe: Plan: per Dr. Ybarra's notes with addendum: Patient is a 66 yr female with H/O Chronic alcoholism and hepatitis C, who presents with weakness, poor appetite, weight loss and chronic diarrhea. Alcohol use Disorder Patient drinks 3 beers and half pint of vodka every day Continue thiamine, folic acid, Ativan as needed -- no signs of withdrawal Thrombocytopenia Likely secondary to alcohol use S/P 1 unit platelets No bleeding issues -- resolved Severe protein calorie malnutrition BMI 12 Weight loss, poor appetite and failure to thrive Dietitian consulted Appreciate Palliative Care Input -- poor appetite still persisting but trying to drink more boost -- Discussed with patient, her daughter, her significant other Patient adamantly denies intervention for poor appetite including appetite stimulants, tube feeding Goals of care discussed Patient prefers to continue present medication regimen, will continue drinking boost, try her best to eat a bit more -- Patient trying to drink her boost was able to eat more today with chicken No other new complaints or symptoms Rectal Bleeding ? Hemorrhoids Monitor CBC and transfuse as needed GI consulted Colonoscopy as outpatient as per GI -- no recurrence today Electrolyte abnormalities Hypokalemia Hypomagnesemia Hypocalcemia -- Replace PRN Acute Hyponatremia ? 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 The bladder is massively distended and there is a large stool ball in the rectum. No acute abnormality is seen. Pancreatic c alcifications are compatible with chronic pancreatitis. Stool studies showed enteropathogenic E. coli IV fluids as needed Appreciate GI input May need colonoscopy as outpatient - given Cefdinir Diarrhea resolved Anemia of chronic disease Normal vitamin B12, folate levels, Iron Panel + Rectal bleeding as above -- Hg stable around 9 Obstructive uropathy Urinary Retention ABD USD:Bilateral hydronephrosis and dilatation of the urinary bladder Likely secondary to large stool bolus Continue bowel regimen Bladder scan as needed Placed on Tavera catheter H/O Hepatitis C Untreated Follow-up as outpatient DVT Px: Heparin SQ--DCed SCDs for now Code Status Full Code DISPOSITION: Transition to alf facility when accepted Admission and Anticipated Discharge Date Admission Date: August 06, 2021 Subjective Pt was seen and examined for follow-up for severe protein calorie malnutrition, poor appetite Lying in bed with no acute distress Pt said that she does have pain all over her body Denies any chest pain, palpitation, dizziness and SOB Review of Systems Review of Systems: All systems reviewed & are unremarkable except as noted in Subjective Physical Exam Physical Exam: General- No acute distress, cachectic Head- atraumatic Eyes- PERRL, EOMI, ENT- oropharynx clear Neck- supple, no JVD Lungs- clear to auscultation Heart- regular rhythm; no murmur Abdomen- normal bowel sounds, soft, nontender Extremities- no calf tenderness Neuro- alert, oriented x 3; PERRL, EOMI; no facial palsy; no dysarthria Skin- warm & dry Results & Data Results & Data ([facility]) Vital Signs (Past 12 Hours) Vital Signs Temp Pulse Pulse Resp BP BP Pulse Ox 08/24/21 19:05 36.8 C 98 H 17 143/83 H 98 08/24/21 16:03 36.7 C 96 H 18 139/81 100 08/24/21 15:00 104 H 08/24/21 12:08 37.3 C 104 H 17 127/79 100
[2021-08-25 06:17] LABS: Hematocrit (blood only) 27.7 % (37-47); Hemoglobin 9.5 g/dL (12.0-16.0); Mean Corpuscular Hemoglobin 34.2 pg (25-34); Mean Corpuscular Hgb Conc 34.3 g/dL (32-36); Mean Corpuscular Volume 99.6 fL (80-100); Platelet Count 315 K/uL (130-400); RDW Standard Deviation 50.4 fL (36.4-46.3); Red Blood Count 2.78 M/uL (4.2-5.4)
[2021-08-25 08:09] LABS: Anion Gap 6 (3-11); BUN Creatinine Ratio 152.2 (10-20); Blood Urea Nitrogen 35 mg/dl (6-23); Carbon Dioxide 25 mmol/L (21-32); Chloride 99 mmol/L (98-107); Creatinine Clr Calc Pharmacy 120.9 ml/min; Est GFR (African American) > 150.0 ml/min; Est GFR (Non-African American) 132.1 ml/min; Glucose 197 mg/dl (70-99(Fasting)); Potassium 4.3 mmol/L (3.5-5.1); Sodium 130 mmol/L (136-145)
[2021-08-25] MEDS: INSULIN ASPART PER UNIT SC SCH ×4 (08:39→21:10)
[2021-08-25] MEDS: INSULIN GLARGINE SOLOSTAR 100 UNITS/ML 3 ML PEN SC SCH ×2 (08:40→21:11)
[2021-08-25] MEDS: UREA (UREA-NA) 15 GM PACK PO SCH ×2 (08:51→21:12)
[2021-08-25] MEDS: NICOTINE 14 MG/24 HR PATCH TD SCH (08:54)
[2021-08-25] MEDS: LIDOCAINE 5% 1 PATCH TD SCH (08:55)
[2021-08-25] MEDS: POLYETHYLENE (MIRALAX) 17 GM PACK PO SCH (08:57)
[2021-08-25] MEDS: FOLIC ACID 1 MG in SYRINGE 9.8 ML IV SCH (08:57)
[2021-08-25] MEDS: THIAMINE HCL 100 MG in SYRINGE 9 ML IV SCH (08:57)
[2021-08-25] MEDS: POTASSIUM CHLORIDE CRTAB 20 MEQ TABCR PO SCH (08:58)
[2021-08-25] MEDS: MAGNESIUM CHLORIDE W/CALCIUM 64MG DELAYED REL TAB PO SCH ×2 (08:58→21:11)
[2021-08-25] MEDS: SODIUM CHLORIDE 1 GM TABLET PO SCH ×3 (08:58→21:12)
[2021-08-25] MEDS: DOCUSATE SODIUM 100 MG CAP PO SCH ×2 (08:59→21:15)
[2021-08-25] MEDS: traMADol HCL 50 MG TABLET PO PRN (09:07)
--- NOTE | 2021-08-25 12:14 | Pharmacy Report ---
Pharmacy Glycemic Short Note 2 - Date of Service August 25, 2021 - Glycemic Short BSG Results (Last 24 hours): 08/24/21 08/24/21 08/25/21 16:41 20:20 05:50 Glucose 197 H POC Glucose 126 H 202 H 08/25/21 08/25/21 07:34 11:21 Glucose POC Glucose 194 H 225 H OUTPATIENT ANTIDIABETIC REGIMEN: * None HbA1c: 9.2% (08/10/21) ASSESSMENT: 08/25/21 * Fasting BSG 194mg/dl, despite increase in basal yesterday, increase further. * No further changes at this time, monitor closely, body wt = 31Kg 08/24/21 * Stressors stable * AM fasting BSG still elevated - will increase Lantus * Post-prandial BSG's yesterday all >180 mg/dL - will tighten Novolog CF and CR * Of note - insulin administered yesterday was double that of two days ago, and is a high dose in terms of weight-based estimates. May need to back off basal and/or bolus at some point 08/23/21 * Stressors stable * Patient requiring high doses for weight, at > 1 unit/kg/day, despite minimal stressors and minimal po intake * AM fasting elevated >180 mg/dL - will increase Lantus * CHO ratio tightened yesterday, but with minimal po intake, it has not been adequately tested yet to determine if further tightening is required. Will therefore tighten correction factor to address hyperglycemia. Further tightening of CHO ratio may be warranted tomorrow 08/22/21 * Blood sugars remaining in the 200s over 24 hours, increase Lantus and tighten CF/CR at this time * Continues minimal PO intake, awaiting SNF placement Background * 66 yo F with hx glucose intolerance admitted with severe protein-calorie malnutrition * Random BSG's trending up, now elevated >400 mg/dL and confirmed on re-check - unclear etiology * Hesitant to start IV given K of 3.4 and risk for refeeding. Potassium being repleted orally at this time. * Hesitant to start basal due to being insulin naive with unknown etiology of hyperglycemia and significantly low body weight * Will start Novolog monotherapy at weight-based moderate stress estimate and add overnight checks. High goal range for now as response to insulin is not able to be easily predicted at this time PLAN FOR INPATIENT GLYCEMIC CONTROL: * Basal insulin * Lantus 15-20 units BID * Bolus insulin * NovoLog per scale ACHS or Q6hrs while NPO * Goal Range: Low 120 mg/dL - High 150 mg/dL * Correction Factor: 20 mg/dL/unit * Nutritional / Prandial insulin per carb ratio of 1 unit per 6 grams CHO consumed
[2021-08-25] MEDS: ACETAMINOPHEN 500 MG TAB PO PRN (12:49)
--- NOTE | 2021-08-25 18:49 | Hospitalist Progress Note ---
Date of Service August 25, 2021 Assessment & Plan (1) Protein-calorie malnutrition, severe: Plan: per Dr. Ybarra's notes with addendum: Patient is a 66 yr female with H/O Chronic alcoholism and hepatitis C, who presents with weakness, poor appetite, weight loss and chronic diarrhea. Alcohol use Disorder Patient drinks 3 beers and half pint of vodka every day Continue thiamine, folic acid, Ativan as needed no signs of withdrawal Thrombocytopenia Likely secondary to alcohol use S/P 1 unit platelets Platelet 315 today No bleeding issues -- resolved Severe protein calorie malnutrition BMI 12 Weight loss, poor appetite and failure to thrive Dietitian consulted Appreciate Palliative Care Input -- poor appetite still persisting but trying to drink more boost -- Discussed with patient, her daughter, her significant other Patient adamantly denies intervention for poor appetite including appetite stimulants, tube feeding Goals of care discussed Patient prefers to continue present medication regimen, will continue drinking boost, try her best to eat a bit more -- Patient trying to drink her boost was able to eat more today with chicken No other new complaints or symptoms Rectal Bleeding ? Hemorrhoids Monitor CBC and transfuse as needed GI consulted Colonoscopy as outpatient as per GI -- no recurrence today Electrolyte abnormalities Hypokalemia Hypomagnesemia Hypocalcemia -- Replace PRN Acute Hyponatremia ? Possible chronic hyponatremia at baseline in setting of Hyperglycemia, alcohol use disorder Sodium 136>>123>125>126> 129 on IV lasix as per Nephrology Also on IV fluids -- Na 130 today -- on urea and salt tab Nephro on board DM II New diagnosis HbA1c:9.2 Continue ISS Monitor BGs Damage Inside Adjuster consulted -- Pharmacy Glycemic control consulted Enteropathogenic E coli Colitis Chronic diarrhea: Likely overflow secondary to constipation, alcohol use and Infectious origin --CT ABD:The patient is cachectic. The bladder is massively distended and there is a large stool ball in the rectum. No acute abnormality is seen. Pancreatic calcifications are compatible with chronic pancreatitis. Stool studies showed enteropathogenic E. coli IV fluids as needed Appreciate GI input May need colonoscopy as outpatient - given Cefdinir Diarrhea resolved Anemia of chronic disease Normal vitamin B12, folate levels, Iron Panel + Rectal bleeding as above -- Hg stable around 9 Obstructive uropathy Urinary Retention ABD USD:Bilateral hydronephrosis and dilatation of the urinary bladder Likely secondary to large stool bolus Continue bowel regimen Bladder scan as needed Placed on Tavera catheter H/O Hepatitis C Untreated Follow-up as outpatient DVT Px: on SCD due to thrombocytopenia/GI bleed Code Status Full Code DISPOSITION: waiting for placement Admission and Anticipated Discharge Date Admission Date: August 06, 2021 Subjective Pt was seen and examined for follow-up for severe protein calorie malnutrition, poor appetite Lying in bed with no acute distress Continue to have pain all over her body bottle caser is having a hard time to get placement because pt has not been p articipate in therapy Denies any chest pain, palpitation, dizziness and SOB Review of Systems Review of Systems: All systems reviewed & are unremarkable except as noted in Subjective Physical Exam Physical Exam: General- No acute distress, cachectic Head- atraumatic Eyes- PERRL, EOMI, ENT- oropharynx clear Neck- supple, no JVD Lungs- clear to auscultation Heart- regular rhythm; no murmur Abdomen- normal bowel sounds, soft, nontender Extremities- no calf tenderness Neuro- alert, oriented x 3; PERRL, EOMI; no facial palsy; no dysarthria Skin- warm & dry Results & Data Results & Data ([facility]) Vital Signs (Past 12 Hours) Vital Signs Temp Pulse Pulse Resp BP Pulse Ox 08/25/21 15:01 36.7 C 81 20 113/74 98 08/25/21 14:55 104 H 08/25/21 11:46 36.7 C 95 H 20 107/72 100 08/25/21 08:04 36.6 C 89 20 131/83 99 08/25/21 07:20 88
[2021-08-26] MEDS: traMADol HCL 50 MG TABLET PO PRN ×3 (02:02→21:18)
[2021-08-26] MEDS: THIAMINE HCL 100 MG in SYRINGE 9 ML IV SCH (08:03)
[2021-08-26] MEDS: POLYETHYLENE (MIRALAX) 17 GM PACK PO SCH (08:03)
[2021-08-26] MEDS: FOLIC ACID 1 MG in SYRINGE 9.8 ML IV SCH (08:03)
[2021-08-26] MEDS: MAGNESIUM CHLORIDE W/CALCIUM 64MG DELAYED REL TAB PO SCH ×2 (08:03→20:30)
[2021-08-26] MEDS: UREA (UREA-NA) 15 GM PACK PO SCH ×2 (08:03→20:32)
[2021-08-26] MEDS: POTASSIUM CHLORIDE CRTAB 20 MEQ TABCR PO SCH (08:03)
[2021-08-26] MEDS: SODIUM CHLORIDE 1 GM TABLET PO SCH ×3 (08:03→20:31)
[2021-08-26] MEDS: NICOTINE 14 MG/24 HR PATCH TD SCH (08:04)
[2021-08-26] MEDS: INSULIN GLARGINE SOLOSTAR 100 UNITS/ML 3 ML PEN SC SCH (08:05)
[2021-08-26] MEDS: LIDOCAINE 5% 1 PATCH TD SCH (08:06)
[2021-08-26] MEDS: DOCUSATE SODIUM 100 MG CAP PO SCH ×2 (08:25→20:36)
[2021-08-26] MEDS: ACETAMINOPHEN 500 MG TAB PO PRN ×2 (08:25→17:29)
[2021-08-26] MEDS: INSULIN ASPART PER UNIT SC SCH ×4 (08:25→20:41)
[2021-08-26 08:36] LABS: Anion Gap 8 (3-11); Blood Urea Nitrogen 41 mg/dl (6-23); Carbon Dioxide 26 mmol/L (21-32); Chloride 98 mmol/L (98-107); Creatinine Clr Calc Pharmacy 143.6 ml/min; Est GFR (African American) > 150.0 ml/min; Est GFR (Non-African American) 138.3 ml/min; Glucose 94 mg/dl (70-99(Fasting)); Potassium 4.1 mmol/L (3.5-5.1); Sodium 132 mmol/L (136-145)
[2021-08-26] MEDS: LANTUS PER UNIT CHARGE SQ SCH (21:15)
--- NOTE | 2021-08-26 22:28 | Hospitalist Progress Note ---
Date of Service August 26, 2021 Assessment & Plan (1) Protein-calorie malnutrition, severe: Plan: Patient is a 66 yr female with H/O Chronic alcoholism and hepatitis C, who presents with weakness, poor appetite, weight loss and chronic diarrhea. Alcohol use Disorder Patient drinks 3 beers and half pint of vodka every day Continue thiamine, folic acid, Ativan as needed no signs of withdrawal Thrombocytopenia Likely secondary to alcohol use S/P 1 unit platelets Platelet 315 today No bleeding issues -- resolved Severe protein calorie malnutrition BMI 12 Weight loss, poor appetite and failure to thrive Dietitian consulted Appreciate Palliative Care Input -- poor appetite still persisting but trying to drink more boost -- Discussed with patient, her daughter, her significant other Patient adamantly denies intervention for poor appetite including appetite stimulants, tube feeding Goals of care discussed Patient prefers to continue present medication regimen, will continue drinking boost, try her best to eat a bit more -- Patient trying to drink her boost was able to eat more today with chicken No other new complaints or symptoms Rectal Bleeding ? Hemorrhoids Monitor CBC and transfuse as needed GI consulted Colonoscopy as outpatient as per GI -- no recurrence today Electrolyte abnormalities Hypokalemia Hypomagnesemia Hypocalcemia -- Replace PRN Acute Hyponatremia ? Possible chronic hyponatremia at baseline in setting of Hyperglycemia, alcohol use disorder Sodium 136>>123>125>126> 129 ---->132 on IV lasix as per Nephrology Also on IV fluids -- Na 132 today -- on urea and salt tab Nephro on board DM II New diagnosis HbA1c:9.2 Continue ISS Monitor BGs Side Framer consulted -- Pharmacy Glycemic control consulted Enteropathogenic E coli Colitis Chronic diarrhea: Likely overflow secondary to constipation, alcohol use and Infectious origin --CT ABD:The patient is cachectic. The bladder is massively distended and there is a large stool ball in the rectum. No acute abnormality is seen. Pancreatic calcifications are compatible with chronic pancreatitis. Stool studies showed enteropathogenic E. coli IV fluids as needed Appreciate GI input May need colonoscopy as outpatient - given Cefdinir Diarrhea resolved Anemia of chronic disease Normal vitamin B12, folate levels, Iron Panel + Rectal bleeding as above -- Hg stable around 9 Obstructive uropathy Urinary Retention ABD USD:Bilateral hydronephrosis and dilatation of the urinary bladder Likely secondary to large stool bolus Continue bowel regimen Bladder scan as needed Placed on Tavera catheter H/O Hepatitis C Untreated Follow-up as outpatient DVT Px: on SCD due to thrombocytopenia/GI bleed Code Status Full Code DISPOSITION: waiting for placement Admission and Anticipated Discharge Date Admission Date: August 06, 2021 Subjective Pt was seen and examined for follow-up for severe protein calorie malnutrition, poor appetite Lying in bed with no acute distress She said that she feels a little better today Denies any chest pain, palpitation, dizziness and SOB Review of Systems Review of Systems: All systems reviewed & are unremarkable except as noted in Subjective Physical Exam Physical Exam: General- No acute distress, cachectic Head- atraumatic Eyes- PERRL, EOMI, ENT- oropharynx clear Neck- supple, no JVD Lungs- clear to auscultation Heart- regular rhythm; no murmur Abdomen- normal bowel sounds, soft, nontender Extremities- no calf tenderness Neuro- alert, oriented x 3; PERRL, EOMI; no facial palsy; no dysarthria Skin- warm & dry Results & Data Results & Data ([facility]) Vital Signs (Past 12 Hours) Vital Signs Temp Pulse Pulse Resp BP BP Pulse Ox 08/26/21 19:34 36.9 C 98 H 18 123/73 98 08/26/21 15:07 37.1 C 108 H 20 118/75 98 08/26/21 14:57 107 H 08/26/21 11:05 36.7 C 102 H 20 124/78 99
[2021-08-27] MEDS: traMADol HCL 50 MG TABLET PO PRN ×3 (05:14→22:02)
[2021-08-27] MEDS: FOLIC ACID 1 MG in SYRINGE 9.8 ML IV SCH (08:23)
[2021-08-27] MEDS: UREA (UREA-NA) 15 GM PACK PO SCH ×2 (08:23→21:50)
[2021-08-27] MEDS: SODIUM CHLORIDE 1 GM TABLET PO SCH ×3 (08:23→21:51)
[2021-08-27] MEDS: THIAMINE HCL 100 MG in SYRINGE 9 ML IV SCH (08:23)
[2021-08-27] MEDS: MAGNESIUM CHLORIDE W/CALCIUM 64MG DELAYED REL TAB PO SCH ×2 (08:23→21:51)
[2021-08-27] MEDS: POTASSIUM CHLORIDE CRTAB 20 MEQ TABCR PO SCH (08:23)
[2021-08-27] MEDS: LIDOCAINE 5% 1 PATCH TD SCH (08:24)
[2021-08-27] MEDS: NICOTINE 14 MG/24 HR PATCH TD SCH (08:24)
[2021-08-27] MEDS: POLYETHYLENE (MIRALAX) 17 GM PACK PO SCH (08:26)
[2021-08-27] MEDS: ACETAMINOPHEN 500 MG TAB PO PRN ×2 (08:32→17:15)
[2021-08-27] MEDS: DOCUSATE SODIUM 100 MG CAP PO SCH ×2 (08:32→22:02)
[2021-08-27] MEDS: INSULIN ASPART PER UNIT SC SCH ×4 (08:32→21:51)
[2021-08-27] MEDS: LANTUS PER UNIT CHARGE SQ SCH ×2 (08:33→22:00)
[2021-08-27 08:40] LABS: Anion Gap 6 (3-11); Blood Urea Nitrogen 36 mg/dl (6-23); Calcium 9.3 mg/dl (8.5-10.1); Carbon Dioxide 26 mmol/L (21-32); Chloride 99 mmol/L (98-107); Creatinine Clr Calc Pharmacy 133.7 ml/min; Est GFR (African American) > 150.0 ml/min; Est GFR (Non-African American) 138.3 ml/min; Glucose 147 mg/dl (70-99(Fasting)); Potassium 4.4 mmol/L (3.5-5.1); Sodium 131 mmol/L (136-145)
--- NOTE | 2021-08-27 23:52 | Hospitalist Progress Note ---
Date of Service August 27, 2021 Assessment & Plan (1) Protein-calorie malnutrition, severe: Plan: Patient is a 66 yr female with H/O Chronic alcoholism and hepatitis C, who presents with weakness, poor appetite, weight loss and chronic diarrhea. Alcohol use Disorder Patient drinks 3 beers and half pint of vodka every day Continue thiamine, folic acid, Ativan as needed no signs of withdrawal Thrombocytopenia Likely secondary to alcohol use S/P 1 unit platelets Platelet 315 today No bleeding issues -- resolved Severe protein calorie malnutrition BMI 12 Weight loss, poor appetite and failure to thrive Dietitian consulted Appreciate Palliative Care Input -- poor appetite still persisting but trying to drink more boost -- Discussed with patient, her daughter, her significant other Patient adamantly denies intervention for poor appetite including appetite stimulants, tube feeding Goals of care discussed Patient prefers to continue present medication regimen, will continue drinking boost, try her best to eat a bit more -- Patient trying to drink her boost was able to eat more today with chicken No other new complaints or symptoms Rectal Bleeding ? Hemorrhoids Monitor CBC and transfuse as needed GI consulted Colonoscopy as outpatient as per GI -- no recurrence today Electrolyte abnormalities Hypokalemia Hypomagnesemia Hypocalcemia -- Replace PRN Acute Hyponatremia ? Possible chronic hyponatremia at baseline in setting of Hyperglycemia, alcohol use disorder Sodium 136>>123>125>126> 129 ---->132 on IV lasix as per Nephrology Also on IV fluids -- Na 131 today -- on urea and salt tab Nephro on board DM II New diagnosis HbA1c:9.2 Continue ISS Monitor BGs Gasoline Pump Installer consulted -- Pharmacy Glycemic control consulted Enteropathogenic E coli Colitis Chronic diarrhea: Likely overflow secondary to constipation, alcohol use and Infectious origin --CT ABD:The patient is cachectic. The bladder is massively distended and there is a large stool ball in the rectum. No acute abnormality is seen. Pancreatic calcifications are compatible with chronic pancreatitis. Stool studies showed enteropathogenic E. coli IV fluids as needed Appreciate GI input May need colonoscopy as outpatient - given Cefdinir Diarrhea resolved Anemia of chronic disease Normal vitamin B12, folate levels, Iron Panel + Rectal bleeding as above -- Hg stable around 9 Obstructive uropathy Urinary Retention ABD USD:Bilateral hydronephrosis and dilatation of the urinary bladder Likely secondary to large stool bolus Continue bowel regimen Bladder scan as needed Placed on Tavera catheter H/O Hepatitis C Untreated Follow-up as outpatient DVT Px: on SCD due to thrombocytopenia/GI bleed Code Status Full Code DISPOSITION: waiting for placement Admission and Anticipated Discharge Date Admission Date: August 06, 2021 Subjective Pt was seen and examined for follow-up for severe protein calorie malnutrition, poor appetite Lying in bed with no acute distress she said that she feels ok Pt has not been participates in therapy She said that she cannot walk or stand. why i ask why, she did not give me any explanation Will try to call her daughter to discuss plan Denies any chest pain, palpitation, dizziness and SOB Review of Systems Review of Systems: All systems reviewed & are unremarkable except as noted in Subjective Physical Exam Physical Exam: General- No acute distress, cachectic Head- atraumatic Eyes- PERRL, EOMI, ENT- oropharynx clear Neck- supple, no JVD Lungs- clear to auscultation Heart- regular rhythm; no murmur Abdomen- normal bowel sounds, soft, nontender Extremities- no calf tenderness Neuro- alert, oriented x 3; PERRL, EOMI; no facial palsy; no dysarthria Skin- warm & dry Results & Data Results & Data ([facility]) Vital Signs (Past 12 Hours) Vital Signs Temp Pulse Pulse Resp BP Pulse Ox 08/27/21 22:05 36.8 C 94 H 18 148/85 H 97 08/27/21 18:45 37 C 101 H 18 135/78 98 08/27/21 15:45 107 H 08/27/21 15:37 37.1 C 101 H 18 142/82 H 98
[2021-08-28 06:39] LABS: Hematocrit (blood only) 28.8 % (37-47); Hemoglobin 9.8 g/dL (12.0-16.0); Mean Corpuscular Hemoglobin 34.1 pg (25-34); Mean Corpuscular Volume 100.3 fL (80-100); Mean Platelet Volume 10.3 fL (7.4-10.4); Platelet Count 294 K/uL (130-400); RDW Coefficient of Variation 14.2 % (11.5-14.5); RDW Standard Deviation 51.7 fL (36.4-46.3); Red Blood Count 2.87 M/uL (4.2-5.4); White Blood Count 5.95 K/uL (4.8-10.8)
[2021-08-28] MEDS: NICOTINE 14 MG/24 HR PATCH TD SCH (09:15)
[2021-08-28] MEDS: MAGNESIUM CHLORIDE W/CALCIUM 64MG DELAYED REL TAB PO SCH ×2 (09:16→20:29)
[2021-08-28] MEDS: SODIUM CHLORIDE 1 GM TABLET PO SCH ×3 (09:16→20:29)
[2021-08-28] MEDS: LIDOCAINE 5% 1 PATCH TD SCH (09:17)
[2021-08-28] MEDS: POTASSIUM CHLORIDE CRTAB 20 MEQ TABCR PO SCH (09:18)
[2021-08-28] MEDS: FOLIC ACID 1 MG in SYRINGE 9.8 ML IV SCH (09:19)
[2021-08-28] MEDS: THIAMINE HCL 100 MG in SYRINGE 9 ML IV SCH (09:19)
[2021-08-28] MEDS: POLYETHYLENE (MIRALAX) 17 GM PACK PO SCH (09:21)
[2021-08-28] MEDS: UREA (UREA-NA) 15 GM PACK PO SCH ×2 (09:22→20:29)
[2021-08-28] MEDS: INSULIN ASPART PER UNIT SC SCH ×4 (09:40→20:30)
[2021-08-28] MEDS: LANTUS PER UNIT CHARGE SQ SCH ×2 (09:42→20:30)
[2021-08-28] MEDS: DOCUSATE SODIUM 100 MG CAP PO SCH ×2 (11:23→20:31)
[2021-08-28] MEDS: traMADol HCL 50 MG TABLET PO PRN (13:30)
--- NOTE | 2021-08-28 17:33 | Hospitalist Progress Note ---
Date of Service August 28, 2021 Assessment & Plan (1) Protein-calorie malnutrition, severe: Plan: Patient is a 66 yr female with H/O Chronic alcoholism and hepatitis C, who presents with weakness, poor appetite, weight loss and chronic diarrhea. Alcohol use Disorder Patient drinks 3 beers and half pint of vodka every day Continue thiamine, folic acid, Ativan as needed no signs of withdrawal Thrombocytopenia Likely secondary to alcohol use S/P 1 unit platelets Platelet 315 today No bleeding issues -- resolved Severe protein calorie malnutrition BMI 12 Weight loss, poor appetite and failure to thrive Dietitian consulted Appreciate Palliative Care Input -- poor appetite still persisting but trying to drink more boost -- Discussed with patient, her daughter, her significant other Patient adamantly denies intervention for poor appetite including appetite stimulants, tube feeding Goals of care discussed Patient prefers to continue present medication regimen, will continue drinking boost, try her best to eat a bit more -- Patient trying to drink her boost was able to eat more today with chicken No other new complaints or symptoms Rectal Bleeding ? Hemorrhoids Monitor CBC and transfuse as needed GI consulted Colonoscopy as outpatient as per GI -- no recurrence today Electrolyte abnormalities Hypokalemia Hypomagnesemia Hypocalcemia -- Replace PRN Acute Hyponatremia ? Possible chronic hyponatremia at baseline in setting of Hyperglycemia, alcohol use disorder Sodium 136>>123>125>126> 129 ---->132 on IV lasix as per Nephrology Also on IV fluids -- Na 131 today -- on urea and salt tab Nephro on board DM II New diagnosis HbA1c:9.2 Continue ISS Monitor BGs Outreach And Education Social Worker consulted -- Pharmacy Glycemic control consulted Enteropathogenic E coli Colitis Chronic diarrhea: Likely overflow secondary to constipation, alcohol use and Infectious origin --CT ABD:The patient is cachectic. The bladder is massively distended and there is a large stool ball in the rectum. No acute abnormality is seen. Pancreatic calcifications are compatible with chronic pancreatitis. Stool studies showed enteropathogenic E. coli IV fluids as needed Appreciate GI input May need colonoscopy as outpatient - given Cefdinir Diarrhea resolved Anemia of chronic disease Normal vitamin B12, folate levels, Iron Panel + Rectal bleeding as above -- Hg stable around 9 Obstructive uropathy Urinary Retention ABD USD:Bilateral hydronephrosis and dilatation of the urinary bladder Likely secondary to large stool bolus Continue bowel regimen Bladder scan as needed Placed on Tavera catheter H/O Hepatitis C Untreated Follow-up as outpatient DVT Px: on SCD due to thrombocytopenia/GI bleed Code Status Full Code DISPOSITION: waiting for placement Admission and Anticipated Discharge Date Admission Date: August 06, 2021 Subjective Pt was seen and examined for follow-up for severe protein calorie malnutrition, poor appetite Lying in bed with no acute distress with partner at bedside She said that she feels ok Pt has not been participates in therapy due to pain Partner said that he can help her to participate any therapy Denies any chest pain, palpitation, dizziness and SOB Review of Systems Review of Systems: All systems reviewed & are unremarkable except as noted in Subjective Physical Exam Physical Exam: General- No acute distress, cachectic Head- atraumatic Eyes- PERRL, EOMI, ENT- oropharynx clear Neck- supple, no JVD Lungs- clear to auscultation Heart- regular rhythm; no murmur Abdomen- normal bowel sounds, soft, nontender Extremities- no calf tenderness Neuro- alert, oriented x 3; PERRL, EOMI; no facial palsy; no dysarthria Skin- warm & dry Results & Data Results & Data ([facility]) Vital Signs (Past 12 Hours) Vital Signs Temp Pulse Pulse Resp BP Pulse Ox 08/28/21 16:10 37.3 C 106 H 16 138/78 98 08/28/21 15:40 117 H 08/28/21 08:29 96 H 08/28/21 08:21 37.2 C 98 H 17 138/83 98
[2021-08-28] MEDS: ACETAMINOPHEN 500 MG TAB PO PRN (18:11)
[2021-08-29] MEDS: traMADol HCL 50 MG TABLET PO PRN ×2 (05:55→18:55)
[2021-08-29] MEDS: INSULIN ASPART PER UNIT SC SCH ×4 (08:16→20:51)
[2021-08-29] MEDS: DOCUSATE SODIUM 100 MG CAP PO SCH ×2 (08:20→21:07)
[2021-08-29] MEDS: FOLIC ACID 1 MG in SYRINGE 9.8 ML IV SCH (08:21)
[2021-08-29] MEDS: LIDOCAINE 5% 1 PATCH TD SCH (08:21)
[2021-08-29] MEDS: MAGNESIUM CHLORIDE W/CALCIUM 64MG DELAYED REL TAB PO SCH ×2 (08:22→20:55)
[2021-08-29] MEDS: NICOTINE 14 MG/24 HR PATCH TD SCH (08:23)
[2021-08-29] MEDS: POTASSIUM CHLORIDE CRTAB 20 MEQ TABCR PO SCH (08:23)
[2021-08-29] MEDS: POLYETHYLENE (MIRALAX) 17 GM PACK PO SCH (08:23)
[2021-08-29] MEDS: SODIUM CHLORIDE 1 GM TABLET PO SCH ×3 (08:24→20:58)
[2021-08-29] MEDS: THIAMINE HCL 100 MG in SYRINGE 9 ML IV SCH (08:24)
[2021-08-29] MEDS: UREA (UREA-NA) 15 GM PACK PO SCH ×2 (08:25→20:59)
[2021-08-29] MEDS: LANTUS PER UNIT CHARGE SQ SCH ×2 (08:32→22:39)
--- NOTE | 2021-08-29 16:27 | Hospitalist Progress Note ---
Date of Service August 29, 2021 Assessment & Plan (1) Protein-calorie malnutrition, severe: Plan: Patient is a 66 yr female with H/O Chronic alcoholism and hepatitis C, who presents with weakness, poor appetite, weight loss and chronic diarrhea. Alcohol use Disorder Patient drinks 3 beers and half pint of vodka every day Continue thiamine, folic acid, Ativan as needed no signs of withdrawal Generalized Weakness Pt has been refused to participate in therapy Spoke to partner and he said that he can help her to participate in therapy yesterday. Will talk to therapy to come during the time the is here Continue PT/OT eval Thrombocytopenia Likely secondary to alcohol use S/P 1 unit platelets Platelet 315 today No bleeding issues -- resolved Severe protein calorie malnutrition BMI 12 Weight loss, poor appetite and failure to thrive Dietitian consulted Appreciate Palliative Care Input -- poor appetite still persisting but trying to drink more boost -- Discussed with patient, her daughter, her significant other Patient adamantly denies intervention for poor appetite including appetite stimulants, tube feeding Goals of care discussed Patient prefers to continue present medication regimen, will continue drinking boost, try her best to eat a bit more -- Patient trying to drink her boost was able to eat more today with chicken No other new complaints or symptoms Rectal Bleeding ? Hemorrhoids Monitor CBC and transfuse as needed GI consulted Colonoscopy as outpatient as per GI -- no recurrence today Electrolyte abnormalities Hypokalemia Hypomagnesemia Hypocalcemia -- Replace PRN Acute Hyponatremia ? Possible chronic hyponatremia at baseline in setting of Hyperglycemia, alcohol use disorder Sodium 136>>123>125>126> 129 ---->132 on IV lasix as per Nephrology Also on IV fluids -- Na 131 today -- on urea and salt tab Nephro on board DM II New diagnosis HbA1c:9.2 Continue ISS Monitor BGs Electronic Publications Specialist consulted -- Pharmacy Glycemic control consulted Enteropathogenic E coli Colitis Chronic diarrhea: Likely overflow secondary to constipation, alcohol use and Infectious origin --CT ABD:The patient is cachectic. The bladder is massively distended and there is a large stool ball in the rectum. No acute abnormality is seen. Pancreatic calcifications are compatible with chronic pancreatitis. Stool studies showed enteropathogenic E. coli IV fluids as needed Appreciate GI input May need colonoscopy as outpatient - given Cefdinir Diarrhea resolved Anemia of chronic disease Normal vitamin B12, folate levels, Iron Panel + Rectal bleeding as above -- Hg stable around 9 Obstructive uropathy Urinary Retention ABD USD:Bilateral hydronephrosis and dilatation of the urinary bladder Likely secondary to large stool bolus Continue bowel regimen Bladder scan as needed Placed on Tavera catheter H/O Hepatitis C Untreated Follow-up as outpatient DVT Px: on SCD due to thrombocytopenia/GI bleed Code Status Full Code DISPOSITION: waiting for placement Admission and Anticipated Discharge Date Admission Date: August 06, 2021 Subjective Pt was seen and examined for follow-up for severe protein calorie malnutrition, poor appetite Lying in bed with no acute distress She said that she feels ok Partner said that he can help her to participate in therapy yesterday. Will talk to physical therapy to try to work with her tomorrow Denies any chest pain, palpitation, dizziness and SOB Review of Systems Review of Systems: All systems reviewed & are unremarkable except as noted in Subjective Physical Exam Physical Exam: General- No acute distress, cachectic Head- atraumatic Eyes- PERRL, EOMI, ENT- oropharynx clear Neck- supple, no JVD Lungs- clear to auscultation Heart- regular rhythm; no murmur Abdomen- normal bowel sounds, soft, nontender Extremities- no calf tenderness Neuro- alert, oriented x 3; PERRL, EOMI; no facial palsy; no dysarthria Skin- warm & dry Results & Data Results & Data ([facility]) Vital Signs (Past 12 Hours) Vital Signs Temp Pulse Pulse Resp BP BP Pulse Ox 08/29/21 15:18 36.7 C 88 17 132/77 100 08/29/21 15:03 104 H 08/29/21 11:10 37.1 C 113 H 17 132/82 99 08/29/21 08:27 37.1 C 83 17 123/80 98 08/29/21 07:26 103 H
--- NOTE | 2021-08-30 08:25 | Pharmacy Report ---
Pharmacy Glycemic Short Note 2 - Date of Service August 30, 2021 - Glycemic Short BSG Results (Last 24 hours): 08/29/21 08/29/21 08/29/21 11:32 16:36 20:40 POC Glucose 94 185 H 68 L* 08/29/21 08/30/21 22:27 07:34 POC Glucose 169 H 83 OUTPATIENT ANTIDIABETIC REGIMEN: * None HbA1c: 9.2% (08/10/21) ASSESSMENT: 08/30/21 * BSGs have been pretty well-controlled over past 5 days, however patient did have one episode of hypoglycemia last evening (BSG of 68 mg/dL). Fasting BSG of 83 mg/dL this morning. * Patient is on very high dose of basal insulin relative to low-body weight - will decrease basal insulin today * Will also plan to loosen CF today given low BSG last evening * Still awaiting discharge plan 08/25/21 * Fasting BSG 194mg/dl, despite increase in basal yesterday, increase further. * No further changes at this time, monitor closely, body wt = 31Kg Background * 66 yo F with hx glucose intolerance admitted with severe protein-calorie malnutrition * Random BSG's trending up, now elevated >400 mg/dL and confirmed on re-check - unclear etiology * Hesitant to start IV given K of 3.4 and risk for refeeding. Potassium being repleted orally at this time. * Hesitant to start basal due to being insulin naive with unknown etiology of hyperglycemia and significantly low body weight * Will start Novolog monotherapy at weight-based moderate stress estimate and add overnight checks. High goal range for now as response to insulin is not able to be easily predicted at this time PLAN FOR INPATIENT GLYCEMIC CONTROL: * Basal insulin * Lantus 10 units SC this morning * Lantus 0-10 units SC HS * Bolus insulin * NovoLog per scale ACHS or Q6hrs while NPO * Goal Range: Low 110 mg/dL - High 140 mg/dL * Correction Factor: 30 mg/dL/unit * Nutritional / Prandial insulin per carb ratio of 1 unit per 6 grams CHO consumed
[2021-08-30 08:32] LABS: Anion Gap 7 (3-11); Blood Urea Nitrogen 44 mg/dl (6-23); Calcium 9.4 mg/dl (8.5-10.1); Carbon Dioxide 26 mmol/L (21-32); Chloride 102 mmol/L (98-107); Est GFR (African American) > 150.0 ml/min; Est GFR (Non-African American) 138.3 ml/min; Glucose 58 mg/dl (70-99(Fasting)); Potassium 4.3 mmol/L (3.5-5.1); Sodium 135 mmol/L (136-145)
[2021-08-30] MEDS: INSULIN ASPART PER UNIT SC SCH ×4 (08:38→20:38)
[2021-08-30] MEDS: THIAMINE HCL 100 MG in SYRINGE 9 ML IV SCH (08:40)
[2021-08-30] MEDS: UREA (UREA-NA) 15 GM PACK PO SCH ×2 (08:40→20:32)
[2021-08-30] MEDS: MAGNESIUM CHLORIDE W/CALCIUM 64MG DELAYED REL TAB PO SCH ×2 (08:40→20:32)
[2021-08-30] MEDS: SODIUM CHLORIDE 1 GM TABLET PO SCH ×3 (08:40→20:32)
[2021-08-30] MEDS: POLYETHYLENE (MIRALAX) 17 GM PACK PO SCH (08:40)
[2021-08-30] MEDS: LIDOCAINE 5% 1 PATCH TD SCH (08:41)
[2021-08-30] MEDS: POTASSIUM CHLORIDE CRTAB 20 MEQ TABCR PO SCH (08:41)
[2021-08-30] MEDS: NICOTINE 14 MG/24 HR PATCH TD SCH (08:41)
[2021-08-30] MEDS: FOLIC ACID 1 MG in SYRINGE 9.8 ML IV SCH (08:42)
[2021-08-30] MEDS: traMADol HCL 50 MG TABLET PO PRN ×2 (08:44→20:47)
[2021-08-30] MEDS: DOCUSATE SODIUM 100 MG CAP PO SCH ×2 (08:44→20:37)
[2021-08-30] MEDS: LANTUS PER UNIT CHARGE SQ SCH ×2 (09:19→20:38)
[2021-08-30] MEDS: ACETAMINOPHEN 500 MG TAB PO PRN (13:20)
--- NOTE | 2021-08-30 19:20 | Hospitalist Progress Note ---
Date of Service August 30, 2021 Assessment & Plan (1) Protein-calorie malnutrition, severe: Plan: Patient is a 66 yr female with H/O Chronic alcoholism and hepatitis C, who presents with weakness, poor appetite, weight loss and chronic diarrhea. Alcohol use Disorder Patient drinks 3 beers and half pint of vodka every day Continue thiamine, folic acid, Ativan as needed no signs of withdrawal Generalized Weakness Pt has been refused to participate in therapy Spoke to partner and he said that he can help her to participate in therapy yesterday. Will talk to therapy to come during the time the is here to do therapy Continue PT/OT eval Thrombocytopenia Likely secondary to alcohol use S/P 1 unit platelets Platelet 315 today No bleeding issues -- resolved Severe protein calorie malnutrition BMI 12 Weight loss, poor appetite and failure to thrive Dietitian consulted Appreciate Palliative Care Input -- poor appetite still persisting but trying to drink more boost -- Discussed with patient, her daughter, her significant other Patient adamantly denies intervention for poor appetite including appetite stimulants, tube feeding Goals of care discussed Patient prefers to continue present medication regimen, will continue drinking boost, try her best to eat a bit more -- Patient trying to drink her boost was able to eat more today with chicken No other new complaints or symptoms Rectal Bleeding ? Hemorrhoids Monitor CBC and transfuse as needed GI consulted Colonoscopy as outpatient as per GI -- no recurrence today Electrolyte abnormalities Hypokalemia Hypomagnesemia Hypocalcemia -- Replace PRN Acute Hyponatremia ? Possible chronic hyponatremia at baseline in setting of Hyperglycemia, alcohol use disorder Sodium 136>>123>125>126> 129 ---->132 on IV lasix as per Nephrology Also on IV fluids -- Na 135 today -- on urea and salt tab Nephro on board DM II New diagnosis HbA1c:9.2 Continue ISS Monitor BGs Handicraft Or Hobby Shop Manager consulted -- Pharmacy Glycemic control consulted Enteropathogenic E coli Colitis Chronic diarrhea: Likely overflow secondary to constipation, alcohol use and Infectious origin --CT ABD:The patient is cachectic. The bladder is massively distended and there is a large stool ball in the rectum. No acute abnormality is seen. Pancreatic calcifications are compatible with chronic pancreatitis. Stool studies showed enteropathogenic E. coli IV fluids as needed Appreciate GI input May need colonoscopy as outpatient - given Cefdinir Diarrhea resolved Anemia of chronic disease Normal vitamin B12, folate levels, Iron Panel + Rectal bleeding as above -- Hg stable around 9 Obstructive uropathy Urinary Retention ABD USD:Bilateral hydronephrosis and dilatation of the urinary bladder Likely secondary to large stool bolus Continue bowel regimen Bladder scan as needed Placed on Tavera catheter H/O Hepatitis C Untreated Follow-up as outpatient DVT Px: on SCD due to thrombocytopenia/GI bleed Code Status Full Code DISPOSITION: waiting for placement Admission and Anticipated Discharge Date Admission Date: August 06, 2021 Subjective Pt was seen and examined for follow-up for severe protein calorie malnutrition, poor appetite Lying in bed with no acute distress She said that she feels ok Partner said that he can help her to participate in therapy yesterday. Denies any chest pain, palpitation, dizziness and SOB Review of Systems Review of Systems: All systems reviewed & are unremarkable except as noted in Subjective Physical Exam Physical Exam: General- No acute distress, cachectic Head- atraumatic Eyes- PERRL, EOMI, ENT- oropharynx clear Neck- supple, no JVD Lungs- clear to auscultation Heart- regular rhythm; no murmur Abdomen- normal bowel sounds, soft, nontender Extremities- no calf tenderness Neuro- alert, oriented x 3; PERRL, EOMI; no facial palsy; no dysarthria Skin- warm & dry Results & Data Results & Data ([facility]) Vital Signs (Past 12 Hours) Vital Signs Temp Pulse Pulse Resp BP BP Pulse Ox 08/30/21 15:27 37.0 C 104 H 17 134/80 99 08/30/21 14:56 108 H 08/30/21 10:59 37.3 C 96 H 20 139/82 99 08/30/21 07:41 37.1 C 106 H 20 128/77 98
[2021-08-31 08:09] LABS: Hematocrit (blood only) 29.3 % (37-47); Hemoglobin 9.7 g/dL (12.0-16.0); Mean Corpuscular Hemoglobin 32.9 pg (25-34); Mean Corpuscular Hgb Conc 33.1 g/dL (32-36); Mean Corpuscular Volume 99.3 fL (80-100); Mean Platelet Volume 10.5 fL (7.4-10.4); Platelet Count 289 K/uL (130-400); RDW Coefficient of Variation 14.3 % (11.5-14.5); RDW Standard Deviation 51.5 fL (36.4-46.3); Red Blood Count 2.95 M/uL (4.2-5.4); White Blood Count 5.41 K/uL (4.8-10.8)
[2021-08-31] MEDS: LIDOCAINE 5% 1 PATCH TD SCH (08:30)
[2021-08-31] MEDS: SODIUM CHLORIDE 1 GM TABLET PO SCH ×3 (08:31→21:50)
[2021-08-31] MEDS: MAGNESIUM CHLORIDE W/CALCIUM 64MG DELAYED REL TAB PO SCH ×2 (08:31→21:50)
[2021-08-31] MEDS: UREA (UREA-NA) 15 GM PACK PO SCH ×2 (08:31→21:51)
[2021-08-31] MEDS: POLYETHYLENE (MIRALAX) 17 GM PACK PO SCH (08:31)
[2021-08-31] MEDS: NICOTINE 14 MG/24 HR PATCH TD SCH (08:31)
[2021-08-31] MEDS: THIAMINE HCL 100 MG in SYRINGE 9 ML IV SCH (08:32)
[2021-08-31] MEDS: FOLIC ACID 1 MG in SYRINGE 9.8 ML IV SCH (08:32)
[2021-08-31] MEDS: INSULIN ASPART PER UNIT SC SCH ×4 (08:33→21:56)
[2021-08-31] MEDS: POTASSIUM CHLORIDE CRTAB 20 MEQ TABCR PO SCH (08:37)
[2021-08-31] MEDS: DOCUSATE SODIUM 100 MG CAP PO SCH ×2 (08:37→21:56)
[2021-08-31] MEDS: LANTUS PER UNIT CHARGE SQ SCH ×2 (08:41→21:55)
--- NOTE | 2021-08-31 10:33 | Hospitalist Progress Note ---
Date of Service August 31, 2021 Assessment & Plan (1) Protein-calorie malnutrition, severe: Plan: 66 yr female with H/O Chronic alcoholism and hepatitis C, who presents with weakness, poor appetite, weight loss and chronic diarrhea. Severe protein calorie malnutrition BMI 11 Weight loss, poor appetite and failure to thrive Dietitian on board Appreciate Palliative Care Input Patient would not want any tube feeding Goals of care discussed She states she is drinking nutritional supplements the best she can Generalized Weakness Pt had occasionally refused therapies per chart review She participated in PT yesterday. I encouraged patient about this and we discussed the need for PT/OT. She agreed to participate Alcohol use Disorder Patient drinks 3 beers and half pint of vodka every day Continue thiamine, folic acid Thrombocytopenia Likely secondary to alcohol use S/P 1 unit platelets Resolved Rectal Bleeding ? Hemorrhoids Monitor CBC and transfuse as needed GI consulted Colonoscopy as outpatient as per GI Resolved Electrolyte abnormalities Hyponatremia ? Possible chronic hyponatremia at baseline in setting of Hyperglycemia, alcohol use disorder Sodium 136>>123>125>126> 129 ---->132>>135 Nephro recs noted Currently on urea and salt tab Monitor DM II New diagnosis HbA1c:9.2 Continue ISS Monitor BGs Inspector Set Up And Lay Out consulted -- Pharmacy Glycemic control consulted Enteropathogenic E coli Colitis Chronic diarrhea: Likely overflow secondary to constipation, alcohol use and Infectious origin --CT ABD:The patient is cachectic. The bladder is massively distended and there is a large stool ball in the rectum. No acute abnormality is seen. Pancreatic calcifications are compatible with chronic pancreatitis. Stool studies showed enteropathogenic E. coli GI input noted Colonoscopy as outpatient Got Cefdinir Diarrhea resolved Anemia of chronic disease Normal vitamin B12, folate levels, Iron Panel Hg stable around 9 Obstructive uropathy Urinary Retention ABD USD:Bilateral hydronephrosis and dilatation of the urinary bladder Likely secondary to large stool bolus Ensure regular BM Has been on benson. Tough to do proper skin care at times per RN as patient occasionally refuses. Skin is really fragile and [place] does not fit per RN. Will leave benson for now and try to remove benson later H/O Hepatitis C Untreated Follow-up as outpatient DVT Px: on SCD due to thrombocytopenia/GI bleed Code Status Full Code DISPOSITION: waiting for placement Admission and Anticipated Discharge Date Admission Date: August 06, 2021 Subjective 66-year-old woman with history of impaired glucose tolerance, hepatitis C, alcoholic hepatitis, Alterna syndrome, cervical spondylosis, lumbosacral spondylosis, cervical radiculopathy brought in for frequent falls and weakness as well as diarrhea. Managed for enteropathogenic E. coli diarrhea. Being managed for severe malnutrition, generalized weakness. Patient seen and examined. Patient reports generalized weakness and anorexia. Reports feeling sore all over. Denied any specific pain anywhere denies fevers, chills, nausea, vomiting, abdominal pain, diarrhea Denies any headache, dizziness Denies chest pain, cough, shortness of breath Review of Systems Review of Systems: All systems reviewed & are unremarkable except as noted in Subjective Physical Exam Constitutional: + well hydrated and + cachectic (Prominent bony, loss of muscle mass); no acute distress Eyes: PERRL, conjunctivae normal, anicteric sclerae ENMT: external ear and nose normal, oropharynx normal Respiratory: normal respiratory effort, lungs clear to auscultation Cardiovascular: Rate/Rhythm: regular rhythm and + tachycardic S1 S2 Gastrointestinal (Abdomen): normal bowel sounds, soft, nontender, no hepatosplenomegaly Musculoskeletal: No pedal edema Neurologic: PERRL, EOMI, accommodation nl, no face palsy, no dysarthria Psychiatric: Alert and oriented to person, place and time Flat affect Genitourinary: Benson in situ Results & Data Results & Data ([facility]) Vital Signs (Past 12 Hours) Vital Signs Temp Pulse Pulse Resp BP BP Pulse Ox 08/31/21 09:13 101 H 08/31/21 07:43 36.8 C 69 20 96/62 L 97 08/31/21 04:00 37.2 C 102 H 20 139/83 98 08/30/21 23:10 37.1 C 108 H 20 146/86 H 99 Laboratory Results Abnormal lab results 08/30/21 08/30/21 08/31/21 Range/Units 16:39 20:19 07:29 RBC 2.95 L (4.2-5.4) M/uL Hgb 9.7 L (12.0-16.0) g/dL Hct 29.3 L (37-47) % RDW Std Deviation 51.5 H (36.4-46.3) fL MPV 10.5 H (7.4-10.4) fL POC Glucose 134 H 169 H (70-99) mg/dl 08/31/21 Range/Units 07:42 RBC (4.2-5.4) M/uL Hgb (12.0-16.0) g/dL Hct (37-47) % RDW Std Deviation (36.4-46.3) fL MPV (7.4-10.4) fL POC Glucose 164 H (70-99) mg/dl
[2021-08-31] MEDS: traMADol HCL 50 MG TABLET PO PRN ×2 (12:43→21:56)
[2021-09-01 06:58] LABS: Anion Gap 6 (3-11); Blood Urea Nitrogen 50 mg/dl (6-23); Calcium 9.3 mg/dl (8.5-10.1); Carbon Dioxide 25 mmol/L (21-32); Chloride 101 mmol/L (98-107); Creatinine Clr Calc Pharmacy 149.8 ml/min; Est GFR (African American) > 150.0 ml/min; Est GFR (Non-African American) 138.3 ml/min; Glucose 123 mg/dl (70-99(Fasting)); Magnesium 1.7 mg/dl (1.7-2.4); Phosphorus 5.5 mg/dl (2.5-4.9); Potassium 4.3 mmol/L (3.5-5.1); Sodium 132 mmol/L (136-145)
[2021-09-01] MEDS: INSULIN ASPART PER UNIT SC SCH ×4 (08:07→21:52)
[2021-09-01] MEDS: LANTUS PER UNIT CHARGE SQ SCH ×2 (08:08→21:53)
[2021-09-01] MEDS: POTASSIUM CHLORIDE CRTAB 20 MEQ TABCR PO SCH (08:15)
[2021-09-01] MEDS: SODIUM CHLORIDE 1 GM TABLET PO SCH ×3 (08:16→21:54)
[2021-09-01] MEDS: MAGNESIUM CHLORIDE W/CALCIUM 64MG DELAYED REL TAB PO SCH ×2 (08:16→21:54)
[2021-09-01] MEDS: THIAMINE HCL 100 MG in SYRINGE 9 ML IV SCH (08:17)
[2021-09-01] MEDS: UREA (UREA-NA) 15 GM PACK PO SCH ×2 (08:17→21:53)
[2021-09-01] MEDS: NICOTINE 14 MG/24 HR PATCH TD SCH (08:17)
[2021-09-01] MEDS: FOLIC ACID 1 MG in SYRINGE 9.8 ML IV SCH (08:17)
[2021-09-01] MEDS: LIDOCAINE 5% 1 PATCH TD SCH (08:18)
[2021-09-01] MEDS: POLYETHYLENE (MIRALAX) 17 GM PACK PO SCH (08:18)
[2021-09-01] MEDS: DOCUSATE SODIUM 100 MG CAP PO SCH ×2 (08:18→21:58)
--- NOTE | 2021-09-01 10:15 | Pharmacy Report ---
Pharmacy Glycemic Short Note 2 - Date of Service September 01, 2021 - Glycemic Short BSG Results (Last 24 hours): 08/31/21 08/31/21 08/31/21 11:28 16:42 20:11 Glucose POC Glucose 114 H 146 H 190 H 09/01/21 09/01/21 06:15 07:46 Glucose 123 H POC Glucose 122 H OUTPATIENT ANTIDIABETIC REGIMEN: * None * HbA1c = 9.2% (08/10/21) ASSESSMENT: 09/01: * Shahida received a total of 38 units of insulin yesterday (25 units basal + 13 units bolus). BSGs were acceptable: [phone] mg/dL. * Fasting BSG controlled at 122 mg/dL this AM. Adjust HS basal scale slightly today so patient likely to continue with same basal dose. * Tightened CF this AM. If postprandials continue to trend up throughout the day, will tighten CR as well. 08/30: * BSGs have been pretty well-controlled over past 5 days, however patient did have one episode of hypoglycemia last evening (BSG of 68 mg/dL). Fasting BSG of 83 mg/dL this morning. * Patient is on very high dose of basal insulin relative to low-body weight - will decrease basal insulin today * Will also plan to loosen CF today given low BSG last evening * Still awaiting discharge plan PLAN FOR INPATIENT GLYCEMIC CONTROL: * Basal insulin * Lantus 15 SC QAM * Lantus 0-10 units SC HS (see EHR for more details) * Bolus insulin - tightened * NovoLog per scale ACHS or Q6hrs while NPO * Goal Range: Low 110 mg/dL - High 140 mg/dL * Correction Factor: 25 mg/dL/unit * Nutritional / Prandial insulin per carb ratio of 1 unit per 6 grams CHO consumed
[2021-09-01] MEDS: traMADol HCL 50 MG TABLET PO PRN ×2 (13:29→21:58)
--- NOTE | 2021-09-01 14:48 | Hospitalist Progress Note ---
Date of Service September 01, 2021 Assessment & Plan (1) Protein-calorie malnutrition, severe: Plan: 66 yr female with H/O Chronic alcoholism and hepatitis C, who presents with weakness, poor appetite, weight loss and chronic diarrhea. Severe protein calorie malnutrition Generalized Weakness BMI 11 Weight loss, poor appetite and failure to thrive Dietitian on board Appreciate Palliative Care Input Patient would not want any tube feeding I spent over 20mins with patient discussing goals of care. She stated she will be interested in going to SNF. I informed her she will need to participate with PT/OT eval so that we can start making arrangements for that. We also discussed that she will need to participate with therapy at SNF She stated she will try to participate more She will like to remain DNR and will continue to try to eat. Alcohol use Disorder Patient drinks 3 beers and half pint of vodka every day Continue thiamine, folic acid po Thrombocytopenia Likely secondary to alcohol use S/P 1 unit platelets Resolved Rectal Bleeding ? Hemorrhoids Monitor CBC and transfuse as needed GI consulted Colonoscopy as outpatient as per GI Resolved Electrolyte abnormalities Hyponatremia ? Possible chronic hyponatremia at baseline in setting of Hyperglycemia, alcohol use disorder Sodium 136>>123>125>126> 129 ---->>>132 Nephro recs noted Currently on urea and salt tab Monitor DM II New diagnosis HbA1c:9.2 Continue ISS Monitor BGs Night St[employer] consulted -- Pharmacy Glycemic control consulted Enteropathogenic E coli Colitis Chronic diarrhea: Likely overflow secondary to constipation, alcohol use and Infectious origin --CT ABD:The patient is cachectic. The bladder is massively distended and there is a large stool ball in the rectum. No acute abnormality is seen. Pancreatic calcifications are compatible with chronic pancreatitis. Stool studies showed enteropathogenic E. coli GI input noted Colonoscopy as outpatient Got Cefdinir Diarrhea resolved Anemia of chronic disease Normal vitamin B12, folate levels, Iron Panel Hg stable around 9 Obstructive uropathy Urinary Retention ABD USD:Bilateral hydronephrosis and dilatation of the urinary bladder Likely secondary to large stool bolus Ensure regular BM Has been on benson. Will trial voiding trial once activity improves H/O Hepatitis C Untreated Follow-up as outpatient DVT Px: on SCD due to thrombocytopenia/GI bleed Code Status Full Code DISPOSITION: waiting for placement Admission and Anticipated Discharge Date Admission Date: August 06, 2021 Subjective 66-year-old woman with history of impaired glucose tolerance, hepatitis C, alcoholic hepatitis, Alterna syndrome, cervical spondylosis, lumbosacral spondylosis, cervical radiculopathy brought in for frequent falls and weakness as well as diarrhea. Managed for enteropathogenic E. coli diarrhea. Being managed for severe malnutrition, generalized weakness. Patient seen and examined. Patient reports generalized aches and weakness Still has anorexia Denied fevers, chills, nausea, vomiting, abdominal pain, diarrhea Denies any headache, dizziness Denies chest pain, cough, shortness of breath Denies depression, SI/HI Per RN, patient not motivated to do much Review of Systems Review of Systems: All systems reviewed & are unremarkable except as noted in Subjective Physical Exam Constitutional: + well hydrated and + cachectic (Prominent bony, loss of muscle mass); no acute distress Eyes: PERRL, conjunctivae normal, anicteric sclerae ENMT: external ear and nose normal, oropharynx normal Respiratory: normal respiratory effort, lungs clear to auscultation Cardiovascular: Rate/Rhythm: regular rate and regular rhythm S1 S2 Gastrointestinal (Abdomen): normal bowel sounds, soft, nontender, no hepatosplenomegaly Musculoskeletal: No pedal edema Neurologic: PERRL, EOMI, accommodation nl, no face palsy, no dysarthria Psychiatric: AOX3. Flat affect Results & Data Results & Data ([facility]) Vital Signs (Past 12 Hours) Vital Signs Temp Pulse Pulse Resp BP Pulse Ox 09/01/21 11:27 36.8 C 109 H 16 135/80 100 09/01/21 09:05 102 H 09/01/21 08:00 36.7 C 100 H 16 152/81 H 99 Laboratory Results Abnormal lab results 08/31/21 08/31/21 09/01/21 Range/Units 16:42 20:11 06:15 Sodium 132 L (136-145) mmol/L BUN 50 H (6-23) mg/dl Creatinine < 0.20 L (0.6-1.2) mg/dl Glucose 123 H (70-99(Fasting)) mg/dl POC Glucose 146 H 190 H (70-99) mg/dl Phosphorus 5.5 H (2.5-4.9) mg/dl 09/01/21 Range/Units 07:46 Sodium (136-145) mmol/L BUN (6-23) mg/dl Creatinine (0.6-1.2) mg/dl Glucose (70-99(Fasting)) mg/dl POC Glucose 122 H (70-99) mg/dl Phosphorus (2.5-4.9) mg/dl
[2021-09-02 06:41] LABS: Hematocrit (blood only) 31.3 % (34.1-44.9); Hemoglobin 10.5 g/dl (12.0-16.0); Mean Corpuscular Hemoglobin 33.7 pg (25.0-34.0); Mean Corpuscular Hgb Conc 33.5 g/dL (32.0-36.0); Mean Corpuscular Volume 100.3 fL (80.0-100.0); Mean Platelet Volume 10.9 fL (9.4-12.3); Platelet Count 287 K/uL (130-400); RDW Standard Deviation 50.6 fL (36.4-46.3); Red Blood Count 3.12 M/uL (3.93-5.22); White Blood Count 5.45 K/ul (4.8-10.8)
[2021-09-02 07:03] LABS: Anion Gap 6 (3-11); Blood Urea Nitrogen 48 mg/dl (6-23); Calcium 9.1 mg/dl (8.5-10.1); Carbon Dioxide 25 mmol/L (21-32); Chloride 101 mmol/L (98-107); Creatinine Clr Calc Pharmacy 149.4 ml/min; Est GFR (African American) > 150.0 ml/min; Est GFR (Non-African American) 138.3 ml/min; Glucose 188 mg/dl (70-99(Fasting)); Potassium 4.4 mmol/L (3.5-5.1); Sodium 132 mmol/L (136-145)
[2021-09-02] MEDS: SODIUM CHLORIDE 1 GM TABLET PO SCH ×3 (08:21→20:43)
[2021-09-02] MEDS: POTASSIUM CHLORIDE CRTAB 20 MEQ TABCR PO SCH (08:21)
[2021-09-02] MEDS: UREA (UREA-NA) 15 GM PACK PO SCH ×2 (08:21→20:44)
[2021-09-02] MEDS: FOLIC ACID 1 MG TAB PO SCH (08:21)
[2021-09-02] MEDS: THIAMINE HCL 100 MG TAB PO SCH (08:21)
[2021-09-02] MEDS: NICOTINE 14 MG/24 HR PATCH TD SCH (08:21)
[2021-09-02] MEDS: MAGNESIUM CHLORIDE W/CALCIUM 64MG DELAYED REL TAB PO SCH ×2 (08:21→20:40)
[2021-09-02] MEDS: POLYETHYLENE (MIRALAX) 17 GM PACK PO SCH (08:22)
[2021-09-02] MEDS: LIDOCAINE 5% 1 PATCH TD SCH (08:22)
[2021-09-02] MEDS: INSULIN ASPART PER UNIT SC SCH ×4 (08:32→20:41)
[2021-09-02] MEDS: DOCUSATE SODIUM 100 MG CAP PO SCH ×2 (08:32→20:45)
[2021-09-02] MEDS: LANTUS PER UNIT CHARGE SQ SCH ×2 (08:33→20:41)
--- NOTE | 2021-09-02 12:48 | Hospitalist Progress Note ---
Date of Service September 02, 2021 Assessment & Plan (1) Protein-calorie malnutrition, severe: Plan: 66 yr female with H/O Chronic alcoholism and hepatitis C, who presents with weakness, poor appetite, weight loss and chronic diarrhea. Severe protein calorie malnutrition Generalized Weakness BMI 11 Weight loss, poor appetite and failure to thrive Dietitian on board Appreciate Palliative Care Input Patient was able to participate in OT yesterday CM working on placement Alcohol use Disorder Patient drinks 3 beers and half pint of vodka every day Continue thiamine, folic acid po Thrombocytopenia Likely secondary to alcohol use S/P 1 unit platelets Resolved Rectal Bleeding ? Hemorrhoids Hb stable GI consulted Colonoscopy as outpatient as per GI Resolved Electrolyte abnormalities Hyponatremia ? Possible chronic hyponatremia at baseline in setting of Hyperglycemia, alcohol use disorder Sodium 136>>123>125>126> 129 ---->>>132 Nephro recs noted Currently on urea and salt tab Monitor DM II New diagnosis HbA1c:9.2 Continue ISS Monitor BGs [employer] consulted -- Pharmacy Glycemic control consulted Enteropathogenic E coli Colitis Chronic diarrhea: Likely overflow secondary to constipation, alcohol use and Infectious origin --CT ABD:The patient is cachectic. The bladder is massively distended and there is a large stool ball in the rectum. No acute abnormality is seen. Pancreatic calcifications are compatible with chronic pancreatitis. Stool studies showed enteropathogenic E. coli GI input noted Colonoscopy as outpatient Got Cefdinir Diarrhea resolved Anemia of chronic disease Normal vitamin B12, folate levels, Iron Panel Hg stable Obstructive uropathy Urinary Retention ABD USD:Bilateral hydronephrosis and dilatation of the urinary bladder Likely secondary to large stool bolus Ensure regular BM Has been on benson. Will trial voiding trial once activity improves H/O Hepatitis C Untreated Follow-up as outpatient DVT Px: on SCD due to thrombocytopenia/GI bleed Code Status Full Code DISPOSITION: Placement in process Admission and Anticipated Discharge Date Admission Date: August 06, 2021 Subjective 66-year-old woman with history of impaired glucose tolerance, hepatitis C, alcoholic hepatitis, Alterna syndrome, cervical spondylosis, lumbosacral spondylosis, cervical radiculopathy brought in for frequent falls and weakness as well as diarrhea. Managed for enteropathogenic E. coli diarrhea. Being managed for severe malnutrition, generalized weakness. Patient seen and examined. Still reports generalized aches and weakness Sitting up eating breakfast Denied fevers, chills, nausea, vomiting, abdominal pain, diarrhea Denies any headache, dizziness Denies chest pain, cough, shortness of breath Physical Exam Constitutional: + well hydrated and + cachectic (Prominent bony, loss of muscle mass); no acute distress Eyes: PERRL, conjunctivae normal, anicteric sclerae ENMT: external ear and nose normal, oropharynx normal Respiratory: normal respiratory effort, lungs clear to auscultation Cardiovascular: Rate/Rhythm: regular rhythm and + tachycardic S1 S2 Gastrointestinal (Abdomen): normal bowel sounds, soft, nontender, no hepatosplenomegaly Musculoskeletal: No pedal edema Neurologic: PERRL, EOMI, accommodation nl, no face palsy, no dysarthria Results & Data Results & Data ([facility]) Vital Signs (Past 12 Hours) Vital Signs Temp Pulse Pulse Resp BP Pulse Ox 09/02/21 10:57 37.0 C 114 H 18 148/85 H 100 09/02/21 07:50 36.8 C 104 H 18 139/86 98 09/02/21 04:00 36.7 C 102 H 17 159/88 H 100 Laboratory Results Abnormal lab results 09/02/21 09/02/21 09/02/21 Range/Units 06:02 06:02 07:43 RBC 3.12 L (3.93-5.22) M/uL Hgb 10.5 L (12.0-16.0) g/dl Hct 31.3 L (34.1-44.9) % MCV 100.3 H (80.0-100.0) fL RDW Std Deviation 50.6 H (36.4-46.3) fL Sodium 132 L (136-145) mmol/L BUN 48 H (6-23) mg/dl Creatinine 0.20 L (0.6-1.2) mg/dl BUN/Creatinine Ratio 240.0 H (10-20) Glucose 188 H (70-99(Fasting)) mg/dl POC Glucose 247 H (70-99) mg/dl 09/02/21 Range/Units 11:40 RBC (3.93-5.22) M/uL Hgb (12.0-16.0) g/dl Hct (34.1-44.9) % MCV (80.0-100.0) fL RDW Std Deviation (36.4-46.3) fL Sodium (136-145) mmol/L BUN (6-23) mg/dl Creatinine (0.6-1.2) mg/dl BUN/Creatinine Ratio (10-20) Glucose (70-99(Fasting)) mg/dl POC Glucose 241 H (70-99) mg/dl
[2021-09-02] MEDS: traMADol HCL 50 MG TABLET PO PRN (13:05)
[2021-09-02] MEDS: ACETAMINOPHEN 500 MG TAB PO PRN (18:48)
[2021-09-03 05:59] LABS: Hematocrit (blood only) 29.5 % (34.1-44.9); Hemoglobin 9.9 g/dl (12.0-16.0); Mean Corpuscular Hemoglobin 33.1 pg (25.0-34.0); Mean Corpuscular Hgb Conc 33.6 g/dL (32.0-36.0); Mean Corpuscular Volume 98.7 fL (80.0-100.0); Mean Platelet Volume 10.2 fL (9.4-12.3); Platelet Count 263 K/uL (130-400); RDW Coefficient of Variation 13.6 % (11.5-14.5); RDW Standard Deviation 48.9 fL (36.4-46.3); Red Blood Count 2.99 M/uL (3.93-5.22); White Blood Count 5.56 K/ul (4.8-10.8)
[2021-09-03 06:35] LABS: Anion Gap 7 (3-11); Blood Urea Nitrogen 42 mg/dl (6-23); Calcium 9.2 mg/dl (8.5-10.1); Carbon Dioxide 26 mmol/L (21-32); Chloride 99 mmol/L (98-107); Creatinine Clr Calc Pharmacy 146.7 ml/min; Est GFR (African American) > 150.0 ml/min; Est GFR (Non-African American) 138.3 ml/min; Glucose 98 mg/dl (70-99(Fasting)); Magnesium 1.7 mg/dl (1.7-2.4); Phosphorus 5.9 mg/dl (2.5-4.9); Potassium 4.1 mmol/L (3.5-5.1); Sodium 132 mmol/L (136-145)
[2021-09-03] MEDS: NICOTINE 14 MG/24 HR PATCH TD SCH (08:08)
[2021-09-03] MEDS: traMADol HCL 50 MG TABLET PO PRN ×2 (08:08→17:19)
[2021-09-03] MEDS: MAGNESIUM CHLORIDE W/CALCIUM 64MG DELAYED REL TAB PO SCH ×2 (08:09→21:48)
[2021-09-03] MEDS: POTASSIUM CHLORIDE CRTAB 20 MEQ TABCR PO SCH (08:09)
[2021-09-03] MEDS: SODIUM CHLORIDE 1 GM TABLET PO SCH ×3 (08:09→21:47)
[2021-09-03] MEDS: FOLIC ACID 1 MG TAB PO SCH (08:09)
[2021-09-03] MEDS: THIAMINE HCL 100 MG TAB PO SCH (08:09)
[2021-09-03] MEDS: UREA (UREA-NA) 15 GM PACK PO SCH ×2 (08:09→21:41)
[2021-09-03] MEDS: INSULIN ASPART PER UNIT SC SCH ×4 (08:10→21:49)
[2021-09-03] MEDS: POLYETHYLENE (MIRALAX) 17 GM PACK PO SCH (08:10)
[2021-09-03] MEDS: LIDOCAINE 5% 1 PATCH TD SCH (08:10)
[2021-09-03] MEDS: LANTUS PER UNIT CHARGE SQ SCH ×2 (08:11→21:49)
[2021-09-03] MEDS: DOCUSATE SODIUM 100 MG CAP PO SCH ×2 (08:11→21:51)
--- NOTE | 2021-09-03 14:15 | Hospitalist Progress Note ---
Date of Service September 03, 2021 Assessment & Plan (1) Protein-calorie malnutrition, severe: Plan: 66 yr female with H/O Chronic alcoholism and hepatitis C, who presents with weakness, poor appetite, weight loss and chronic diarrhea. Severe protein calorie malnutrition Generalized Weakness BMI 11 Weight loss, poor appetite and failure to thrive Dietitian on board Appreciate Palliative Care Input Continue PT/OT CM working on placement Alcohol use Disorder Patient drinks 3 beers and half pint of vodka every day Continue thiamine, folic acid po Thrombocytopenia Likely secondary to alcohol use S/P 1 unit platelets Resolved Rectal Bleeding ? Hemorrhoids Hb stable GI consulted Colonoscopy as outpatient as per GI Resolved Electrolyte abnormalities Hyponatremia ? 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 The bladder is massively distended and there is a large stool ball in the rectum. No acute abnormality is seen. Pancreatic calcifications are compatible with chronic pancreatitis. Stool studies showed enteropathogenic E. coli GI input noted Colonoscopy as outpatient Got Cefdinir Diarrhea resolved Anemia of chronic disease Normal vitamin B12, folate levels, Iron Panel Hg stable Obstructive uropathy Urinary Retention ABD USD:Bilateral hydronephrosis and dilatation of the urinary bladder Likely secondary to large stool bolus Ensure regular BM Has been on benson. Discussed removal of benson. Patient stated she wants it in f or now. Plan to discontinue tomorrow H/O Hepatitis C Untreated Follow-up as outpatient DVT Px: on SCD due to GI bleed Code Status Full Code DISPOSITION: Placement in process Admission and Anticipated Discharge Date Admission Date: August 06, 2021 Subjective 66-year-old woman with history of impaired glucose tolerance, hepatitis C, alcoholic hepatitis, Alterna syndrome, cervical spondylosis, lumbosacral spondylosis, cervical radiculopathy brought in for frequent falls and weakness as well as diarrhea. Managed for enteropathogenic E. coli diarrhea. Being managed for severe malnutrition, generalized weakness. Patient seen and examined. Reports anorexia and generalized weakness today Denied pains Denied fevers, chills, nausea, vomiting, abdominal pain, diarrhea Denies any headache, dizziness Denies chest pain, cough, shortness of breath Physical Exam Constitutional: + well hydrated and + cachectic (Prominent bony, loss of muscle mass); no acute distress Eyes: PERRL, conjunctivae normal, anicteric sclerae ENMT: external ear and nose normal, oropharynx normal Respiratory: normal respiratory effort, lungs clear to auscultation Cardiovascular: Rate/Rhythm: regular rhythm and + tachycardic S1 S2 Gastrointestinal (Abdomen): normal bowel sounds, soft, nontender, no hepatosplenomegaly Musculoskeletal: No pedal edema Neurologic: PERRL, EOMI, accommodation nl, no face palsy, no dysarthria Psychiatric: AOx3 Results & Data Results & Data ([facility]) Vital Signs (Past 12 Hours) Vital Signs Temp Pulse Pulse Pulse Resp BP BP 09/03/21 12:08 36.7 C 105 H 17 137/86 09/03/21 08:01 37.2 C 109 H 18 146/77 H 09/03/21 06:14 104 H 09/03/21 04:00 37.1 C 93 H 20 123/76 Pulse Ox 09/03/21 12:08 100 09/03/21 08:01 99 09/03/21 06:14 09/03/21 04:00 98 Laboratory Results Abnormal lab results 09/02/21 09/02/21 09/03/21 Range/Units 16:50 20:05 05:37 RBC 2.99 L (3.93-5.22) M/uL Hgb 9.9 L (12.0-16.0) g/dl Hct 29.5 L (34.1-44.9) % RDW Std Deviation 48.9 H (36.4-46.3) fL Sodium (136-145) mmol/L BUN (6-23) mg/dl Creatinine (0.6-1.2) mg/dl POC Glucose 115 H 224 H (70-99) mg/dl Phosphorus (2.5-4.9) mg/dl 09/03/21 09/03/21 Range/Units 05:37 07:40 RBC (3.93-5.22) M/uL Hgb (12.0-16.0) g/dl Hct (34.1-44.9) % RDW Std Deviation (36.4-46.3) fL Sodium 132 L (136-145) mmol/L BUN 42 H (6-23) mg/dl Creatinine < 0.20 L (0.6-1.2) mg/dl POC Glucose 107 H (70-99) mg/dl Phosphorus 5.9 H (2.5-4.9) mg/dl
[2021-09-03] MEDS: ACETAMINOPHEN 500 MG TAB PO PRN (21:42)
[2021-09-04] MEDS: traMADol HCL 50 MG TABLET PO PRN ×2 (02:34→19:25)
[2021-09-04 06:14] LABS: Anion Gap 7 (3-11); Blood Urea Nitrogen 39 mg/dl (6-23); Calcium 9.2 mg/dl (8.5-10.1); Carbon Dioxide 26 mmol/L (21-32); Chloride 97 mmol/L (98-107); Creatinine Clr Calc Pharmacy 148.1 ml/min; Est GFR (African American) > 150.0 ml/min; Est GFR (Non-African American) 138.3 ml/min; Glucose 159 mg/dl (70-99(Fasting)); Potassium 4.2 mmol/L (3.5-5.1); Sodium 130 mmol/L (136-145)
[2021-09-04] MEDS ORDERED: cloNIDine HCL 0.1 MG TAB PO ONE (06:56)
[2021-09-04] MEDS: THIAMINE HCL 100 MG TAB PO SCH (09:19)
[2021-09-04] MEDS: POTASSIUM CHLORIDE CRTAB 20 MEQ TABCR PO SCH (09:20)
[2021-09-04] MEDS: MAGNESIUM CHLORIDE W/CALCIUM 64MG DELAYED REL TAB PO SCH ×2 (09:20→20:14)
[2021-09-04] MEDS: FOLIC ACID 1 MG TAB PO SCH (09:20)
[2021-09-04] MEDS: UREA (UREA-NA) 15 GM PACK PO SCH ×2 (09:20→20:15)
[2021-09-04] MEDS: SODIUM CHLORIDE 1 GM TABLET PO SCH ×3 (09:21→20:15)
[2021-09-04] MEDS: NICOTINE 14 MG/24 HR PATCH TD SCH (09:21)
[2021-09-04] MEDS: LIDOCAINE 5% 1 PATCH TD SCH (09:22)
[2021-09-04] MEDS: POLYETHYLENE (MIRALAX) 17 GM PACK PO SCH (09:22)
[2021-09-04] MEDS: INSULIN ASPART PER UNIT SC SCH ×4 (09:28→20:31)
[2021-09-04] MEDS: DOCUSATE SODIUM 100 MG CAP PO SCH ×2 (09:29→20:14)
[2021-09-04] MEDS: LANTUS PER UNIT CHARGE SQ SCH ×2 (09:29→20:32)
--- NOTE | 2021-09-04 12:47 | Hospitalist Progress Note ---
Date of Service September 04, 2021 Assessment & Plan (1) Protein-calorie malnutrition, severe: Plan: 66 yr female with H/O Chronic alcoholism and hepatitis C, who presents with weakness, poor appetite, weight loss and chronic diarrhea. Severe protein calorie malnutrition Generalized Weakness BMI 11 Weight loss, poor appetite and failure to thrive Dietitian recs noted Appreciate Palliative Care Input Continue PT/OT CM working on placement Alcohol use Disorder Patient drinks 3 beers and half pint of vodka every day prior to hospitalization Continue thiamine, folic acid po Thrombocytopenia Likely secondary to alcohol use S/P 1 unit platelets Resolved Rectal Bleeding ? Hemorrhoids Hb stable GI consulted Colonoscopy as outpatient as per GI Resolved Electrolyte abnormalities Hyponatremia ? 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 The bladder is massively distended and there is a large stool ball in the rectum. No acute abnormality is seen. Pancreatic calcifications are compatible with chronic pancreatitis. Stool studies showed enteropathogenic E. coli GI input noted Colonoscopy as outpatient Got Cefdinir Diarrhea resolved Anemia of chronic disease Normal vitamin B12, folate levels, Iron Panel Hb stable Obstructive uropathy Urinary Retention ABD USD:Bilateral hydronephrosis and dilatation of the urinary bladder Likely secondary to large stool bolus Ensure regular BM Remove benson H/O Hepatitis C Untreated Follow-up as outpatient DVT Px: on SCD due to GI bleed Code Status Full Code DISPOSITION: Placement in process Admission and Anticipated Discharge Date Admission Date: August 06, 2021 Subjective 66-year-old woman with history of impaired glucose tolerance, hepatitis C, alcoholic hepatitis, Alterna syndrome, cervical spondylosis, lumbosacral spondylosis, cervical radiculopathy brought in for frequent falls and weakness as well as diarrhea. Managed for enteropathogenic E. coli diarrhea. Being managed for severe malnutrition, generalized weakness. Patient seen and examined. Reports anorexia and generalized weakness today Denies pains Denies fevers, chills, nausea, vomiting, abdominal pain, diarrhea Denies any headache, dizziness Denies chest pain, cough, shortness of breath Physical Exam Constitutional: + well hydrated and + cachectic (Prominent bony, loss of muscle mass); no acute distress Eyes: PERRL, conjunctivae normal, anicteric sclerae ENMT: external ear and nose normal, oropharynx normal Respiratory: normal respiratory effort, lungs clear to auscultation Cardiovascular: Rate/Rhythm: regular rhythm and + tachycardic S1 S2 Gastrointestinal (Abdomen): normal bowel sounds, soft, nontender, no hepatosplenomegaly Musculoskeletal: No pedal edema Neurologic: PERRL, EOMI, accommodation nl, no face palsy, no dysarthria Psychiatric: A+Ox3, euthymic affect Genitourinary: Benson in situ Results & Data Results & Data ([facility]) Vital Signs (Past 12 Hours) Vital Signs Temp Pulse Pulse Pulse Resp BP BP 09/04/21 12:25 103 H 17 153/81 H 09/04/21 08:20 103 H 118/75 09/04/21 07:00 36.6 C 103 H 20 183/102 H 09/04/21 06:45 169/90 H 165/100 H 09/04/21 06:03 95 H 09/04/21 04:00 36.6 C 102 H 20 152/88 H Pulse Ox 09/04/21 12:25 97 09/04/21 08:20 09/04/21 07:00 100 09/04/21 06:45 09/04/21 06:03 09/04/21 04:00 99 Laboratory Results Abnormal lab results 09/03/21 09/03/21 09/04/21 Range/Units 16:26 21:45 05:29 Sodium 130 L (136-145) mmol/L Chloride 97 L (98-107) mmol/L BUN 39 H (6-23) mg/dl Creatinine < 0.20 L (0.6-1.2) mg/dl Glucose 159 H (70-99(Fasting)) mg/dl POC Glucose 177 H 120 H (70-99) mg/dl 09/04/21 09/04/21 Range/Units 07:45 11:43 Sodium (136-145) mmol/L Chloride (98-107) mmol/L BUN (6-23) mg/dl Creatinine (0.6-1.2) mg/dl Glucose (70-99(Fasting)) mg/dl POC Glucose 219 H 154 H (70-99) mg/dl
[2021-09-04] MEDS: ACETAMINOPHEN 500 MG TAB PO PRN (14:23)
[2021-09-05] MEDS: THIAMINE HCL 100 MG TAB PO SCH (08:27)
[2021-09-05] MEDS: POTASSIUM CHLORIDE CRTAB 20 MEQ TABCR PO SCH (08:27)
[2021-09-05] MEDS: FOLIC ACID 1 MG TAB PO SCH (08:27)
[2021-09-05] MEDS: SODIUM CHLORIDE 1 GM TABLET PO SCH ×3 (08:27→21:16)
[2021-09-05] MEDS: MAGNESIUM CHLORIDE W/CALCIUM 64MG DELAYED REL TAB PO SCH ×2 (08:28→21:17)
[2021-09-05] MEDS: NICOTINE 14 MG/24 HR PATCH TD SCH (08:28)
[2021-09-05] MEDS: UREA (UREA-NA) 15 GM PACK PO SCH ×2 (08:29→21:17)
[2021-09-05] MEDS: POLYETHYLENE (MIRALAX) 17 GM PACK PO SCH (08:29)
[2021-09-05] MEDS: LIDOCAINE 5% 1 PATCH TD SCH (08:29)
[2021-09-05] MEDS: INSULIN ASPART PER UNIT SC SCH ×4 (08:35→21:16)
[2021-09-05] MEDS: LANTUS PER UNIT CHARGE SQ SCH ×2 (08:36→22:04)
[2021-09-05 08:41] LABS: Anion Gap 6 (3-11); Blood Urea Nitrogen 40 mg/dl (6-23); Calcium 8.9 mg/dl (8.5-10.1); Carbon Dioxide 26 mmol/L (21-32); Chloride 100 mmol/L (98-107); Creatinine Clr Calc Pharmacy 148.1 ml/min; Est GFR (African American) > 150.0 ml/min; Est GFR (Non-African American) 138.3 ml/min; Glucose 132 mg/dl (70-99(Fasting)); Magnesium 1.7 mg/dl (1.7-2.4); Phosphorus 4.7 mg/dl (2.5-4.9); Potassium 4.4 mmol/L (3.5-5.1); Sodium 132 mmol/L (136-145)
[2021-09-05] MEDS: DOCUSATE SODIUM 100 MG CAP PO SCH ×2 (09:17→21:17)
--- NOTE | 2021-09-05 10:44 | Pharmacy Report ---
Pharmacy Glycemic Short Note 2 - Date of Service September 05, 2021 - Glycemic Short BSG Results (Last 24 hours): 09/04/21 09/04/21 09/04/21 11:43 16:43 20:21 Glucose POC Glucose 154 H 224 H 253 H 09/05/21 09/05/21 07:53 08:00 Glucose 132 H POC Glucose 142 H OUTPATIENT ANTIDIABETIC REGIMEN: * None * HbA1c = 9.2% (08/10/21) ASSESSMENT: 09/05: * Shahida received 43 units of insulin yesterday: 25 units Lantus + 18 units Novolog * Fasting BSG of 142 mg/dL is improved. Lantus 25 units appears to produce the best results for this patient. * BSGs trended upward throughout the day following loosening of carb coverage on 09/03. Will resume previous carb ratio of 8. * BSGs tend to fluctuate regardless of minor changes in insulin regimen 09/01: * Shahida received a total of 38 units of insulin yesterday (25 units basal + 13 units bolus). BSGs were acceptable: 240-173-010-190 mg/dL. * Fasting BSG controlled at 122 mg/dL this AM. Adjust HS basal scale slightly today so patient likely to continue with same basal dose. * Tightened CF this AM. If postprandials continue to trend up throughout the day, will tighten CR as well. 08/30: * BSGs have been pretty well-controlled over past 5 days, however patient did have one episode of hypoglycemia last evening (BSG of 68 mg/dL). Fasting BSG of 83 mg/dL this morning. * Patient is on very high dose of basal insulin relative to low-body weight - will decrease basal insulin today * Will also plan to loosen CF today given low BSG last evening * Still awaiting discharge plan PLAN FOR INPATIENT GLYCEMIC CONTROL: * Basal insulin * Lantus 15 SC QAM * Lantus 5-10 units SC HS (see EHR for more details) * Bolus insulin * NovoLog per scale ACHS or Q6hrs while NPO * Goal Range: Low 110 mg/dL - High 140 mg/dL * Correction Factor: 25 mg/dL/unit * Nutritional / Prandial insulin per carb ratio of 1 unit per 8 grams CHO consumed
[2021-09-05] MEDS: CARBOHYDRATES FOR HYPOGLYCEMIA PO PRN (12:09)
[2021-09-05] MEDS: ACETAMINOPHEN 500 MG TAB PO PRN (12:16)
--- NOTE | 2021-09-05 13:02 | Hospitalist Progress Note ---
Date of Service September 05, 2021 Assessment & Plan (1) Protein-calorie malnutrition, severe: Plan: 66 yr female with H/O Chronic alcoholism and hepatitis C, who presents with weakness, poor appetite, weight loss and chronic diarrhea. Severe protein calorie malnutrition Generalized Weakness BMI 11 Weight loss, poor appetite and failure to thrive Dietitian recs noted Appreciate Palliative Care Input Hypoglycemic this AM. Managed Continue to encourage intake Continue PT/OT CM working on placement Alcohol use Disorder Patient drinks 3 beers and half pint of vodka every day prior to hospitalization Continue thiamine, folic acid po Thrombocytopenia Likely secondary to alcohol use S/P 1 unit platelets Resolved Rectal Bleeding ? Hemorrhoids Hb stable GI consulted Colonoscopy as outpatient as per GI Resolved Electrolyte abnormalities Hyponatremia ? Possible chronic hyponatremia at baseline in setting of Hyperglycemia, alcohol use disorder Sodium 136>>123>125>126> 129 ---->>>132 Nephro recs noted Currently on urea and salt tab Monitor DM II New diagnosis HbA1c:9.2 Continue ISS Monitor BGs Lab Tech consulted Hypoglycemic this AM. Managed Pharmacy Glycemic on board Enteropathogenic E coli Colitis Chronic diarrhea: Likely overflow secondary to constipation, alcohol use and Infectious origin --CT ABD:The patient is cachectic. The bladder is massively distended and there is a large stool ball in the rectum. No acute abnormality is seen. Pancreatic calcifications are compatible with chronic pancreatitis. Stool studies showed enteropathogenic E. coli GI input noted Colonoscopy as outpatient Got Cefdinir Diarrhea resolved Anemia of chronic disease Normal vitamin B12, folate levels, Iron Panel Hb stable Obstructive uropathy Urinary Retention ABD USD:Bilateral hydronephrosis and dilatation of the urinary bladder Likely secondary to large stool bolus Ensure regular BM Remove benson H/O Hepatitis C Untreated Follow-up as outpatient DVT Px: on SCD due to GI bleed Code Status Full Code DISPOSITION: Placement in process Admission and Anticipated Discharge Date Admission Date: August 06, 2021 Subjective 66-year-old woman with history of impaired glucose tolerance, hepatitis C, alcoholic hepatitis, Alterna syndrome, cervical spondylosis, lumbosacral spondylosis, cervical radiculopathy brought in for frequent falls and weakness as well as diarrhea. Managed for enteropathogenic E. coli diarrhea. Being managed for severe malnutrition, generalized weakness. Patient seen and examined. Reports anorexia and generalized weakness Denies pains Denies fevers, chills, nausea, vomiting, abdominal pain, diarrhea Denies any headache, dizziness Denies chest pain, cough, shortness of breath Physical Exam Constitutional: + well hydrated and + cachectic (Prominent bony, loss of muscle mass); no acute distress Eyes: PERRL, conjunctivae normal, anicteric sclerae ENMT: external ear and nose normal, oropharynx normal Respiratory: normal respiratory effort, lungs clear to auscultation Cardiovascular: Rate/Rhythm: regular rhythm and + tachycardic S1 S2 Gastrointestinal (Abdomen): normal bowel sounds, soft, nontender, no hepatosplenomegaly Musculoskeletal: No pedal edema Neurologic: PERRL, EOMI, accommodation nl, no face palsy, no dysarthria Psychiatric: A+Ox3, euthymic affect Results & Data Results & Data ([facility]) Vital Signs (Past 12 Hours) Vital Signs Temp Pulse Pulse Pulse Resp BP Pulse Ox 09/05/21 11:44 36.7 C 112 H 20 135/87 99 09/05/21 08:22 36.6 C 97 H 16 143/83 H 100 09/05/21 06:10 102 H 09/05/21 02:55 36.5 C 103 H 20 136/86 99 Laboratory Results Abnormal lab results 09/04/21 09/04/21 09/05/21 Range/Units 16:43 20:21 07:53 Sodium 132 L (136-145) mmol/L BUN 40 H (6-23) mg/dl Creatinine < 0.20 L (0.6-1.2) mg/dl Glucose 132 H (70-99(Fasting)) mg/dl POC Glucose 224 H 253 H (70-99) mg/dl 09/05/21 09/05/21 09/05/21 Range/Units 08:00 11:55 11:57 Sodium (136-145) mmol/L BUN (6-23) mg/dl Creatinine (0.6-1.2) mg/dl Glucose (70-99(Fasting)) mg/dl POC Glucose 142 H 55 L* 61 L* (70-99) mg/dl
[2021-09-05] MEDS: traMADol HCL 50 MG TABLET PO PRN (19:42)
[2021-09-06 06:42] LABS: Hematocrit (blood only) 30.7 % (34.1-44.9); Hemoglobin 10.3 g/dl (12.0-16.0); Mean Corpuscular Hemoglobin 32.9 pg (25.0-34.0); Mean Corpuscular Hgb Conc 33.6 g/dL (32.0-36.0); Mean Corpuscular Volume 98.1 fL (80.0-100.0); Mean Platelet Volume 10.5 fL (9.4-12.3); Platelet Count 273 K/uL (130-400); RDW Coefficient of Variation 13.6 % (11.5-14.5); RDW Standard Deviation 48.3 fL (36.4-46.3); Red Blood Count 3.13 M/uL (3.93-5.22); White Blood Count 5.71 K/ul (4.8-10.8)
[2021-09-06 07:15] LABS: Anion Gap 6 (3-11); BUN Creatinine Ratio 190.5 (10-20); Blood Urea Nitrogen 40 mg/dl (6-23); Calcium 9.2 mg/dl (8.5-10.1); Carbon Dioxide 26 mmol/L (21-32); Chloride 100 mmol/L (98-107); Creatinine Clr Calc Pharmacy 141.8 ml/min; Est GFR (African American) > 150.0 ml/min; Est GFR (Non-African American) 136.1 ml/min; Glucose 153 mg/dl (70-99(Fasting)); Potassium 4.3 mmol/L (3.5-5.1); Sodium 132 mmol/L (136-145)
[2021-09-06] MEDS: LIDOCAINE 5% 1 PATCH TD SCH (08:42)
[2021-09-06] MEDS: UREA (UREA-NA) 15 GM PACK PO SCH ×2 (08:42→20:41)
[2021-09-06] MEDS: POLYETHYLENE (MIRALAX) 17 GM PACK PO SCH (08:42)
[2021-09-06] MEDS: MAGNESIUM CHLORIDE W/CALCIUM 64MG DELAYED REL TAB PO SCH ×2 (08:43→20:41)
[2021-09-06] MEDS: SODIUM CHLORIDE 1 GM TABLET PO SCH ×3 (08:43→20:41)
[2021-09-06] MEDS: POTASSIUM CHLORIDE CRTAB 20 MEQ TABCR PO SCH (08:43)
[2021-09-06] MEDS: THIAMINE HCL 100 MG TAB PO SCH (08:43)
[2021-09-06] MEDS: FOLIC ACID 1 MG TAB PO SCH (08:44)
[2021-09-06] MEDS: DOCUSATE SODIUM 100 MG CAP PO SCH (08:47)
[2021-09-06] MEDS: INSULIN ASPART PER UNIT SC SCH ×4 (08:47→20:43)
[2021-09-06] MEDS: LANTUS PER UNIT CHARGE SQ SCH ×2 (08:50→20:42)
[2021-09-06] MEDS ORDERED: POLYETHYLENE (MIRALAX) 17 GM PACK PO PRN (09:52)
--- NOTE | 2021-09-06 14:03 | Hospitalist Progress Note ---
Date of Service September 06, 2021 Assessment & Plan (1) Protein-calorie malnutrition, severe: Plan: 66 yr female with H/O Chronic alcoholism and hepatitis C, who presents with weakness, poor appetite, weight loss and chronic diarrhea. Severe protein calorie malnutrition Generalized Weakness BMI 11 Weight loss, poor appetite and failure to thrive Dietitian recs noted Appreciate Palliative Care Input Continue to encourage intake Discussed with dietitian. Patient has had 30 days of folic acid and thiamine Start daily multivitamin Continue PT/OT CM working on placement Alcohol use Disorder Patient drinks 3 beers and half pint of vodka every day prior to hospitalization Thrombocytopenia Likely secondary to alcohol use S/P 1 unit platelets Resolved Rectal Bleeding ? Hemorrhoids Hb stable GI consulted Colonoscopy as outpatient as per GI Resolved Electrolyte abnormalities Hyponatremia ? Possible chronic hyponatremia at baseline in setting of Hyperglycemia, alcohol use disorder Sodium 136>>123>125>126> 129 ---->>>132 Nephro recs noted Currently on urea and salt tab Monitor DM II New diagnosis HbA1c:9.2 Continue ISS Monitor BGs Research Animal Attendant consulted Hypoglycemic this AM. Managed Pharmacy Glycemic on board Enteropathogenic E coli Colitis Chronic diarrhea: Likely overflow secondary to constipation, alcohol use and Infectious origin --CT ABD:The patient is cachectic. The bladder is massively distended and there is a large stool ball in the rectum. No acute abnormality is seen. Pancreatic calcifications are compatible with chronic pancreatitis. Stool studies showed enteropathogenic E. coli GI input noted Colonoscopy as outpatient Got Cefdinir Diarrhea resolved Anemia of chronic disease Normal vitamin B12, folate levels, Iron Panel Hb stable Obstructive uropathy Urinary Retention ABD USD:Bilateral hydronephrosis and dilatation of the urinary bladder Likely secondary to large stool bolus Ensure regular BM H/O Hepatitis C Untreated Follow-up as outpatient DVT Px: on SCD due to GI bleed Code Status Full Code DISPOSITION: Placement in process Admission and Anticipated Discharge Date Admission Date: August 06, 2021 Subjective 66-year-old woman with history of impaired glucose tolerance, hepatitis C, alcoholic hepatitis, Alterna syndrome, cervical spondylosis, lumbosacral spondylosis, cervical radiculopathy brought in for frequent falls and weakness as well as diarrhea. Managed for enteropathogenic E. coli diarrhea. Being managed for severe malnutrition, generalized weakness. Patient seen and examined. Continues to have anorexia. Reports she drinks the boost more Reports generalized weakness Denies pains Denies fevers, chills, nausea, vomiting, abdominal pain, diarrhea Denies any headache, dizziness Denies chest pain, cough, shortness of breath Physical Exam Constitutional: + well hydrated and + cachectic (Prominent bony, loss of muscle mass); no acute distress Eyes: PERRL, conjunctivae normal, anicteric sclerae ENMT: external ear and nose normal, oropharynx normal Respiratory: normal respiratory effort, lungs clear to auscultation Cardiovascular: Rate/Rhythm: regular rhythm and + tachycardic S1 S2 Gastrointestinal (Abdomen): normal bowel sounds, soft, nontender, no hepatosplenomegaly Musculoskeletal: No pedal edema Neurologic: PERRL, EOMI, accommodation nl, no face palsy, no dysarthria Psychiatric: A+Ox3, euthymic affect Results & Data Results & Data ([facility]) Vital Signs (Past 12 Hours) Vital Signs Temp Pulse Pulse Pulse Resp BP BP 09/06/21 11:35 36.9 C 106 H 16 135/84 09/06/21 08:27 36.6 C 112 H 18 136/91 09/06/21 06:14 114 H 09/06/21 03:29 36.7 C 104 H 18 143/89 H Pulse Ox 09/06/21 11:35 94 09/06/21 08:27 92 09/06/21 06:14 09/06/21 03:29 100 Laboratory Results Abnormal lab results 09/05/21 09/06/21 09/06/21 Range/Units 20:04 06:06 06:06 RBC 3.13 L (3.93-5.22) M/uL Hgb 10.3 L (12.0-16.0) g/dl Hct 30.7 L (34.1-44.9) % RDW Std Deviation 48.3 H (36.4-46.3) fL Sodium 132 L (136-145) mmol/L BUN 40 H (6-23) mg/dl Creatinine 0.21 L (0.6-1.2) mg/dl BUN/Creatinine Ratio 190.5 H (10-20) Glucose 153 H (70-99(Fasting)) mg/dl POC Glucose 201 H (70-99) mg/dl 09/06/21 09/06/21 Range/Units 07:45 11:42 RBC (3.93-5.22) M/uL Hgb (12.0-16.0) g/dl Hct (34.1-44.9) % RDW Std Deviation (36.4-46.3) fL Sodium (136-145) mmol/L BUN (6-23) mg/dl Creatinine (0.6-1.2) mg/dl BUN/Creatinine Ratio (10-20) Glucose (70-99(Fasting)) mg/dl POC Glucose 170 H 202 H (70-99) mg/dl
[2021-09-06] MEDS: traMADol HCL 50 MG TABLET PO PRN (19:35)
[2021-09-06] MEDS: CALCIUM 600MG + VIT D 400 IU TAB PO SCH (21:25)
[2021-09-07] MEDS: CALCIUM 600MG + VIT D 400 IU TAB PO SCH ×2 (08:08→22:17)
[2021-09-07] MEDS: LIDOCAINE 5% 1 PATCH TD SCH (08:09)
[2021-09-07] MEDS: MAGNESIUM CHLORIDE W/CALCIUM 64MG DELAYED REL TAB PO SCH ×2 (08:10→22:16)
[2021-09-07] MEDS: POTASSIUM CHLORIDE CRTAB 20 MEQ TABCR PO SCH (08:11)
[2021-09-07] MEDS: CEROVITE ADV FORMULA TAB PO SCH (08:11)
[2021-09-07] MEDS: SODIUM CHLORIDE 1 GM TABLET PO SCH ×3 (08:12→22:17)
[2021-09-07] MEDS: UREA (UREA-NA) 15 GM PACK PO SCH ×2 (08:12→22:18)
[2021-09-07] MEDS: traMADol HCL 50 MG TABLET PO PRN ×2 (08:22→18:58)
[2021-09-07] MEDS ORDERED: LANTUS PER UNIT CHARGE SQ SCH (09:00)
[2021-09-07] MEDS: INSULIN ASPART PER UNIT SC SCH ×4 (10:05→22:11)
--- NOTE | 2021-09-07 13:11 | Hospitalist Progress Note ---
Date of Service September 07, 2021 Assessment & Plan (1) Protein-calorie malnutrition, severe: Plan: 66 yr female with H/O Chronic alcoholism and hepatitis C, who presents with weakness, poor appetite, weight loss and chronic diarrhea. Severe protein calorie malnutrition Generalized Weakness BMI 11 Weight loss, poor appetite and failure to thrive Dietitian recs noted Appreciate Palliative Care Input Continue to encourage intake Discussed with dietitian. Patient has had 30 days of folic acid and thiamine Continue daily multivitamin Continue PT/OT CM working on placement Alcohol use Disorder Patient drinks 3 beers and half pint of vodka every day prior to hospitalization Thrombocytopenia Likely secondary to alcohol use S/P 1 unit platelets Resolved Rectal Bleeding ? Hemorrhoids Hb stable GI consulted Colonoscopy as outpatient as per GI Resolved Electrolyte abnormalities Hyponatremia ? Possible chronic hyponatremia at baseline in setting of Hyperglycemia, alcohol use disorder Sodium 136>>123>125>126> 129 ---->>>132 Nephro recs noted Currently on urea and salt tab Monitor DM II New diagnosis HbA1c:9.2 Continue ISS Monitor BGs Physical Chemistry Professor consulted Hypoglycemic this AM. Managed Pharmacy Glycemic on board Enteropathogenic E coli Colitis Chronic diarrhea: Likely overflow secondary to constipation, alcohol use and Infectious origin --CT ABD:The patient is cachectic. The bladder is massively distended and there is a large stool ball in the rectum. No acute abnormality is seen. Pancreatic calcifications are compatible with chronic pancreatitis. Stool studies showed enteropathogenic E. coli GI input noted Colonoscopy as outpatient Completed the course of Cefdinir Diarrhea resolved Anemia of chronic disease Normal vitamin B12, folate levels, Iron Panel Hb stable Obstructive uropathy Urinary Retention ABD USD:Bilateral hydronephrosis and dilatation of the urinary bladder Likely secondary to large stool bolus Ensure regular BM H/O Hepatitis C Untreated Follow-up as outpatient DVT Px: on SCD due to GI bleed Code Status Full Code DISPOSITION: Waiting for placement Admission and Anticipated Discharge Date Admission Date: August 06, 2021 Subjective Managed for enteropathogenic E. coli diarrhea. Being managed for severe malnutrition, generalized weakness. Patient seen and examined for follow up of malnutrition, generalized weakness Lying in bed with no acute distress with partner at bedside Her partner was helping feeding her today s Denies fevers, chills, nausea, vomiting, abdominal pain, diarrhea Review of Systems Review of Systems: All systems reviewed & are unremarkable except as noted in Subjective Physical Exam Physical Exam: General- No acute distress, cachectic Head- atraumatic Eyes- PERRL, EOMI, ENT- oropharynx clear Neck- supple, no JVD Lungs- clear to auscultation Heart- regular rhythm; no murmur Abdomen- normal bowel sounds, soft, nontender Extremities- no calf tenderness Neuro- alert, oriented x 3; PERRL, EOMI; no facial palsy; no dysarthria Skin- warm & dry Results & Data Results & Data ([facility]) Vital Signs (Past 12 Hours) Vital Signs Temp Pulse Resp BP Pulse Ox O2 Del Method 09/07/21 07:19 36.7 C 115 H 18 116/72 100 Room Air
[2021-09-07] MEDS: ACETAMINOPHEN 500 MG TAB PO PRN ×2 (13:30→22:16)
[2021-09-07] MEDS: LANTUS PER UNIT CHARGE SQ SCH (22:11)
[2021-09-08] MEDS: UREA (UREA-NA) 15 GM PACK PO SCH ×2 (08:27→21:19)
[2021-09-08] MEDS: LIDOCAINE 5% 1 PATCH TD SCH (08:27)
[2021-09-08] MEDS: CALCIUM 600MG + VIT D 400 IU TAB PO SCH ×2 (08:27→21:20)
[2021-09-08] MEDS: CEROVITE ADV FORMULA TAB PO SCH (08:27)
[2021-09-08] MEDS: SODIUM CHLORIDE 1 GM TABLET PO SCH ×3 (08:27→21:20)
[2021-09-08] MEDS: MAGNESIUM CHLORIDE W/CALCIUM 64MG DELAYED REL TAB PO SCH ×2 (08:27→21:19)
[2021-09-08] MEDS: POTASSIUM CHLORIDE CRTAB 20 MEQ TABCR PO SCH (09:04)
[2021-09-08] MEDS: traMADol HCL 50 MG TABLET PO PRN (09:09)
[2021-09-08] MEDS: INSULIN ASPART PER UNIT SC SCH ×4 (09:12→21:21)
--- NOTE | 2021-09-08 09:14 | Hospitalist Progress Note ---
Date of Service September 08, 2021 Assessment & Plan (1) Protein-calorie malnutrition, severe: Plan: This is a 66 yo female with H/O Chronic alcoholism and hepatitis C, who presents with weakness, poor appetite, weight loss and chronic diarrhea. Severe protein calorie malnutrition Generalized Weakness BMI 11 Weight loss, poor appetite and failure to thrive Dietitian recs noted Appreciate Palliative Care Input Continue to encourage intake Discussed with dietitian. Patient has had 30 days of folic acid and thiamine Continue daily multivitamin Continue PT/OT CM working on placement Alcohol use Disorder Patient drinks 3 beers and half pint of vodka every day prior to hospitalization Thrombocytopenia Likely secondary to alcohol use S/P 1 unit platelets Resolved Rectal Bleeding -> resolved ? Hemorrhoids Hb stable GI consulted Colonoscopy as outpatient as per GI Resolved Electrolyte abnormalities Hyponatremia ? Possible chronic hyponatremia at baseline in setting of Hyperglycemia, alcohol use disorder Sodium 136>>123>125>126> 129 ---->>>132 Nephro recs noted Currently on urea and salt tab Monitor DM II New diagnosis HbA1c:9.2 Continue ISS Monitor BGs Track Vehicle Repairer consulted Hypoglycemic this AM. Managed Pharmacy Glycemic on board Enteropathogenic E coli Colitis Chronic diarrhea: Likely overflow secondary to constipation, alcohol use and Infectious origin --CT ABD:The patient is cachectic. The bladder is massively distended and there is a large stool ball in the rectum. No acute abnormality is seen. Pancreatic calcifications are compatible with chronic pancreatitis. Stool studies showed enteropathogenic E. coli GI input noted Colonoscopy as outpatient Completed the course of Cefdinir Diarrhea resolved Anemia of chronic disease Normal vitamin B12, folate levels, Iron Panel Hb stable Obstructive uropathy Urinary Retention ABD USD:Bilateral hydronephrosis and dilatation of the urinary bladder Likely secondary to large stool bolus Ensure regular BM H/O Hepatitis C Untreated Follow-up as outpatient DVT Px: on SCD due to GI bleed Code Status Full Code DISPOSITION: Waiting for placement Admission and Anticipated Discharge Date Admission Date: August 06, 2021 Supervising Physician Co-Signing Physician Notes Pt was seen and examined. Agreed with Jasmine BRADFORD exam, assessment and plan. Lying in bed with no acute distress. Waiting for bed to transition to rehab. Continue PT/OT. Continue encourage her with PO intake. Continue monitor. MD Elizabeth Subjective Managed for enteropathogenic E. coli diarrhea. Being managed for severe malnutrition, generalized weakness. Patient seen and examined for follow up of malnutrition, generalized weakness Lying in bed with no acute distress Feeling frustrated with changes made to hospital care but cannot think of a particular incident Drinking boost Denies fevers, chills, headache, CP, SOB, nausea, vomiting, abdominal pain, diarrhea Review of Systems Review of Systems: At least ten systems reviewed and negative except as noted in the HPI. Physical Exam Physical Exam: Gen: NAD, lying in bed, A&Ox3, cachectic with temporal wasting HEENT: Normocephalic, atraumatic, conjunctivae moist, sclerae anicteric, mucous membranes moist Lung: Clear to Auscultation bilaterally, no wheezes/rales/rhonchi Heart: Regular rate, regular rhythm, no murmurs, rubs, or gallops Abdomen: Soft, NT, ND +BS x 4 Extremities: no edema Skin: Warm, no rash Results & Data Results & Data ([facility]) Vital Signs (Past 12 Hours) Vital Signs Temp Pulse Resp BP Pulse Ox O2 Del Method 09/08/21 08:17 36.6 C 97 H 20 122/79 100 Room Air 09/07/21 22:30 36.7 C 104 H 17 131/77 97 Room Air
--- NOTE | 2021-09-08 09:17 | Pharmacy Report ---
Pharmacy Glycemic Short Note 2 - Date of Service September 08, 2021 - Glycemic Short BSG Results (Last 24 hours): 09/07/21 09/07/21 09/07/21 11:39 17:06 20:49 POC Glucose 117 H 71 184 H 09/08/21 07:47 POC Glucose 96 OUTPATIENT ANTIDIABETIC REGIMEN: * None * HbA1c = 9.2% (08/10/21) ASSESSMENT: 09/08: * BSGs relatively well-controlled yesterday (ranging 71-184 mg/dL) * Received 31 units of insulin (22 units of basal and 9 units of prandial/correctional bolus) * Fasting BSG of 96 mg/dL this morning, will reduce basal by ~10% 09/05: * Shahida received 43 units of insulin yesterday: 25 units Lantus + 18 units Novolog * Fasting BSG of 142 mg/dL is improved. Lantus 25 units appears to produce the best results for this patient. * BSGs trended upward throughout the day following loosening of carb coverage on 09/03. Will resume previous carb ratio of 8. * BSGs tend to fluctuate regardless of minor changes in insulin regimen 08/30: * BSGs have been pretty well-controlled over past 5 days, however patient did have one episode of hypoglycemia last evening (BSG of 68 mg/dL). Fasting BSG of 83 mg/dL this morning. * Patient is on very high dose of basal insulin relative to low-body weight - will decrease basal insulin today * Will also plan to loosen CF today given low BSG last evening * Still awaiting discharge plan PLAN FOR INPATIENT GLYCEMIC CONTROL: * Basal insulin - decrease 10% * Lantus 10 units SC BID * Bolus insulin * NovoLog per scale ACHS or Q6hrs while NPO * Goal Range: Low 110 mg/dL - High 140 mg/dL * Correction Factor: 30 mg/dL/unit with breakfast, 25 with lunch, dinner, HS * Nutritional / Prandial insulin per carb ratio of 1 unit per 9 grams CHO consumed with breakfast, 1 unit per 8 grams CHO with lunch, dinner, and HS
[2021-09-08] MEDS: LANTUS PER UNIT CHARGE SQ SCH ×2 (09:21→21:21)
[2021-09-09] MEDS ORDERED: GLUCOSE 10 TAB/TUBE PO PRN (07:15)
[2021-09-09] MEDS ORDERED: CARBOHYDRATES FOR HYPOGLYCEMIA PO PRN (07:15)
[2021-09-09] MEDS ORDERED: GLUCAGON FOR INJ 1 MG VIAL IM PRN (07:15)
[2021-09-09] MEDS ORDERED: GLUCOSE 40% GEL 15 GM TUBE PO PRN (07:15)
[2021-09-09] MEDS ORDERED: DEXTROSE 50% 50 ML SYRINGE IV PRN (07:15)
[2021-09-09] MEDS ORDERED: LOPERAMIDE HCL 2 MG CAP PO PRN (07:47)
[2021-09-09] MEDS: INSULIN ASPART PER UNIT SC SCH ×5 (08:54→23:55)
[2021-09-09] MEDS ORDERED: LANTUS PER UNIT CHARGE SQ SCH ×2 (09:00)
[2021-09-09] MEDS: UREA (UREA-NA) 15 GM PACK PO SCH ×2 (09:10→20:28)
[2021-09-09] MEDS: LIDOCAINE 5% 1 PATCH TD SCH (09:10)
[2021-09-09] MEDS: CALCIUM 600MG + VIT D 400 IU TAB PO SCH ×2 (09:10→20:28)
[2021-09-09] MEDS: SODIUM CHLORIDE 1 GM TABLET PO SCH ×3 (09:11→20:28)
[2021-09-09] MEDS: DOCUSATE SODIUM 100 MG CAP PO SCH ×3 (09:11→20:28)
[2021-09-09] MEDS: CEROVITE ADV FORMULA TAB PO SCH (09:11)
[2021-09-09] MEDS: MAGNESIUM CHLORIDE W/CALCIUM 64MG DELAYED REL TAB PO SCH ×2 (09:11→20:28)
[2021-09-09] MEDS: POTASSIUM CHLORIDE CRTAB 20 MEQ TABCR PO SCH (09:17)
[2021-09-09] MEDS: NICOTINE 14 MG/24 HR PATCH TD SCH ×2 (10:36→19:39)
[2021-09-09] MEDS: traMADol HCL 50 MG TABLET PO PRN (13:26)
[2021-09-10] MEDS: INSULIN ASPART PER UNIT SC SCH ×5 (04:23→21:40)
[2021-09-10] MEDS: DOCUSATE SODIUM 100 MG CAP PO SCH ×5 (06:53→21:30)
[2021-09-10] MEDS: NICOTINE 14 MG/24 HR PATCH TD SCH ×3 (06:53→09:29)
--- NOTE | 2021-09-10 07:38 | Hospitalist Progress Note ---
Date of Service September 09, 2021 Assessment & Plan (1) Protein-calorie malnutrition, severe: Plan: 66 yr female with H/O Chronic alcoholism and hepatitis C, who presents with weakness, poor appetite, weight loss and chronic diarrhea. Severe protein calorie malnutrition Generalized Weakness BMI 11 Weight loss, poor appetite and failure to thrive Dietitian recs noted Appreciate Palliative Care Input Continue to encourage intake Discussed with dietitian. Patient has had 30 days of folic acid and thiamine Continue daily multivitamin Continue PT/OT CM working on placement waiting for insurance approval Alcohol use Disorder Patient drinks 3 beers and half pint of vodka every day prior to hospitalization Thrombocytopenia Likely secondary to alcohol use S/P 1 unit platelets Resolved Rectal Bleeding ? Hemorrhoids Hb stable GI consulted Colonoscopy as outpatient as per GI Resolved Electrolyte abnormalities Hyponatremia ? Possible chronic hyponatremia at baseline in setting of Hyperglycemia, alcohol use disorder Sodium 136>>123>125>126> 129 ---->>>132 Nephro recs noted Currently on urea and salt tab Monitor DM II New diagnosis HbA1c:9.2 Continue ISS Monitor BGs Gear Machinist consulted Hypoglycemic this AM. Managed Pharmacy Glycemic on board Enteropathogenic E coli Colitis Chronic diarrhea: Likely overflow secondary to constipation, alcohol use and Infectious origin --CT ABD:The patient is cachectic. The bladder is massively distended and there is a large stool ball in the rectum. No acute abnormality is seen. Pancreatic calcifications are compatible with chronic pancreatitis. Stool studies showed enteropathogenic E. coli GI input noted Colonoscopy as outpatient Completed the course of Cefdinir Diarrhea resolved Anemia of chronic disease Normal vitamin B12, folate levels, Iron Panel Hb stable Obstructive uropathy Urinary Retention ABD USD:Bilateral hydronephrosis and dilatation of the urinary bladder Likely secondary to large stool bolus Ensure regular BM H/O Hepatitis C Untreated Follow-up as outpatient DVT Px: on SCD due to GI bleed Code Status Full Code DISPOSITION: Waiting for placement Admission and Anticipated Discharge Date Admission Date: August 06, 2021 Subjective Managed for enteropathogenic E. coli diarrhea. Being managed for severe malnutrition, generalized weakness. Patient was seen and examined for follow up of malnutrition, generalized weakness Lying in bed with no acute distress watching TV Denies fevers, chills, nausea, vomiting, abdominal pain, diarrhea Review of Systems Review of Systems: All systems reviewed & are unremarkable except as noted in Subjective Physical Exam Physical Exam: General- No acute distress, cachectic Head- atraumatic Eyes- PERRL, EOMI, ENT- oropharynx clear Neck- supple, no JVD Lungs- clear to auscultation Heart- regular rhythm; no murmur Abdomen- normal bowel sounds, soft, nontender Extremities- no calf tenderness Neuro- alert, oriented x 3; PERRL, EOMI; no facial palsy; no dysarthria Skin- warm & dry Results & Data Results & Data ([facility]) Vital Signs (Past 12 Hours) Vital Signs Temp Pulse Resp BP Pulse Ox 09/09/21 21:52 36.8 C 100 H 14 145/78 H 99
[2021-09-10] MEDS ORDERED: LANTUS PER UNIT CHARGE SQ ONE ×2 (09:00→21:00)
[2021-09-10] MEDS: CEROVITE ADV FORMULA TAB PO SCH (09:25)
[2021-09-10] MEDS: SODIUM CHLORIDE 1 GM TABLET PO SCH ×3 (09:25→21:30)
[2021-09-10] MEDS: CALCIUM 600MG + VIT D 400 IU TAB PO SCH ×2 (09:26→21:30)
[2021-09-10] MEDS: LIDOCAINE 5% 1 PATCH TD SCH (09:26)
[2021-09-10] MEDS: MAGNESIUM CHLORIDE W/CALCIUM 64MG DELAYED REL TAB PO SCH ×2 (09:26→21:30)
[2021-09-10] MEDS: UREA (UREA-NA) 15 GM PACK PO SCH ×2 (09:27→21:29)
[2021-09-10] MEDS: POTASSIUM CHLORIDE CRTAB 20 MEQ TABCR PO SCH (09:33)
[2021-09-10] MEDS: ACETAMINOPHEN 500 MG TAB PO PRN (19:58)
--- NOTE | 2021-09-10 22:10 | Hospitalist Progress Note ---
Date of Service September 10, 2021 Assessment & Plan (1) Protein-calorie malnutrition, severe: Plan: 66 yr female with H/O Chronic alcoholism and hepatitis C, who presents with weakness, poor appetite, weight loss and chronic diarrhea. Severe protein calorie malnutrition Generalized Weakness BMI 11 Weight loss, poor appetite and failure to thrive Dietitian recs noted Appreciate Palliative Care Input Continue to encourage intake Discussed with dietitian. Patient has had 30 days of folic acid and thiamine Continue daily multivitamin Continue PT/OT CM working on placement waiting for insurance approval Alcohol use Disorder Patient drinks 3 beers and half pint of vodka every day prior to hospitalization Thrombocytopenia Likely secondary to alcohol use S/P 1 unit platelets Resolved Rectal Bleeding ? Hemorrhoids Hb stable GI consulted Colonoscopy as outpatient as per GI Resolved Electrolyte abnormalities Hyponatremia ? Possible chronic hyponatremia at baseline in setting of Hyperglycemia, alcohol use disorder Sodium 136>>123>125>126> 129 ---->>>132 Nephro recs noted Currently on urea and salt tab Monitor DM II New diagnosis HbA1c:9.2 Continue ISS Monitor BGs Faro Dealer consulted Hypoglycemic this AM. Managed Pharmacy Glycemic on board Enteropathogenic E coli Colitis Chronic diarrhea: Likely overflow secondary to constipation, alcohol use and Infectious origin --CT ABD:The patient is cachectic. The bladder is massively distended and there is a large stool ball in the rectum. No acute abnormality is seen. Pancreatic calcifications are compatible with chronic pancreatitis. Stool studies showed enteropathogenic E. coli GI input noted Colonoscopy as outpatient Completed the course of Cefdinir Diarrhea resolved Anemia of chronic disease Normal vitamin B12, folate levels, Iron Panel Hb stable Obstructive uropathy Urinary Retention ABD USD:Bilateral hydronephrosis and dilatation of the urinary bladder Likely secondary to large stool bolus Ensure regular BM H/O Hepatitis C Untreated Follow-up as outpatient DVT Px: on SCD due to GI bleed Code Status Full Code DISPOSITION: Waiting for placement Admission and Anticipated Discharge Date Admission Date: August 06, 2021 Subjective Managed for enteropathogenic E. coli diarrhea. Being managed for severe malnutrition, generalized weakness. Patient was seen and examined for follow up of malnutrition, generalized weakness Lying in bed with no acute distress watching TV Denies fevers, chills, nausea, vomiting, abdominal pain, diarrhea Review of Systems Review of Systems: All systems reviewed & are unremarkable except as noted in Subjective Physical Exam Physical Exam: General- No acute distress, cachectic Head- atraumatic Eyes- PERRL, EOMI, ENT- oropharynx clear Neck- supple, no JVD Lungs- clear to auscultation Heart- regular rhythm; no murmur Abdomen- normal bowel sounds, soft, nontender Extremities- no calf tenderness Neuro- alert, oriented x 3; PERRL, EOMI; no facial palsy; no dysarthria Skin- warm & dry Results & Data Results & Data ([facility]) Vital Signs (Past 12 Hours) Vital Signs Temp Pulse Resp BP Pulse Ox O2 Del Method 09/10/21 22:01 36.8 C 100 H 17 151/89 H 100 Room Air 09/10/21 15:07 36.9 C 114 H 14 132/77 94 Room Air
[2021-09-10] MEDS: traMADol HCL 50 MG TABLET PO PRN (23:45)
[2021-09-11] MEDS ORDERED: LANTUS PER UNIT CHARGE SQ ONE ×2 (09:00→21:00)
[2021-09-11] MEDS: UREA (UREA-NA) 15 GM PACK PO SCH ×2 (09:16→19:47)
[2021-09-11] MEDS: ACETAMINOPHEN 500 MG TAB PO PRN (09:17)
[2021-09-11] MEDS: LIDOCAINE 5% 1 PATCH TD SCH (09:17)
[2021-09-11] MEDS: CEROVITE ADV FORMULA TAB PO SCH (09:17)
[2021-09-11] MEDS: MAGNESIUM CHLORIDE W/CALCIUM 64MG DELAYED REL TAB PO SCH ×2 (09:17→19:46)
[2021-09-11] MEDS: DOCUSATE SODIUM 100 MG CAP PO SCH ×2 (09:17→19:47)
[2021-09-11] MEDS: CALCIUM 600MG + VIT D 400 IU TAB PO SCH ×2 (09:17→19:46)
[2021-09-11] MEDS: SODIUM CHLORIDE 1 GM TABLET PO SCH ×3 (09:17→19:47)
[2021-09-11] MEDS: NICOTINE 14 MG/24 HR PATCH TD SCH (09:17)
[2021-09-11] MEDS: INSULIN ASPART PER UNIT SC SCH ×4 (09:18→20:57)
[2021-09-11] MEDS: POTASSIUM CHLORIDE CRTAB 20 MEQ TABCR PO SCH (09:22)
--- NOTE | 2021-09-11 17:43 | Hospitalist Progress Note ---
Date of Service September 11, 2021 Assessment & Plan (1) Protein-calorie malnutrition, severe: Plan: 66 yr female with H/O Chronic alcoholism and hepatitis C, who presents with weakness, poor appetite, weight loss and chronic diarrhea. Severe protein calorie malnutrition Generalized Weakness BMI 11 Weight loss, poor appetite and failure to thrive Dietitian recs noted Appreciate Palliative Care Input Continue to encourage intake Discussed with dietitian. Patient has had 30 days of folic acid and thiamine Continue daily multivitamin Continue PT/OT CM working on placement waiting for insurance approval Alcohol use Disorder Patient drinks 3 beers and half pint of vodka every day prior to hospitalization Thrombocytopenia Likely secondary to alcohol use S/P 1 unit platelets Resolved Rectal Bleeding ? Hemorrhoids Hb stable GI consulted Colonoscopy as outpatient as per GI Resolved Electrolyte abnormalities Hyponatremia ? Possible chronic hyponatremia at baseline in setting of Hyperglycemia, alcohol use disorder Sodium 136>>123>125>126> 129 ---->>>132 Nephro recs noted Currently on urea and salt tab Monitor DM II New diagnosis HbA1c:9.2 Continue ISS Monitor BGs Biomedical Engineering Professor consulted Hypoglycemic this AM. Managed Pharmacy Glycemic on board Enteropathogenic E coli Colitis Chronic diarrhea: Likely overflow secondary to constipation, alcohol use and Infectious origin --CT ABD:The patient is cachectic. The bladder is massively distended and there is a large stool ball in the rectum. No acute abnormality is seen. Pancreatic calcifications are compatible with chronic pancreatitis. Stool studies showed enteropathogenic E. coli GI input noted Colonoscopy as outpatient Completed the course of Cefdinir Diarrhea resolved Anemia of chronic disease Normal vitamin B12, folate levels, Iron Panel Hb stable Obstructive uropathy Urinary Retention ABD USD:Bilateral hydronephrosis and dilatation of the urinary bladder Likely secondary to large stool bolus Ensure regular BM H/O Hepatitis C Untreated Follow-up as outpatient DVT Px: on SCD due to GI bleed Code Status Full Code DISPOSITION: Waiting for placement Admission and Anticipated Discharge Date Admission Date: August 06, 2021 Subjective Managed for enteropathogenic E. coli diarrhea. Being managed for severe malnutrition, generalized weakness. Patient was seen and examined for follow up of malnutrition, generalized weakness Lying in bed with no acute distress with partner at bedside watching TV Denies fevers, chills, nausea, vomiting, abdominal pain, diarrhea Review of Systems Review of Systems: All systems reviewed & are unremarkable except as noted in Subjective Physical Exam Physical Exam: General- No acute distress, cachectic Head- atraumatic Eyes- PERRL, EOMI, ENT- oropharynx clear Neck- supple, no JVD Lungs- clear to auscultation Heart- regular rhythm; no murmur Abdomen- normal bowel sounds, soft, nontender Extremities- no calf tenderness Neuro- alert, oriented x 3; PERRL, EOMI; no facial palsy; no dysarthria Skin- warm & dry Results & Data Results & Data ([facility]) Vital Signs (Past 12 Hours) Vital Signs Temp Pulse Resp BP Pulse Ox O2 Del Method 09/11/21 15:26 36.7 C 108 H 14 128/83 100 Room Air 09/11/21 07:26 36.6 C 91 H 16 155/89 H 99 Room Air
[2021-09-11] MEDS: bisacodyL 10 MG SUPP PR PRN (18:38)
[2021-09-11] MEDS: traMADol HCL 50 MG TABLET PO PRN (19:48)
[2021-09-12] MEDS: traMADol HCL 50 MG TABLET PO PRN ×3 (04:46→21:09)
[2021-09-12] MEDS: INSULIN ASPART PER UNIT SC SCH ×4 (08:55→21:16)
[2021-09-12] MEDS: LANTUS PER UNIT CHARGE SQ SCH (08:58)
[2021-09-12] MEDS ORDERED: LANTUS PER UNIT CHARGE SQ SCH (09:00)
[2021-09-12] MEDS: MAGNESIUM CHLORIDE W/CALCIUM 64MG DELAYED REL TAB PO SCH ×2 (09:01→21:09)
[2021-09-12] MEDS: CEROVITE ADV FORMULA TAB PO SCH (09:01)
[2021-09-12] MEDS: CALCIUM 600MG + VIT D 400 IU TAB PO SCH ×2 (09:01→21:09)
[2021-09-12] MEDS: NICOTINE 14 MG/24 HR PATCH TD SCH (09:02)
[2021-09-12] MEDS: LIDOCAINE 5% 1 PATCH TD SCH (09:02)
[2021-09-12] MEDS: SODIUM CHLORIDE 1 GM TABLET PO SCH ×3 (09:03→21:09)
[2021-09-12] MEDS: DOCUSATE SODIUM 100 MG CAP PO SCH ×2 (09:03→21:09)
[2021-09-12] MEDS: UREA (UREA-NA) 15 GM PACK PO SCH ×2 (09:03→21:10)
[2021-09-12] MEDS: POTASSIUM CHLORIDE CRTAB 20 MEQ TABCR PO SCH (09:06)
--- NOTE | 2021-09-12 13:48 | Pharmacy Report ---
Pharmacy Glycemic Short Note 2 - Date of Service September 12, 2021 - Glycemic Short BSG Results (Last 24 hours): 09/11/21 09/11/21 09/12/21 17:12 20:48 08:19 POC Glucose 98 122 H 108 H 09/12/21 12:06 POC Glucose 208 H OUTPATIENT ANTIDIABETIC REGIMEN: * None * HbA1c = 9.2% (08/10/21) ASSESSMENT: 09/12 * No po intake charted yesterday and no Novolog administered. Some BSG's below goal range. Will decrease Lantus slightly. 09/08: * BSGs relatively well-controlled yesterday (ranging 71-184 mg/dL) * Received 31 units of insulin (22 units of basal and 9 units of prandial/correctional bolus) * Fasting BSG of 96 mg/dL this morning, will reduce basal by ~10% PLAN FOR INPATIENT GLYCEMIC CONTROL: * Basal insulin - decrease 20% * Lantus 8 units SC qAM * Bolus insulin * NovoLog per scale ACHS or Q6hrs while NPO * Goal Range: Low 110 mg/dL - High 140 mg/dL * Correction Factor: 30 mg/dL/unit with breakfast, 25 with lunch, dinner, HS * Nutritional / Prandial insulin per carb ratio of 1 unit per 9 grams CHO consumed with breakfast, 1 unit per 8 grams CHO with lunch, dinner, and HS
--- NOTE | 2021-09-12 16:43 | Hospitalist Progress Note ---
Date of Service September 12, 2021 Assessment & Plan (1) Protein-calorie malnutrition, severe: Plan: This is a 66 yo female with H/O Chronic alcoholism and hepatitis C, who presents with weakness, poor appetite, weight loss and chronic diarrhea. Severe protein calorie malnutrition Generalized Weakness BMI 11 Weight loss, poor appetite and failure to thrive Dietitian recs noted Appreciate Palliative Care Input Continue to encourage intake Discussed with dietitian. Patient has had 30 days of folic acid and thiamine Continue daily multivitamin Continue PT/OT CM working on placement Alcohol use Disorder Patient drinks 3 beers and half pint of vodka every day prior to hospitalization Thrombocytopenia Likely secondary to alcohol use S/P 1 unit platelets Resolved Rectal Bleeding -> resolved ? Hemorrhoids Hb stable GI consulted Colonoscopy as outpatient as per GI Resolved Electrolyte abnormalities Hyponatremia ? Possible chronic hyponatremia at baseline in setting of Hyperglycemia, alcohol use disorder Sodium 136>>123>125>126> 129 ---->>>132 Nephro recs noted Currently on urea and salt tab Monitor DM II New diagnosis HbA1c:9.2 Continue ISS Monitor BGs Assistant Loan Processor consulted Hypoglycemic this AM. Managed Pharmacy Glycemic on board Enteropathogenic E coli Colitis Chronic diarrhea: Likely overflow secondary to constipation, alcohol use and Infectious origin --CT ABD:The patient is cachectic. The bladder is massively distended and there is a large stool ball in the rectum. No acute abnormality is seen. Pancreatic calcifications are compatible with chronic pancreatitis. Stool studies showed enteropathogenic E. coli GI input noted Colonoscopy as outpatient Completed the course of Cefdinir Diarrhea resolved Anemia of chronic disease Normal vitamin B12, folate levels, Iron Panel Hb stable Obstructive uropathy Urinary Retention ABD USD:Bilateral hydronephrosis and dilatation of the urinary bladder Likely secondary to large stool bolus Ensure regular BM H/O Hepatitis C Untreated Follow-up as outpatient DVT Px: on SCD due to GI bleed Code Status Full Code DISPOSITION: Waiting for placement Admission and Anticipated Discharge Date Admission Date: August 06, 2021 Subjective Managed for enteropathogenic E. coli diarrhea. Being managed for severe malnutrition, generalized weakness. Patient was seen and examined for follow up of malnutrition, generalized weakness Lying in bed with no acute distress watching TV waiting for insurance authorization Denies fevers, chills, nausea, vomiting, abdominal pain, diarrhea Review of Systems Review of Systems: All systems reviewed & are unremarkable except as noted in Subjective Physical Exam Physical Exam: General- No acute distress, cachectic Head- atraumatic Eyes- PERRL, EOMI, ENT- oropharynx clear Neck- supple, no JVD Lungs- clear to auscultation Heart- regular rhythm; no murmur Abdomen- normal bowel sounds, soft, nontender Extremities- no calf tenderness Neuro- alert, oriented x 3; PERRL, EOMI; no facial palsy; no dysarthria Skin- warm & dry Results & Data Results & Data ([facility]) Vital Signs (Past 12 Hours) Vital Signs Temp Pulse Resp BP Pulse Ox O2 Del Method 09/12/21 15:23 36.7 C 102 H 14 137/78 100 Room Air 09/12/21 07:55 36.4 C L 99 H 16 135/66 100 Room Air 09/12/21 07:29 Room Air
[2021-09-12] MEDS: ACETAMINOPHEN 500 MG TAB PO PRN (19:28)
[2021-09-13] MEDS: LIDOCAINE 5% 1 PATCH TD SCH (08:33)
[2021-09-13] MEDS: NICOTINE 14 MG/24 HR PATCH TD SCH (08:35)
[2021-09-13] MEDS: UREA (UREA-NA) 15 GM PACK PO SCH ×2 (08:36→20:48)
[2021-09-13] MEDS: CALCIUM 600MG + VIT D 400 IU TAB PO SCH ×2 (08:37→20:48)
[2021-09-13] MEDS: SODIUM CHLORIDE 1 GM TABLET PO SCH ×3 (08:37→20:49)
[2021-09-13] MEDS: POTASSIUM CHLORIDE CRTAB 20 MEQ TABCR PO SCH (08:37)
[2021-09-13] MEDS: MAGNESIUM CHLORIDE W/CALCIUM 64MG DELAYED REL TAB PO SCH ×2 (08:37→20:48)
[2021-09-13] MEDS: CEROVITE ADV FORMULA TAB PO SCH (08:37)
[2021-09-13] MEDS: DOCUSATE SODIUM 100 MG CAP PO SCH ×2 (08:37→20:47)
[2021-09-13] MEDS: LANTUS PER UNIT CHARGE SQ SCH (08:42)
[2021-09-13] MEDS: INSULIN ASPART PER UNIT SC SCH ×4 (08:42→20:49)
[2021-09-13 08:59] LABS: Hematocrit (blood only) 33.5 % (34.1-44.9); Hemoglobin 11.4 g/dl (12.0-16.0); Mean Corpuscular Hemoglobin 33.1 pg (25.0-34.0); Mean Corpuscular Volume 97.4 fL (80.0-100.0); Mean Platelet Volume 10.2 fL (9.4-12.3); Platelet Count 259 K/uL (130-400); RDW Coefficient of Variation 13.1 % (11.5-14.5); RDW Standard Deviation 46.5 fL (36.4-46.3); Red Blood Count 3.44 M/uL (3.93-5.22); White Blood Count 6.36 K/ul (4.8-10.8)
[2021-09-13 09:22] LABS: Anion Gap 6 (3-11); BUN Creatinine Ratio 177.3 (10-20); Blood Urea Nitrogen 39 mg/dl (6-23); Calcium 9.3 mg/dl (8.5-10.1); Carbon Dioxide 28 mmol/L (21-32); Chloride 97 mmol/L (98-107); Creatinine Clr Calc Pharmacy 136.6 ml/min; Est GFR (African American) > 150.0 ml/min; Glucose 106 mg/dl (70-99(Fasting)); Magnesium 1.7 mg/dl (1.7-2.4); Phosphorus 4.7 mg/dl (2.5-4.9); Potassium 4.2 mmol/L (3.5-5.1); Sodium 131 mmol/L (136-145)
--- NOTE | 2021-09-13 09:56 | Hospitalist Progress Note ---
Date of Service September 13, 2021 Assessment & Plan (1) Protein-calorie malnutrition, severe: Plan: This is a 66 yo female with H/O Chronic alcoholism and hepatitis C, who presents with weakness, poor appetite, weight loss and chronic diarrhea. Severe protein calorie malnutrition Generalized Weakness BMI 11.6 Weight loss, poor appetite and failure to thrive Dietitian recs noted Appreciate Palliative Care Input Continue to encourage intake Discussed with dietitian. Patient has had 30 days of folic acid and thiamine Continue daily multivitamin Continue PT/OT CM working on placement Alcohol use Disorder Patient drinks 3 beers and half pint of vodka every day prior to hospitalization Thrombocytopenia Likely secondary to alcohol use S/P 1 unit platelets Resolved Rectal Bleeding -> resolved ? Hemorrhoids Hb stable GI consulted Colonoscopy as outpatient as per GI Resolved Electrolyte abnormalities Hyponatremia ? Possible chronic hyponatremia at baseline in setting of Hyperglycemia, alcohol use disorder Sodium 136>>123>125>126> 129 ---->>>132 Nephro recs noted Currently on urea and salt tab Monitor Follow up with nephrology as outpt DM II New diagnosis HbA1c:9.2 Continue ISS Monitor BGs Hvac Manager consulted Hypoglycemic this AM. Managed Pharmacy Glycemic on board Enteropathogenic E coli Colitis Chronic diarrhea: Likely overflow secondary to constipation, alcohol use and Infectious origin --CT ABD:The patient is cachectic. The bladder is massively distended and there is a large stool ball in the rectum. No acute abnormality is seen. Pancreatic calcifications are compatible with chronic pancreatitis. Stool studies showed enteropathogenic E. coli GI input noted Colonoscopy as outpatient Completed the course of Cefdinir Diarrhea resolved Anemia of chronic disease Normal vitamin B12, folate levels, Iron Panel Hb stable Obstructive uropathy Urinary Retention ABD USD:Bilateral hydronephrosis and dilatation of the urinary bladder Likely secondary to large stool bolus Ensure regular BM H/O Hepatitis C Untreated Follow-up as outpatient DVT Px: on SCD due to GI bleed Code Status Full Code DISPOSITION: Waiting for placement Admission and Anticipated Discharge Date Admission Date: August 06, 2021 Subjective Managed for enteropathogenic E. coli diarrhea. Being managed for severe malnutrition, generalized weakness. Patient was seen and examined for follow up of malnutrition, generalized weakness Lying in bed with no acute distress watching TV waiting for insurance authorization Denies fevers, chills, nausea, vomiting, abdominal pain, diarrhea Review of Systems Review of Systems: All systems reviewed & are unremarkable except as noted in Subjective Physical Exam Physical Exam: General- No acute distress, cachectic Head- atraumatic Eyes- PERRL, EOMI, ENT- oropharynx clear Neck- supple, no JVD Lungs- clear to auscultation Heart- regular rhythm; no murmur Abdomen- normal bowel sounds, soft, nontender Extremities- no calf tenderness Neuro- alert, oriented x 3; PERRL, EOMI; no facial palsy; no dysarthria Skin- warm & dry Results & Data Results & Data ([facility]) Vital Signs (Past 12 Hours) Vital Signs Temp Pulse Pulse Resp BP BP Pulse Ox 09/13/21 08:00 09/13/21 07:26 36.5 C 89 16 148/90 H 100 09/12/21 23:00 36.4 C L 90 18 154/80 H 100 O2 Del Method 09/13/21 08:00 Room Air 09/13/21 07:26 Room Air 09/12/21 23:00 Room Air Laboratory Results 09/13/21 09/13/21 09/13/21 Range/Units 08:20 08:20 08:17 WBC 6.36 (4.8-10.8) K/ul RBC 3.44 L (3.93-5.22) M/uL Hgb 11.4 L (12.0-16.0) g/dl Hct 33.5 L (34.1-44.9) % MCV 97.4 (80.0-100.0) fL MCH 33.1 (25.0-34.0) pg MCHC 34.0 (32.0-36.0) g/dL RDW Std Deviation 46.5 H (36.4-46.3) fL RDW Coeff of Justine 13.1 (11.5-14.5) % Plt Count 259 (130-400) K/uL MPV 10.2 (9.4-12.3) fL Sodium 131 L (136-145) mmol/L Potassium 4.2 (3.5-5.1) mmol/L Chloride 97 L (98-107) mmol/L Carbon Dioxide 28 (21-32) mmol/L Anion Gap 6 (3-11) BUN 39 H (6-23) mg/dl Creatinine 0.22 L (0.6-1.2) mg/dl Est Cr Clr Drug Dosing 136.6 ml/min Est GFR ( Amer) > 150.0 ml/min Est GFR (Non-Af Amer) 134.0 ml/min BUN/Creatinine Ratio 177.3 H (10-20) Glucose 106 H (70-99(Fasting)) mg/dl POC Glucose 112 H (70-99) mg/dl Calcium 9.3 (8.5-10.1) mg/dl Phosphorus 4.7 (2.5-4.9) mg/dl Magnesium 1.7 (1.7-2.4) mg/dl 09/12/21 09/12/21 09/12/21 Range/Units 20:49 17:08 12:06 WBC (4.8-10.8) K/ul RBC (3.93-5.22) M/uL Hgb (12.0-16.0) g/dl Hct (34.1-44.9) % MCV (80.0-100.0) fL MCH (25.0-34.0) pg MCHC (32.0-36.0) g/dL RDW Std Deviation (36.4-46.3) fL RDW Coeff of Justine (11.5-14.5) % Plt Count (130-400) K/uL MPV (9.4-12.3) fL Sodium (136-145) mmol/L Potassium (3.5-5.1) mmol/L Chloride (98-107) mmol/L Carbon Dioxide (21-32) mmol/L Anion Gap (3-11) BUN (6-23) mg/dl Creatinine (0.6-1.2) mg/dl Est Cr Clr Drug Dosing ml/min Est GFR ( Amer) ml/min Est GFR (Non-Af Amer) ml/min BUN/Creatinine Ratio (10-20) Glucose (70-99(Fasting)) mg/dl POC Glucose 142 H 88 208 H (70-99) mg/dl Calcium (8.5-10.1) mg/dl Phosphorus (2.5-4.9) mg/dl Magnesium (1.7-2.4) mg/dl Medications Administered Current Inpatient Medications Acetaminophen (Acetaminophen 500 Mg Tab) 500 mg PO Q8H PRN PRN Reason: Pain or Fever Stop: 10/09/21 14:13 Last Admin: 09/12/21 19:28 Dose: 500 mg Bisacodyl (Bisacodyl 10 Mg Supp) 10 mg SC BID PRN PRN Reason: Constipation Stop: 10/09/21 15:08 Last Admin: 09/11/21 18:38 Dose: 10 mg Dextrose (Dextrose 50% 50 Ml Syringe) 25 - 50 ml IV UD PRN; Protocol PRN Reason: Hypoglycemia Protocol Stop: 10/09/21 07:14 Docusate Sodium (Docusate Sodium 100 Mg Cap) 100 mg PO BID [facility] Stop: 10/09/21 08:59 Last Admin: 09/13/21 08:37 Dose: 100 mg Glucagon (Glucagon For Inj 1 Mg Vial) 1 mg IM UD PRN; Protocol PRN Reason: Hypoglycemia Protocol Stop: 10/09/21 07:14 Glucose (Glucose 40% Gel 15 Gm Tube) 15 - 30 gm PO UD PRN; Protocol PRN Reason: Hypoglycemia Protocol Stop: 10/09/21 07:14 Glucose (Glucose 10 Tab/Tube) 4 - 8 tab PO UD PRN; Protocol PRN Reason: Hypoglycemia Protocol Stop: 10/09/21 07:14 Insulin Aspart (Insulin Aspart Per Unit) 0 units SC 0730 [facility]; Protocol Stop: 10/06/21 07:29 Last Admin: 09/13/21 08:42 Dose: 2 units Insulin Aspart (Insulin Aspart Per Unit) 0 units SC 1130,1630,2100 [facility]; Protocol Stop: 10/05/21 16:29 Last Admin: 09/12/21 21:16 Dose: Not Given Insulin Glargine (Lantus Per Unit Charge) 8 units SQ DAILY [facility]; Protocol Stop: 10/12/21 08:59 Last Admin: 09/13/21 08:42 Dose: 8 units Lidocaine (Lidocaine 5% 1 Patch) 1 patch TD QAM [facility] Stop: 09/23/21 14:44 Last Admin: 09/13/21 08:33 Dose: 1 patch Loperamide HCl (Loperamide Hcl 2 Mg Cap) 2 mg PO DAILY PRN PRN Reason: Diarrhea Stop: 10/09/21 07:46 Magnesium Chloride (Magnesium Chloride W/Calcium 64mg Delayed Rel Tab) 64 mg PO BID [facility] [place] Stop: 09/16/21 08:59 Last Admin: 09/13/21 08:37 Dose: 64 mg Miscellaneous (Remove Lidoderm Patch) 1 ea N/A DAILY@2100 [facility] [place] Stop: 09/23/21 20:59 Last Admin: 09/12/21 21:10 Dose: 1 each Miscellaneous (Carbohydrates For Hypoglycemia ) 15 - 30 gm PO UD PRN PRN Reason: Hypoglycemia Treatment Stop: 10/09/21 07:14 Miscellaneous (Remove Nicoderm Patch) 1 each N/A DAILY@0859 [facility] Stop: 10/09/21 08:58 Last Admin: 09/13/21 08:35 Dose: 1 each Miscellaneous Information (Pharmacy Glycemic Mgmt Consult) 1 each N/A UD PRN PRN Reason: Consult Stop: 10/09/21 16:48 Multivitamins/Minerals (Calcium 600mg + Vit D 400 Iu Tab) 1 tab PO BID [facility] [place] Stop: 10/06/21 20:59 Last Admin: 09/13/21 08:37 Dose: 1 tab Multivitamins/Minerals (Cerovite Adv Formula Tab) 1 tab PO QAM [facility] [place] Stop: 10/07/21 08:59 Last Admin: 09/13/21 08:37 Dose: 1 tab Nicotine (Nicotine 14 Mg/24 Hr Patch) 14 mg TD DAILY [facility] Stop: 10/09/21 08:59 Last Admin: 09/13/21 08:35 Dose: 14 mg Polyethylene Glycol (Polyethylene (Miralax) 17 Gm Pack) 17 gm PO DAILY PRN PRN Reason: Constipation Stop: 09/16/21 08:59 Potassium Chloride (Potassium Chloride Crtab 20 Meq Tabcr) 20 meq PO DAILY [facility] [place] Stop: 09/15/21 08:59 Last Admin: 09/13/21 08:37 Dose: 20 meq Sodium Chloride (Sodium Chloride 1 Gm Tablet) 2 gm PO TID [facility] [place] Stop: 09/22/21 08:59 Last Admin: 09/13/21 08:37 Dose: 2 gm Tramadol HCl (Tramadol Hcl 50 Mg Tablet) 50 mg PO Q8H PRN PRN Reason: Pain Stop: 09/15/21 17:30 Last Admin: 09/12/21 21:09 Dose: 50 mg Urea (Urea (Urea-Na) 15 Gm Pack) 15 gm PO BID [facility] Stop: 09/16/21 08:59 Last Admin: 09/13/21 08:36 Dose: 15 gm
[2021-09-14] MEDS: traMADol HCL 50 MG TABLET PO PRN ×3 (03:09→21:16)
[2021-09-14] MEDS: NICOTINE 14 MG/24 HR PATCH TD SCH (09:32)
[2021-09-14] MEDS: CALCIUM 600MG + VIT D 400 IU TAB PO SCH ×2 (09:34→21:07)
[2021-09-14] MEDS: DOCUSATE SODIUM 100 MG CAP PO SCH ×2 (09:34→21:07)
[2021-09-14] MEDS: MAGNESIUM CHLORIDE W/CALCIUM 64MG DELAYED REL TAB PO SCH ×2 (09:35→21:07)
[2021-09-14] MEDS: CEROVITE ADV FORMULA TAB PO SCH (09:36)
[2021-09-14] MEDS: SODIUM CHLORIDE 1 GM TABLET PO SCH ×3 (09:36→21:08)
[2021-09-14] MEDS: UREA (UREA-NA) 15 GM PACK PO SCH ×2 (09:37→21:08)
[2021-09-14] MEDS: ACETAMINOPHEN 500 MG TAB PO PRN ×2 (09:44→18:42)
[2021-09-14] MEDS: LANTUS PER UNIT CHARGE SQ SCH (09:45)
[2021-09-14] MEDS: INSULIN ASPART PER UNIT SC SCH ×4 (09:45→21:17)
[2021-09-14] MEDS: LIDOCAINE 5% 1 PATCH TD SCH (09:47)
[2021-09-14] MEDS: POTASSIUM CHLORIDE CRTAB 20 MEQ TABCR PO SCH (11:06)
--- NOTE | 2021-09-14 18:24 | Hospitalist Progress Note ---
Date of Service September 14, 2021 Assessment & Plan (1) Protein-calorie malnutrition, severe: Plan: This is a 66 yo female with H/O Chronic alcoholism and hepatitis C, who presents with weakness, poor appetite, weight loss and chronic diarrhea. Severe protein calorie malnutrition Generalized Weakness BMI 11.6 Weight loss, poor appetite and failure to thrive Dietitian recs noted Appreciate Palliative Care Input Continue to encourage intake Discussed with dietitian. Patient has had 30 days of folic acid and thiamine Continue daily multivitamin Continue PT/OT CM working on placement Alcohol use Disorder Patient drinks 3 beers and half pint of vodka every day prior to hospitalization Thrombocytopenia Likely secondary to alcohol use S/P 1 unit platelets Resolved Rectal Bleeding -> resolved ? Hemorrhoids Hb stable GI consulted Colonoscopy as outpatient as per GI Resolved Electrolyte abnormalities Hyponatremia ? Possible chronic hyponatremia at baseline in setting of Hyperglycemia, alcohol use disorder Sodium 136>>123>125>126> 129 ---->>>132 Nephro recs noted Currently on urea and salt tab Monitor Follow up with nephrology as outpt DM II New diagnosis HbA1c:9.2 Continue ISS Monitor BGs Director Of Event Marketing consulted Hypoglycemic this AM. Managed Pharmacy Glycemic on board Enteropathogenic E coli Colitis Chronic diarrhea: Likely overflow secondary to constipation, alcohol use and Infectious origin --CT ABD:The patient is cachectic. The bladder is massively distended and there is a large stool ball in the rectum. No acute abnormality is seen. Pancreatic calcifications are compatible with chronic pancreatitis. Stool studies showed enteropathogenic E. coli GI input noted Colonoscopy as outpatient Completed the course of Cefdinir Diarrhea resolved Anemia of chronic disease Normal vitamin B12, folate levels, Iron Panel Hb stable Obstructive uropathy Urinary Retention ABD USD:Bilateral hydronephrosis and dilatation of the urinary bladder Likely secondary to large stool bolus Ensure regular BM H/O Hepatitis C Untreated Follow-up as outpatient DVT Px: on SCD due to GI bleed Code Status Full Code DISPOSITION: Waiting for placement Admission and Anticipated Discharge Date Admission Date: August 06, 2021 Subjective Managed for enteropathogenic E. coli diarrhea. Being managed for severe malnutrition, generalized weakness. Patient was seen and examined for follow up of malnutrition, generalized weakness Lying in bed with no acute distress waiting for insurance authorization Denies fevers, chills, nausea, vomiting, abdominal pain, diarrhea Family at bedside Review of Systems Review of Systems: All systems reviewed & are unremarkable except as noted in Subjective Physical Exam Physical Exam: General- No acute distress, cachectic Head- atraumatic Eyes- PERRL, EOMI, ENT- oropharynx clear Neck- supple, no JVD Lungs- clear to auscultation Heart- regular rhythm; no murmur Abdomen- normal bowel sounds, soft, nontender Extremities- no calf tenderness Neuro- alert, oriented x 3; PERRL, EOMI; no facial palsy; no dysarthria Skin- warm & dry Results & Data Results & Data ([facility]) Vital Signs (Past 12 Hours) Vital Signs Temp Pulse Resp BP BP Pulse Ox O2 Del Method 09/14/21 15:36 36.6 C 92 H 16 125/79 97 Room Air 09/14/21 09:53 Room Air 09/14/21 07:42 36.4 C L 92 H 16 115/77 97 Room Air Medications Administered Current Inpatient Medications Acetaminophen (Acetaminophen 500 Mg Tab) 500 mg PO Q8H PRN PRN Reason: Pain or Fever Stop: 10/09/21 14:13 Last Admin: 09/14/21 09:44 Dose: 500 mg Bisacodyl (Bisacodyl 10 Mg Supp) 10 mg VA BID PRN PRN Reason: Constipation Stop: 10/09/21 15:08 Last Admin: 09/11/21 18:38 Dose: 10 mg Dextrose (Dextrose 50% 50 Ml Syringe) 25 - 50 ml IV UD PRN; Protocol PRN Reason: Hypoglycemia Protocol Stop: 10/09/21 07:14 Docusate Sodium (Docusate Sodium 100 Mg Cap) 100 mg PO BID [facility] Stop: 10/09/21 08:59 Last Admin: 09/14/21 09:34 Dose: 100 mg Glucagon (Glucagon For Inj 1 Mg Vial) 1 mg IM UD PRN; Protocol PRN Reason: Hypoglycemia Protocol Stop: 10/09/21 07:14 Glucose (Glucose 40% Gel 15 Gm Tube) 15 - 30 gm PO UD PRN; Protocol PRN Reason: Hypoglycemia Protocol Stop: 10/09/21 07:14 Glucose (Glucose 10 Tab/Tube) 4 - 8 tab PO UD PRN; Protocol PRN Reason: Hypoglycemia Protocol Stop: 10/09/21 07:14 Insulin Aspart (Insulin Aspart Per Unit) 0 units SC 0730 [facility]; Protocol Stop: 10/06/21 07:29 Last Admin: 09/14/21 09:45 Dose: 3 units Insulin Aspart (Insulin Aspart Per Unit) 0 units SC 1130,1630,2100 [facility]; Kirsten col Stop: 10/05/21 16:29 Last Admin: 09/14/21 17:49 Dose: Not Given Insulin Glargine (Lantus Per Unit Charge) 8 units SQ DAILY [facility]; Protocol Stop: 10/12/21 08:59 Last Admin: 09/14/21 09:45 Dose: 8 units Lidocaine (Lidocaine 5% 1 Patch) 1 patch TD QAM [facility] Stop: 09/23/21 14:44 Last Admin: 09/14/21 09:47 Dose: 1 patch Loperamide HCl (Loperamide Hcl 2 Mg Cap) 2 mg PO DAILY PRN PRN Reason: Diarrhea Stop: 10/09/21 07:46 Magnesium Chloride (Magnesium Chloride W/Calcium 64mg Delayed Rel Tab) 64 mg PO BID [facility] Stop: 09/16/21 08:59 Last Admin: 09/14/21 09:35 Dose: 64 mg Miscellaneous (Remove Lidoderm Patch) 1 ea N/A DAILY@2100 [facility] Stop: 09/23/21 20:59 Last Admin: 09/13/21 21:11 Dose: 1 each Miscellaneous (Carbohydrates For Hypoglycemia ) 15 - 30 gm PO UD PRN PRN Reason: Hypoglycemia Treatment Stop: 10/09/21 07:14 Miscellaneous (Remove Nicoderm Patch) 1 each N/A DAILY@0859 [facility] Stop: 10/09/21 08:58 Last Admin: 09/14/21 09:32 Dose: 1 each Miscellaneous Information (Pharmacy Glycemic Mgmt Consult) 1 each N/A UD PRN PRN Reason: Consult Stop: 10/09/21 16:48 Multivitamins/Minerals (Calcium 600mg + Vit D 400 Iu Tab) 1 tab PO BID [facility] Stop: 10/06/21 20:59 Last Admin: 09/14/21 09:34 Dose: 1 tab Multivitamins/Minerals (Cerovite Adv Formula Tab) 1 tab PO QAM [facility] Stop: 10/07/21 08:59 Last Admin: 09/14/21 09:36 Dose: 1 tab Nicotine (Nicotine 14 Mg/24 Hr Patch) 14 mg TD DAILY [facility] Stop: 10/09/21 08:59 Last Admin: 09/14/21 09:32 Dose: 14 mg Polyethylene Glycol (Polyethylene (Miralax) 17 Gm Pack) 17 gm PO DAILY PRN PRN Reason: Constipation Stop: 09/16/21 08:59 Potassium Chloride (Potassium Chloride Crtab 20 Meq Tabcr) 20 meq PO DAILY [facility] Stop: 09/15/21 08:59 Last Admin: 09/14/21 11:06 Dose: 20 meq Sodium Chloride (Sodium Chloride 1 Gm Tablet) 2 gm PO TID [facility] Stop: 09/22/21 08:59 Last Admin: 09/14/21 13:31 Dose: 2 gm Tramadol HCl (Tramadol Hcl 50 Mg Tablet) 50 mg PO Q8H PRN PRN Reason: Pain Stop: 09/15/21 17:30 Last Admin: 09/14/21 13:31 Dose: 50 mg Urea (Urea (Urea-Na) 15 Gm Pack) 15 gm PO BID [facility] Stop: 09/16/21 08:59 Last Admin: 09/14/21 09:37 Dose: 15 gm
[2021-09-15] MEDS: bisacodyL 10 MG SUPP PR PRN (01:30)
[2021-09-15] MEDS: traMADol HCL 50 MG TABLET PO PRN ×2 (06:10→14:01)
[2021-09-15] MEDS: LANTUS PER UNIT CHARGE SQ SCH (09:13)
[2021-09-15] MEDS: INSULIN ASPART PER UNIT SC SCH ×4 (09:14→20:47)
[2021-09-15] MEDS: DOCUSATE SODIUM 100 MG CAP PO SCH ×2 (09:15→20:31)
[2021-09-15] MEDS: MAGNESIUM CHLORIDE W/CALCIUM 64MG DELAYED REL TAB PO SCH ×2 (09:15→20:31)
[2021-09-15] MEDS: SODIUM CHLORIDE 1 GM TABLET PO SCH ×3 (09:15→20:31)
[2021-09-15] MEDS: CALCIUM 600MG + VIT D 400 IU TAB PO SCH ×2 (09:15→20:31)
[2021-09-15] MEDS: UREA (UREA-NA) 15 GM PACK PO SCH ×2 (09:16→20:31)
[2021-09-15] MEDS: LIDOCAINE 5% 1 PATCH TD SCH (09:16)
[2021-09-15] MEDS: NICOTINE 14 MG/24 HR PATCH TD SCH (09:16)
[2021-09-15] MEDS: CEROVITE ADV FORMULA TAB PO SCH (09:16)
--- NOTE | 2021-09-15 13:48 | Hospitalist Progress Note ---
Date of Service September 15, 2021 Assessment & Plan (1) Protein-calorie malnutrition, severe: Plan: This is a 66 yo female with H/O Chronic alcoholism and hepatitis C, who presents with weakness, poor appetite, weight loss and chronic diarrhea. Severe protein calorie malnutrition Generalized Weakness BMI 11.6 Weight loss, poor appetite and failure to thrive Dietitian recs noted Appreciate Palliative Care Input Continue to encourage intake Discussed with dietitian. Patient has had 30 days of folic acid and thiamine Continue daily multivitamin Continue PT/OT CM working on placement Alcohol use Disorder Patient drinks 3 beers and half pint of vodka every day prior to hospitalization Thrombocytopenia Likely secondary to alcohol use S/P 1 unit platelets Resolved Rectal Bleeding -> resolved ? Hemorrhoids Hb stable GI consulted Colonoscopy as outpatient as per GI Resolved Electrolyte abnormalities Hyponatremia ? 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 The bladder is massively distended and there is a large stool ball in the rectum. No acute abnormality is seen. Pancreatic calcifications are compatible with chronic pancreatitis. Stool studies showed enteropathogenic E. coli GI input noted Colonoscopy as outpatient Completed the course of Cefdinir Diarrhea resolved Anemia of chronic disease Normal vitamin B12, folate levels, Iron Panel Hb stable Obstructive uropathy Urinary Retention ABD USD:Bilateral hydronephrosis and dilatation of the urinary bladder Likely secondary to large stool bolus Ensure regular BM H/O Hepatitis C Untreated Follow-up as outpatient DVT Px: on SCD due to GI bleed Code Status Full Code DISPOSITION: Waiting for placement Admission and Anticipated Discharge Date Admission Date: August 06, 2021 Subjective Managed for enteropathogenic E. coli diarrhea. Being managed for severe malnutrition, generalized weakness. Patient was seen and examined for follow up of malnutrition, generalized weakness Lying in bed with no acute distress waiting for insurance authorization Denies fevers, chills, nausea, vomiting, abdominal pain, diarrhea Review of Systems Review of Systems: All systems reviewed & are unremarkable except as noted in Subjective Physical Exam Physical Exam: General- No acute distress, cachectic Head- atraumatic Eyes- PERRL, EOMI, ENT- oropharynx clear Neck- supple, no JVD Lungs- clear to auscultation Heart- regular rhythm; no murmur Abdomen- normal bowel sounds, soft, nontender Extremities- no calf tenderness Neuro- alert, oriented x 3; PERRL, EOMI; no facial palsy; no dysarthria Skin- warm & dry Results & Data Results & Data ([facility]) Vital Signs (Past 12 Hours) Vital Signs Temp Pulse Resp BP Pulse Ox O2 Del Method 09/15/21 07:16 36.5 C 97 H 16 153/84 H 100 Room Air Medications Administered Current Inpatient Medications Acetaminophen (Acetaminophen 500 Mg Tab) 500 mg PO Q8H PRN PRN Reason: Pain or Fever Stop: 10/09/21 14:13 Last Admin: 09/14/21 18:42 Dose: 500 mg Bisacodyl (Bisacodyl 10 Mg Supp) 10 mg NV BID PRN PRN Reason: Constipation Stop: 10/09/21 15:08 Last Admin: 09/15/21 01:30 Dose: 10 mg Dextrose (Dextrose 50% 50 Ml Syringe) 25 - 50 ml IV UD PRN; Protocol PRN Reason: Hypoglycemia Protocol Stop: 10/09/21 07:14 Docusate Sodium (Docusate Sodium 100 Mg Cap) 100 mg PO BID [facility] Stop: 10/09/21 08:59 Last Admin: 09/15/21 09:15 Dose: 100 mg Glucagon (Glucagon For Inj 1 Mg Vial) 1 mg IM UD PRN; Protocol PRN Reason: Hypoglycemia Protocol Stop: 10/09/21 07:14 Glucose (Glucose 40% Gel 15 Gm Tube) 15 - 30 gm PO UD PRN; Protocol PRN Reason: Hypoglycemia Protocol Stop: 10/09/21 07:14 Glucose (Glucose 10 Tab/Tube) 4 - 8 tab PO UD PRN; Protocol PRN Reason: Hypoglycemia Protocol Stop: 10/09/21 07:14 Insulin Aspart (Insulin Aspart Per Unit) 0 units SC 0730 [facility]; Protocol Stop: 10/06/21 07:29 Last Admin: 09/15/21 09:14 Dose: 3 units Insulin Aspart (Insulin Aspart Per Unit) 0 units SC 1130,1630,2100 [facility]; Protocol Stop: 10/05/21 16:29 Last Admin: 09/15/21 12:52 Dose: 3 units Insulin Glargine (Lantus Per Unit Charge) 10 units SQ DAILY [facility]; Protocol Stop: 10/15/21 08:59 Last Admin: 09/15/21 09:13 Dose: 10 units Lidocaine (Lidocaine 5% 1 Patch) 1 patch TD QAM [facility] Stop: 09/23/21 14:44 Last Admin: 09/15/21 09:16 Dose: 1 patch Loperamide HCl (Loperamide Hcl 2 Mg Cap) 2 mg PO DAILY PRN PRN Reason: Diarrhea Stop: 10/09/21 07:46 Magnesium Chloride (Magnesium Chloride W/Calcium 64mg Delayed Rel Tab) 64 mg PO BID [facility] Stop: 09/16/21 08:59 Last Admin: 09/15/21 09:15 Dose: 64 mg Miscellaneous (Remove Lidoderm Patch) 1 ea N/A DAILY@2100 [facility] Stop: 09/23/21 20:59 Last Admin: 09/14/21 21:08 Dose: 1 each Miscellaneous (Carbohydrates For Hypoglycemia ) 15 - 30 gm PO UD PRN PRN Reason: Hypoglycemia Treatment Stop: 10/09/21 07:14 Miscellaneous (Remove Nicoderm Patch) 1 each N/A DAILY@0859 [facility] Stop: 10/09/21 08:58 Last Admin: 09/15/21 09:16 Dose: 1 each Miscellaneous Information (Pharmacy Glycemic Mgmt Consult) 1 each N/A UD PRN PRN Reason: Consult Stop: 10/09/21 16:48 Multivitamins/Minerals (Calcium 600mg + Vit D 400 Iu Tab) 1 tab PO BID [facility] Stop: 10/06/21 20:59 Last Admin: 09/15/21 09:15 Dose: 1 tab Multivitamins/Minerals (Cerovite Adv Formula Tab) 1 tab PO QAM [facility] Stop: 10/07/21 08:59 Last Admin: 09/15/21 09:16 Dose: 1 tab Nicotine (Nicotine 14 Mg/24 Hr Patch) 14 mg TD DAILY [facility] Stop: 10/09/21 08:59 Last Admin: 09/15/21 09:16 Dose: 14 mg Polyethylene Glycol (Polyethylene (Miralax) 17 Gm Pack) 17 gm PO DAILY PRN PRN Reason: Constipation Stop: 09/16/21 08:59 Sodium Chloride (Sodium Chloride 1 Gm Tablet) 2 gm PO TID [facility] Stop: 09/22/21 08:59 Last Admin: 09/15/21 09:15 Dose: 2 gm Tramadol HCl (Tramadol Hcl 50 Mg Tablet) 50 mg PO Q8H PRN PRN Reason: Pain Stop: 09/15/21 17:30 Last Admin: 09/15/21 06:10 Dose: 50 mg Urea (Urea (Urea-Na) 15 Gm Pack) 15 gm PO BID [facility] Stop: 09/16/21 08:59 Last Admin: 09/15/21 09:16 Dose: 15 gm
[2021-09-15] MEDS ORDERED: bisacodyL 10 MG SUPP PR STA (21:39)
[2021-09-16] MEDS: ACETAMINOPHEN 500 MG TAB PO PRN ×2 (04:40→17:55)
--- NOTE | 2021-09-16 07:25 | Hospitalist Progress Note ---
Date of Service September 16, 2021 Assessment & Plan (1) Protein-calorie malnutrition, severe: Plan: This is a 66 yo female with H/O Chronic alcoholism and hepatitis C, who presents with weakness, poor appetite, weight loss and chronic diarrhea. Severe protein calorie malnutrition Generalized Weakness BMI 11.6 Weight loss, poor appetite and failure to thrive Dietitian recs noted Appreciate Palliative Care Input Continue to encourage intake Discussed with dietitian. Patient has had 30 days of folic acid and thiamine Continue daily multivitamin Continue PT/OT CM working on placement Alcohol use Disorder Patient drinks 3 beers and half pint of vodka every day prior to hospitalization Thrombocytopenia Likely secondary to alcohol use S/P 1 unit platelets Resolved Rectal Bleeding -> resolved ? Hemorrhoids Hb stable GI consulted Colonoscopy as outpatient as per GI Resolved Electrolyte abnormalities Hyponatremia ? 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 The bladder is massively distended and there is a large stool ball in the rectum. No acute abnormality is seen. Pancreatic calcifications are compatible with chronic pancreatitis. Stool studies showed enteropathogenic E. coli GI input noted Colonoscopy as outpatient Completed the course of Cefdinir Diarrhea resolved Anemia of chronic disease Normal vitamin B12, folate levels, Iron Panel Hb stable Obstructive uropathy Urinary Retention ABD USD:Bilateral hydronephrosis and dilatation of the urinary bladder Likely secondary to large stool bolus Ensure regular BM H/O Hepatitis C Untreated Follow-up as outpatient DVT Px: on SCD due to GI bleed Code Status Full Code DISPOSITION: Waiting for placement Admission and Anticipated Discharge Date Admission Date: August 06, 2021 Subjective Managed for enteropathogenic E. coli diarrhea. Being managed for severe malnutrition, generalized weakness. Patient was seen and examined for follow up of malnutrition, generalized weakness Lying in bed in no acute distress waiting for insurance authorization /placement Denies fevers, chills, nausea, vomiting, abdominal pain, diarrhea Review of Systems Review of Systems: All systems reviewed & are unremarkable except as noted in Subjective Physical Exam Physical Exam: General- No acute distress, cachectic Head- atraumatic Eyes- PERRL, EOMI, ENT- oropharynx clear Neck- supple, no JVD Lungs- clear to auscultation Heart- regular rhythm; no murmur Abdomen- normal bowel sounds, soft, nontender Extremities- no calf tenderness Neuro- alert, oriented x 3; PERRL, EOMI; no facial palsy; no dysarthria Skin- warm & dry Results & Data Results & Data ([facility]) Vital Signs (Past 12 Hours) Vital Signs Temp Pulse Resp BP Pulse Ox O2 Del Method 09/15/21 23:46 36.9 C 111 H 16 123/75 99 Room Air Laboratory Results 09/16/21 09/15/21 09/15/21 Range/Units 07:58 20:42 17:15 POC Glucose 117 H 148 H 165 H (70-99) mg/dl 09/15/21 Range/Units 12:07 POC Glucose 123 H (70-99) mg/dl Medications Administered Current Inpatient Medications Acetaminophen (Acetaminophen 500 Mg Tab) 500 mg PO Q8H PRN PRN Reason: Pain or Fever Stop: 10/09/21 14:13 Last Admin: 09/16/21 04:40 Dose: 500 mg Bisacodyl (Bisacodyl 10 Mg Supp) 10 mg ID BID PRN PRN Reason: Constipation Stop: 10/09/21 15:08 Last Admin: 09/15/21 01:30 Dose: 10 mg Dextrose (Dextrose 50% 50 Ml Syringe) 25 - 50 ml IV UD PRN; Protocol PRN Reason: Hypoglycemia Protocol Stop: 10/09/21 07:14 Docusate Sodium (Docusate Sodium 100 Mg Cap) 100 mg PO BID [facility] Stop: 10/09/21 08:59 Last Admin: 09/15/21 20:31 Dose: 100 mg Glucagon (Glucagon For Inj 1 Mg Vial) 1 mg IM UD PRN; Protocol PRN Reason: Hypoglycemia Protocol Stop: 10/09/21 07:14 Glucose (Glucose 40% Gel 15 Gm Tube) 15 - 30 gm PO UD PRN; Protocol PRN Reason: Hypoglycemia Protocol Stop: 10/09/21 07:14 Glucose (Glucose 10 Tab/Tube) 4 - 8 tab PO UD PRN; Protocol PRN Reason: Hypoglycemia Protocol Stop: 10/09/21 07:14 Insulin Aspart (Insulin Aspart Per Unit) 0 units SC 0730 [facility]; Protocol Stop: 10/06/21 07:29 Last Admin: 09/15/21 09:14 Dose: 3 units Insulin Aspart (Insulin Aspart Per Unit) 0 units SC 1130,1630,2100 [facility]; Protocol Stop: 10/05/21 16:29 Last Admin: 09/15/21 20:47 Dose: Not Given Insulin Glargine (Lantus Per Unit Charge) 10 units SQ DAILY [facility]; Protocol Stop: 10/15/21 08:59 Last Admin: 09/15/21 09:13 Dose: 10 units Lidocaine (Lidocaine 5% 1 Patch) 1 patch TD QAM [facility] Stop: 09/23/21 14:44 Last Admin: 09/15/21 09:16 Dose: 1 patch Loperamide HCl (Loperamide Hcl 2 Mg Cap) 2 mg PO DAILY PRN PRN Reason: Diarrhea Stop: 10/09/21 07:46 Magnesium Chloride (Magnesium Chloride W/Calcium 64mg Delayed Rel Tab) 64 mg PO BID [facility] Stop: 09/16/21 08:59 Last Admin: 09/15/21 20:31 Dose: 64 mg Miscellaneous (Remove Lidoderm Patch) 1 ea N/A DAILY@2100 [facility] Stop: 09/23/21 20:59 Last Admin: 09/15/21 21:29 Dose: 1 each Miscellaneous (Carbohydrates For Hypoglycemia ) 15 - 30 gm PO UD PRN PRN Reason: Hypoglycemia Treatment Stop: 10/09/21 07:14 Miscellaneous (Remove Nicoderm Patch) 1 each N/A DAILY@0859 [facility] Stop: 10/09/21 08:58 Last Admin: 09/15/21 09:16 Dose: 1 each Miscellaneous Information (Pharmacy Glycemic Mgmt Consult) 1 each N/A UD PRN PRN Reason: Consult Stop: 10/09/21 16:48 Multivitamins/Minerals (Calcium 600mg + Vit D 400 Iu Tab) 1 tab PO BID [facility] Stop: 10/06/21 20:59 Last Admin: 09/15/21 20:31 Dose: 1 tab Multivitamins/Minerals (Cerovite Adv Formula Tab) 1 tab PO QAM [facility] Stop: 10/07/21 08:59 Last Admin: 09/15/21 09:16 Dose: 1 tab Nicotine (Nicotine 14 Mg/24 Hr Patch) 14 mg TD DAILY [facility] Stop: 10/09/21 08:59 Last Admin: 09/15/21 09:16 Dose: 14 mg Polyethylene Glycol (Polyethylene (Miralax) 17 Gm Pack) 17 gm PO DAILY PRN PRN Reason: Constipation Stop: 09/16/21 08:59 Sodium Chloride (Sodium Chloride 1 Gm Tablet) 2 gm PO TID [facility] Stop: 09/22/21 08:59 Last Admin: 09/15/21 20:31 Dose: 2 gm Urea (Urea (Urea-Na) 15 Gm Pack) 15 gm PO BID [facility] Stop: 09/16/21 08:59 Last Admin: 09/15/21 20:31 Dose: 15 gm
[2021-09-16] MEDS: LANTUS PER UNIT CHARGE SQ SCH (09:08)
[2021-09-16] MEDS: INSULIN ASPART PER UNIT SC SCH ×4 (09:08→21:13)
[2021-09-16] MEDS: CEROVITE ADV FORMULA TAB PO SCH (09:09)
[2021-09-16] MEDS: NICOTINE 14 MG/24 HR PATCH TD SCH (09:10)
[2021-09-16] MEDS: LIDOCAINE 5% 1 PATCH TD SCH (09:10)
[2021-09-16] MEDS: SODIUM CHLORIDE 1 GM TABLET PO SCH ×3 (09:10→20:55)
[2021-09-16] MEDS: CALCIUM 600MG + VIT D 400 IU TAB PO SCH ×2 (09:11→20:55)
[2021-09-16] MEDS: DOCUSATE SODIUM 100 MG CAP PO SCH ×2 (09:11→20:55)
[2021-09-16] MEDS: MAGNESIUM CHLORIDE W/CALCIUM 64MG DELAYED REL TAB PO SCH ×2 (10:44→20:54)
[2021-09-16] MEDS: POTASSIUM CHLORIDE CRTAB 20 MEQ TABCR PO SCH (10:44)
[2021-09-16] MEDS: UREA (UREA-NA) 15 GM PACK PO SCH ×2 (10:45→20:56)
--- NOTE | 2021-09-16 12:48 | Pharmacy Report ---
Pharmacy Glycemic Short Note 2 - Date of Service September 16, 2021 - Glycemic Short BSG Results (Last 24 hours): 09/15/21 09/15/21 09/16/21 17:15 20:42 07:58 POC Glucose 165 H 148 H 117 H 09/16/21 12:19 POC Glucose 138 H OUTPATIENT ANTIDIABETIC REGIMEN: * None * HbA1c = 9.2% (08/10/21) ASSESSMENT: 09/16/21 * Patient's BSGs yesterday were [phone] mg/dL. Fasting today is 117 mg/dL. * Will continue regimen. 10% reduction in Lantus available if fasting BSGs continue to trend downwards. 09/12 * No po intake charted yesterday and no Novolog administered. Some BSG's below goal range. Will decrease Lantus slightly. 09/08: * BSGs relatively well-controlled yesterday (ranging 71-184 mg/dL) * Received 31 units of insulin (22 units of basal and 9 units of prandial/correctional bolus) * Fasting BSG of 96 mg/dL this morning, will reduce basal by ~10% PLAN FOR INPATIENT GLYCEMIC CONTROL: * Basal insulin * Lantus 10 units SC qAM (9 units if BSG < 120 mg/dL) * Bolus insulin * NovoLog per scale ACHS or Q6hrs while NPO * Goal Range: Low 110 mg/dL - High 140 mg/dL * Correction Factor: 30 mg/dL/unit with breakfast, 25 with lunch, dinner, HS * Nutritional / Prandial insulin per carb ratio of 1 unit per 9 grams CHO consumed with breakfast, 1 unit per 8 grams CHO with lunch, dinner, and HS
[2021-09-16] MEDS: traMADol HCL 50 MG TABLET PO PRN ×2 (13:09→20:54)
--- NOTE | 2021-09-17 07:33 | Hospitalist Progress Note ---
Date of Service September 17, 2021 Assessment & Plan (1) Protein-calorie malnutrition, severe: Plan: This is a 66 yo female with H/O Chronic alcoholism and hepatitis C, who presents with weakness, poor appetite, weight loss and chronic diarrhea. Severe protein calorie malnutrition Generalized Weakness BMI 11.6 Weight loss, poor appetite and failure to thrive Dietitian recs noted Appreciate Palliative Care Input Continue to encourage intake Discussed with dietitian. Patient has had 30 days of folic acid and thiamine Continue daily multivitamin Continue PT/OT CM working on placement Alcohol use Disorder Patient drinks 3 beers and half pint of vodka every day prior to hospitalization Thrombocytopenia Likely secondary to alcohol use S/P 1 unit platelets Resolved Rectal Bleeding -> resolved ? Hemorrhoids Hb stable GI consulted Colonoscopy as outpatient as per GI Resolved Electrolyte abnormalities Hyponatremia ? Possible chronic hyponatremia at baseline in setting of Hyperglycemia, alcohol use disorder Sodium 136>>123>125>126> 129 ---->>>132 Nephro recs noted Currently on urea and salt tab Monitor Follow up with nephrology as outpt DM II New diagnosis HbA1c:9.2 Continue ISS Monitor BGs [employer] Worker consulted Pharmacy Glycemic following Enteropathogenic E coli Colitis Chronic diarrhea: Likely overflow secondary to constipation, alcohol use and Infectious origin --CT ABD:The patient is cachectic. The bladder is massively distended and there is a large stool ball in the rectum. No acute abnormality is seen. Pancreatic calcifications are compatible with chronic pancreatitis. Stool studies showed enteropathogenic E. coli GI input noted Colonoscopy as outpatient Completed the course of Cefdinir Diarrhea resolved Anemia of chronic disease Normal vitamin B12, folate levels, Iron Panel Hb stable Obstructive uropathy Urinary Retention ABD USD:Bilateral hydronephrosis and dilatation of the urinary bladder Likely secondary to large stool bolus Ensure regular BM H/O Hepatitis C Untreated Follow-up as outpatient DVT Px: on SCD due to GI bleed Code Status Full Code DISPOSITION: Waiting for placement Admission and Anticipated Discharge Date Admission Date: August 06, 2021 Subjective Managed for enteropathogenic E. coli diarrhea. Being managed for severe malnutrition, generalized weakness. Patient was seen and examined for follow up of malnutrition, generalized weakness Lying in bed in no acute distress, watching TV waiting for insurance authorization /placement Denies fevers, chills, nausea, vomiting, abdominal pain, diarrhea Review of Systems Review of Systems: All systems reviewed & are unremarkable except as noted in Subjective Physical Exam Physical Exam: General- No acute distress, cachectic Head- atraumatic Eyes- PERRL, EOMI, ENT- oropharynx clear Neck- supple, no JVD Lungs- clear to auscultation Heart- regular rhythm; no murmur Abdomen- normal bowel sounds, soft, nontender Extremities- no calf tenderness Neuro- alert, oriented x 3; PERRL, EOMI; no facial palsy; no dysarthria Skin- warm & dry Results & Data Results & Data ([facility]) Vital Signs (Past 12 Hours) Vital Signs Temp Pulse Resp BP Pulse Ox O2 Del Method 09/16/21 22:07 36.9 C 110 H 17 145/85 H 98 Room Air Medications Administered Current Inpatient Medications Acetaminophen (Acetaminophen 500 Mg Tab) 500 mg PO Q8H PRN PRN Reason: Pain or Fever Stop: 10/09/21 14:13 Last Admin: 09/16/21 17:55 Dose: 500 mg Bisacodyl (Bisacodyl 10 Mg Supp) 10 mg OR BID PRN PRN Reason: Constipation Stop: 10/09/21 15:08 Last Admin: 09/15/21 01:30 Dose: 10 mg Dextrose (Dextrose 50% 50 Ml Syringe) 25 - 50 ml IV UD PRN; Protocol PRN Reason: Hypoglycemia Protocol Stop: 10/09/21 07:14 Docusate Sodium (Docusate Sodium 100 Mg Cap) 100 mg PO BID [facility] Stop: 10/09/21 08:59 Last Admin: 09/16/21 20:55 Dose: 100 mg Glucagon (Glucagon For Inj 1 Mg Vial) 1 mg IM UD PRN; Protocol PRN Reason: Hypoglycemia Protocol Stop: 10/09/21 07:14 Glucose (Glucose 40% Gel 15 Gm Tube) 15 - 30 gm PO UD PRN; Protocol PRN Reason: Hypoglycemia Protocol Stop: 10/09/21 07:14 Glucose (Glucose 10 Tab/Tube) 4 - 8 tab PO UD PRN; Protocol PRN Reason: Hypoglycemia Protocol Stop: 10/09/21 07:14 Insulin Aspart (Insulin Aspart Per Unit) 0 units SC 0730 [facility]; Protocol Stop: 10/06/21 07:29 Last Admin: 09/16/21 09:08 Dose: 2 units Insulin Aspart (Insulin Aspart Per Unit) 0 units SC 1130,1630,2100 [facility]; Protocol Stop: 10/05/21 16:29 Last Admin: 09/16/21 21:13 Dose: 1 units Insulin Glargine (Lantus Per Unit Charge) 0 units SQ DAILY [facility]; Protocol Stop: 10/17/21 08:59 Lidocaine (Lidocaine 5% 1 Patch) 1 patch TD QAM [facility] Stop: 09/23/21 14:44 Last Admin: 09/16/21 09:10 Dose: 1 patch Loperamide HCl (Loperamide Hcl 2 Mg Cap) 2 mg PO DAILY PRN PRN Reason: Diarrhea Stop: 10/09/21 07:46 Magnesium Chloride (Magnesium Chloride W/Calcium 64mg Delayed Rel Tab) 64 mg PO BID [facility] Stop: 10/16/21 08:59 Last Admin: 09/16/21 20:54 Dose: 64 mg Miscellaneous (Remove Lidoderm Patch) 1 ea N/A DAILY@2100 [facility] Stop: 09/23/21 20:59 Last Admin: 09/16/21 20:56 Dose: 1 each Miscellaneous (Carbohydrates For Hypoglycemia ) 15 - 30 gm PO UD PRN PRN Reason: Hypoglycemia Treatment Stop: 10/09/21 07:14 Miscellaneous (Remove Nicoderm Patch) 1 each N/A DAILY@0859 [facility] Stop: 10/09/21 08:58 Last Admin: 09/16/21 09:11 Dose: 1 each Miscellaneous Information (Pharmacy Glycemic Mgmt Consult) 1 each N/A UD PRN PRN Reason: Consult Stop: 10/09/21 16:48 Multivitamins/Minerals (Calcium 600mg + Vit D 400 Iu Tab) 1 tab PO BID [facility] Stop: 10/06/21 20:59 Last Admin: 09/16/21 20:55 Dose: 1 tab Multivitamins/Minerals (Cerovite Adv Formula Tab) 1 tab PO QAM [facility] Stop: 10/07/21 08:59 Last Admin: 09/16/21 09:09 Dose: 1 tab Nicotine (Nicotine 14 Mg/24 Hr Patch) 14 mg TD DAILY [facility] Stop: 10/09/21 08:59 Last Admin: 09/16/21 09:10 Dose: 14 mg Potassium Chloride (Potassium Chloride Crtab 20 Meq Tabcr) 20 meq PO DAILY [facility] Stop: 10/16/21 08:59 Last Admin: 09/16/21 10:44 Dose: 20 meq Sodium Chloride (Sodium Chloride 1 Gm Tablet) 2 gm PO TID [facility] Stop: 09/22/21 08:59 Last Admin: 09/16/21 20:55 Dose: 2 gm Tramadol HCl (Tramadol Hcl 50 Mg Tablet) 50 mg PO Q8H PRN PRN Reason: Pain Stop: 10/16/21 09:52 Last Admin: 09/16/21 20:54 Dose: 50 mg Urea (Urea (Urea-Na) 15 Gm Pack) 15 gm PO BID [facility] Stop: 10/16/21 08:59 Last Admin: 09/16/21 20:56 Dose: 15 gm
[2021-09-17] MEDS: UREA (UREA-NA) 15 GM PACK PO SCH ×2 (08:26→21:18)
[2021-09-17] MEDS: MAGNESIUM CHLORIDE W/CALCIUM 64MG DELAYED REL TAB PO SCH ×2 (08:26→21:18)
[2021-09-17] MEDS: SODIUM CHLORIDE 1 GM TABLET PO SCH ×3 (08:27→21:18)
[2021-09-17] MEDS: POTASSIUM CHLORIDE CRTAB 20 MEQ TABCR PO SCH (08:27)
[2021-09-17] MEDS: CALCIUM 600MG + VIT D 400 IU TAB PO SCH ×2 (08:27→21:17)
[2021-09-17] MEDS: CEROVITE ADV FORMULA TAB PO SCH (08:27)
[2021-09-17] MEDS: LIDOCAINE 5% 1 PATCH TD SCH (08:28)
[2021-09-17] MEDS: NICOTINE 14 MG/24 HR PATCH TD SCH (08:28)
[2021-09-17] MEDS: DOCUSATE SODIUM 100 MG CAP PO SCH ×2 (08:29→21:17)
[2021-09-17] MEDS: LANTUS PER UNIT CHARGE SQ SCH (09:02)
[2021-09-17] MEDS: INSULIN ASPART PER UNIT SC SCH ×4 (09:02→21:19)
[2021-09-17] MEDS: traMADol HCL 50 MG TABLET PO PRN ×2 (10:38→19:45)
[2021-09-18] MEDS: ACETAMINOPHEN 500 MG TAB PO PRN ×2 (00:13→10:54)
[2021-09-18] MEDS: NICOTINE 14 MG/24 HR PATCH TD SCH (09:22)
[2021-09-18] MEDS: CALCIUM 600MG + VIT D 400 IU TAB PO SCH ×2 (09:22→20:31)
[2021-09-18] MEDS: SODIUM CHLORIDE 1 GM TABLET PO SCH ×3 (09:22→20:30)
[2021-09-18] MEDS: MAGNESIUM CHLORIDE W/CALCIUM 64MG DELAYED REL TAB PO SCH ×2 (09:22→20:30)
[2021-09-18] MEDS: CEROVITE ADV FORMULA TAB PO SCH (09:23)
[2021-09-18] MEDS: LIDOCAINE 5% 1 PATCH TD SCH (09:23)
[2021-09-18] MEDS: DOCUSATE SODIUM 100 MG CAP PO SCH ×2 (09:23→20:31)
[2021-09-18] MEDS: POTASSIUM CHLORIDE CRTAB 20 MEQ TABCR PO SCH (09:23)
[2021-09-18] MEDS: UREA (UREA-NA) 15 GM PACK PO SCH ×2 (09:24→20:30)
[2021-09-18] MEDS: LANTUS PER UNIT CHARGE SQ SCH (09:43)
[2021-09-18] MEDS: INSULIN ASPART PER UNIT SC SCH ×4 (09:43→21:18)
--- NOTE | 2021-09-18 10:29 | Hospitalist Progress Note ---
Date of Service September 18, 2021 Assessment & Plan (1) Protein-calorie malnutrition, severe: Plan: This is a 66 yo female with H/O Chronic alcoholism and hepatitis C, who presents with weakness, poor appetite, weight loss and chronic diarrhea. Severe protein calorie malnutrition Generalized Weakness BMI 11.6 Weight loss, poor appetite and failure to thrive Dietitian recs noted Appreciate Palliative Care Input Continue to encourage intake Discussed with dietitian. Patient has had 30 days of folic acid and thiamine Continue daily multivitamin Continue PT/OT CM working on placement Alcohol use Disorder Patient drinks 3 beers and half pint of vodka every day prior to hospitalization Thrombocytopenia Likely secondary to alcohol use S/P 1 unit platelets Resolved Rectal Bleeding -> resolved ? Hemorrhoids Hb stable GI consulted Colonoscopy as outpatient as per GI Resolved Electrolyte abnormalities Hyponatremia ? Possible chronic hyponatremia at baseline in setting of Hyperglycemia, alcohol use disorder Sodium 136>>123>125>126> 129 ---->>>132 Nephro recs noted Currently on urea and salt tab Monitor Follow up with nephrology as outpt DM II New diagnosis HbA1c:9.2 Continue ISS Monitor BGs Ventilating Expert consulted Pharmacy Glycemic following Enteropathogenic E coli Colitis Chronic diarrhea: Likely overflow secondary to constipation, alcohol use and Infectious origin --CT ABD:The patient is cachectic. The bladder is massively distended and there is a large stool ball in the rectum. No acute abnormality is seen. Pancreatic calcifications are compatible with chronic pancreatitis. Stool studies showed enteropathogenic E. coli GI input noted Colonoscopy as outpatient Completed the course of Cefdinir Diarrhea resolved Anemia of chronic disease Normal vitamin B12, folate levels, Iron Panel Hb stable Obstructive uropathy Urinary Retention ABD USD:Bilateral hydronephrosis and dilatation of the urinary bladder Likely secondary to large stool bolus Ensure regular BM H/O Hepatitis C Untreated Follow-up as outpatient DVT Px: on SCD due to GI bleed Code Status Full Code DISPOSITION: Waiting for placement Admission and Anticipated Discharge Date Admission Date: August 06, 2021 Subjective Managed for enteropathogenic E. coli diarrhea. Being managed for severe malnutrition, generalized weakness. Patient was seen and examined for follow up of malnutrition, generalized weakness Lying in bed in no acute distress, watching TV waiting for insurance authorization /placement Denies fevers, chills, nausea, vomiting, abdominal pain, diarrhea Review of Systems Review of Systems: All systems reviewed & are unremarkable except as noted in Subjective Physical Exam Physical Exam: General- No acute distress, cachectic Head- atraumatic Eyes- PERRL, EOMI, ENT- oropharynx clear Neck- supple, no JVD Lungs- clear to auscultation Heart- regular rhythm; no murmur Abdomen- normal bowel sounds, soft, nontender Extremities- no calf tenderness Neuro- alert, oriented x 3; PERRL, EOMI; no facial palsy; no dysarthria Skin- warm & dry Results & Data Results & Data ([facility]) Vital Signs (Past 12 Hours) Vital Signs Temp Pulse Resp BP Pulse Ox O2 Del Method 09/18/21 07:44 Room Air 09/18/21 07:02 36.6 C 109 H 18 127/79 99 Room Air 09/17/21 22:37 36.9 C 104 H 18 144/75 H 99 Room Air Laboratory Results 09/18/21 09/17/21 09/17/21 Range/Units 07:49 20:43 17:09 POC Glucose 162 H 139 H 177 H (70-99) mg/dl 09/17/21 Range/Units 12:43 POC Glucose 135 H (70-99) mg/dl Medications Administered Current Inpatient Medications Acetaminophen (Acetaminophen 500 Mg Tab) 500 mg PO Q8H PRN PRN Reason: Pain or Fever Stop: 10/09/21 14:13 Last Admin: 09/18/21 00:13 Dose: 500 mg Bisacodyl (Bisacodyl 10 Mg Supp) 10 mg UT BID PRN PRN Reason: Constipation Stop: 10/09/21 15:08 Last Admin: 09/15/21 01:30 Dose: 10 mg Dextrose (Dextrose 50% 50 Ml Syringe) 25 - 50 ml IV UD PRN; Protocol PRN Reason: Hypoglycemia Protocol Stop: 10/09/21 07:14 Docusate Sodium (Docusate Sodium 100 Mg Cap) 100 mg PO BID [facility] Stop: 10/09/21 08:59 Last Admin: 09/18/21 09:23 Dose: 100 mg Glucagon (Glucagon For Inj 1 Mg Vial) 1 mg IM UD PRN; Protocol PRN Reason: Hypoglycemia Protocol Stop: 10/09/21 07:14 Glucose (Glucose 40% Gel 15 Gm Tube) 15 - 30 gm PO UD PRN; Protocol PRN Reason: Hypoglycemia Protocol Stop: 10/09/21 07:14 Glucose (Glucose 10 Tab/Tube) 4 - 8 tab PO UD PRN; Protocol PRN Reason: Hypoglycemia Protocol Stop: 10/09/21 07:14 Insulin Aspart (Insulin Aspart Per Unit) 0 units SC 0730 [facility]; Protocol Stop: 10/06/21 07:29 Last Admin: 09/18/21 09:43 Dose: 1 units Insulin Aspart (Insulin Aspart Per Unit) 0 units SC 1130,1630,2100 [facility]; Protocol Stop: 10/05/21 16:29 Last Admin: 09/17/21 21:19 Dose: Not Given Insulin Glargine (Lantus Per Unit Charge) 0 units SQ DAILY [facility]; Protocol Stop: 10/17/21 08:59 Last Admin: 09/18/21 09:43 Dose: 10 units Lidocaine (Lidocaine 5% 1 Patch) 1 patch TD QAM [facility] Stop: 09/23/21 14:44 Last Admin: 09/18/21 09:23 Dose: 1 patch Loperamide HCl (Loperamide Hcl 2 Mg Cap) 2 mg PO DAILY PRN PRN Reason: Diarrhea Stop: 10/09/21 07:46 Magnesium Chloride (Magnesium Chloride W/Calcium 64mg Delayed Rel Tab) 64 mg PO BID [facility] Stop: 10/16/21 08:59 Last Admin: 09/18/21 09:22 Dose: 64 mg Miscellaneous (Remove Lidoderm Patch) 1 ea N/A DAILY@2100 [facility] Stop: 09/23/21 20:59 Last Admin: 09/17/21 21:18 Dose: 1 each Miscellaneous (Carbohydrates For Hypoglycemia ) 15 - 30 gm PO UD PRN PRN Reason: Hypoglycemia Treatment Stop: 10/09/21 07:14 Miscellaneous (Remove Nicoderm Patch) 1 each N/A DAILY@0859 [facility] Stop: 10/09/21 08:58 Last Admin: 09/18/21 09:22 Dose: 1 each Miscellaneous Information (Pharmacy Glycemic Mgmt Consult) 1 each N/A UD PRN PRN Reason: Consult Stop: 10/09/21 16:48 Multivitamins/Minerals (Calcium 600mg + Vit D 400 Iu Tab) 1 tab PO BID [facility] Stop: 10/06/21 20:59 Last Admin: 09/18/21 09:22 Dose: 1 tab Multivitamins/Minerals (Cerovite Adv Formula Tab) 1 tab PO QAM [facility] Stop: 10/07/21 08:59 Last Admin: 09/18/21 09:23 Dose: 1 tab Nicotine (Nicotine 14 Mg/24 Hr Patch) 14 mg TD DAILY [facility] Stop: 10/09/21 08:59 Last Admin: 09/18/21 09:22 Dose: 14 mg Potassium Chloride (Potassium Chloride Crtab 20 Meq Tabcr) 20 meq PO DAILY [facility] Stop: 10/16/21 08:59 Last Admin: 09/18/21 09:23 Dose: 20 meq Sodium Chloride (Sodium Chloride 1 Gm Tablet) 2 gm PO TID [facility] Stop: 09/22/21 08:59 Last Admin: 09/18/21 09:22 Dose: 2 gm Tramadol HCl (Tramadol Hcl 50 Mg Tablet) 50 mg PO Q8H PRN PRN Reason: Pain Stop: 10/16/21 09:52 Last Admin: 09/17/21 19:45 Dose: 50 mg Urea (Urea (Urea-Na) 15 Gm Pack) 15 gm PO BID [facility] Stop: 10/16/21 08:59 Last Admin: 09/18/21 09:24 Dose: 15 gm
[2021-09-18] MEDS: traMADol HCL 50 MG TABLET PO PRN (16:41)
[2021-09-19] MEDS: traMADol HCL 50 MG TABLET PO PRN ×2 (00:15→20:04)
[2021-09-19] MEDS: MELATONIN 3 MG TAB PO PRN ×2 (00:19→21:15)
--- NOTE | 2021-09-19 08:10 | Hospitalist Progress Note ---
Date of Service September 19, 2021 Assessment & Plan (1) Protein-calorie malnutrition, severe: Plan: This is a 66 yo female with H/O Chronic alcoholism and hepatitis C, who presents with weakness, poor appetite, weight loss and chronic diarrhea. Severe protein calorie malnutrition Generalized Weakness BMI 11.6 Weight loss, poor appetite and failure to thrive Dietitian recs noted Appreciate Palliative Care Input Continue to encourage intake Discussed with dietitian. Patient has had 30 days of folic acid and thiamine Continue daily multivitamin Continue PT/OT CM working on placement Alcohol use Disorder Patient drinks 3 beers and half pint of vodka every day prior to hospitalization Thrombocytopenia Likely secondary to alcohol use S/P 1 unit platelets Resolved Rectal Bleeding -> resolved ? Hemorrhoids Hb stable GI consulted Colonoscopy as outpatient as per GI Resolved Electrolyte abnormalities Hyponatremia ? Possible chronic hyponatremia at baseline in setting of Hyperglycemia, alcohol use disorder Sodium 136>>123>125>126> 129 ---->>>132 Nephro recs noted Currently on urea and salt tab Monitor Follow up with nephrology as outpt DM II New diagnosis HbA1c:9.2 Continue ISS Monitor BGs Licensed Massage Practitioner consulted Pharmacy Glycemic following Enteropathogenic E coli Colitis Chronic diarrhea: Likely overflow secondary to constipation, alcohol use and Infectious origin --CT ABD:The patient is cachectic. The bladder is massively distended and there is a large stool ball in the rectum. No acute abnormality is seen. Pancreatic calcifications are compatible with chronic pancreatitis. Stool studies showed enteropathogenic E. coli GI input noted Colonoscopy as outpatient Completed the course of Cefdinir Diarrhea resolved Anemia of chronic disease Normal vitamin B12, folate levels, Iron Panel Hb stable Obstructive uropathy Urinary Retention ABD USD:Bilateral hydronephrosis and dilatation of the urinary bladder Likely secondary to large stool bolus Ensure regular BM H/O Hepatitis C Untreated Follow-up as outpatient DVT Px: on SCD due to GI bleed Code Status Full Code DISPOSITION: Waiting for placement Admission and Anticipated Discharge Date Admission Date: August 06, 2021 Subjective Managed for enteropathogenic E. coli diarrhea. Being managed for severe malnutrition, generalized weakness. Patient was seen and examined for follow up of malnutrition, generalized weakness Lying in bed in no acute distress, watching TV waiting for insurance authorization /placement Denies fevers, chills, nausea, vomiting, abdominal pain, diarrhea Review of Systems Review of Systems: All systems reviewed & are unremarkable except as noted in Subjective Physical Exam Physical Exam: General- No acute distress, cachectic Head- atraumatic Eyes- PERRL, EOMI, ENT- oropharynx clear Neck- supple, no JVD Lungs- clear to auscultation Heart- regular rhythm; no murmur Abdomen- normal bowel sounds, soft, nontender Extremities- no calf tenderness Neuro- alert, oriented x 3; PERRL, EOMI; no facial palsy; no dysarthria Skin- warm & dry Results & Data Results & Data ([facility]) Vital Signs (Past 12 Hours) Vital Signs Temp Pulse Resp BP Pulse Ox O2 Del Method 09/19/21 07:42 Room Air 09/18/21 22:56 36.8 C 102 H 18 134/77 98 Room Air 09/18/21 20:30 Room Air Medications Administered Current Inpatient Medications Acetaminophen (Acetaminophen 500 Mg Tab) 500 mg PO Q8H PRN PRN Reason: Pain or Fever Stop: 10/09/21 14:13 Last Admin: 09/18/21 10:54 Dose: 500 mg Bisacodyl (Bisacodyl 10 Mg Supp) 10 mg NC BID PRN PRN Reason: Constipation Stop: 10/09/21 15:08 Last Admin: 09/15/21 01:30 Dose: 10 mg Dextrose (Dextrose 50% 50 Ml Syringe) 25 - 50 ml IV UD PRN; Protocol PRN Reason: Hypoglycemia Protocol Stop: 10/09/21 07:14 Docusate Sodium (Docusate Sodium 100 Mg Cap) 100 mg PO BID [facility] Stop: 10/09/21 08:59 Last Admin: 09/18/21 20:31 Dose: Not Given Glucagon (Glucagon For Inj 1 Mg Vial) 1 mg IM UD PRN; Protocol PRN Reason: Hypoglycemia Protocol Stop: 10/09/21 07:14 Glucose (Glucose 40% Gel 15 Gm Tube) 15 - 30 gm PO UD PRN; Protocol PRN Reason: Hypoglycemia Protocol Stop: 10/09/21 07:14 Glucose (Glucose 10 Tab/Tube) 4 - 8 tab PO UD PRN; Protocol PRN Reason: Hypoglycemia Protocol Stop: 10/09/21 07:14 Insulin Aspart (Insulin Aspart Per Unit) 0 units SC 0730 [facility]; Protocol Stop: 10/06/21 07:29 Last Admin: 09/18/21 09:43 Dose: 1 units Insulin Aspart (Insulin Aspart Per Unit) 0 units SC 1130,1630,2100 [facility]; Protocol Stop: 10/05/21 16:29 Last Admin: 09/18/21 21:18 Dose: 5 units Insulin Glargine (Lantus Per Unit Charge) 0 units SQ DAILY [facility]; Protocol Stop: 10/17/21 08:59 Last Admin: 09/18/21 09:43 Dose: 10 units Lidocaine (Lidocaine 5% 1 Patch) 1 patch TD QAM [facility] Stop: 09/23/21 14:44 Last Admin: 09/18/21 09:23 Dose: 1 patch Loperamide HCl (Loperamide Hcl 2 Mg Cap) 2 mg PO DAILY PRN PRN Reason: Diarrhea Stop: 10/09/21 07:46 Magnesium Chloride (Magnesium Chloride W/Calcium 64mg Delayed Rel Tab) 64 mg PO BID [facility] Stop: 10/16/21 08:59 Last Admin: 09/18/21 20:30 Dose: 64 mg Melatonin (Melatonin 3 Mg Tab) 3 mg PO HS PRN PRN Reason: Sleep Stop: 10/19/21 00:02 Last Admin: 09/19/21 00:19 Dose: 3 mg Miscellaneous (Remove Lidoderm Patch) 1 ea N/A DAILY@2100 [facility] Stop: 09/23/21 20:59 Last Admin: 09/18/21 20:31 Dose: 1 each Miscellaneous (Carbohydrates For Hypoglycemia ) 15 - 30 gm PO UD PRN PRN Reason: Hypoglycemia Treatment Stop: 10/09/21 07:14 Miscellaneous (Remove Nicoderm Patch) 1 each N/A DAILY@0859 [facility] Stop: 10/09/21 08:58 Last Admin: 09/18/21 09:22 Dose: 1 each Miscellaneous Information (Pharmacy Glycemic Mgmt Consult) 1 each N/A UD PRN PRN Reason: Consult Stop: 10/09/21 16:48 Multivitamins/Minerals (Calcium 600mg + Vit D 400 Iu Tab) 1 tab PO BID [facility] Stop: 10/06/21 20:59 Last Admin: 09/18/21 20:31 Dose: 1 tab Multivitamins/Minerals (Cerovite Adv Formula Tab) 1 tab PO QAM [facility] Stop: 10/07/21 08:59 Last Admin: 09/18/21 09:23 Dose: 1 tab Nicotine (Nicotine 14 Mg/24 Hr Patch) 14 mg TD DAILY [facility] Stop: 10/09/21 08:59 Last Admin: 09/18/21 09:22 Dose: 14 mg Potassium Chloride (Potassium Chloride Crtab 20 Meq Tabcr) 20 meq PO DAILY [facility] Stop: 10/16/21 08:59 Last Admin: 09/18/21 09:23 Dose: 20 meq Sodium Chloride (Sodium Chloride 1 Gm Tablet) 2 gm PO TID [facility] Stop: 09/22/21 08:59 Last Admin: 09/18/21 20:30 Dose: 2 gm Tramadol HCl (Tramadol Hcl 50 Mg Tablet) 50 mg PO Q8H PRN PRN Reason: Pain Stop: 10/16/21 09:52 Last Admin: 09/19/21 00:15 Dose: 50 mg Urea (Urea (Urea-Na) 15 Gm Pack) 15 gm PO BID [facility] Stop: 10/16/21 08:59 Last Admin: 09/18/21 20:30 Dose: 15 gm
[2021-09-19] MEDS: DOCUSATE SODIUM 100 MG CAP PO SCH ×2 (08:42→21:16)
[2021-09-19] MEDS: MAGNESIUM CHLORIDE W/CALCIUM 64MG DELAYED REL TAB PO SCH ×2 (08:43→21:16)
[2021-09-19] MEDS: SODIUM CHLORIDE 1 GM TABLET PO SCH ×3 (08:43→21:15)
[2021-09-19] MEDS: CEROVITE ADV FORMULA TAB PO SCH (08:43)
[2021-09-19] MEDS: CALCIUM 600MG + VIT D 400 IU TAB PO SCH ×2 (08:43→21:16)
[2021-09-19] MEDS: UREA (UREA-NA) 15 GM PACK PO SCH ×2 (08:43→21:15)
[2021-09-19] MEDS: POTASSIUM CHLORIDE CRTAB 20 MEQ TABCR PO SCH (08:43)
[2021-09-19] MEDS: NICOTINE 14 MG/24 HR PATCH TD SCH (08:44)
[2021-09-19] MEDS: LIDOCAINE 5% 1 PATCH TD SCH (08:44)
[2021-09-19] MEDS: INSULIN ASPART PER UNIT SC SCH ×4 (08:50→21:21)
[2021-09-19] MEDS: LANTUS PER UNIT CHARGE SQ SCH (08:58)
--- NOTE | 2021-09-19 10:37 | Pharmacy Report ---
Pharmacy Glycemic Short Note 2 - Date of Service September 19, 2021 - Glycemic Short BSG Results (Last 24 hours): 09/18/21 09/18/21 09/18/21 11:54 17:19 20:42 POC Glucose 271 H 117 H 263 H 09/19/21 08:10 POC Glucose 159 H OUTPATIENT ANTIDIABETIC REGIMEN: * None * HbA1c = 9.2% (08/10/21) ASSESSMENT: 09/19/21 * BSGs yesterday were [phone] mg/dL. Patient received 23 units of insulin (10 units of basal and 13 units of bolus). * Per nursing notes, patient is drinking Boost outside of mealtimes. * As BSGs are generally controlled (previous 4 days (09/15-09/17) BSGs not above 200 mg/dL) continue current regimen. 09/16/21 * Patient's BSGs yesterday were [phone] mg/dL. Fasting today is 117 mg/dL. * Will continue regimen. 10% reduction in Lantus available if fasting BSGs continue to trend downwards. 09/12 * No po intake charted yesterday and no Novolog administered. Some BSG's below goal range. Will decrease Lantus slightly. 09/08: * BSGs relatively well-controlled yesterday (ranging 71-184 mg/dL) * Received 31 units of insulin (22 units of basal and 9 units of prandial/correctional bolus) * Fasting BSG of 96 mg/dL this morning, will reduce basal by ~10% PLAN FOR INPATIENT GLYCEMIC CONTROL: * Basal insulin * Lantus 10 units SC qAM (9 units if BSG < 120 mg/dL) * Bolus insulin * NovoLog per scale ACHS or Q6hrs while NPO * Goal Range: Low 110 mg/dL - High 140 mg/dL * Correction Factor: 30 mg/dL/unit with breakfast, 25 with lunch, dinner, HS * Nutritional / Prandial insulin per carb ratio of 1 unit per 9 grams CHO consumed with breakfast, 1 unit per 8 grams CHO with lunch, dinner, and HS
[2021-09-19] MEDS: ACETAMINOPHEN 500 MG TAB PO PRN ×2 (13:19→21:19)
[2021-09-20] MEDS: SODIUM CHLORIDE 1 GM TABLET PO SCH ×3 (07:41→21:39)
[2021-09-20] MEDS: MAGNESIUM CHLORIDE W/CALCIUM 64MG DELAYED REL TAB PO SCH ×2 (07:41→21:39)
[2021-09-20] MEDS: CALCIUM 600MG + VIT D 400 IU TAB PO SCH ×2 (07:41→21:40)
[2021-09-20] MEDS: traMADol HCL 50 MG TABLET PO PRN ×2 (07:41→19:23)
[2021-09-20] MEDS: CEROVITE ADV FORMULA TAB PO SCH (07:42)
[2021-09-20] MEDS: POTASSIUM CHLORIDE CRTAB 20 MEQ TABCR PO SCH (07:42)
[2021-09-20] MEDS: LIDOCAINE 5% 1 PATCH TD SCH (07:42)
[2021-09-20] MEDS: NICOTINE 14 MG/24 HR PATCH TD SCH (07:43)
[2021-09-20] MEDS: UREA (UREA-NA) 15 GM PACK PO SCH ×2 (07:44→21:41)
[2021-09-20] MEDS: DOCUSATE SODIUM 100 MG CAP PO SCH ×2 (07:44→21:40)
[2021-09-20 07:55] LABS: Hematocrit (blood only) 31.7 % (34.1-44.9); Hemoglobin 10.9 g/dl (12.0-16.0); Mean Corpuscular Hemoglobin 32.8 pg (25.0-34.0); Mean Corpuscular Hgb Conc 34.4 g/dL (32.0-36.0); Mean Corpuscular Volume 95.5 fL (80.0-100.0); Mean Platelet Volume 10.1 fL (9.4-12.3); Platelet Count 184 K/uL (130-400); RDW Coefficient of Variation 12.9 % (11.5-14.5); RDW Standard Deviation 45.4 fL (36.4-46.3); Red Blood Count 3.32 M/uL (3.93-5.22); White Blood Count 5.54 K/ul (4.8-10.8)
[2021-09-20 08:28] LABS: BUN Creatinine Ratio 138.5 (10-20); Creatinine Clr Calc Pharmacy 115.6 ml/min; Est GFR (Non-African American) 126.8 ml/min; Magnesium 1.6 mg/dl (1.7-2.4); Phosphorus 4.3 mg/dl (2.5-4.9); Potassium 4.1 mmol/L (3.5-5.1)
[2021-09-20] MEDS: INSULIN ASPART PER UNIT SC SCH ×4 (08:51→21:37)
[2021-09-20] MEDS: LANTUS PER UNIT CHARGE SQ SCH (08:54)
--- NOTE | 2021-09-20 13:50 | Hospitalist Progress Note ---
Date of Service September 20, 2021 Assessment & Plan (1) Protein-calorie malnutrition, severe: Plan: This is a 66 yo female with H/O Chronic alcoholism and hepatitis C, who presents with weakness, poor appetite, weight loss and chronic diarrhea. Severe protein calorie malnutrition Generalized Weakness BMI 11.6 Weight loss, poor appetite and failure to thrive Dietitian recs noted Appreciate Palliative Care Input Continue to encourage intake Discussed with dietitian. Patient has had 30 days of folic acid and thiamine Continue daily multivitamin Continue PT/OT CM working on placement Alcohol use Disorder Patient drinks 3 beers and half pint of vodka every day prior to hospitalization Thrombocytopenia Likely secondary to alcohol use S/P 1 unit platelets Resolved Rectal Bleeding -> resolved ? Hemorrhoids Hb stable GI consulted Colonoscopy as outpatient as per GI Resolved Electrolyte abnormalities Hyponatremia ? Possible chronic hyponatremia at baseline in setting of Hyperglycemia, alcohol use disorder Sodium 136>>123>125>126> 129 ---->>>132 Nephro recs noted Currently on urea and salt tab Monitor Follow up with nephrology as outpt DM II New diagnosis HbA1c:9.2 Continue ISS Monitor BGs Driver Examiner consulted Pharmacy Glycemic following Enteropathogenic E coli Colitis Chronic diarrhea: Likely overflow secondary to constipation, alcohol use and Infectious origin --CT ABD:The patient is cachectic. The bladder is massively distended and there is a large stool ball in the rectum. No acute abnormality is seen. Pancreatic calcifications are compatible with chronic pancreatitis. Stool studies showed enteropathogenic E. coli GI input noted Colonoscopy as outpatient Completed the course of Cefdinir Diarrhea resolved Anemia of chronic disease Normal vitamin B12, folate levels, Iron Panel Hb stable Obstructive uropathy Urinary Retention ABD USD:Bilateral hydronephrosis and dilatation of the urinary bladder Likely secondary to large stool bolus Ensure regular BM H/O Hepatitis C Untreated Follow-up as outpatient DVT Px: on SCD due to GI bleed Code Status Full Code DISPOSITION: Waiting for placement Admission and Anticipated Discharge Date Admission Date: August 06, 2021 Subjective Managed for enteropathogenic E. coli diarrhea. Being managed for severe malnutrition, generalized weakness. Patient was seen and examined for follow up of malnutrition, generalized weakness Lying in bed in no acute distress, watching TV waiting for insurance authorization /placement Denies fevers, chills, nausea, vomiting, abdominal pain, diarrhea Review of Systems Review of Systems: All systems reviewed & are unremarkable except as noted in Subjective Physical Exam Physical Exam: General- No acute distress, cachectic Head- atraumatic Eyes- PERRL, EOMI, ENT- oropharynx clear Neck- supple, no JVD Lungs- clear to auscultation Heart- regular rhythm; no murmur Abdomen- normal bowel sounds, soft, nontender Extremities- no calf tenderness Neuro- alert, oriented x 3; PERRL, EOMI; no facial palsy; no dysarthria Skin- warm & dry Results & Data Results & Data ([facility]) Vital Signs (Past 12 Hours) Vital Signs Temp Pulse Resp BP Pulse Ox O2 Del Method 09/20/21 07:27 36.8 C 103 H 18 111/71 100 Room Air Laboratory Results 09/20/21 09/20/21 09/20/21 Range/Units 12:00 08:03 07:30 WBC (4.8-10.8) K/ul RBC (3.93-5.22) M/uL Hgb (12.0-16.0) g/dl Hct (34.1-44.9) % MCV (80.0-100.0) fL MCH (25.0-34.0) pg MCHC (32.0-36.0) g/dL RDW Std Deviation (36.4-46.3) fL RDW Coeff of Justine (11.5-14.5) % Plt Count (130-400) K/uL MPV (9.4-12.3) fL Sodium 133 L (136-145) mmol/L Potassium 4.1 (3.5-5.1) mmol/L Chloride 101 (98-107) mmol/L Carbon Dioxide 27 (21-32) mmol/L Anion Gap 5 (3-11) BUN 36 H (6-23) mg/dl Creatinine 0.26 L (0.6-1.2) mg/dl Est Cr Clr Drug Dosing 115.6 ml/min Est GFR ( Amer) 147.0 ml/min Est GFR (Non-Af Amer) 126.8 ml/min BUN/Creatinine Ratio 138.5 H (10-20) Glucose 136 H (70-99(Fasting)) mg/dl POC Glucose 158 H 137 H (70-99) mg/dl Calcium 9.0 (8.5-10.1) mg/dl Phosphorus 4.3 (2.5-4.9) mg/dl Magnesium 1.6 L (1.7-2.4) mg/dl 09/20/21 09/19/21 09/19/21 Range/Units 07:30 20:26 17:16 WBC 5.54 (4.8-10.8) K/ul RBC 3.32 L (3.93-5.22) M/uL Hgb 10.9 L (12.0-16.0) g/dl Hct 31.7 L (34.1-44.9) % MCV 95.5 (80.0-100.0) fL MCH 32.8 (25.0-34.0) pg MCHC 34.4 (32.0-36.0) g/dL RDW Std Deviation 45.4 (36.4-46.3) fL RDW Coeff of Justine 12.9 (11.5-14.5) % Plt Count 184 (130-400) K/uL MPV 10.1 (9.4-12.3) fL Sodium (136-145) mmol/L Potassium (3.5-5.1) mmol/L Chloride (98-107) mmol/L Carbon Dioxide (21-32) mmol/L Anion Gap (3-11) BUN (6-23) mg/dl Creatinine (0.6-1.2) mg/dl Est Cr Clr Drug Dosing ml/min Est GFR ( Amer) ml/min Est GFR (Non-Af Amer) ml/min BUN/Creatinine Ratio (10-20) Glucose (70-99(Fasting)) mg/dl POC Glucose 160 H 151 H (70-99) mg/dl Calcium (8.5-10.1) mg/dl Phosphorus (2.5-4.9) mg/dl Magnesium (1.7-2.4) mg/dl Medications Administered Current Inpatient Medications Acetaminophen (Acetaminophen 500 Mg Tab) 500 mg PO Q8H PRN PRN Reason: Pain or Fever Stop: 10/09/21 14:13 Last Admin: 09/19/21 21:19 Dose: 500 mg Bisacodyl (Bisacodyl 10 Mg Supp) 10 mg GA BID PRN PRN Reason: Constipation Stop: 10/09/21 15:08 Last Admin: 09/15/21 01:30 Dose: 10 mg Dextrose (Dextrose 50% 50 Ml Syringe) 25 - 50 ml IV UD PRN; Protocol PRN Reason: Hypoglycemia Protocol Stop: 10/09/21 07:14 Docusate Sodium (Docusate Sodium 100 Mg Cap) 100 mg PO BID [facility] Stop: 10/09/21 08:59 Last Admin: 09/20/21 07:44 Dose: 100 mg Glucagon (Glucagon For Inj 1 Mg Vial) 1 mg IM UD PRN; Protocol PRN Reason: Hypoglycemia Protocol Stop: 10/09/21 07:14 Glucose (Glucose 40% Gel 15 Gm Tube) 15 - 30 gm PO UD PRN; Protocol PRN Reason: Hypoglycemia Protocol Stop: 10/09/21 07:14 Glucose (Glucose 10 Tab/Tube) 4 - 8 tab PO UD PRN; Protocol PRN Reason: Hypoglycemia Protocol Stop: 10/09/21 07:14 Insulin Aspart (Insulin Aspart Per Unit) 0 units [place] 0730 [facility]; Protocol Stop: 10/06/21 07:29 Last Admin: 09/20/21 08:51 Dose: Not Given Insulin Aspart (Insulin Aspart Per Unit) 0 units SC 1130,1630,2100 [facility]; Protocol Stop: 10/05/21 16:29 Last Admin: 09/20/21 13:27 Dose: 3 units Insulin Glargine (Lantus Per Unit Charge) 0 units SQ DAILY [facility]; Protocol Stop: 10/17/21 08:59 Last Admin: 09/20/21 08:54 Dose: 10 units Lidocaine (Lidocaine 5% 1 Patch) 1 patch TD QAM [facility] Stop: 10/19/21 14:44 Last Admin: 09/20/21 07:42 Dose: 1 patch Loperamide HCl (Loperamide Hcl 2 Mg Cap) 2 mg PO DAILY PRN PRN Reason: Diarrhea Stop: 10/09/21 07:46 Magnesium Chloride (Magnesium Chloride W/Calcium 64mg Delayed Rel Tab) 64 mg PO BID [facility] Stop: 10/16/21 08:59 Last Admin: 09/20/21 07:41 Dose: 64 mg Melatonin (Melatonin 3 Mg Tab) 3 mg PO HS PRN PRN Reason: Sleep Stop: 10/19/21 00:02 Last Admin: 09/19/21 21:15 Dose: 3 mg Miscellaneous (Remove Lidoderm Patch) 1 each N/A DAILY@2100 [facility] Stop: 10/19/21 20:59 Last Admin: 09/19/21 21:17 Dose: 1 each Miscellaneous (Carbohydrates For Hypoglycemia ) 15 - 30 gm PO UD PRN PRN Reason: Hypoglycemia Treatment Stop: 10/09/21 07:14 Miscellaneous (Remove Nicoderm Patch) 1 each N/A DAILY@0859 [facility] Stop: 10/09/21 08:58 Last Admin: 09/20/21 07:41 Dose: 1 each Miscellaneous Information (Pharmacy Glycemic Mgmt Consult) 1 each N/A UD PRN PRN Reason: Consult Stop: 10/09/21 16:48 Multivitamins/Minerals (Calcium 600mg + Vit D 400 Iu Tab) 1 tab PO BID [facility] Stop: 10/06/21 20:59 Last Admin: 09/20/21 07:41 Dose: 1 tab Multivitamins/Minerals (Cerovite Adv Formula Tab) 1 tab PO QAM [facility] Stop: 10/07/21 08:59 Last Admin: 09/20/21 07:42 Dose: 1 tab Nicotine (Nicotine 14 Mg/24 Hr Patch) 14 mg TD DAILY [facility] Stop: 10/09/21 08:59 Last Admin: 09/20/21 07:43 Dose: 14 mg Potassium Chloride (Potassium Chloride Crtab 20 Meq Tabcr) 20 meq PO DAILY [facility] Stop: 10/16/21 08:59 Last Admin: 09/20/21 07:42 Dose: 20 meq Sodium Chloride (Sodium Chloride 1 Gm Tablet) 2 gm PO TID [facility] Stop: 10/19/21 08:59 Last Admin: 09/20/21 07:41 Dose: 2 gm Tramadol HCl (Tramadol Hcl 50 Mg Tablet) 50 mg PO Q8H PRN PRN Reason: Pain Stop: 10/16/21 09:52 Last Admin: 09/20/21 07:41 Dose: 50 mg Urea (Urea (Urea-Na) 15 Gm Pack) 15 gm PO BID [facility] Stop: 10/16/21 08:59 Last Admin: 09/20/21 07:44 Dose: 15 gm
[2021-09-20] MEDS: ACETAMINOPHEN 500 MG TAB PO PRN (17:27)
[2021-09-21] MEDS: INSULIN ASPART PER UNIT SC SCH ×2 (08:53→12:45)
[2021-09-21] MEDS: LANTUS PER UNIT CHARGE SQ SCH (08:54)
[2021-09-21] MEDS: CALCIUM 600MG + VIT D 400 IU TAB PO SCH (09:00)
[2021-09-21] MEDS: MAGNESIUM CHLORIDE W/CALCIUM 64MG DELAYED REL TAB PO SCH (09:01)
[2021-09-21] MEDS: SODIUM CHLORIDE 1 GM TABLET PO SCH (09:01)
[2021-09-21] MEDS: DOCUSATE SODIUM 100 MG CAP PO SCH (09:01)
[2021-09-21] MEDS: POTASSIUM CHLORIDE CRTAB 20 MEQ TABCR PO SCH (09:02)
[2021-09-21] MEDS: CEROVITE ADV FORMULA TAB PO SCH (09:03)
[2021-09-21] MEDS: LIDOCAINE 5% 1 PATCH TD SCH (09:03)
[2021-09-21] MEDS: UREA (UREA-NA) 15 GM PACK PO SCH (09:04)
[2021-09-21] MEDS: NICOTINE 14 MG/24 HR PATCH TD SCH (09:04)
[2021-09-21] MEDS: traMADol HCL 50 MG TABLET PO PRN (09:14)
--- NOTE | 2021-10-05 10:47 | Discharge Summary ---
Date of Service September 21, 2021 Admission HPI Per Admitting Provider CHIEF COMPLAINT: Weakness, poor appetite, alcoholism. HISTORY OF PRESENT ILLNESS: A 66-year-old female with past medical history significant for impaired glucose tolerance, chronic hepatitis C, history of acute alcoholic hepatitis, carpal tunnel syndrome, cervical spondylosis, lumbosacral spondylosis, cervical radiculopathy, family history of colon cancer, history of tobacco use disorder, who lives at home with her boyfriend, was brought in by boyfriend and daughter because of frequent falls, very weak, ongoing diarrhea for the last 2-3 months, taking Imodium daily, loss of weight, feeling weak. The patient is alert and oriented to name and place. She could tell the year, but she thinks it is still May. Denies any headache. She sometimes feels lightheaded. Hs some runny nose, no sore throat, no cough, no fevers. Appetite is poor. No difficulty swallowing. No chest pain, no shortness of breath. No nausea, no vomiting, no abdominal pain, chronic diarrhea. Denies any blood in stool or black stools. Has bruises in the legs from falling frequently at home.As per the family doctor notes , she was found to have hepatitis B surface antibody positive, but the surface antigen was negative - no chronic infection.. Since she was drinking alcohol, hepatitis C treatment was not given as per the PCP notes. Admission Exam Per Admitting Provider GENERAL: The patient is thin and frail, not in acute distress. VITAL SIGNS: Temperature 36.5, pulse 90, respiratory rate 14, blood pressure 135/86, oxygen 98% on room air. HEENT: Pupils equal, round and reactive to light. Oral mucosa moist. NECK: No JVD, no neck masses. CARDIOVASCULAR: S1 and S2 heard. Regular rate and rhythm. No murmur, no gallop. RESPIRATORY: Normal AP diameter. No accessory muscle use. No wheezing, no crackles. ABDOMEN: Soft. Bowel sounds present, nontender, no distention. CENTRAL NERVOUS SYSTEM: Alert and oriented. No facial droop. Speech is clear. Obeys simple commands. Moves extremities. EXTREMITIES: Bruises seen lower extremities, nails have grown long. No edema seen. Principal Diagnosis Protein-calorie malnutrition, severe: Severe protein calorie malnutrition Generalized Weakness Alcohol use Disorder Rectal Bleeding Electrolyte abnormalities Diabetes type 2 Enteropathogenic E coli Colitis Chronic diarrhea: Anemia of chronic disease Obstructive uropathy Urinary Retention H/O Hepatitis C Discharge Exam General- No acute distress, cachectic Head- atraumatic Eyes- PERRL, EOMI, ENT- oropharynx clear Neck- supple, no JVD Lungs- clear to auscultation Heart- regular rhythm; no murmur Abdomen- normal bowel sounds, soft, nontender Extremities- no calf tenderness Neuro- alert, oriented x 3; PERRL, EOMI; no facial palsy; no dysarthria Skin- warm & dry Discharge Data Allergies Allergy/AdvReac Type Severity Reaction Status Date / Time codeine Allergy Unknown Unknown Verified 09/09/21 07:53 ragweed pollen Allergy Unknown Unknown Verified 09/09/21 07:53 acetaminophen Allergy GI SYMPTOMS Verified 07/16/12 07:20 house dust Allergy Unknown Verified 09/09/21 07:53 hydrocodone Allergy GI SYMPTOMS Verified 07/16/12 07:20 morphine Allergy GI SYMPTOMS Verified 07/16/12 07:20 Consultations 08/06/21 19:41 ED Decision to Admit Stat 08/07/21 08:00 Consult Gastroenterology Routine 08/09/21 07:48 Consult Nephrology Routine 08/12/21 09:53 Consult Palliative Care Routine 09/20/21 13:39 Consult Behavioral Health Liaison Routine Ordered Studies 08/06/21 17:13 CT head/brain wo con Stat 08/06/21 20:20 CT abd pelvis IV con only Urgent CT chest diagnostic w con Urgent 08/07/21 12:27 US abdomen ltd ascites Routine US abdomen ltd ascites CLINICAL HISTORY: Pancreatitis. Evaluate for ascites. TECHNIQUE: Real-time grayscale sonographic images of the 4 quadrants were obtained. Comparison: None available at the time of this dictation. FINDINGS: There is no evidence for ascites in the 4 quadrants. There is evidence for bilateral hydronephrosis. The kidneys and distended urinary bladder. IMPRESSION: 1. No evidence for ascites. 2. Bilateral hydronephrosis and dilatation of the urinary bladder. ACT 112: Negative or not required by law. Electronically signed by: Gama Hudson M.D. 08/07/2021 2:30 PM Dictated:08/07/211427 Transcribed: 08/07/211427 CT chest diagnostic w con CLINICAL HISTORY: poor appetite, loss of weight, failure to thrive TECHNIQUE: Multidetector row helical CT of the chest was performed with intravenous contrast. Coronal and sagittal reformations were obtained. Automated dose lowering techniques and/or adjustment according to patient size were utilized for this exam. Comparison: None available at the time of this dictation. FINDINGS: Lungs and pleura: There is a 6 mm nodule in the right lower lobe. Heart and pericardium: Heart size is normal. No pericardial effusion. Vessels: Moderate atherosclerotic changes in the aorta and coronary arteries. Mediastinum and zbigniew: Unremarkable. Chest wall and lower neck: The patient is cachectic. Abdomen: For findings below the diaphragm, please refer to CT of the abdomen dated the same. Bones: Degenerative changes in the thoracic spine. IMPRESSION: 1. Cachexia. No acute abnormality is seen. 2. Atherosclerosis. 3. 6 mm nodule in the right lower lobe, correlation with prior imaging, available, is recommended. ACT 112: Negative or not required by law. Electronically signed by: Tay Irwin M.D. 08/06/2021 9:33 PM Dictated:08/06/212130 Transcribed: 08/06/212130 CT abd pelvis IV con only CLINICAL HISTORY: poor appetite, loss of weight, hep c TECHNIQUE: Helical axial images of the abdomen and pelvis were obtained and displayed. Automated dose lowering techniques and/or adjustment according to patient size were utilized for this exam. This exam was performed with intravenous contrast. CT DOSE: 421.85 mGy.cm COMPARISON: Comparison is made to CT abdomen pelvis 10/10/2006 FINDINGS: Lower chest: Mitral annular calcifications are seen. Liver: Hepatic steatosis is noted. Gallbladder and biliary tree: No calcified gallstones. Normal caliber wall. No intra- or extrahepatic biliary ductal dilation. Pancreas: Calcified appears of the pancreas compatible with chronic pancreatitis. There is a 2 cm pancreatic cyst. Spleen: Unremarkable. Adrenals: Unremarkable. Kidneys and ureters: Unremarkable. Bladder: The bladder is markedly distended. Reproductive organs: Unremarkable. Bowel: A large stool ball is seen in the rectum. Lymph nodes Retroperitoneal: Unremarkable. Mesenteric: Unremarkable. Pelvic: Unremarkable. Peritoneum: Normal. Vessels: Unremarkable. Abdominal wall: Cachexia is seen. Bones: Degenerative changes in the visualized spine. IMPRESSION: 1. The patient is cachectic. The bladder is massively distended and there is a large stool ball in the rectum. No acute abnormality is seen. 2. Pancreatic calcifications are compatible with chronic pancreatitis. ACT 112: Negative or not required by law. Electronically signed by: Tay Irwin M.D. 08/06/2021 9:58 PM Dictated:08/06/212151 Transcribed: 08/06/212151 CT head/brain wo con CLINICAL HISTORY: weakness Technique: Contiguous axial CT images of the head were acquired from the base of the skull to the vertex without intravenous contrast administration. Images were viewed in brain, subdural and bone windows. Automated dose lowering techniques and/or adjustment according to patient size were utilized for this exam. Comparison: None available at the time of this dictation. Findings: Areas of decreased attenuation are present in the periventricular and subcortical white matter bilaterally consistent with small vessel ischemic disease. Generalized cerebral atrophy with commensurate enlargement of the ventricles, sulci, and cisterns is also present. There is no acute intracranial hemorrhage or evidence of acute territorial infarction. No shift of the midline structures, mass effect, or extra-axial abnormalities are shown. At herosclerotic calcifications are present in the intracranial segments of the internal carotid arteries. There is opacification of the right mastoid air cell. Right ethmoid sinuses are opacified. The orbits appear normal. There are no acute fractures of the calvaria or scalp swelling. Impression: No acute intracranial hemorrhage, no evidence of acute territorial infarction or other acute intracranial disease process. Sinus disease is noted. ACT 112: Negative or not required by law. Electronically signed by: Tay Irwin M.D. 08/06/2021 6:19 PM Dictated:08/06/211817 Transcribed: 08/06/211817 XR chest 1V portable CLINICAL HISTORY: weakness TECHNIQUE: Single frontal radiograph of the chest was obtained. Comparison: Comparison is made to chest and abdomen radiographs 10/04/2006 FINDINGS: No lines and tubes are seen. The cardiomediastinal silhouette is normal. The lungs are clear. No evidence of pleural effusion or pneumothorax. IMPRESSION: No acute chest disease. ACT 112: Negative or not required by law. Electronically signed by: Tay Irwin M.D. 08/06/2021 6:43 PM Dictated:08/06/211841 Transcribed: 08/06/211841 Hospital Course (1) Protein-calorie malnutrition, severe: This is a 66 yo female with H/O Chronic alcoholism and hepatitis C, who presents with weakness, poor appetite, weight loss and chronic diarrhea. Severe protein calorie malnutrition Generalized Weakness BMI 11.6 Weight loss, poor appetite and failure to thrive Dietitian recs noted Appreciate Palliative Care Input Continue to encourage intake Discussed with dietitian. Patient has had 30 days of folic acid and thiamine Continue daily multivitamin Continue PT/OT CM working on placement Alcohol use Disorder Patient drinks 3 beers and half pint of vodka every day prior to hospitalization Counseling on alcohol cessation Thrombocytopenia Likely secondary to alcohol use S/P 1 unit platelets Resolved Rectal Bleeding -> resolved ? Hemorrhoids Hb stable GI consulted Colonoscopy as outpatient as per GI Resolved Electrolyte abnormalities Hyponatremia ? Possible chronic hyponatremia at baseline in setting of Hyperglycemia, alcohol use disorder Sodium 136>>123>125>126> 129 ---->>>132 Nephro recs noted Currently on urea and salt tab Monitor Follow up with nephrology as outpt DM II New diagnosis HbA1c:9.2 Continue ISS Monitor BGs Glass Bender consulted Pharmacy Glycemic following Enteropathogenic E coli Colitis Chronic diarrhea: Likely overflow secondary to constipation, alcohol use and Infectious origin --CT ABD:The patient is cachectic. The bladder is massively distended and there is a large stool ball in the rectum. No acute abnormality is seen. Pancreatic calcifications are compatible with chronic pancreatitis. Stool studies showed enteropathogenic E. coli GI input noted Colonoscopy as outpatient Completed the course of Cefdinir Diarrhea resolved Anemia of chronic disease Normal vitamin B12, folate levels, Iron Panel Hb stable Obstructive uropathy Urinary Retention ABD USD:Bilateral hydronephrosis and dilatation of the urinary bladder Likely secondary to large stool bolus Ensure regular BM H/O Hepatitis C Untreated Follow-up as outpatient DVT Px: on SCD due to GI bleed Code Status Full Code DISPOSITION: Waiting for placement Total Time Total Time Spent Total Time Spent (In Minutes): 35 minutes Discharge Plan Discharge Items Patient Disposition: [facility] Reason For Visit: WEAKNESS Discharge Diagnosis: Protein-calorie malnutrition, severe: Severe protein calorie malnutrition Generalized Weakness Alcohol use Disorder Rectal Bleeding Electrolyte abnormalities Diabetes type 2 Enteropathogenic E coli Colitis Chronic diarrhea: Anemia of chronic disease Obstructive uropathy Urinary Retention H/O Hepatitis C Activity: Resume your previous activity Non-emergency contact: Primary Care Provider, [employer] 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 Continue physical and occupational therapy Check BMP in 1 week week to monitor your sodium check magnesium in 1 week Follow up with nephrology if sodium drops Follow up with gastroenterology to arrange for outpatient colonoscopy Counseling on alcohol cessation Do not drive or operate any machine after taking the Tramadol Please hold next dose of the Tramadol if you develop any drowsiness and lethargy Continue monitor your blood sugar and your provider will adjust insulin if needed Pending Studies at Discharge: No Stand-Alone Forms: My peerTransfer, Smoking Cessation Skilled Items Patient informed of condition?: Yes DNR: Yes Discharge Level of Care: Skilled Communicable Disease: No Discharge Prognosis: Stable Lines: None Urinary Catheter: No Medications and DC Order Prescriptions: New tramadol 50 mg Tablet 50 mg PO Q8H PRN (Reason: pain) Qty: 10 0RF Rx Instructions: please hold for drowsiness acetaminophen [Tylenol Extra Strength] 500 mg Tablet 500 mg PO Q8H PRN (Reason: mild pain) Qty: 30 0RF sodium chloride 1 gram Tablet 2 g PO TID 30 Days Qty: 180 0RF potassium chloride 20 mEq Tablet,Er Particles/Crystals 20 meq PO DAILY 30 Days Qty: 30 0RF docusate sodium 100 mg Capsule 100 mg PO BID 30 Days Qty: 60 0RF Rx Instructions: please hold for diarrhea Mag 64 64 mg Tablet,Delayed Release (Dr/Ec) 64 mg PO BID 30 Days Qty: 60 0RF Caltrate 600-D Plus Minerals 600 mg calcium- 800 unit-50 mg Tablet 1 tab PO BID Qty: 60 0RF Ure-Na 15 gram Powder In Packet 15 g PO BID 30 Days Qty: 60 0RF lidocaine 5 % Adhesive Patch,Medicated 1 patch transdermal QAM Qty: 5 0RF Cerovite Senior 0.4 mg-300 mcg- 250 mcg Tablet 1 tab PO QAM Qty: 30 0RF insulin glargine [Basaglar KwikPen U-100 Insulin] 100 unit/mL (3 mL) insulin pen 10 unit subcut QAM Qty: 15 0RF (DME) pen needle,diabetic, disp unit 32 gauge x 5/32" needle See Rx Instructions .Route Qty: 100 0RF Rx Instructions: As directed Discharge Orders: Discharge Order (Routine); Ordered 09/21/21 Ordered By: Loki Rivera/Other Patient Handouts: Hypokalemia Dc, Hypomagnesemia Dc Admission Data Admit Date/Time: 08/06/21 20:20 Attending Provider: Loki Johnson Admit Provider: Julio Cesar Branch Primary Care Provider: PCP,NO Other Providers: Tk Ybarra ; Jake Lee ; Loki Johnson ; Julio Cesar Branch ; Rajani Stewart ; Criss Panchal ; Alexander Love ; Janay Spann ; Xavier Galan ; Jose Roberto De Leon ; Navin Gonzales ; Jeb Soriano ; Ximena Nolan ; Consuelo Starks ; Dominique Camarena ; Mary Alice Freeman ; Malia Johnson ; Theresa Gayle ; Arlette Hernandez I. ; Jasmine Shannon ; Linda, ; Og Day Other Interventions: Discharge Summary Assessment (RN) Last Done: 09/21/21 12:57
== END 2021-09-21 13:16 | DRG 641 ==
LOC: ED 16:45 → SUATTDRO 20:20 → 2N 20:20 → 3N 09-06 22:02
DX: E11.9 Type 2 diabetes mellitus without complications; F10.220 Alcohol dependence with intoxication, uncomplicated; E43 Unspecified severe protein-calorie malnutrition; R19.7 Diarrhea, unspecified; K59.00 Constipation, unspecified; E83.42 Hypomagnesemia; D63.8 Anemia in other chronic diseases classified elsewhere; K64.9 Unspecified hemorrhoids; B19.20 Unspecified viral hepatitis C without hepatic coma; Z88.5 Allergy status to narcotic agent; K62.5 Hemorrhage of anus and rectum; R64 Cachexia; R33.9 Retention of urine, unspecified; K86.1 Other chronic pancreatitis; E83.39 Other disorders of phosphorus metabolism; A04.0 Enteropathogenic Escherichia coli infection; Z68.1 Body mass index [BMI] 19.9 or less, adult; E87.1 Hypo-osmolality and hyponatremia; F17.210 Nicotine dependence, cigarettes, uncomplicated; N13.39 Other hydronephrosis; E87.6 Hypokalemia; D69.59 Other secondary thrombocytopenia; R29.6 Repeated falls; E86.0 Dehydration; B18.2 Chronic viral hepatitis C; R62.7 Adult failure to thrive